=== PATIENT | female | born 1960 | race Caucasian/White ===

== ENCOUNTER 2017-05-08 06:55 | Inpatient (IN) | payer MEDICAID ==
[2017-05-08 06:59] VITALS: BMI 31.3
--- NOTE | 2017-05-08 07:08 | C.PDOC ---
Chief Complaint (Nursing): Cardiac Arrest Disposition - Disposition
[2017-05-08 07:10] LABS: BASO # 0.1 K/uL (0.0-0.2); BASO % 0.5 % (0.0-2.0); EOS # 1.8 K/uL (0.0-0.7); EOS % 7.2 % (0.0-4.0); HEMATOCRIT 43.2 % (34.0-47.0); LYMPH # 5.6 K/uL (1.0-4.3); LYMPH % 22.9 % (20.0-40.0); MEAN CELL VOLUME 90.8 fL (81.0-99.0); MEAN CORPUSCULAR HEMOGLOBIN 28.5 pg (27.0-31.0); MEAN CORPUSCULAR HGB CONC 31.4 g/dL (33.0-37.0); MEAN PLATELET VOLUME 8.2 fL (7.2-11.7); MONO # 0.6 K/uL (0.0-0.8); MONO % 2.4 % (0.0-10.0); NRBC % 0.1 % (0.0-2.0); WHITE BLOOD COUNT 24.4 K/uL (4.8-10.8)
--- NOTE | 2017-05-08 07:13 | C.PDOC ---
History Of Present Illness LIMITED DUE TO CLIN COND HX PER EMS, [place] S/O FROM DR Victoriano FONTANEZ. BIBA EMS STATUS ASTHMA. +CARDIAC ARREST PER EMS, PULSELESS W CPR. S/P INTUB BY EMS FORENSIC MEDICAL EXAMINER, EPI. NOW W RETURN OF SPONT PULSE. SP DUONEBS, SOLUMEDROL 125 PER , PT BEDBOUND AND NONVERBAL X 1 YEAR PROGRESSIVE WORSENING? STATES BASELINE PT UNDERSTANDS AND CAN ACKNOWLEDGE QUESTIONS W HEAD NODDING. FEEDING VIA PEG ROS UTO EXAM STABLE HEENT PUPILS SLUGGISH LUNGS sp intub CTA B/L BREATHING W VENT ABD +PEG; SOFT NT ND NEURO MOUTH TREMOR NO SPONT MOVEMENT NO RESPONSE TO PAIN S/P RSI SKIN DRY NO ULCERS GEN NONPITTING EDEMA Time Seen by Provider: 05/08/17 07:11 Chief Complaint (Nursing): Cardiac Arrest History Per: EMS, Family () Circumstances: Brought To ED By EMS Past Medical History Reviewed: Historical Data, Nursing Documentation, Vital Signs Vital Signs: Last Vital Signs Temp 98.3 F 05/08/17 09:00 Pulse 113 H 05/08/17 09:00 Resp 16 05/08/17 09:00 BP 116/72 05/08/17 09:00 Pulse Ox 100 05/08/17 09:09 Family History: States: No Known Family Hx Review Of Systems Review Of Systems: ROS cannot be obtained secondary to pt's inabilty to answer questions. Physical Exam - Physical Exam Appears: Non-toxic, No Acute Distress, Other ((+) Mouth - Tremor. No spontaneous movement. ) Skin: Warm, Dry, No Rash Head: Atraumatic, Normacephalic Eye(s): bilateral: Other (Sluggish) Oral Mucosa: Moist Respiratory: Normal Breath Sounds (s/p intubation), Other (Bilateral breathing with vent) Gastrointestinal/Abdominal: Soft, No Tenderness, No Distention, Other ((+) Peg) Extremity: Other ((+) General non pitting edema) Neurological/Psych: No Response To Commands Pain Response: No Response To Pain ED Course And Treatment - Laboratory Results Result Diagrams: 05/08/17 07:07 05/08/17 07:07 ECG: Interpreted By Me, Viewed By Me ECG Rhythm: Sinus Tachycardia ECG Interpretation: Abnormal Rate From EC (BPM) O2 Sat by Pulse Oximetry: 100 (RA) Pulse Ox Interpretation: Normal - Radiology CXR: Interpreted by Me, Viewed By Me CXR Interpretation: Yes: No Acute Disease, Other (ett above carlos) - CT Scan/US CT - Head Other Rad Studies (CT/US): Read By Radiologist, Radiology Report Reviewed CT/US Interpretation: PROCEDURE: CT HEAD WITHOUT CONTRAST. HISTORY: CODE FREEZE. COMPARISON: None available. TECHNIQUE: Axial computed tomography images were obtained through the head/brain without intravenous contrast. Radiation dose: Total exam DLP = 926 mGy-cm. This CT exam was performed using one or more of the following dose reduction techniques: Automated exposure control, adjustment of the mA and/or kV according to patient size, and/or use of iterative reconstruction technique. FINDINGS: HEMORRHAGE: No intracranial hemorrhage. BRAIN: Dense bilateral basal ganglia calcifications. Scattered focal lucencies in the subcortical and periventricular white matter suggestive for chronic microvascular ischemic change. Small focal hypodensity seen within the inferior left cerebellum which may be related to the 4th ventricle. VENTRICLES: Moderate prominence of the ventricles. CALVARIUM: Unremarkable. PARANASAL SINUSES: Ethmoid sinus mucosal thickening. Small mucosal retention cyst and or polyp in the anterior right maxillary sinus. MASTOID AIR CELLS: Unremarkable as visualized. No inflammatory changes. OTHER FINDINGS: None. IMPRESSION: Chronic microvascular ischemic changes. Dense bilateral basal ganglia calcifications. Diffuse moderate prominence of the ventricles. Clinical correlation. Ethmoid sinus mucosal thickening. If focal neurologic deficit persists, consider MRI. These findings were discussed with Dr. Gore at 8: 58 a.m. on 05/08/2017. Progress - Re-Evaluation Re-evaluation Note: 05/08/17 07:12 PER CONSTRUCTION ANALYST, DR Meche REYES CALLED PRIOR TO PT ARRIVAL, STATES TO ADMIT PT TO HIS SERVICE 05/08/17 07:39 D/W DR FLORENTINO WILL CONSULT 05/08/17 07:45 D/W DR MCFARLAND C/F ICU, WILL ADMIT 05/08/17 09:00 D/W DR PAUL HEAD CT NO ACUTE FINDINGS. CODE FREEZE ACTIVED - Data Reviewed Data Reviewed: Lab, Diagnostic imaging, EKG, Old records Medical Decision Making Medical Decision Making: PLAN: * CT - Head * CXR * EKG * Troponin * VBG * ABG * CBC * CMP * BNP * Influenza * Versed IV * Fentanyl IV * Diprivan IV * Buspar PEG * Tylenol PEG * Lacri-Lube OU NOTE: Disposition Counseled Patient/Family Regarding: Studies Performed, Diagnosis - Disposition Disposition: HOSPITALIZED Disposition Time: 08:13 Condition: CRITICAL - POA Present On Arrival: Poor Glycemic Control - Clinical Impression Clinical Impression: Cardiac arrest, Respiratory arrest, Status asthmaticus - Scribe Statement The provider has reviewed the documentation as recorded by the Alejoibe Leela Muñoz Provider Attestation: All medical record entries made by the Alejoibnicolas were at my direction and personally dictated by me. I have reviewed the chart and agree that the record accurately reflects my personal performance of the history, physical exam, medical decision making, and the department course for this patient. I have also personally directed, reviewed, and agree with the discharge instructions and disposition.
[2017-05-08 07:18] LABS: INR 1.2
[2017-05-08 07:35] LABS: VENOUS BLOOD GAS BASE EXCESS -9.9 mmol/L (0.0-2.0); VENOUS BLOOD GAS PCO2 80 mmHg (40-60); VENOUS BLOOD PH 7.05 (7.32-7.43)
[2017-05-08] MEDS ORDERED: Midazolam 2 MG/2 ML VIAL ONE (07:37)
[2017-05-08] MEDS ORDERED: Midazolam 2 MG/2 ML VIAL IV STA (07:40)
[2017-05-08 07:46] LABS: ALB/GLOB RATIO 1.3 (1.0-2.1); ALKALINE PHOSPHATASE 122 U/L (38-126); ALT/SGPT 85 U/L (9-52); AST/SGOT 135 U/L (14-36); BILIRUBIN,TOTAL 0.7 mg/dL (0.2-1.3); BLOOD UREA NITROGEN 14 mg/dL (7-17); CARBON DIOXIDE 20 mmol/L (22-30); CHLORIDE 102 mmol/L (98-107); GFR AFRICAN-AMERICAN > 60; GLUCOSE,RANDOM 263 mg/dL (65-105); POTASSIUM 5.1 mmol/L (3.6-5.2); SODIUM 138 mmol/L (132-148); TOTAL PROTEIN 6.4 g/dL (6.3-8.3)
--- NOTE | 2017-05-08 08:33 | RAD ---
Chest x-ray single frontal view History: Cardiac arrest. Comparison: None available. Findings: Endotracheal tube extending into the mid thoracic trachea. Multiple external pads and tubing. Mild venous congestion. Mild cardiomegaly. Degenerative changes in the spine and shoulders. Impression: Mild venous congestion. Mild cardiomegaly.
--- NOTE | 2017-05-08 09:02 | CT ---
PROCEDURE: CT HEAD WITHOUT CONTRAST. HISTORY: CODE FREEZE COMPARISON: None available. TECHNIQUE: Axial computed tomography images were obtained through the head/brain without intravenous contrast. Radiation dose: Total exam DLP = 926 mGy-cm. This CT exam was performed using one or more of the following dose reduction techniques: Automated exposure control, adjustment of the mA and/or kV according to patient size, and/or use of iterative reconstruction technique. FINDINGS: HEMORRHAGE: No intracranial hemorrhage. BRAIN: Dense bilateral basal ganglia calcifications. Scattered focal lucencies in the subcortical and periventricular white matter suggestive for chronic microvascular ischemic change. Small focal hypodensity seen within the inferior left cerebellum which may be related to the 4th ventricle. VENTRICLES: Moderate prominence of the ventricles. CALVARIUM: Unremarkable. PARANASAL SINUSES: Ethmoid sinus mucosal thickening. Small mucosal retention cyst and or polyp in the anterior right maxillary sinus. MASTOID AIR CELLS: Unremarkable as visualized. No inflammatory changes. OTHER FINDINGS: None. IMPRESSION: Chronic microvascular ischemic changes. Dense bilateral basal ganglia calcifications. Diffuse moderate prominence of the ventricles. Clinical correlation. Ethmoid sinus mucosal thickening. If focal neurologic deficit persists, consider MRI. These findings were discussed with Dr. Gore at 8:58 a.m. on 05/08/2017.
[2017-05-08 09:18] LABS: ABG ALLEN TEST POS; ABG MECHANICAL RATE 14; ARTERIAL BLOOD GAS MODE A/C; ATERIAL BLOOD GAS PEEP 5; DRAW SITE LB
[2017-05-08] MEDS ORDERED: Propofol 10 mg/ml Inj (100 ml) IV SCH (09:45)
[2017-05-08] MEDS: Acetaminophen 650mg/20.3ml solution UD PEG PRN (09:50)
[2017-05-08] MEDS: Propofol 10 mg/ml 1,000 MG/100 ML VIAL IV PRN (10:10)
[2017-05-08] MEDS: Sodium Chloride 0.9% 1,000 ML IV SCH ×2 (10:40→20:30)
[2017-05-08] MEDS: White Petrolatum/Mineral Oil Ophth Oint(3.5 gm) OU SCH ×3 (12:00→20:29)
--- NOTE | 2017-05-08 12:55 | CP.PCM.CON ---
History of Present Illness - History of Present Illness History of Present Illness: Reason for consultation: Respiratory failure 57F with PMH early onset dementia, seizures, and questionable asthma who was brought to the ED via EMS from her longterm, [facility], where she was witnessed cardiopulmonary arrest. EMS intubated the patient in the field and ROSC was achieved. Upon arrival to the ED patient was having myoclonic jerks and code freeze was initiated. Patient remained intubated and patient was admitted to the ICU. Review of Systems - Review of Systems Systems not reviewed;Unavailable: Intubated Past Patient History - Past Social History Smoking Status: Never Smoked - PULMONARY Hx Pneumonia: Yes - NEUROLOGICAL Hx Alzheimer's Disease: Yes Hx Seizures: Yes - RENAL Other/Comment: uti - GASTROINTESTINAL Other/Comment: GT - PSYCHIATRIC Hx Substance Use: No Meds Allergies/Adverse Reactions: Allergies Allergy/AdvReac Type Severity Reaction Status Date / Time Penicillins Allergy Verified 05/08/17 07:09 - Medications Medications: Current Medications Acetaminophen (Tylenol 650mg/20.3ml Solution Ud) 975 mg PEG Q6 PRN PRN Reason: Rigors Last Admin: 05/08/17 09:50 Dose: 975 mg Artificial Tears (Lacri-Lube) 0 gm OU Q4 LINNETTE Last Admin: 05/08/17 12:00 Dose: 1 gm Buspirone HCl (Buspar) 30 mg PEG Q8 LINNETTE Stop: 05/09/17 06:01 Propofol (Diprivan) 1,000 mg in 100 mls @ 2.722 mls/hr IV .Q24H PRN; Protocol; 5 MCG/KG/MIN PRN Reason: TITRATE PER MD ORDER Last Admin: 05/08/17 10:10 Dose: 5 mcg/kg/min, 2.722 mls/hr Sodium Chloride (Sodium Chloride 0.9%) 1,000 mls @ 100 mls/hr IV .Q10H LINNETTE Last Admin: 05/08/17 10:40 Dose: 100 mls/hr Physical Exam - Head Exam Head Exam: ATRAUMATIC, NORMOCEPHALIC - ENT Exam ENT Exam: Mucous Membranes Moist - Neck Exam Neck exam: Positive for: Normal Inspection - Respiratory Exam Respiratory Exam: Decreased Breath Sounds - Cardiovascular Exam Cardiovascular Exam: REGULAR RHYTHM - GI/Abdominal Exam GI & Abdominal Exam: Normal Bowel Sounds, Soft - Extremities Exam Extremities exam: Positive for: normal inspection Results - Vital Signs Recent Vital Signs: Last Vital Signs Temp 94.2 F L 05/08/17 12:01 Pulse 77 05/08/17 12:01 Resp 16 05/08/17 12:01 BP 99/72 L 05/08/17 12:01 Pulse Ox 99 05/08/17 12:01 - Labs Result Diagrams: 05/09/17 17:57 05/09/17 17:57 Labs: Laboratory Results - last 24 hr 05/08/17 05/08/17 05/08/17 07:07 07:07 07:07 WBC 24.4 H RBC 4.75 Hgb 13.5 Hct 43.2 MCV 90.8 MCH 28.5 MCHC 31.4 L RDW 14.0 Plt Count 345 MPV 8.2 Neut % (Auto) 67.0 Lymph % (Auto) 22.9 Branch % (Auto) 2.4 Eos % (Auto) 7.2 H Baso % (Auto) 0.5 Neut # 16.4 H Lymph # 5.6 H Branch # 0.6 Eos # 1.8 H Baso # 0.1 PT 13.6 H INR 1.2 APTT 40 H Puncture Site pCO2 pO2 HCO3 ABG pH ABG Total CO2 ABG O2 Saturation ABG Base Excess Evans Test ABG Potassium VBG pH VBG pCO2 VBG HCO3 VBG Total CO2 VBG O2 Sat (Calc) VBG Base Excess A-a O2 Difference Respiratory Index Glucose Lactate Vent Mode Mechanical Rate FiO2 PEEP Crit Value Called To Crit Value Called By Crit Value Read Back Blood Gas Notified Time Sodium 138 Potassium 5.1 Chloride 102 Carbon Dioxide 20 L Anion Gap 21 H BUN 14 Creatinine 0.6 L Est GFR ( Amer) > 60 Est GFR (Non-Af Amer) > 60 POC Glucose (mg/dL) Random Glucose 263 H Calcium 8.0 L Total Bilirubin 0.7 AST 135 H ALT 85 H Alkaline Phosphatase 122 Troponin I 0.0580 NT-Pro-B Natriuret Pep 298 Total Protein 6.4 Albumin 3.7 Globulin 2.7 Albumin/Globulin Ratio 1.3 Arterial Blood Potassium Influenza Typ A,B (EIA) 05/08/17 05/08/17 05/08/17 07:20 08:47 09:10 WBC RBC Hgb Hct MCV MCH MCHC RDW Plt Count MPV Neut % (Auto) Lymph % (Auto) Branch % (Auto) Eos % (Auto) Baso % (Auto) Neut # Lymph # Branch # Eos # Baso # PT INR APTT Puncture Site Lb pCO2 54 H pO2 231 H 274 H HCO3 17.8 L ABG pH 7.17 L* ABG Total CO2 21.4 L ABG O2 Saturation 100.7 H ABG Base Excess -9.2 L Evans Test Pos ABG Potassium 4.6 VBG pH 7.05 L* VBG pCO2 80 H* VBG HCO3 17.3 VBG Total CO2 24.6 VBG O2 Sat (Calc) 100.1 H VBG Base Excess -9.9 L A-a O2 Difference 372.0 Respiratory Index 1.4 Glucose 269 H 301 H Lactate 9.1 H* 2.5 H Vent Mode A/c Mechanical Rate 14 FiO2 100.0 PEEP 5 Crit Value Called To Dr. scott chavez Crit Value Called By [facility] Crit Value Read Back Y Y Blood Gas Notified Time 730 915 Sodium 189.0 H* 140.0 Potassium Chloride 126.0 H 108.0 H Carbon Dioxide Anion Gap BUN Creatinine Est GFR ( Amer) Est GFR (Non-Af Amer) POC Glucose (mg/dL) Random Glucose Calcium Total Bilirubin AST ALT Alkaline Phosphatase Troponin I NT-Pro-B Natriuret Pep Total Protein Albumin Globulin Albumin/Globulin Ratio Arterial Blood Potassium 4.6 Influenza Typ A,B (EIA) Negative for flu a/b 05/08/17 10:09 WBC RBC Hgb Hct MCV MCH MCHC RDW Plt Count MPV Neut % (Auto) Lymph % (Auto) Branch % (Auto) Eos % (Auto) Baso % (Auto) Neut # Lymph # Branch # Eos # Baso # PT INR APTT Puncture Site pCO2 pO2 HCO3 ABG pH ABG Total CO2 ABG O2 Saturation ABG Base Excess Evans Test ABG Potassium VBG pH VBG pCO2 VBG HCO3 VBG Total CO2 VBG O2 Sat (Calc) VBG Base Excess A-a O2 Difference Respiratory Index Glucose Lactate Vent Mode Mechanical Rate FiO2 PEEP Crit Value Called To Crit Value Called By Crit Value Read Back Blood Gas Notified Time Sodium Potassium Chloride Carbon Dioxide Anion Gap BUN Creatinine Est GFR ( Amer) Est GFR (Non-Af Amer) POC Glucose (mg/dL) 269 H Random Glucose Calcium Total Bilirubin AST ALT Alkaline Phosphatase Troponin I NT-Pro-B Natriuret Pep Total Protein Albumin Globulin Albumin/Globulin Ratio Arterial Blood Potassium Influenza Typ A,B (EIA)
[2017-05-08 13:28] LABS: VENOUS BLOOD GAS BASE EXCESS -7.7 mmol/L (0.0-2.0); VENOUS BLOOD GAS PCO2 73 mmHg (40-60); VENOUS BLOOD PH 7.11 (7.32-7.43)
--- NOTE | 2017-05-08 14:46 | CP.CCUPN ---
CCU Subjective - Physician Review Events Since Last Encounter (Free Text): 05/08/17 14:45 Chief complaint: Cardiac arrest History of present illness: 57-year-old female with advanced dementia, bedridden, dysphagia, status post PEG , history of asthma patient is nonverbal. The patient currently living in assisted, EMS was called because patient was found unresponsive, and found to have no pulse, CPR started, intubated, brought into the emergency room. No further information is available. According to the she was okay yesterday, she nodes her head to simple commands, and she did not have any unusual problems yesterday. Now patient is on ventilator. Unresponsive. Patient is also currently on hypothermia blanket. Her history includes asthma, patient was also having some SOB today, upon arrival EMS was found in status asthmaticus. Past medical history: Advanced dementia, Alzheimer's dementia, status post PEG tube insertion. Allergy: Penicillin Past history noted from the chart. Nonsmoker Family history noncontributory Review of systems noted from the chart Currently on ventilator. Unresponsive. Review of system was noted Vital signs reviewed No neck vein distention noted Chest bilateral wheezing noted Intubated at this time, expiratory wheezing noted CVS regular heart sound, no murmur noted Abdomen soft, nontender. PEG tube noted Extremities no pedal edema Patient is unresponsive. Mild sedation on. But the patient is having muscle twitches, and the facial twitching is noted On hyperthermic blanket. Labs reviewed Chest x-ray nonspecific COPD pattern noted Assessment and recognition: 57-year-old female with advanced dementia, bedridden, status post pigtail detention patient. Admitted with the acute cardiac arrest, the cause is unclear, likely status asthmaticus. 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 On hypothermia blanket. We'll continue the hypothermia. Overall prognosis is very poor. I spoke to the patient . Patient daughter will be coming this evening. We'll explained to the family about further management. Neurological evaluation, and palliative care evaluation may be needed at at this time. Will follow the patient poor prognosis CCU Objective - Vital Signs / Intake & Output Vital Signs (Last 4 hours): Vital Signs Temp Pulse Resp BP Pulse Ox 05/08/17 12:01 94.2 F L 77 16 99/72 L 99 05/08/17 11:46 94.1 F L 77 16 99/72 L 99 05/08/17 11:02 95.6 F L 82 16 106/67 99 05/08/17 10:46 96.7 F L 94 H 16 113/69 100 Intake and Output (Last 8hrs): Intake & Output 05/07/17 05/08/17 05/08/17 22:59 06:59 14:59 Intake Total 1102 Output Total 225 Balance 877 Weight 200 lb 172 lb 9.6 oz Intake: IV 1102 Output: Urine 225 - Medications Active Medications: Active Medications Generic Name Dose Route Start Last Admin Trade Name Freq PRN Reason Stop Dose Admin Acetaminophen 975 mg 05/08/17 09:31 05/08/17 09:50 Tylenol 650mg/20.3ml Solution Ud PEG 975 mg Q6 PRN Administration Rigors Artificial Tears 0 gm 05/08/17 12:00 05/08/17 12:00 Lacri-Lube OU 1 gm Q4 LINNETTE Administration Buspirone HCl 30 mg 05/08/17 14:00 Buspar PEG 05/09/17 06:01 Q8 LINNETTE Propofol 1,000 mg in 100 mls @ 2.722 mls/hr 05/08/17 09:49 05/08/17 10:10 Diprivan IV 5 mcg/kg/min .Q24H PRN 2.722 mls/hr TITRATE PER MD ORDER Administration Protocol 5 MCG/KG/MIN Sodium Chloride 1,000 mls @ 100 mls/hr 05/08/17 10:45 05/08/17 10:40 Sodium Chloride 0.9% IV 100 mls/hr .Q10H LINNETTE Administration - Patient Studies Lab Studies: Lab Studies 05/08/17 05/08/17 05/08/17 Range/Units 13:21 10:09 09:10 WBC (4.8-10.8) K/uL RBC (3.80-5.20) Mil/uL Hgb (11.0-16.0) g/dL Hct (34.0-47.0) % MCV (81.0-99.0) fL MCH (27.0-31.0) pg MCHC (33.0-37.0) g/dL RDW (11.5-14.5) % Plt Count (130-400) K/uL MPV (7.2-11.7) fL Neut % (Auto) (50.0-75.0) % Lymph % (Auto) (20.0-40.0) % [place] % (Auto) (0.0-10.0) % Eos % (Auto) (0.0-4.0) % Baso % (Auto) (0.0-2.0) % Neut # (1.8-7.0) K/uL Lymph # (1.0-4.3) K/uL [place] # (0.0-0.8) K/uL Eos # (0.0-0.7) K/uL Baso # (0.0-0.2) K/uL PT (9.7-12.2) SECONDS INR APTT (21-34) SECONDS Puncture Site Lb pCO2 54 H (35-45) mm/Hg pO2 34 274 H (30-55) mm/Hg HCO3 17.8 L (21-28) mmol/L ABG pH 7.17 L* (7.35-7.45) ABG Total CO2 21.4 L (22-28) mmol/L ABG O2 Saturation 100.7 H (95-98) % ABG Base Excess -9.2 L (-2.0-3.0) mmol/L Evans Test Pos ABG Potassium 4.6 (3.6-5.2) mmol/L VBG pH 7.11 L* (7.32-7.43) VBG pCO2 73 H* (40-60) mmHg VBG HCO3 17.4 mmol/L VBG Total CO2 25.4 (22-28) mmol/L VBG O2 Sat (Calc) 60.6 (40-65) % VBG Base Excess -7.7 L (0.0-2.0) mmol/L VBG Potassium 4.4 (3.6-5.2) mmol/L A-a O2 Difference 372.0 mm/Hg Respiratory Index 1.4 Glucose 269 H 301 H (65-105) mg/dl Lactate 4.4 H* 2.5 H (0.7-2.1) mmol/L Vent Mode A/c Mechanical Rate 14 FiO2 100.0 % PEEP 5 Crit Value Called To Dr.naturijan Dr. delano chavez Crit Value Called By [facility] Crit Value Read Back Y Y Blood Gas Notified Time 1324 915 Sodium 144.0 140.0 (132-148) mmol/L Potassium (3.6-5.2) mmol/L Chloride 110.0 H 108.0 H (98-107) mmol/L Carbon Dioxide (22-30) mmol/L Anion Gap (10-20) BUN (7-17) mg/dL Creatinine (0.7-1.2) mg/dL Est GFR ( Amer) Est GFR (Non-Af Amer) POC Glucose (mg/dL) 269 H (65-110) mg/dL Random Glucose (65-105) mg/dL Calcium (8.6-10.4) mg/dl Total Bilirubin (0.2-1.3) mg/dL AST (14-36) U/L ALT (9-52) U/L Alkaline Phosphatase (38-126) U/L Troponin I (0.00-0.120) ng/mL NT-Pro-B Natriuret Pep (0-900) pg/mL Total Protein (6.3-8.3) g/dL Albumin (3.5-5.0) g/dL Globulin (2.2-3.9) gm/dL Albumin/Globulin Ratio (1.0-2.1) Arterial Blood Potassium 4.6 (3.6-5.2) mmol/L Venous Blood Potassium 4.4 (3.6-5.2) mmol/L Influenza Typ A,B (EIA) (NEGATIVE) 05/08/17 05/08/17 05/08/17 Range/Units 08:47 07:20 07:07 WBC (4.8-10.8) K/uL RBC (3.80-5.20) Mil/uL Hgb (11.0-16.0) g/dL Hct (34.0-47.0) % MCV (81.0-99.0) fL MCH (27.0-31.0) pg MCHC (33.0-37.0) g/dL RDW (11.5-14.5) % Plt Count (130-400) K/uL MPV (7.2-11.7) fL Neut % (Auto) (50.0-75.0) % Lymph % (Auto) (20.0-40.0) % [place] % (Auto) (0.0-10.0) % Eos % (Auto) (0.0-4.0) % Baso % (Auto) (0.0-2.0) % Neut # (1.8-7.0) K/uL Lymph # (1.0-4.3) K/uL [place] # (0.0-0.8) K/uL Eos # (0.0-0.7) K/uL Baso # (0.0-0.2) K/uL PT (9.7-12.2) SECONDS INR APTT (21-34) SECONDS Puncture Site pCO2 (35-45) mm/Hg pO2 231 H (30-55) mm/Hg HCO3 (21-28) mmol/L ABG pH (7.35-7.45) ABG Total CO2 (22-28) mmol/L ABG O2 Saturation (95-98) % ABG Base Excess (-2.0-3.0) mmol/L Evans Test ABG Potassium (3.6-5.2) mmol/L VBG pH 7.05 L* (7.32-7.43) VBG pCO2 80 H* (40-60) mmHg VBG HCO3 17.3 mmol/L VBG Total CO2 24.6 (22-28) mmol/L VBG O2 Sat (Calc) 100.1 H (40-65) % VBG Base Excess -9.9 L (0.0-2.0) mmol/L VBG Potassium (3.6-5.2) mmol/L A-a O2 Difference mm/Hg Respiratory Index Glucose 269 H (65-105) mg/dl Lactate 9.1 H* (0.7-2.1) mmol/L Vent Mode Mechanical Rate FiO2 % PEEP Crit Value Called To Dr. scott wick Crit Value Called By [facility] Crit Value Read Back Y Blood Gas Notified Time 730 Sodium 189.0 H* 138 (132-148) mmol/L Potassium 5.1 (3.6-5.2) mmol/L Chloride 126.0 H 102 (98-107) mmol/L Carbon Dioxide 20 L (22-30) mmol/L Anion Gap 21 H (10-20) BUN 14 (7-17) mg/dL Creatinine 0.6 L (0.7-1.2) mg/dL Est GFR ( Amer) > 60 Est GFR (Non-Af Amer) > 60 POC Glucose (mg/dL) (65-110) mg/dL Random Glucose 263 H (65-105) mg/dL Calcium 8.0 L (8.6-10.4) mg/dl Total Bilirubin 0.7 (0.2-1.3) mg/dL AST 135 H (14-36) U/L ALT 85 H (9-52) U/L Alkaline Phosphatase 122 (38-126) U/L Troponin I 0.0580 (0.00-0.120) ng/mL NT-Pro-B Natriuret Pep 298 (0-900) pg/mL Total Protein 6.4 (6.3-8.3) g/dL Albumin 3.7 (3.5-5.0) g/dL Globulin 2.7 (2.2-3.9) gm/dL Albumin/Globulin Ratio 1.3 (1.0-2.1) Arterial Blood Potassium (3.6-5.2) mmol/L Venous Blood Potassium (3.6-5.2) mmol/L Influenza Typ A,B (EIA) Negative for flu a/b (NEGATIVE) 05/08/17 05/08/17 Range/Units 07:07 07:07 WBC 24.4 H (4.8-10.8) K/uL RBC 4.75 (3.80-5.20) Mil/uL Hgb 13.5 (11.0-16.0) g/dL Hct 43.2 (34.0-47.0) % MCV 90.8 (81.0-99.0) fL MCH 28.5 (27.0-31.0) pg MCHC 31.4 L (33.0-37.0) g/dL RDW 14.0 (11.5-14.5) % Plt Count 345 (130-400) K/uL MPV 8.2 (7.2-11.7) fL Neut % (Auto) 67.0 (50.0-75.0) % Lymph % (Auto) 22.9 (20.0-40.0) % [place] % (Auto) 2.4 (0.0-10.0) % Eos % (Auto) 7.2 H (0.0-4.0) % Baso % (Auto) 0.5 (0.0-2.0) % Neut # 16.4 H (1.8-7.0) K/uL Lymph # 5.6 H (1.0-4.3) K/uL [place] # 0.6 (0.0-0.8) K/uL Eos # 1.8 H (0.0-0.7) K/uL Baso # 0.1 (0.0-0.2) K/uL PT 13.6 H (9.7-12.2) SECONDS INR 1.2 APTT 40 H (21-34) SECONDS Puncture Site pCO2 (35-45) mm/Hg pO2 (30-55) mm/Hg HCO3 (21-28) mmol/L ABG pH (7.35-7.45) ABG Total CO2 (22-28) mmol/L ABG O2 Saturation (95-98) % ABG Base Excess (-2.0-3.0) mmol/L Evans Test ABG Potassium (3.6-5.2) mmol/L VBG pH (7.32-7.43) VBG pCO2 (40-60) mmHg VBG HCO3 mmol/L VBG Total CO2 (22-28) mmol/L VBG O2 Sat (Calc) (40-65) % VBG Base Excess (0.0-2.0) mmol/L VBG Potassium (3.6-5.2) mmol/L A-a O2 Difference mm/Hg Respiratory Index Glucose (65-105) mg/dl Lactate (0.7-2.1) mmol/L Vent Mode Mechanical Rate FiO2 % PEEP Crit Value Called To Crit Value Called By Crit Value Read Back Blood Gas Notified Time Sodium (132-148) mmol/L Potassium (3.6-5.2) mmol/L Chloride (98-107) mmol/L Carbon Dioxide (22-30) mmol/L Anion Gap (10-20) BUN (7-17) mg/dL Creatinine (0.7-1.2) mg/dL Est GFR ( Amer) Est GFR (Non-Af Amer) POC Glucose (mg/dL) (65-110) mg/dL Random Glucose (65-105) mg/dL Calcium (8.6-10.4) mg/dl Total Bilirubin (0.2-1.3) mg/dL AST (14-36) U/L ALT (9-52) U/L Alkaline Phosphatase (38-126) U/L Troponin I (0.00-0.120) ng/mL NT-Pro-B Natriuret Pep (0-900) pg/mL Total Protein (6.3-8.3) g/dL Albumin (3.5-5.0) g/dL Globulin (2.2-3.9) gm/dL Albumin/Globulin Ratio (1.0-2.1) Arterial Blood Potassium (3.6-5.2) mmol/L Venous Blood Potassium (3.6-5.2) mmol/L Influenza Typ A,B (EIA) (NEGATIVE) Laboratory Results - last 24 hr 05/08/17 05/08/17 05/08/17 07:07 07:07 07:07 WBC 24.4 H RBC 4.75 Hgb 13.5 Hct 43.2 MCV 90.8 MCH 28.5 MCHC 31.4 L RDW 14.0 Plt Count 345 MPV 8.2 Neut % (Auto) 67.0 Lymph % (Auto) 22.9 [place] % (Auto) 2.4 Eos % (Auto) 7.2 H Baso % (Auto) 0.5 Neut # 16.4 H Lymph # 5.6 H [place] # 0.6 Eos # 1.8 H Baso # 0.1 PT 13.6 H INR 1.2 APTT 40 H Puncture Site pCO2 pO2 HCO3 ABG pH ABG Total CO2 ABG O2 Saturation ABG Base Excess Evans Test ABG Potassium VBG pH VBG pCO2 VBG HCO3 VBG Total CO2 VBG O2 Sat (Calc) VBG Base Excess VBG Potassium A-a O2 Difference Respiratory Index Glucose Lactate Vent Mode Mechanical Rate FiO2 PEEP Crit Value Called To Crit Value Called By Crit Value Read Back Blood Gas Notified Time Sodium 138 Potassium 5.1 Chloride 102 Carbon Dioxide 20 L Anion Gap 21 H BUN 14 Creatinine 0.6 L Est GFR ( Amer) > 60 Est GFR (Non-Af Amer) > 60 POC Glucose (mg/dL) Random Glucose 263 H Calcium 8.0 L Total Bilirubin 0.7 AST 135 H ALT 85 H Alkaline Phosphatase 122 Troponin I 0.0580 NT-Pro-B Natriuret Pep 298 Total Protein 6.4 Albumin 3.7 Globulin 2.7 Albumin/Globulin Ratio 1.3 Arterial Blood Potassium Venous Blood Potassium Influenza Typ A,B (EIA) 05/08/17 05/08/17 05/08/17 07:20 08:47 09:10 WBC RBC Hgb Hct MCV MCH MCHC RDW Plt Count MPV Neut % (Auto) Lymph % (Auto) [place] % (Auto) Eos % (Auto) Baso % (Auto) Neut # Lymph # [place] # Eos # Baso # PT INR APTT Puncture Site Lb pCO2 54 H pO2 231 H 274 H HCO3 17.8 L ABG pH 7.17 L* ABG Total CO2 21.4 L ABG O2 Saturation 100.7 H ABG Base Excess -9.2 L Evans Test Pos ABG Potassium 4.6 VBG pH 7.05 L* VBG pCO2 80 H* VBG HCO3 17.3 VBG Total CO2 24.6 VBG O2 Sat (Calc) 100.1 H VBG Base Excess -9.9 L VBG Potassium A-a O2 Difference 372.0 Respiratory Index 1.4 Glucose 269 H 301 H Lactate 9.1 H* 2.5 H Vent Mode A/c Mechanical Rate 14 FiO2 100.0 PEEP 5 Crit Value Called To Dr. scott chavez Crit Value Called By [facility] Crit Value Read Back Y Y Blood Gas Notified Time 730 915 Sodium 189.0 H* 140.0 Potassium Chloride 126.0 H 108.0 H Carbon Dioxide Anion Gap BUN Creatinine Est GFR ( Amer) Est GFR (Non-Af Amer) POC Glucose (mg/dL) Random Glucose Calcium Total Bilirubin AST ALT Alkaline Phosphatase Troponin I NT-Pro-B Natriuret Pep Total Protein Albumin Globulin Albumin/Globulin Ratio Arterial Blood Potassium 4.6 Venous Blood Potassium Influenza Typ A,B (EIA) Negative for flu a/b 05/08/17 05/08/17 10:09 13:21 WBC RBC Hgb Hct MCV MCH MCHC RDW Plt Count MPV Neut % (Auto) Lymph % (Auto) [place] % (Auto) Eos % (Auto) Baso % (Auto) Neut # Lymph # [place] # Eos # Baso # PT INR APTT Puncture Site pCO2 pO2 34 HCO3 ABG pH ABG Total CO2 ABG O2 Saturation ABG Base Excess Evans Test ABG Potassium VBG pH 7.11 L* VBG pCO2 73 H* VBG HCO3 17.4 VBG Total CO2 25.4 VBG O2 Sat (Calc) 60.6 VBG Base Excess -7.7 L VBG Potassium 4.4 A-a O2 Difference Respiratory Index Glucose 269 H Lactate 4.4 H* Vent Mode Mechanical Rate FiO2 PEEP Crit Value Called To Crit Value Called By lopez Carlton Crit Value Read Back Y Blood Gas Notified Time 1327 Sodium 144.0 Potassium Chloride 110.0 H Carbon Dioxide Anion Gap BUN Creatinine Est GFR ( Amer) Est GFR (Non-Af Amer) POC Glucose (mg/dL) 269 H Random Glucose Calcium Total Bilirubin AST ALT Alkaline Phosphatase Troponin I NT-Pro-B Natriuret Pep Total Protein Albumin Globulin Albumin/Globulin Ratio Arterial Blood Potassium Venous Blood Potassium 4.4 Influenza Typ A,B (EIA) EKG/Cardiology Studies: Cardiology / EKG Studies 05/08/17 07:01 ELECTROCARDIOGRAM Stat Comment: Mode Of Transportation: BED Reason For Exam: cardiac arrest Fingerstick Blood Sugar Results: 269
[2017-05-08] MEDS: MethylPREDNISolone 40 mg Vial IVP SCH ×2 (16:00→21:36)
[2017-05-08 16:29] LABS: BASO % 0.1 % (0.0-2.0); EOS % 0.2 % (0.0-4.0); HEMATOCRIT 42.2 % (34.0-47.0); LYMPH # 0.5 K/uL (1.0-4.3); LYMPH % 2.2 % (20.0-40.0); MEAN CELL VOLUME 89.4 fL (81.0-99.0); MEAN CORPUSCULAR HEMOGLOBIN 28.7 pg (27.0-31.0); MEAN CORPUSCULAR HGB CONC 32.1 g/dL (33.0-37.0); MEAN PLATELET VOLUME 8.4 fL (7.2-11.7); MONO # 0.4 K/uL (0.0-0.8); MONO % 1.7 % (0.0-10.0); PLATELET COUNT 237 K/uL (130-400); WHITE BLOOD COUNT 22.7 K/uL (4.8-10.8)
[2017-05-08 16:39] LABS: ABG ALLEN TEST NEG; ABG MECHANICAL RATE 16; ARTERIAL BLOOD GAS MODE PRVC; ATERIAL BLOOD GAS PEEP 5; DRAW SITE RBRACHIAL
[2017-05-08 16:52] LABS: ALB/GLOB RATIO 0.9 (1.0-2.1); ALKALINE PHOSPHATASE 129 U/L (38-126); ALT/SGPT 114 U/L (9-52); AST/SGOT 151 U/L (14-36); BLOOD UREA NITROGEN 20 mg/dL (7-17); CALCIUM 7.6 mg/dl (8.6-10.4); CARBON DIOXIDE 17 mmol/L (22-30); CHLORIDE 106 mmol/L (98-107); GFR AFRICAN-AMERICAN > 60; GLUCOSE,RANDOM 316 mg/dL (65-105); MAGNESIUM 1.9 mg/dL (1.6-2.3); PHOSPHOROUS 4.2 mg/dL (2.5-4.5); POTASSIUM 3.9 mmol/L (3.6-5.2); SODIUM 139 mmol/L (132-148); TOTAL PROTEIN 7.3 g/dL (6.3-8.3)
[2017-05-08 18:59] LABS: NEUTROPHIL 96 % (50-75); TOTAL CELLS COUNTED 100
[2017-05-08 19:00] LABS: LARGE PLATELETS PRESENT
[2017-05-08] MEDS: Albuterol-Ipratrop 3 mg / 0.5 (3 ml) UD INH SCH (19:37)
[2017-05-08] MEDS: (Novolin R) Insulin Human Regular 100 units/ml vial SC SCH (20:29)
[2017-05-09] MEDS: (Novolin R) Insulin Human Regular 100 units/ml vial SC SCH ×6 (00:34→20:47)
[2017-05-09] MEDS: White Petrolatum/Mineral Oil Ophth Oint(3.5 gm) OU SCH ×7 (00:34→23:55)
[2017-05-09] MEDS: Albuterol-Ipratrop 3 mg / 0.5 (3 ml) UD INH SCH ×3 (02:00→20:00)
[2017-05-09] MEDS: MethylPREDNISolone 40 mg Vial IVP SCH ×3 (05:22→21:25)
[2017-05-09] MEDS: Pantoprazole 40 mg Susp UD PO SCH (05:22)
[2017-05-09] MEDS: Sodium Chloride 0.9% 1,000 ML IV SCH ×2 (05:56→17:24)
[2017-05-09 06:06] LABS: ABG ALLEN TEST NG; ABG MECHANICAL RATE 16; ARTERIAL BLOOD GAS MODE PRVC; ARTERIAL BLOOD HGB O2 SAT 97.3 % (95.0-98.0); ATERIAL BLOOD GAS PEEP 5; CARBOXYHEMOGLOBIN 1.4 % (0.5-1.5); DRAW SITE RFEM; HHB 0.1 % (0.0-5.0); METHEMOGLOBIN 1.3 % (0.0-3.0)
[2017-05-09 06:35] LABS: BASO # 0.1 K/uL (0.0-0.2); BASO % 0.3 % (0.0-2.0); EOS # 0.3 K/uL (0.0-0.7); EOS % 1.7 % (0.0-4.0); HEMATOCRIT 40.3 % (34.0-47.0); LYMPH # 1.1 K/uL (1.0-4.3); LYMPH % 5.3 % (20.0-40.0); MEAN CELL VOLUME 87.4 fL (81.0-99.0); MEAN CORPUSCULAR HEMOGLOBIN 28.2 pg (27.0-31.0); MEAN CORPUSCULAR HGB CONC 32.3 g/dL (33.0-37.0); MONO # 0.4 K/uL (0.0-0.8); MONO % 1.9 % (0.0-10.0); NRBC % 0.2 % (0.0-2.0); PLATELET COUNT 219 K/uL (130-400); RED CELL DISTRIBUTION WIDTH 13.9 % (11.5-14.5); WHITE BLOOD COUNT 20.7 K/uL (4.8-10.8)
[2017-05-09 07:08] LABS: ALB/GLOB RATIO 0.9 (1.0-2.1); ALKALINE PHOSPHATASE 105 U/L (38-126); ALT/SGPT 136 U/L (9-52); AST/SGOT 128 U/L (14-36); BILIRUBIN,TOTAL 0.7 mg/dL (0.2-1.3); BLOOD UREA NITROGEN 25 mg/dL (7-17); CALCIUM 7.8 mg/dl (8.6-10.4); CARBON DIOXIDE 19 mmol/L (22-30); CHLORIDE 111 mmol/L (98-107); GFR AFRICAN-AMERICAN > 60; GLUCOSE,RANDOM 151 mg/dL (65-105); MAGNESIUM 1.9 mg/dL (1.6-2.3); PHOSPHOROUS 2.8 mg/dL (2.5-4.5); POTASSIUM 3.3 mmol/L (3.6-5.2); SODIUM 139 mmol/L (132-148); TOTAL PROTEIN 6.8 g/dL (6.3-8.3)
--- NOTE | 2017-05-09 08:20 | RAD ---
Chest x-ray single frontal view History: Ventilator. Comparison: None available. Findings: Endotracheal tube extending into the mid thoracic trachea. Prominent diffuse increased interstitial lung markings. Bilateral hilar prominence. Confluent consolidative opacification at the right lung base as well as at the left lung base. Small left pleural effusion. Tortuous ectatic aorta. Cardiomegaly. Degenerative changes in the spine and shoulders. Impression: Endotracheal tube extending into the mid thoracic trachea. Prominent diffuse increased interstitial lung markings. Bilateral hilar prominence. Confluent consolidative opacification at the right lung base as well as at the left lung base. Small left pleural effusion. Tortuous ectatic aorta. Cardiomegaly.
[2017-05-09 09:01] LABS: NEUTROPHIL 91 % (50-75); TOTAL CELLS COUNTED 100
[2017-05-09 09:04] LABS: LARGE PLATELETS PRESENT
[2017-05-09] MEDS ORDERED: Sodium Chloride 0.9% 1,000 ML IV ONE (10:10)
[2017-05-09] MEDS ORDERED: levETIRAcetam 500 MG in Sodium Chloride 0.9% 100 ML IVPB SCH ×2 (11:00→11:30)
[2017-05-09] MEDS: Enoxaparin 40 mg Syringe SC SCH (11:48)
[2017-05-09 12:39] LABS: BASO % 0.1 % (0.0-2.0); HEMATOCRIT 38.4 % (34.0-47.0); LYMPH # 1.4 K/uL (1.0-4.3); LYMPH % 7.1 % (20.0-40.0); MEAN CELL VOLUME 87.5 fL (81.0-99.0); MEAN CORPUSCULAR HGB CONC 33.1 g/dL (33.0-37.0); MEAN PLATELET VOLUME 8.3 fL (7.2-11.7); MONO # 0.5 K/uL (0.0-0.8); MONO % 2.5 % (0.0-10.0); NRBC % 0.1 % (0.0-2.0); PLATELET COUNT 192 K/uL (130-400); RED CELL DISTRIBUTION WIDTH 13.6 % (11.5-14.5); WHITE BLOOD COUNT 19.5 K/uL (4.8-10.8)
[2017-05-09] MEDS: Vancomycin 1 gm/NS 200 ml 1 GM/200 ML BAG IVPB SCH ×2 (12:42→23:54)
[2017-05-09 12:43] LABS: INR 1.3
[2017-05-09 12:47] LABS: ALKALINE PHOSPHATASE 99 U/L (38-126); ALT/SGPT 131 U/L (9-52); AST/SGOT 108 U/L (14-36); BILIRUBIN,TOTAL 0.6 mg/dL (0.2-1.3); BLOOD UREA NITROGEN 23 mg/dL (7-17); CALCIUM 7.7 mg/dl (8.6-10.4); CARBON DIOXIDE 20 mmol/L (22-30); CHLORIDE 111 mmol/L (98-107); GFR AFRICAN-AMERICAN > 60; GLUCOSE,RANDOM 97 mg/dL (65-105); MAGNESIUM 1.8 mg/dL (1.6-2.3); PHOSPHOROUS 2.7 mg/dL (2.5-4.5); POTASSIUM 3.2 mmol/L (3.6-5.2); SODIUM 140 mmol/L (132-148); TOTAL PROTEIN 6.4 g/dL (6.3-8.3)
[2017-05-09 13:24] LABS: ALB/GLOB RATIO 0.9 (1.0-2.1)
--- NOTE | 2017-05-09 13:26 | CP.CCUPN ---
CCU Subjective - Physician Review Events Since Last Encounter (Free Text): 05/09/17 13:25 Patient seen and examined in the intensive care unit. Case discussed with staff Patient remained intubated on ventilatory support with myoclonic jerks Following hypothermic protocol No response to painful stimuli Status post cardiac arrest and resuscitation CCU Objective - Vital Signs / Intake & Output Vital Signs (Last 4 hours): Vital Signs Temp Pulse Resp BP Pulse Ox 05/09/17 13:00 78 22 101/77 05/09/17 12:30 78 24 112/82 05/09/17 12:00 93.2 F L 72 20 133/89 100 05/09/17 11:30 69 22 124/82 05/09/17 11:00 58 L 20 118/79 05/09/17 10:30 57 L 16 112/85 05/09/17 10:00 92.1 F L 57 L 16 138/79 100 Intake and Output (Last 8hrs): Intake & Output 05/08/17 05/09/17 05/09/17 22:59 06:59 14:59 Intake Total 818.4 868.4 2148.5 Output Total 360 85 145 Balance 458.4 783.4 2003.5 Weight 172 lb 4.8 oz Intake: Intake, IV Amount 818.4 818.4 2118.5 Left Distal Port Internal 2.7 Jugular Left Forearm [phone] Left Medial Port Internal 200 Jugular Left Proximal Port 100 Internal Jugular Right Forearm 18.4 18.4 15.8 Oral 0 30 Tube Feeding 0 Other 50 Output: Urine 360 85 145 Urethral (Johnson) 360 85 145 Other: # Bowel Movements 0 - Physical Exam Head: Positive for: Atraumatic, Normocephalic Pupils: Positive for: Sluggish Mouth: Positive for: Moist Mucous Membranes Neck: Positive for: Trachea Midline Respiratory/Chest: Positive for: Decreased Breath Sounds Cardiovascular: Positive for: Regular Rate and Rhythm Abdomen: Positive for: Normal Bowel Sounds Upper Extremity: Positive for: Normal Inspection Lower Extremity: Positive for: Edema Psychiatric: Positive for: Other - Medications Active Medications: Active Medications Generic Name Dose Route Start Last Admin Trade Name Freq PRN Reason Stop Dose Admin Acetaminophen 975 mg 05/08/17 09:31 05/08/17 09:50 Tylenol 650mg/20.3ml Solution Ud PEG 975 mg Q6 PRN Administration Rigors Albuterol/Ipratropium 3 ml 05/08/17 20:00 05/09/17 07:40 Duoneb 3 Mg/0.5 Mg (3 Ml) Ud INH 3 ml RQ6 LINNETTE Administration Artificial Tears 0 gm 05/08/17 12:00 05/09/17 12:11 Lacri-Lube OU 3.5 gm Q4 LINNETTE Administration Enoxaparin Sodium 40 mg 05/09/17 10:30 05/09/17 11:48 Lovenox SC 40 mg DAILY LINNETTE Administration Propofol 1,000 mg in 100 mls @ 2.722 mls/hr 05/08/17 09:49 05/08/17 10:10 Diprivan IV 5 mcg/kg/min .Q24H PRN 2.722 mls/hr TITRATE PER MD ORDER Administration Protocol 5 MCG/KG/MIN Sodium Chloride 1,000 mls @ 100 mls/hr 05/08/17 10:45 05/09/17 05:56 Sodium Chloride 0.9% IV 100 mls/hr .Q10H LINNETTE Administration Aztreonam 1 gm/ Sodium 50 mls @ 100 mls/hr 05/09/17 11:00 05/09/17 12:02 Chloride IVPB 100 mls/hr Q8H LINNETTE Administration Vancomycin/Sodium Chloride 1 gm in 200 mls @ 133 mls/hr 05/09/17 12:00 12:42 Vancomycin 1 Gm/Ns 200 Ml IVPB 05/14/17 12:01 133 mls/hr Q12H LINNETTE Administration Levetiracetam 750 mg/ Sodium 107.5 mls @ 420 mls/hr 05/09/17 11:30 05/09/17 11:45 Chloride IVPB 420 mls/hr Q12H LINNETTE Administration Insulin Human Regular 0 unit 05/08/17 20:15 05/09/17 12:21 Novolin R SC Not Given Q4H LINNETTE Protocol Methylprednisolone 40 mg 05/08/17 15:00 05/09/17 13:14 Solu-Medrol IVP 40 mg Q8 LINNETTE Administration Pantoprazole Sodium 40 mg 05/09/17 06:00 05/09/17 05:22 Protonix Susp PO 40 mg 0600 LINNETTE Administration - Patient Studies Lab Studies: Microbiology Studies 05/08/17 14:37 MRSA Culture (Admit) - Final Naris MRSA NOT DETECTED Lab Studies 05/09/17 05/09/17 05/09/17 Range/Units 12:32 12:32 12:32 WBC 19.5 H (4.8-10.8) K/uL RBC 4.39 (3.80-5.20) Mil/uL Hgb 12.7 (11.0-16.0) g/dL Hct 38.4 (34.0-47.0) % MCV 87.5 (81.0-99.0) fL MCH 29.0 (27.0-31.0) pg MCHC 33.1 (33.0-37.0) g/dL RDW 13.6 (11.5-14.5) % Plt Count 192 (130-400) K/uL MPV 8.3 (7.2-11.7) fL Neut % (Auto) 90.3 H (50.0-75.0) % Lymph % (Auto) 7.1 L (20.0-40.0) % [place] % (Auto) 2.5 (0.0-10.0) % Eos % (Auto) 0.0 (0.0-4.0) % Baso % (Auto) 0.1 (0.0-2.0) % Neut # 17.6 H (1.8-7.0) K/uL Lymph # 1.4 (1.0-4.3) K/uL [place] # 0.5 (0.0-0.8) K/uL Eos # 0.0 (0.0-0.7) K/uL Baso # 0.0 (0.0-0.2) K/uL Neutrophils % (Manual) (50-75) % Band Neutrophils % (0-2) % Lymphocytes % (Manual) (20-40) % Monocytes % (Manual) (0-10) % Platelet Estimate (NORMAL) Large Platelets Polychromasia Hypochromasia (manual) Anisocytosis (manual) PT 14.8 H (9.7-12.2) SECONDS INR 1.3 APTT 31 D (21-34) SECONDS Puncture Site pCO2 (35-45) mm/Hg pO2 (30-55) mm/Hg HCO3 (21-28) mmol/L ABG pH (7.35-7.45) ABG Total CO2 (22-28) mmol/L ABG O2 Saturation (95-98) % ABG Base Excess (-2.0-3.0) mmol/L ABG Hemoglobin (11.7-17.4) g/dL ABG Carboxyhemoglobin (0.5-1.5) % POC ABG HHb (Measured) (0.0-5.0) % ABG Methemoglobin (0.0-3.0) % Evans Test ABG Potassium (3.6-5.2) mmol/L VBG pH (7.32-7.43) VBG pCO2 (40-60) mmHg VBG HCO3 mmol/L VBG Total CO2 (22-28) mmol/L VBG O2 Sat (Calc) (40-65) % VBG Base Excess (0.0-2.0) mmol/L VBG Potassium (3.6-5.2) mmol/L A-a O2 Difference mm/Hg Respiratory Index Hgb O2 Saturation (95.0-98.0) % Sodium 140 (132-148) mmol/l Chloride 111 H (98-107) mmol/L Glucose (65-105) mg/dl Lactate (0.7-2.1) mmol/L Vent Mode Mechanical Rate FiO2 % Tidal Volume PEEP Crit Value Called To Crit Value Called By Crit Value Read Back Blood Gas Notified Time Potassium 3.2 L (3.6-5.2) mmol/L Carbon Dioxide 20 L (22-30) mmol/L Anion Gap 12 (10-20) BUN 23 H (7-17) mg/dL Creatinine 0.4 L (0.7-1.2) mg/dL Est GFR ( Amer) > 60 Est GFR (Non-Af Amer) > 60 POC Glucose (mg/dL) (65-110) mg/dL Random Glucose 97 (65-105) mg/dL Calcium 7.7 L (8.6-10.4) mg/dl Phosphorus 2.7 (2.5-4.5) mg/dL Magnesium 1.8 (1.6-2.3) mg/dL Total Bilirubin 0.6 (0.2-1.3) mg/dL AST 108 H (14-36) U/L ALT 131 H (9-52) U/L Alkaline Phosphatase 99 (38-126) U/L Total Protein 6.4 (6.3-8.3) g/dL Albumin 3.0 L (3.5-5.0) g/dL Globulin 3.4 (2.2-3.9) gm/dL Albumin/Globulin Ratio 0.9 L (1.0-2.1) Arterial Blood Potassium (3.6-5.2) mmol/L Venous Blood Potassium (3.6-5.2) mmol/L 05/09/17 05/09/17 05/09/17 Range/Units 12:15 07:37 06:24 WBC (4.8-10.8) K/uL RBC (3.80-5.20) Mil/uL Hgb (11.0-16.0) g/dL Hct (34.0-47.0) % MCV (81.0-99.0) fL MCH (27.0-31.0) pg MCHC (33.0-37.0) g/dL RDW (11.5-14.5) % Plt Count (130-400) K/uL MPV (7.2-11.7) fL Neut % (Auto) (50.0-75.0) % Lymph % (Auto) (20.0-40.0) % [place] % (Auto) (0.0-10.0) % Eos % (Auto) (0.0-4.0) % Baso % (Auto) (0.0-2.0) % Neut # (1.8-7.0) K/uL Lymph # (1.0-4.3) K/uL [place] # (0.0-0.8) K/uL Eos # (0.0-0.7) K/uL Baso # (0.0-0.2) K/uL Neutrophils % (Manual) (50-75) % Band Neutrophils % (0-2) % Lymphocytes % (Manual) (20-40) % Monocytes % (Manual) (0-10) % Platelet Estimate (NORMAL) Large Platelets Polychromasia Hypochromasia (manual) Anisocytosis (manual) PT (9.7-12.2) SECONDS INR APTT (21-34) SECONDS Puncture Site pCO2 (35-45) mm/Hg pO2 (30-55) mm/Hg HCO3 (21-28) mmol/L ABG pH (7.35-7.45) ABG Total CO2 (22-28) mmol/L ABG O2 Saturation (95-98) % ABG Base Excess (-2.0-3.0) mmol/L ABG Hemoglobin (11.7-17.4) g/dL ABG Carboxyhemoglobin (0.5-1.5) % POC ABG HHb (Measured) (0.0-5.0) % ABG Methemoglobin (0.0-3.0) % Evans Test ABG Potassium (3.6-5.2) mmol/L VBG pH (7.32-7.43) VBG pCO2 (40-60) mmHg VBG HCO3 mmol/L VBG Total CO2 (22-28) mmol/L VBG O2 Sat (Calc) (40-65) % VBG Base Excess (0.0-2.0) mmol/L VBG Potassium (3.6-5.2) mmol/L A-a O2 Difference mm/Hg Respiratory Index Hgb O2 Saturation (95.0-98.0) % Sodium 139 (132-148) mmol/l Chloride 111 H (98-107) mmol/L Glucose (65-105) mg/dl Lactate (0.7-2.1) mmol/L Vent Mode Mechanical Rate FiO2 % Tidal Volume PEEP Crit Value Called To Crit Value Called By Crit Value Read Back Blood Gas Notified Time Potassium 3.3 L (3.6-5.2) mmol/L Carbon Dioxide 19 L (22-30) mmol/L Anion Gap 13 (10-20) BUN 25 H (7-17) mg/dL Creatinine 0.4 L (0.7-1.2) mg/dL Est GFR ( Amer) > 60 Est GFR (Non-Af Amer) > 60 POC Glucose (mg/dL) 137 H 174 H (65-110) mg/dL Random Glucose 151 H (65-105) mg/dL Calcium 7.8 L (8.6-10.4) mg/dl Phosphorus 2.8 (2.5-4.5) mg/dL Magnesium 1.9 (1.6-2.3) mg/dL Total Bilirubin 0.7 (0.2-1.3) mg/dL AST 128 H (14-36) U/L ALT 136 H (9-52) U/L Alkaline Phosphatase 105 (38-126) U/L Total Protein 6.8 (6.3-8.3) g/dL Albumin 3.2 L (3.5-5.0) g/dL Globulin 3.6 (2.2-3.9) gm/dL Albumin/Globulin Ratio 0.9 L (1.0-2.1) Arterial Blood Potassium (3.6-5.2) mmol/L Venous Blood Potassium (3.6-5.2) mmol/L 05/09/17 05/09/17 05/09/17 Range/Units 06:24 05:55 04:04 WBC 20.7 H (4.8-10.8) K/uL RBC 4.61 (3.80-5.20) Mil/uL Hgb 13.0 (11.0-16.0) g/dL Hct 40.3 (34.0-47.0) % MCV 87.4 D (81.0-99.0) fL MCH 28.2 (27.0-31.0) pg MCHC 32.3 L (33.0-37.0) g/dL RDW 13.9 (11.5-14.5) % Plt Count 219 (130-400) K/uL MPV 9.0 (7.2-11.7) fL Neut % (Auto) 90.8 H (50.0-75.0) % Lymph % (Auto) 5.3 L (20.0-40.0) % [place] % (Auto) 1.9 (0.0-10.0) % Eos % (Auto) 1.7 (0.0-4.0) % Baso % (Auto) 0.3 (0.0-2.0) % Neut # 18.8 H (1.8-7.0) K/uL Lymph # 1.1 (1.0-4.3) K/uL [place] # 0.4 (0.0-0.8) K/uL Eos # 0.3 (0.0-0.7) K/uL Baso # 0.1 (0.0-0.2) K/uL Neutrophils % (Manual) 91 H (50-75) % Band Neutrophils % 3 H (0-2) % Lymphocytes % (Manual) 4 L (20-40) % Monocytes % (Manual) 2 (0-10) % Platelet Estimate Normal (NORMAL) Large Platelets Present Polychromasia Slight Hypochromasia (manual) Slight Anisocytosis (manual) Slight PT (9.7-12.2) SECONDS INR APTT (21-34) SECONDS Puncture Site Rfem pCO2 35 (35-45) mm/Hg pO2 180 H (30-55) mm/Hg HCO3 20.6 L (21-28) mmol/L ABG pH 7.35 (7.35-7.45) ABG Total CO2 20.4 L (22-28) mmol/L ABG O2 Saturation 99.9 H (95-98) % ABG Base Excess -5.6 L (-2.0-3.0) mmol/L ABG Hemoglobin 13.4 (11.7-17.4) g/dL ABG Carboxyhemoglobin 1.4 (0.5-1.5) % POC ABG HHb (Measured) 0.1 (0.0-5.0) % ABG Methemoglobin 1.3 (0.0-3.0) % Evans Test Ng ABG Potassium (3.6-5.2) mmol/L VBG pH (7.32-7.43) VBG pCO2 (40-60) mmHg VBG HCO3 mmol/L VBG Total CO2 (22-28) mmol/L VBG O2 Sat (Calc) (40-65) % VBG Base Excess (0.0-2.0) mmol/L VBG Potassium (3.6-5.2) mmol/L A-a O2 Difference 133.0 mm/Hg Respiratory Index 0.7 Hgb O2 Saturation 97.3 (95.0-98.0) % Sodium (132-148) mmol/l Chloride (98-107) mmol/L Glucose (65-105) mg/dl Lactate (0.7-2.1) mmol/L Vent Mode Prvc Mechanical Rate 16 FiO2 50.0 % Tidal Volume 450 PEEP 5 Crit Value Called To Crit Value Called By Crit Value Read Back Blood Gas Notified Time Potassium (3.6-5.2) mmol/L Carbon Dioxide (22-30) mmol/L Anion Gap (10-20) BUN (7-17) mg/dL Creatinine (0.7-1.2) mg/dL Est GFR ( Amer) Est GFR (Non-Af Amer) POC Glucose (mg/dL) 241 H (65-110) mg/dL Random Glucose (65-105) mg/dL Calcium (8.6-10.4) mg/dl Phosphorus (2.5-4.5) mg/dL Magnesium (1.6-2.3) mg/dL Total Bilirubin (0.2-1.3) mg/dL AST (14-36) U/L ALT (9-52) U/L Alkaline Phosphatase (38-126) U/L Total Protein (6.3-8.3) g/dL Albumin (3.5-5.0) g/dL Globulin (2.2-3.9) gm/dL Albumin/Globulin Ratio (1.0-2.1) Arterial Blood Potassium (3.6-5.2) mmol/L Venous Blood Potassium (3.6-5.2) mmol/L 05/08/17 05/08/17 05/08/17 Range/Units 23:43 19:42 16:41 WBC (4.8-10.8) K/uL RBC (3.80-5.20) Mil/uL Hgb (11.0-16.0) g/dL Hct (34.0-47.0) % MCV (81.0-99.0) fL MCH (27.0-31.0) pg MCHC (33.0-37.0) g/dL RDW (11.5-14.5) % Plt Count (130-400) K/uL MPV (7.2-11.7) fL Neut % (Auto) (50.0-75.0) % Lymph % (Auto) (20.0-40.0) % [place] % (Auto) (0.0-10.0) % Eos % (Auto) (0.0-4.0) % Baso % (Auto) (0.0-2.0) % Neut # (1.8-7.0) K/uL Lymph # (1.0-4.3) K/uL [place] # (0.0-0.8) K/uL Eos # (0.0-0.7) K/uL Baso # (0.0-0.2) K/uL Neutrophils % (Manual) (50-75) % Band Neutrophils % (0-2) % Lymphocytes % (Manual) (20-40) % Monocytes % (Manual) (0-10) % Platelet Estimate (NORMAL) Large Platelets Polychromasia Hypochromasia (manual) Anisocytosis (manual) PT (9.7-12.2) SECONDS INR APTT (21-34) SECONDS Puncture Site pCO2 (35-45) mm/Hg pO2 (30-55) mm/Hg HCO3 (21-28) mmol/L ABG pH (7.35-7.45) ABG Total CO2 (22-28) mmol/L ABG O2 Saturation (95-98) % ABG Base Excess (-2.0-3.0) mmol/L ABG Hemoglobin (11.7-17.4) g/dL ABG Carboxyhemoglobin (0.5-1.5) % POC ABG HHb (Measured) (0.0-5.0) % ABG Methemoglobin (0.0-3.0) % Evans Test ABG Potassium (3.6-5.2) mmol/L VBG pH (7.32-7.43) VBG pCO2 (40-60) mmHg VBG HCO3 mmol/L VBG Total CO2 (22-28) mmol/L VBG O2 Sat (Calc) (40-65) % VBG Base Excess (0.0-2.0) mmol/L VBG Potassium (3.6-5.2) mmol/L A-a O2 Difference mm/Hg Respiratory Index Hgb O2 Saturation (95.0-98.0) % Sodium (132-148) mmol/l Chloride (98-107) mmol/L Glucose (65-105) mg/dl Lactate (0.7-2.1) mmol/L Vent Mode Mechanical Rate FiO2 % Tidal Volume PEEP Crit Value Called To Crit Value Called By Crit Value Read Back Blood Gas Notified Time Potassium (3.6-5.2) mmol/L Carbon Dioxide (22-30) mmol/L Anion Gap (10-20) BUN (7-17) mg/dL Creatinine (0.7-1.2) mg/dL Est GFR ( Amer) Est GFR (Non-Af Amer) POC Glucose (mg/dL) 275 H 334 H 347 H (65-110) mg/dL Random Glucose (65-105) mg/dL Calcium (8.6-10.4) mg/dl Phosphorus (2.5-4.5) mg/dL Magnesium (1.6-2.3) mg/dL Total Bilirubin (0.2-1.3) mg/dL AST (14-36) U/L ALT (9-52) U/L Alkaline Phosphatase (38-126) U/L Total Protein (6.3-8.3) g/dL Albumin (3.5-5.0) g/dL Globulin (2.2-3.9) gm/dL Albumin/Globulin Ratio (1.0-2.1) Arterial Blood Potassium (3.6-5.2) mmol/L Venous Blood Potassium (3.6-5.2) mmol/L 05/08/17 05/08/17 05/08/17 Range/Units 16:35 16:24 16:24 WBC 22.7 H (4.8-10.8) K/uL RBC 4.73 (3.80-5.20) Mil/uL Hgb 13.6 (11.0-16.0) g/dL Hct 42.2 (34.0-47.0) % MCV 89.4 (81.0-99.0) fL MCH 28.7 (27.0-31.0) pg MCHC 32.1 L (33.0-37.0) g/dL RDW 14.0 (11.5-14.5) % Plt Count 237 D (130-400) K/uL MPV 8.4 (7.2-11.7) fL Neut % (Auto) 95.8 H (50.0-75.0) % Lymph % (Auto) 2.2 L (20.0-40.0) % [place] % (Auto) 1.7 (0.0-10.0) % Eos % (Auto) 0.2 (0.0-4.0) % Baso % (Auto) 0.1 (0.0-2.0) % Neut # 21.7 H (1.8-7.0) K/uL Lymph # 0.5 L (1.0-4.3) K/uL [place] # 0.4 (0.0-0.8) K/uL Eos # 0.0 (0.0-0.7) K/uL Baso # 0.0 (0.0-0.2) K/uL Neutrophils % (Manual) 96 H (50-75) % Band Neutrophils % 2 (0-2) % Lymphocytes % (Manual) 1 L (20-40) % Monocytes % (Manual) 1 (0-10) % Platelet Estimate Normal (NORMAL) Large Platelets Present Polychromasia Hypochromasia (manual) Anisocytosis (manual) PT (9.7-12.2) SECONDS INR APTT (21-34) SECONDS Puncture Site Rbrachial pCO2 36 (35-45) mm/Hg pO2 170 H (30-55) mm/Hg HCO3 18.0 L (21-28) mmol/L ABG pH 7.28 L (7.35-7.45) ABG Total CO2 18.0 L (22-28) mmol/L ABG O2 Saturation 99.8 H (95-98) % ABG Base Excess -9.0 L (-2.0-3.0) mmol/L ABG Hemoglobin (11.7-17.4) g/dL ABG Carboxyhemoglobin (0.5-1.5) % POC ABG HHb (Measured) (0.0-5.0) % ABG Methemoglobin (0.0-3.0) % Evans Test Neg ABG Potassium 3.3 L (3.6-5.2) mmol/L VBG pH (7.32-7.43) VBG pCO2 (40-60) mmHg VBG HCO3 mmol/L VBG Total CO2 (22-28) mmol/L VBG O2 Sat (Calc) (40-65) % VBG Base Excess (0.0-2.0) mmol/L VBG Potassium (3.6-5.2) mmol/L A-a O2 Difference 142.0 mm/Hg Respiratory Index 0.8 Hgb O2 Saturation (95.0-98.0) % Sodium 141.0 139 (132-148) mmol/l Chloride 112.0 H 106 (98-107) mmol/L Glucose 333 H (65-105) mg/dl Lactate 2.0 (0.7-2.1) mmol/L Vent Mode Prvc Mechanical Rate 16 FiO2 50.0 % Tidal Volume 450 PEEP 5 Crit Value Called To Crit Value Called By Crit Value Read Back Blood Gas Notified Time Potassium 3.9 (3.6-5.2) mmol/L Carbon Dioxide 17 L (22-30) mmol/L Anion Gap 20 (10-20) BUN 20 H (7-17) mg/dL Creatinine 0.6 L (0.7-1.2) mg/dL Est GFR ( Amer) > 60 Est GFR (Non-Af Amer) > 60 POC Glucose (mg/dL) (65-110) mg/dL Random Glucose 316 H (65-105) mg/dL Calcium 7.6 L (8.6-10.4) mg/dl Phosphorus 4.2 (2.5-4.5) mg/dL Magnesium 1.9 (1.6-2.3) mg/dL Total Bilirubin 1.0 (0.2-1.3) mg/dL AST 151 H (14-36) U/L ALT 114 H D (9-52) U/L Alkaline Phosphatase 129 H (38-126) U/L Total Protein 7.3 (6.3-8.3) g/dL Albumin 3.5 (3.5-5.0) g/dL Globulin 3.8 (2.2-3.9) gm/dL Albumin/Globulin Ratio 0.9 L (1.0-2.1) Arterial Blood Potassium 3.3 L (3.6-5.2) mmol/L Venous Blood Potassium (3.6-5.2) mmol/L 05/08/ Range/Units 13:21 WBC (4.8-10.8) K/uL RBC (3.80-5.20) Mil/uL Hgb (11.0-16.0) g/dL Hct (34.0-47.0) % MCV (81.0-99.0) fL MCH (27.0-31.0) pg MCHC (33.0-37.0) g/dL RDW (11.5-14.5) % Plt Count (130-400) K/uL MPV (7.2-11.7) fL Neut % (Auto) (50.0-75.0) % Lymph % (Auto) (20.0-40.0) % [place] % (Auto) (0.0-10.0) % Eos % (Auto) (0.0-4.0) % Baso % (Auto) (0.0-2.0) % Neut # (1.8-7.0) K/uL Lymph # (1.0-4.3) K/uL [place] # (0.0-0.8) K/uL Eos # (0.0-0.7) K/uL Baso # (0.0-0.2) K/uL Neutrophils % (Manual) (50-75) % Band Neutrophils % (0-2) % Lymphocytes % (Manual) (20-40) % Monocytes % (Manual) (0-10) % Platelet Estimate (NORMAL) Large Platelets Polychromasia Hypochromasia (manual) Anisocytosis (manual) PT (9.7-12.2) SECONDS INR APTT (21-34) SECONDS Puncture Site pCO2 (35-45) mm/Hg pO2 34 (30-55) mm/Hg HCO3 (21-28) mmol/L ABG pH (7.35-7.45) ABG Total CO2 (22-28) mmol/L ABG O2 Saturation (95-98) % ABG Base Excess (-2.0-3.0) mmol/L ABG Hemoglobin (11.7-17.4) g/dL ABG Carboxyhemoglobin (0.5-1.5) % POC ABG HHb (Measured) (0.0-5.0) % ABG Methemoglobin (0.0-3.0) % Evans Test ABG Potassium (3.6-5.2) mmol/L VBG pH 7.11 L* (7.32-7.43) VBG pCO2 73 H* (40-60) mmHg VBG HCO3 17.4 mmol/L VBG Total CO2 25.4 (22-28) mmol/L VBG O2 Sat (Calc) 60.6 (40-65) % VBG Base Excess -7.7 L (0.0-2.0) mmol/L VBG Potassium 4.4 (3.6-5.2) mmol/L A-a O2 Difference mm/Hg Respiratory Index Hgb O2 Saturation (95.0-98.0) % Sodium 144.0 (132-148) mmol/l Chloride 110.0 H (98-107) mmol/L Glucose 269 H (65-105) mg/dl Lactate 4.4 H* (0.7-2.1) mmol/L Vent Mode Mechanical Rate FiO2 % Tidal Volume PEEP Crit Value Called To Crit Value Called By lopez Carlton Crit Value Read Back Y Blood Gas Notified Time 1327 Potassium (3.6-5.2) mmol/L Carbon Dioxide (22-30) mmol/L Anion Gap (10-20) BUN (7-17) mg/dL Creatinine (0.7-1.2) mg/dL Est GFR ( Amer) Est GFR (Non-Af Amer) POC Glucose (mg/dL) (65-110) mg/dL Random Glucose (65-105) mg/dL Calcium (8.6-10.4) mg/dl Phosphorus (2.5-4.5) mg/dL Magnesium (1.6-2.3) mg/dL Total Bilirubin (0.2-1.3) mg/dL AST (14-36) U/L ALT (9-52) U/L Alkaline Phosphatase (38-126) U/L Total Protein (6.3-8.3) g/dL Albumin (3.5-5.0) g/dL Globulin (2.2-3.9) gm/dL Albumin/Globulin Ratio (1.0-2.1) Arterial Blood Potassium (3.6-5.2) mmol/L Venous Blood Potassium 4.4 (3.6-5.2) mmol/L Laboratory Results - last 24 hr 05/08/17 05/08/17 05/08/17 13:21 16:24 16:24 WBC 22.7 H RBC 4.73 Hgb 13.6 Hct 42.2 MCV 89.4 MCH 28.7 MCHC 32.1 L RDW 14.0 Plt Count 237 D MPV 8.4 Neut % (Auto) 95.8 H Lymph % (Auto) 2.2 L [place] % (Auto) 1.7 Eos % (Auto) 0.2 Baso % (Auto) 0.1 Neut # 21.7 H Lymph # 0.5 L [place] # 0.4 Eos # 0.0 Baso # 0.0 Neutrophils % (Manual) 96 H Band Neutrophils % 2 Lymphocytes % (Manual) 1 L Monocytes % (Manual) 1 Platelet Estimate Normal Large Platelets Present Polychromasia Hypochromasia (manual) Anisocytosis (manual) PT INR APTT Puncture Site pCO2 pO2 34 HCO3 ABG pH ABG Total CO2 ABG O2 Saturation ABG Base Excess ABG Hemoglobin ABG Carboxyhemoglobin POC ABG HHb (Measured) ABG Methemoglobin Evans Test ABG Potassium VBG pH 7.11 L* VBG pCO2 73 H* VBG HCO3 17.4 VBG Total CO2 25.4 VBG O2 Sat (Calc) 60.6 VBG Base Excess -7.7 L VBG Potassium 4.4 A-a O2 Difference Respiratory Index Hgb O2 Saturation Sodium 144.0 139 Chloride 110.0 H 106 Glucose 269 H Lactate 4.4 H* Vent Mode Mechanical Rate FiO2 Tidal Volume PEEP Crit Value Called To Crit Value Called By lopez Carlton Crit Value Read Back Y Blood Gas Notified Time 1327 Potassium 3.9 Carbon Dioxide 17 L Anion Gap 20 BUN 20 H Creatinine 0.6 L Est GFR ( Amer) > 60 Est GFR (Non-Af Amer) > 60 POC Glucose (mg/dL) Random Glucose 316 H Calcium 7.6 L Phosphorus 4.2 Magnesium 1.9 Total Bilirubin 1.0 AST 151 H ALT 114 H D Alkaline Phosphatase 129 H Total Protein 7.3 Albumin 3.5 Globulin 3.8 Albumin/Globulin Ratio 0.9 L Arterial Blood Potassium Venous Blood Potassium 4.4 05/08/17 05/08/17 05/08/17 16:35 16:41 19:42 WBC RBC Hgb Hct MCV MCH MCHC RDW Plt Count MPV Neut % (Auto) Lymph % (Auto) [place] % (Auto) Eos % (Auto) Baso % (Auto) Neut # Lymph # [place] # Eos # Baso # Neutrophils % (Manual) Band Neutrophils % Lymphocytes % (Manual) Monocytes % (Manual) Platelet Estimate Large Platelets Polychromasia Hypochromasia (manual) Anisocytosis (manual) PT INR APTT Puncture Site Rbrachial pCO2 36 pO2 170 H HCO3 18.0 L ABG pH 7.28 L ABG Total CO2 18.0 L ABG O2 Saturation 99.8 H ABG Base Excess -9.0 L ABG Hemoglobin ABG Carboxyhemoglobin POC ABG HHb (Measured) ABG Methemoglobin Evans Test Neg ABG Potassium 3.3 L VBG pH VBG pCO2 VBG HCO3 VBG Total CO2 VBG O2 Sat (Calc) VBG Base Excess VBG Potassium A-a O2 Difference 142.0 Respiratory Index 0.8 Hgb O2 Saturation Sodium 141.0 Chloride 112.0 H Glucose 333 H Lactate 2.0 Vent Mode Prvc Mechanical Rate 16 FiO2 50.0 Tidal Volume 450 PEEP 5 Crit Value Called To Crit Value Called By Crit Value Read Back Blood Gas Notified Time Potassium Carbon Dioxide Anion Gap BUN Creatinine Est GFR ( Amer) Est GFR (Non-Af Amer) POC Glucose (mg/dL) 347 H 334 H Random Glucose Calcium Phosphorus Magnesium Total Bilirubin AST ALT Alkaline Phosphatase Total Protein Albumin Globulin Albumin/Globulin Ratio Arterial Blood Potassium 3.3 L Venous Blood Potassium 05/08/17 05/09/17 05/09/17 23:43 04:04 05:55 WBC RBC Hgb Hct MCV MCH MCHC RDW Plt Count MPV Neut % (Auto) Lymph % (Auto) [place] % (Auto) Eos % (Auto) Baso % (Auto) Neut # Lymph # [place] # Eos # Baso # Neutrophils % (Manual) Band Neutrophils % Lymphocytes % (Manual) Monocytes % (Manual) Platelet Estimate Large Platelets Polychromasia Hypochromasia (manual) Anisocytosis (manual) PT INR APTT Puncture Site Rfem pCO2 35 pO2 180 H HCO3 20.6 L ABG pH 7.35 ABG Total CO2 20.4 L ABG O2 Saturation 99.9 H ABG Base Excess -5.6 L ABG Hemoglobin 13.4 ABG Carboxyhemoglobin 1.4 POC ABG HHb (Measured) 0.1 ABG Methemoglobin 1.3 Evans Test Ng ABG Potassium VBG pH VBG pCO2 VBG HCO3 VBG Total CO2 VBG O2 Sat (Calc) VBG Base Excess VBG Potassium A-a O2 Difference 133.0 Respiratory Index 0.7 Hgb O2 Saturation 97.3 Sodium Chloride Glucose Lactate Vent Mode Prvc Mechanical Rate 16 FiO2 50.0 Tidal Volume 450 PEEP 5 Crit Value Called To Crit Value Called By Crit Value Read Back Blood Gas Notified Time Potassium Carbon Dioxide Anion Gap BUN Creatinine Est GFR ( Amer) Est GFR (Non-Af Amer) POC Glucose (mg/dL) 275 H 241 H Random Glucose Calcium Phosphorus Magnesium Total Bilirubin AST ALT Alkaline Phosphatase Total Protein Albumin Globulin Albumin/Globulin Ratio Arterial Blood Potassium Venous Blood Potassium 05/09/17 05/09/17 05/09/17 06:24 06:24 07:37 WBC 20.7 H RBC 4.61 Hgb 13.0 Hct 40.3 MCV 87.4 D MCH 28.2 MCHC 32.3 L RDW 13.9 Plt Count 219 MPV 9.0 Neut % (Auto) 90.8 H Lymph % (Auto) 5.3 L [place] % (Auto) 1.9 Eos % (Auto) 1.7 Baso % (Auto) 0.3 Neut # 18.8 H Lymph # 1.1 [place] # 0.4 Eos # 0.3 Baso # 0.1 Neutrophils % (Manual) 91 H Band Neutrophils % 3 H Lymphocytes % (Manual) 4 L Monocytes % (Manual) 2 Platelet Estimate Normal Large Platelets Present Polychromasia Slight Hypochromasia (manual) Slight Anisocytosis (manual) Slight PT INR APTT Puncture Site pCO2 pO2 HCO3 ABG pH ABG Total CO2 ABG O2 Saturation ABG Base Excess ABG Hemoglobin ABG Carboxyhemoglobin POC ABG HHb (Measured) ABG Methemoglobin Evans Test ABG Potassium VBG pH VBG pCO2 VBG HCO3 VBG Total CO2 VBG O2 Sat (Calc) VBG Base Excess VBG Potassium A-a O2 Difference Respiratory Index Hgb O2 Saturation Sodium 139 Chloride 111 H Glucose Lactate Vent Mode Mechanical Rate FiO2 Tidal Volume PEEP Crit Value Called To Crit Value Called By Crit Value Read Back Blood Gas Notified Time Potassium 3.3 L Carbon Dioxide 19 L Anion Gap 13 BUN 25 H Creatinine 0.4 L Est GFR ( Amer) > 60 Est GFR (Non-Af Amer) > 60 POC Glucose (mg/dL) 174 H Random Glucose 151 H Calcium 7.8 L Phosphorus 2.8 Magnesium 1.9 Total Bilirubin 0.7 AST 128 H ALT 136 H Alkaline Phosphatase 105 Total Protein 6.8 Albumin 3.2 L Globulin 3.6 Albumin/Globulin Ratio 0.9 L Arterial Blood Potassium Venous Blood Potassium 05/09/17 05/09/17 05/09/17 12:15 12:32 12:32 WBC 19.5 H RBC 4.39 Hgb 12.7 Hct 38.4 MCV 87.5 MCH 29.0 MCHC 33.1 RDW 13.6 Plt Count 192 MPV 8.3 Neut % (Auto) 90.3 H Lymph % (Auto) 7.1 L [place] % (Auto) 2.5 Eos % (Auto) 0.0 Baso % (Auto) 0.1 Neut # 17.6 H Lymph # 1.4 [place] # 0.5 Eos # 0.0 Baso # 0.0 Neutrophils % (Manual) Band Neutrophils % Lymphocytes % (Manual) Monocytes % (Manual) Platelet Estimate Large Platelets Polychromasia Hypochromasia (manual) Anisocytosis (manual) PT 14.8 H INR 1.3 APTT 31 D Puncture Site pCO2 pO2 HCO3 ABG pH ABG Total CO2 ABG O2 Saturation ABG Base Excess ABG Hemoglobin ABG Carboxyhemoglobin POC ABG HHb (Measured) ABG Methemoglobin Evans Test ABG Potassium VBG pH VBG pCO2 VBG HCO3 VBG Total CO2 VBG O2 Sat (Calc) VBG Base Excess VBG Potassium A-a O2 Difference Respiratory Index Hgb O2 Saturation Sodium Chloride Glucose Lactate Vent Mode Mechanical Rate FiO2 Tidal Volume PEEP Crit Value Called To Crit Value Called By Crit Value Read Back Blood Gas Notified Time Potassium Carbon Dioxide Anion Gap BUN Creatinine Est GFR ( Amer) Est GFR (Non-Af Amer) POC Glucose (mg/dL) 137 H Random Glucose Calcium Phosphorus Magnesium Total Bilirubin AST ALT Alkaline Phosphatase Total Protein Albumin Globulin Albumin/Globulin Ratio Arterial Blood Potassium Venous Blood Potassium 05/09/17 12:32 WBC RBC Hgb Hct MCV MCH MCHC RDW Plt Count MPV Neut % (Auto) Lymph % (Auto) [place] % (Auto) Eos % (Auto) Baso % (Auto) Neut # Lymph # [place] # Eos # Baso # Neutrophils % (Manual) Band Neutrophils % Lymphocytes % (Manual) Monocytes % (Manual) Platelet Estimate Large Platelets Polychromasia Hypochromasia (manual) Anisocytosis (manual) PT INR APTT Puncture Site pCO2 pO2 HCO3 ABG pH ABG Total CO2 ABG O2 Saturation ABG Base Excess ABG Hemoglobin ABG Carboxyhemoglobin POC ABG HHb (Measured) ABG Methemoglobin Evans Test ABG Potassium VBG pH VBG pCO2 VBG HCO3 VBG Total CO2 VBG O2 Sat (Calc) VBG Base Excess VBG Potassium A-a O2 Difference Respiratory Index Hgb O2 Saturation Sodium 140 Chloride 111 H Glucose Lactate Vent Mode Mechanical Rate FiO2 Tidal Volume PEEP Crit Value Called To Crit Value Called By Crit Value Read Back Blood Gas Notified Time Potassium 3.2 L Carbon Dioxide 20 L Anion Gap 12 BUN 23 H Creatinine 0.4 L Est GFR ( Amer) > 60 Est GFR (Non-Af Amer) > 60 POC Glucose (mg/dL) Random Glucose 97 Calcium 7.7 L Phosphorus 2.7 Magnesium 1.8 Total Bilirubin 0.6 AST 108 H ALT 131 H Alkaline Phosphatase 99 Total Protein 6.4 Albumin 3.0 L Globulin 3.4 Albumin/Globulin Ratio 0.9 L Arterial Blood Potassium Venous Blood Potassium Fingerstick Blood Sugar Results: 137 Review of Systems - Review of Systems Systems not reviewed;Unavailable: Intubated Critical Care Progress Note - Ventilator Checklist Head of Bed 30 Degrees: Yes Daily Assessment of Readiness to Wean: No Daily Spontaneous Breathing Trial: No PUD Prophalyxis: Yes DVT Prophylaxis: Yes - Vent Settings MODE:: PRVC Assessment/Plan (1) Anoxic brain damage Current Visit: Yes Status: Acute Comment: Status post cardiac arrest and resuscitation Myoclonic jerks noted On Keppra Therapeutic Hypothermic protocol Triple-lumen catheter inserted under aseptic conditions Case discussed with family at length (2) Cardiac arrest Current Visit: Yes Status: Acute Comment: Status post cardiac arrest and resuscitation Rule out aspiration versus status asthmaticus Continue IV antibiotics, IV steroids and nebulizer treatment Follow-up culture and sensitivity (3) Pneumonia Current Visit: Yes Status: Acute (4) Asthma attack Current Visit: Yes Status: Acute
--- NOTE | 2017-05-09 13:34 | RAD ---
Chest x-ray single frontal view History: Triple-lumen catheter insertion. Comparison: 05/09/2017 Findings: Endotracheal tube extending into the mid thoracic trachea. Left central venous catheter with tip extending to the proximal right SVC. Patchy consolidative changes at the right lung base and to a lesser extent the left lung base. Few scattered nodular densities at the lung bases. No evidence of postprocedure pneumothorax. Diffuse increased interstitial lung markings. Right hilar prominence. Tortuous ectatic aorta. Mild cardiomegaly. Degenerative changes in the spine. Impression: Endotracheal tube extending into the mid thoracic trachea. Left central venous catheter with tip extending to the proximal right SVC. Patchy consolidative changes at the right lung base and to a lesser extent the left lung base. Few scattered nodular densities at the lung bases. No evidence of postprocedure pneumothorax.
[2017-05-09 13:51] LABS: NEUTROPHIL 89 % (50-75); REACTIVE LYMPHOCYTES 1 % (0-0); TOTAL CELLS COUNTED 100
[2017-05-09] MEDS: Propofol 10 mg/ml 1,000 MG/100 ML VIAL IV PRN (15:59)
[2017-05-09 16:18] LABS: TROPONIN I 0.245 ng/mL (0.00-0.120)
[2017-05-09 18:01] LABS: BASO % 0.1 % (0.0-2.0); HEMATOCRIT 37.4 % (34.0-47.0); LYMPH % 5.3 % (20.0-40.0); MEAN CELL VOLUME 87.5 fL (81.0-99.0); MEAN CORPUSCULAR HEMOGLOBIN 28.8 pg (27.0-31.0); MEAN CORPUSCULAR HGB CONC 32.9 g/dL (33.0-37.0); MEAN PLATELET VOLUME 8.4 fL (7.2-11.7); MONO # 0.5 K/uL (0.0-0.8); PLATELET COUNT 181 K/uL (130-400); RED CELL DISTRIBUTION WIDTH 13.7 % (11.5-14.5); WHITE BLOOD COUNT 17.9 K/uL (4.8-10.8)
[2017-05-09 18:08] LABS: INR 1.3
[2017-05-09 18:20] LABS: ALB/GLOB RATIO 0.8 (1.0-2.1); ALKALINE PHOSPHATASE 99 U/L (38-126); ALT/SGPT 132 U/L (9-52); AST/SGOT 102 U/L (14-36); BILIRUBIN,TOTAL 0.6 mg/dL (0.2-1.3); BLOOD UREA NITROGEN 23 mg/dL (7-17); CALCIUM 7.8 mg/dl (8.6-10.4); CARBON DIOXIDE 19 mmol/L (22-30); CHLORIDE 110 mmol/L (98-107); GFR AFRICAN-AMERICAN > 60; GLUCOSE,RANDOM 95 mg/dL (65-105); MAGNESIUM 1.7 mg/dL (1.6-2.3); PHOSPHOROUS 2.7 mg/dL (2.5-4.5); POTASSIUM 2.9 mmol/L (3.6-5.2); SODIUM 139 mmol/L (132-148); TOTAL PROTEIN 6.4 g/dL (6.3-8.3)
[2017-05-09 18:24] LABS: NEUTROPHIL 93 % (50-75); TOTAL CELLS COUNTED 100
--- NOTE | 2017-05-09 18:50 | CP.PCM.HP ---
<Anahi Eckert - Last Filed: 05/09/17 18:50> History of Present Illness - History of Present Illness History of Present Illness: cc: cardiopulmonary arrest HPI: Patient is a 57F with PMH early onset dementia, seizures, and questionable asthma who was brought to the ED via EMS from her prison, [facility], where she was witnessed cardiopulmonary arrest. EMS intubated the patient in the field and ROSC was achieved. Upon arrival to the ED patient was having myoclonic jerks and code freeze was initiated. Patient remained intubated and patient was admitted to the ICU. Daughter was present today at bedside who informed us the patient has seen multiple neurologists who cannot figure out the reason for her neurological symptoms. She says the patient began declining 5 years ago and two years ago she had to be taken to a prison. Patient had to have a PEG tube inserted at this time. She has been on Jevity feeds 1.5 @45 cc/h. Patient is nonverbal at baseline however she would occasionally look at you when being spoken to. PCP: Dr. Alonso PMH: early onset dementia, seizures, questionable asthma, dysphagia, anxiety, and UTI (07/06) PSH: unknown Meds: ASA, duonebs with mucomistSelwyn, Allergies: JONES Flores (): [phone] Present on Admission - Present on Admission Any Indicators Present on Admission: No Review of Systems - Hematologic/Lymphatic Additional comments: Unattainable Past Patient History - Past Medical History & Family History Past Medical History?: Yes - Past Social History Smoking Status: Never Smoked - CARDIAC Hx Hypotension: Yes Hx Peripheral Edema: Yes - PULMONARY Hx Respiratory Disorders: Yes Hx Asthma: Yes Hx Chronic Obstructive Pulmonary Disease (COPD): Yes Hx Pneumonia: Yes - NEUROLOGICAL Hx Alzheimer's Disease: Yes Hx Seizures: Yes - RENAL Other/Comment: uti - MUSCULOSKELETAL/RHEUMATOLOGICAL Hx Falls: No - GASTROINTESTINAL Other/Comment: GT - PSYCHIATRIC Hx Substance Use: No Meds Allergies/Adverse Reactions: Allergies Allergy/AdvReac Type Severity Reaction Status Date / Time Penicillins Allergy Verified 05/08/17 07:09 Physical Exam - Constitutional Appears: Chronically Ill - Head Exam Head Exam: ATRAUMATIC - Eye Exam Additional comments: eyes rolled back during exam - ENT Exam Additional comments: intubated Ppeak: 27 RR:16 Tidal volume: 450 PEEP: 5 - Neck Exam Additional comments: IJ in place - Respiratory Exam Respiratory Exam: Rales, Rhonchi - Cardiovascular Exam Cardiovascular Exam: RRR, +S1, +S2 - GI/Abdominal Exam Additional comments: covered with cooling/warming blanket - Extremities Exam Additional comments: Prevalon boots and SCDs on - Neurological Exam Neurological exam: Altered - Skin Skin Exam: Dry, Normal Color Results - Vital Signs Recent Vital Signs: Last Vital Signs Temp 95.2 F L 05/09/17 18:00 Pulse 85 05/09/17 18:30 Resp 18 05/09/17 18:30 BP 120/79 05/09/17 18:30 Pulse Ox 100 05/09/17 18:00 - Labs Result Diagrams: 05/09/17 17:57 05/09/17 17:57 Labs: Laboratory Results - last 24 hr 05/08/17 05/08/17 05/08/17 16:24 19:42 23:43 WBC RBC Hgb Hct MCV MCH MCHC RDW Plt Count MPV Neut % (Auto) Lymph % (Auto) Benton % (Auto) Eos % (Auto) Baso % (Auto) Neut # Lymph # Benton # Eos # Baso # Neutrophils % (Manual) 96 H Band Neutrophils % 2 Lymphocytes % (Manual) 1 L Reactive Lymphs % Monocytes % (Manual) 1 Platelet Estimate Normal Large Platelets Present RBC Morphology Polychromasia Hypochromasia (manual) Anisocytosis (manual) PT INR APTT Puncture Site pCO2 pO2 HCO3 ABG pH ABG Total CO2 ABG O2 Saturation ABG Base Excess ABG Hemoglobin ABG Carboxyhemoglobin POC ABG HHb (Measured) ABG Methemoglobin Evans Test A-a O2 Difference Respiratory Index Hgb O2 Saturation Vent Mode Mechanical Rate FiO2 Tidal Volume PEEP Sodium Potassium Chloride Carbon Dioxide Anion Gap BUN Creatinine Est GFR ( Amer) Est GFR (Non-Af Amer) POC Glucose (mg/dL) 334 H 275 H Random Glucose Calcium Phosphorus Magnesium Total Bilirubin AST ALT Alkaline Phosphatase Total Creatine Kinase CK-MB (Mass) Troponin I Total Protein Albumin Globulin Albumin/Globulin Ratio 05/09/17 05/09/17 05/09/17 04:04 05:55 06:24 WBC 20.7 H RBC 4.61 Hgb 13.0 Hct 40.3 MCV 87.4 D MCH 28.2 MCHC 32.3 L RDW 13.9 Plt Count 219 MPV 9.0 Neut % (Auto) 90.8 H Lymph % (Auto) 5.3 L Benton % (Auto) 1.9 Eos % (Auto) 1.7 Baso % (Auto) 0.3 Neut # 18.8 H Lymph # 1.1 Benton # 0.4 Eos # 0.3 Baso # 0.1 Neutrophils % (Manual) 91 H Band Neutrophils % 3 H Lymphocytes % (Manual) 4 L Reactive Lymphs % Monocytes % (Manual) 2 Platelet Estimate Normal Large Platelets Present RBC Morphology Polychromasia Slight Hypochromasia (manual) Slight Anisocytosis (manual) Slight PT INR APTT Puncture Site Rfem pCO2 35 pO2 180 H HCO3 20.6 L ABG pH 7.35 ABG Total CO2 20.4 L ABG O2 Saturation 99.9 H ABG Base Excess -5.6 L ABG Hemoglobin 13.4 ABG Carboxyhemoglobin 1.4 POC ABG HHb (Measured) 0.1 ABG Methemoglobin 1.3 Evans Test Ng A-a O2 Difference 133.0 Respiratory Index 0.7 Hgb O2 Saturation 97.3 Vent Mode Prvc Mechanical Rate 16 FiO2 50.0 Tidal Volume 450 PEEP 5 Sodium Potassium Chloride Carbon Dioxide Anion Gap BUN Creatinine Est GFR ( Amer) Est GFR (Non-Af Amer) POC Glucose (mg/dL) 241 H Random Glucose Calcium Phosphorus Magnesium Total Bilirubin AST ALT Alkaline Phosphatase Total Creatine Kinase CK-MB (Mass) Troponin I Total Protein Albumin Globulin Albumin/Globulin Ratio 05/09/17 05/09/17 05/09/17 06:24 07:37 12:15 WBC RBC Hgb Hct MCV MCH MCHC RDW Plt Count MPV Neut % (Auto) Lymph % (Auto) Benton % (Auto) Eos % (Auto) Baso % (Auto) Neut # Lymph # Benton # Eos # Baso # Neutrophils % (Manual) Band Neutrophils % Lymphocytes % (Manual) Reactive Lymphs % Monocytes % (Manual) Platelet Estimate Large Platelets RBC Morphology Polychromasia Hypochromasia (manual) Anisocytosis (manual) PT INR APTT Puncture Site pCO2 pO2 HCO3 ABG pH ABG Total CO2 ABG O2 Saturation ABG Base Excess ABG Hemoglobin ABG Carboxyhemoglobin POC ABG HHb (Measured) ABG Methemoglobin Evans Test A-a O2 Difference Respiratory Index Hgb O2 Saturation Vent Mode Mechanical Rate FiO2 Tidal Volume PEEP Sodium 139 Potassium 3.3 L Chloride 111 H Carbon Dioxide 19 L Anion Gap 13 BUN 25 H Creatinine 0.4 L Est GFR ( Amer) > 60 Est GFR (Non-Af Amer) > 60 POC Glucose (mg/dL) 174 H 137 H Random Glucose 151 H Calcium 7.8 L Phosphorus 2.8 Magnesium 1.9 Total Bilirubin 0.7 AST 128 H ALT 136 H Alkaline Phosphatase 105 Total Creatine Kinase CK-MB (Mass) Troponin I Total Protein 6.8 Albumin 3.2 L Globulin 3.6 Albumin/Globulin Ratio 0.9 L 05/09/17 05/09/17 05/09/17 12:30 12:32 12:32 WBC 19.5 H RBC 4.39 Hgb 12.7 Hct 38.4 MCV 87.5 MCH 29.0 MCHC 33.1 RDW 13.6 Plt Count 192 MPV 8.3 Neut % (Auto) 90.3 H Lymph % (Auto) 7.1 L Benton % (Auto) 2.5 Eos % (Auto) 0.0 Baso % (Auto) 0.1 Neut # 17.6 H Lymph # 1.4 Benton # 0.5 Eos # 0.0 Baso # 0.0 Neutrophils % (Manual) 89 H Band Neutrophils % 1 Lymphocytes % (Manual) 7 L Reactive Lymphs % 1 H Monocytes % (Manual) 2 Platelet Estimate Normal Large Platelets RBC Morphology Polychromasia Hypochromasia (manual) Anisocytosis (manual) Slight PT 14.8 H INR 1.3 APTT 31 D Puncture Site pCO2 pO2 HCO3 ABG pH ABG Total CO2 ABG O2 Saturation ABG Base Excess ABG Hemoglobin ABG Carboxyhemoglobin POC ABG HHb (Measured) ABG Methemoglobin Evans Test A-a O2 Difference Respiratory Index Hgb O2 Saturation Vent Mode Mechanical Rate FiO2 Tidal Volume PEEP Sodium Potassium Chloride Carbon Dioxide Anion Gap BUN Creatinine Est GFR ( Amer) Est GFR (Non-Af Amer) POC Glucose (mg/dL) Random Glucose Calcium Phosphorus Magnesium Total Bilirubin AST ALT Alkaline Phosphatase Total Creatine Kinase 719 H CK-MB (Mass) 22.0 H Troponin I 0.2450 H* Total Protein Albumin Globulin Albumin/Globulin Ratio 05/09/17 05/09/17 05/09/17 12:32 15:44 17:57 WBC 17.9 H RBC 4.27 Hgb 12.3 Hct 37.4 MCV 87.5 MCH 28.8 MCHC 32.9 L RDW 13.7 Plt Count 181 MPV 8.4 Neut % (Auto) 91.6 H Lymph % (Auto) 5.3 L Benton % (Auto) 3.0 Eos % (Auto) 0.0 Baso % (Auto) 0.1 Neut # 16.4 H Lymph # 1.0 Benton # 0.5 Eos # 0.0 Baso # 0.0 Neutrophils % (Manual) 93 H Band Neutrophils % 1 Lymphocytes % (Manual) 2 L Reactive Lymphs % Monocytes % (Manual) 4 Platelet Estimate Normal Large Platelets RBC Morphology Normal Polychromasia Hypochromasia (manual) Anisocytosis (manual) PT INR APTT Puncture Site pCO2 pO2 HCO3 ABG pH ABG Total CO2 ABG O2 Saturation ABG Base Excess ABG Hemoglobin ABG Carboxyhemoglobin POC ABG HHb (Measured) ABG Methemoglobin Evans Test A-a O2 Difference Respiratory Index Hgb O2 Saturation Vent Mode Mechanical Rate FiO2 Tidal Volume PEEP Sodium 140 Potassium 3.2 L Chloride 111 H Carbon Dioxide 20 L Anion Gap 12 BUN 23 H Creatinine 0.4 L Est GFR ( Amer) > 60 Est GFR (Non-Af Amer) > 60 POC Glucose (mg/dL) 97 Random Glucose 97 Calcium 7.7 L Phosphorus 2.7 Magnesium 1.8 Total Bilirubin 0.6 AST 108 H ALT 131 H Alkaline Phosphatase 99 Total Creatine Kinase CK-MB (Mass) Troponin I Total Protein 6.4 Albumin 3.0 L Globulin 3.4 Albumin/Globulin Ratio 0.9 L 05/09/17 05/09/17 17:57 17:57 WBC RBC Hgb Hct MCV MCH MCHC RDW Plt Count MPV Neut % (Auto) Lymph % (Auto) Benton % (Auto) Eos % (Auto) Baso % (Auto) Neut # Lymph # Benton # Eos # Baso # Neutrophils % (Manual) Band Neutrophils % Lymphocytes % (Manual) Reactive Lymphs % Monocytes % (Manual) Platelet Estimate Large Platelets RBC Morphology Polychromasia Hypochromasia (manual) Anisocytosis (manual) PT 15.1 H INR 1.3 APTT 35 H Puncture Site pCO2 pO2 HCO3 ABG pH ABG Total CO2 ABG O2 Saturation ABG Base Excess ABG Hemoglobin ABG Carboxyhemoglobin POC ABG HHb (Measured) ABG Methemoglobin Evans Test A-a O2 Difference Respiratory Index Hgb O2 Saturation Vent Mode Mechanical Rate FiO2 Tidal Volume PEEP Sodium 139 Potassium 2.9 L Chloride 110 H Carbon Dioxide 19 L Anion Gap 13 BUN 23 H Creatinine 0.5 L Est GFR ( Amer) > 60 Est GFR (Non-Af Amer) > 60 POC Glucose (mg/dL) Random Glucose 95 Calcium 7.8 L Phosphorus 2.7 Magnesium 1.7 Total Bilirubin 0.6 AST 102 H ALT 132 H Alkaline Phosphatase 99 Total Creatine Kinase 783 H CK-MB (Mass) 24.7 H Troponin I 0.3270 H* Total Protein 6.4 Albumin 2.9 L Globulin 3.5 Albumin/Globulin Ratio 0.8 L Assessment & Plan (1) Cardiopulmonary arrest Assessment and Plan: * currently intubated with propofol drip * Ppeak: 27 * RR:16 * Tidal volume: 450 * PEEP: 5 * Solumedrol 40 mg IV Q8 * Currently in stage 2 of code freeze * CT head: hydrocephalus * EEG planned for 05/10/17 * Neurology on board (Dr. Hidalgo) * Cardiology on board (Dr. Heck) * Will make decisions for palliative care tomorrow once goal temperature reached Status: Acute (2) Pneumonia Assessment and Plan: * CXR suspicious for pneumonia * Vanc 1g Q12h * Aztreonam 1g Q8h Status: Acute (3) Seizure disorder Assessment and Plan: * Keppra 750 mg IV BID * neuro on board (Dr. Hidalgo) Status: Acute (4) Asthma Assessment and Plan: * Duonebs Q6h Status: Acute (5) Dysphagia Assessment and Plan: * PEG tube feeds Status: Acute (6) Prophylactic measure Assessment and Plan: * Protonix 40 mg QD * Lovenox 40 mg SC QD Status: Acute <Chelly Hansen V - Last Filed: 05/09/17 23:40> Results - Vital Signs Recent Vital Signs: Last Vital Signs Temp 95.8 F L 05/09/17 22:00 Pulse 108 H 05/09/17 22:00 Resp 19 05/09/17 22:00 BP 142/67 05/09/17 22:00 Pulse Ox 100 05/09/17 22:00 - Labs Result Diagrams: 05/09/17 17:57 05/09/17 17:57 Labs: Laboratory Results - last 24 hr 05/08/17 05/09/17 05/09/17 23:43 04:04 05:55 WBC RBC Hgb Hct MCV MCH MCHC RDW Plt Count MPV Neut % (Auto) Lymph % (Auto) Benton % (Auto) Eos % (Auto) Baso % (Auto) Neut # Lymph # Benton # Eos # Baso # Neutrophils % (Manual) Band Neutrophils % Lymphocytes % (Manual) Reactive Lymphs % Monocytes % (Manual) Platelet Estimate Large Platelets RBC Morphology Polychromasia Hypochromasia (manual) Anisocytosis (manual) PT INR APTT Puncture Site Rfem pCO2 35 pO2 180 H HCO3 20.6 L ABG pH 7.35 ABG Total CO2 20.4 L ABG O2 Saturation 99.9 H ABG Base Excess -5.6 L ABG Hemoglobin 13.4 ABG Carboxyhemoglobin 1.4 POC ABG HHb (Measured) 0.1 ABG Methemoglobin 1.3 Evans Test Ng A-a O2 Difference 133.0 Respiratory Index 0.7 Hgb O2 Saturation 97.3 Vent Mode Prvc Mechanical Rate 16 FiO2 50.0 Tidal Volume 450 PEEP 5 Sodium Potassium Chloride Carbon Dioxide Anion Gap BUN Creatinine Est GFR ( Amer) Est GFR (Non-Af Amer) POC Glucose (mg/dL) 275 H 241 H Random Glucose Calcium Phosphorus Magnesium Total Bilirubin AST ALT Alkaline Phosphatase Total Creatine Kinase CK-MB (Mass) Troponin I Total Protein Albumin Globulin Albumin/Globulin Ratio 05/09/17 05/09/17 05/09/17 06:24 06:24 07:37 WBC 20.7 H RBC 4.61 Hgb 13.0 Hct 40.3 MCV 87.4 D MCH 28.2 MCHC 32.3 L RDW 13.9 Plt Count 219 MPV 9.0 Neut % (Auto) 90.8 H Lymph % (Auto) 5.3 L Benton % (Auto) 1.9 Eos % (Auto) 1.7 Baso % (Auto) 0.3 Neut # 18.8 H Lymph # 1.1 Benton # 0.4 Eos # 0.3 Baso # 0.1 Neutrophils % (Manual) 91 H Band Neutrophils % 3 H Lymphocytes % (Manual) 4 L Reactive Lymphs % Monocytes % (Manual) 2 Platelet Estimate Normal Large Platelets Present RBC Morphology Polychromasia Slight Hypochromasia (manual) Slight Anisocytosis (manual) Slight PT INR APTT Puncture Site pCO2 pO2 HCO3 ABG pH ABG Total CO2 ABG O2 Saturation ABG Base Excess ABG Hemoglobin ABG Carboxyhemoglobin POC ABG HHb (Measured) ABG Methemoglobin Evans Test A-a O2 Difference Respiratory Index Hgb O2 Saturation Vent Mode Mechanical Rate FiO2 Tidal Volume PEEP Sodium 139 Potassium 3.3 L Chloride 111 H Carbon Dioxide 19 L Anion Gap 13 BUN 25 H Creatinine 0.4 L Est GFR ( Amer) > 60 Est GFR (Non-Af Amer) > 60 POC Glucose (mg/dL) 174 H Random Glucose 151 H Calcium 7.8 L Phosphorus 2.8 Magnesium 1.9 Total Bilirubin 0.7 AST 128 H ALT 136 H Alkaline Phosphatase 105 Total Creatine Kinase CK-MB (Mass) Troponin I Total Protein 6.8 Albumin 3.2 L Globulin 3.6 Albumin/Globulin Ratio 0.9 L 05/09/17 05/09/17 05/09/17 12:15 12:30 12:32 WBC 19.5 H RBC 4.39 Hgb 12.7 Hct 38.4 MCV 87.5 MCH 29.0 MCHC 33.1 RDW 13.6 Plt Count 192 MPV 8.3 Neut % (Auto) 90.3 H Lymph % (Auto) 7.1 L Benton % (Auto) 2.5 Eos % (Auto) 0.0 Baso % (Auto) 0.1 Neut # 17.6 H Lymph # 1.4 Benton # 0.5 Eos # 0.0 Baso # 0.0 Neutrophils % (Manual) 89 H Band Neutrophils % 1 Lymphocytes % (Manual) 7 L Reactive Lymphs % 1 H Monocytes % (Manual) 2 Platelet Estimate Normal Large Platelets RBC Morphology Polychromasia Hypochromasia (manual) Anisocytosis (manual) Slight PT INR APTT Puncture Site pCO2 pO2 HCO3 ABG pH ABG Total CO2 ABG O2 Saturation ABG Base Excess ABG Hemoglobin ABG Carboxyhemoglobin POC ABG HHb (Measured) ABG Methemoglobin Evans Test A-a O2 Difference Respiratory Index Hgb O2 Saturation Vent Mode Mechanical Rate FiO2 Tidal Volume PEEP Sodium Potassium Chloride Carbon Dioxide Anion Gap BUN Creatinine Est GFR ( Amer) Est GFR (Non-Af Amer) POC Glucose (mg/dL) 137 H Random Glucose Calcium Phosphorus Magnesium Total Bilirubin AST ALT Alkaline Phosphatase Total Creatine Kinase 719 H CK-MB (Mass) 22.0 H Troponin I 0.2450 H* Total Protein Albumin Globulin Albumin/Globulin Ratio 05/09/17 05/09/17 05/09/17 12:32 12:32 15:44 WBC RBC Hgb Hct MCV MCH MCHC RDW Plt Count MPV Neut % (Auto) Lymph % (Auto) Benton % (Auto) Eos % (Auto) Baso % (Auto) Neut # Lymph # Benton # Eos # Baso # Neutrophils % (Manual) Band Neutrophils % Lymphocytes % (Manual) Reactive Lymphs % Monocytes % (Manual) Platelet Estimate Large Platelets RBC Morphology Polychromasia Hypochromasia (manual) Anisocytosis (manual) PT 14.8 H INR 1.3 APTT 31 D Puncture Site pCO2 pO2 HCO3 ABG pH ABG Total CO2 ABG O2 Saturation ABG Base Excess ABG Hemoglobin ABG Carboxyhemoglobin POC ABG HHb (Measured) ABG Methemoglobin Evans Test A-a O2 Difference Respiratory Index Hgb O2 Saturation Vent Mode Mechanical Rate FiO2 Tidal Volume PEEP Sodium 140 Potassium 3.2 L Chloride 111 H Carbon Dioxide 20 L Anion Gap 12 BUN 23 H Creatinine 0.4 L Est GFR ( Amer) > 60 Est GFR (Non-Af Amer) > 60 POC Glucose (mg/dL) 97 Random Glucose 97 Calcium 7.7 L Phosphorus 2.7 Magnesium 1.8 Total Bilirubin 0.6 AST 108 H ALT 131 H Alkaline Phosphatase 99 Total Creatine Kinase CK-MB (Mass) Troponin I Total Protein 6.4 Albumin 3.0 L Globulin 3.4 Albumin/Globulin Ratio 0.9 L 05/09/17 05/09/17 05/09/17 17:57 17:57 17:57 WBC 17.9 H RBC 4.27 Hgb 12.3 Hct 37.4 MCV 87.5 MCH 28.8 MCHC 32.9 L RDW 13.7 Plt Count 181 MPV 8.4 Neut % (Auto) 91.6 H Lymph % (Auto) 5.3 L Benton % (Auto) 3.0 Eos % (Auto) 0.0 Baso % (Auto) 0.1 Neut # 16.4 H Lymph # 1.0 Benton # 0.5 Eos # 0.0 Baso # 0.0 Neutrophils % (Manual) 93 H Band Neutrophils % 1 Lymphocytes % (Manual) 2 L Reactive Lymphs % Monocytes % (Manual) 4 Platelet Estimate Normal Large Platelets RBC Morphology Normal Polychromasia Hypochromasia (manual) Anisocytosis (manual) PT 15.1 H INR 1.3 APTT 35 H Puncture Site pCO2 pO2 HCO3 ABG pH ABG Total CO2 ABG O2 Saturation ABG Base Excess ABG Hemoglobin ABG Carboxyhemoglobin POC ABG HHb (Measured) ABG Methemoglobin Evans Test A-a O2 Difference Respiratory Index Hgb O2 Saturation Vent Mode Mechanical Rate FiO2 Tidal Volume PEEP Sodium 139 Potassium 2.9 L Chloride 110 H Carbon Dioxide 19 L Anion Gap 13 BUN 23 H Creatinine 0.5 L Est GFR ( Amer) > 60 Est GFR (Non-Af Amer) > 60 POC Glucose (mg/dL) Random Glucose 95 Calcium 7.8 L Phosphorus 2.7 Magnesium 1.7 Total Bilirubin 0.6 AST 102 H ALT 132 H Alkaline Phosphatase 99 Total Creatine Kinase 783 H CK-MB (Mass) 24.7 H Troponin I 0.3270 H* Total Protein 6.4 Albumin 2.9 L Globulin 3.5 Albumin/Globulin Ratio 0.8 L 05/09/17 19:55 WBC RBC Hgb Hct MCV MCH MCHC RDW Plt Count MPV Neut % (Auto) Lymph % (Auto) Benton % (Auto) Eos % (Auto) Baso % (Auto) Neut # Lymph # Benton # Eos # Baso # Neutrophils % (Manual) Band Neutrophils % Lymphocytes % (Manual) Reactive Lymphs % Monocytes % (Manual) Platelet Estimate Large Platelets RBC Morphology Polychromasia Hypochromasia (manual) Anisocytosis (manual) PT INR APTT Puncture Site pCO2 pO2 HCO3 ABG pH ABG Total CO2 ABG O2 Saturation ABG Base Excess ABG Hemoglobin ABG Carboxyhemoglobin POC ABG HHb (Measured) ABG Methemoglobin Evans Test A-a O2 Difference Respiratory Index Hgb O2 Saturation Vent Mode Mechanical Rate FiO2 Tidal Volume PEEP Sodium Potassium Chloride Carbon Dioxide Anion Gap BUN Creatinine Est GFR ( Amer) Est GFR (Non-Af Amer) POC Glucose (mg/dL) 119 H Random Glucose Calcium Phosphorus Magnesium Total Bilirubin AST ALT Alkaline Phosphatase Total Creatine Kinase CK-MB (Mass) Troponin I Total Protein Albumin Globulin Albumin/Globulin Ratio Attending/Attestation - Attestation I have personally seen and examined this patient.: Yes I have fully participated in the care of the patient.: Yes I have reviewed all pertinent clinical information: Yes Notes (Text): Patient seen, examined, and case discussed with day-time resident. Patient was [facility] and admitted to the ICU. Patient's PMD does not come to hospital, requesting for patient to be on the hospitalist service. Per review of record, patient at prison for at least 1-2 years, was found to be in cardiac arrest, intubated by EMS, and ROSC achieved, unclear how much time needed for ROSC to be achieved. Per review of prison record, patient has a history of dementia, seizure disorder, s/p peg placement, and history of asthma. Case discussed with the intenvist, Dr. Kaur at bedside. Patient was started on Code Freeze protocol on 05/08 around 10AM per discussion with the nurse, is currently on the warming phase of the protocol. Cardiology and neurology on board. Per review of prison documentation: patient does not have Advance Care Directive. Patient's not present at bedside at time of my exam. Patient's 28 year old daughter Elisabeth at [facility]. Addendum to resident H&P, Per ED triage note, 05/08 "PATIENT ARRIVED FROM [facility]. ACCORDING TO HALF-WAY PATIENT HAD DIFFICUTLY BREATHING AT 0535, HAD 1 EPISODE OF VOMITING AND BECAME URESPONSIVE, CPR WAS STARTED AND EMS CALLED. PATIENT RECIEVED 3 EPI 4 DUONEBS 1 LITER OF N\\S. ANDD 125 MG OF SOLUMEDROL IN FIELD. PATIENT ARRIVED IN SVT PATIENT IS INTUBATED WITH # 7.0 E.T TUBE 23 AT LIP." Given patient's clinical condition, patient unable to provide history. Per discussion with the daughter, patient's mental status has been declining starting about 5 years ago. Patient had undergone workup for dementia including CT and MRI, when the patient used to see Dr. Campos as her PMD. Patient was seen by multiple neurologists, but no diagnoses was made. patient progressively over the past 2-3 years, started to become withdrawn, is currently bedbound, nonverbal, and her normal baseline is she does not speak nor respond verbally to Romansh or Iraqi. Per daughter, patient would interact by looking at you. I asked her if patient made any movements with any intent and does not believe so. Exam: 6:20PM on 05/09/17 General; nonverbal, intubated on vent, having myoclonic jerks head: eyes rolled back in head, difficult for eye exam; left eye sluggish Cardio: s1, s2 present Lungs: decreased breathe, on vent Abdomen: patient surrounding in wrappings for code freeze protocol; soft : Johnson present Extremities: trace edema; negative babinski's on prevalon boots Neuro: difficult to assess cranial nerves; patient having myoclonic jerks at bedside including facial twitching; negative babinski; intubated (on sedation) Assessment/Plan 1) s/p cardiopulmonary arrest * intubated in the field by EMS on 05/08/17, unclear how long after ROSC was achieved * per ED triage note: needed 3 Epis, 4 Duonebs, 1L of NS, Solumedrol 125mg IVX1 , in SVT, intubated * Admitted to ICU on 05/08/17 * Change of service to hospitalist service on 05/09/19 * Neurology (Dr. Hidalgo) on board * Cardiology (Dr. Heck) on board * Patient is on Code Freeze protocol started on 05/08/17; in the re-warming stage * On sedation; intubated in ventilator * on Solumedrol 40mg IVP Q8H * Duonebs RQ6H * Management per ICU 2) Pneumonia * Chest xray (05/08/17): mild venous congestion; mild cardiomegaly * Chest xray (05/09/17): endotracheal tube extending into mid thoracic trachea; prominent diffuse increased interstital lung markings. bilateral hilar prominence. confluent consolidative opacification at the right lung base as well as left lung base. small left pleural effusion. Tortuous ectatci aorta. Caridomegaly * Chest xray (05/09/17): endotracheal tube extending into mid thoracic trachea; left central venous catheter at right lung base and to lesser extent the left lung base. few scatter nodular densities at the lung bases. No evidence of postprocedure pneumothorax * Aztrenonam 11gram IVPB Q8H (active since 05/09/17) * Vancomcyin 1 gram IVQ12H (active since 05/09/17) * PSI/PORT score: 149 points (risk class V: 27-29.2% mortality. Hospitalization required 3) History of early onset dementia * patient does not have diagnoses as to etiology * Per daughter, patient's mother also young from similar disease * Progressive decline starting 5 years per daughter * CT Head (05/08/17): chronic microvascular ischemic changes. Dense bilateral basal ganglia calcifications. Diffuse moderate prominence of the ventricles. Clinical correlation. Ethmoid sinus mucosal thickening 4) Seizure disorder, unspecified * at prison, patient was taking Keppra and Lamotrigine; Ativan recently d/ c in March * Keppra 750mg IVQ12H * Patient to have bedside EEG tomorrow. Patient noted to have myclonic jerks at bedside and eyes are rolled back on my exam. 5) History of Asthma * Per ICU note, was found in status asthmaticus * Duonebs RQ6H * Intubated in the field 6) Abnormal CT Head * CT Head (05/08/17): chronic microvascular ischemic changes. Dense bilateral basal ganglia calcifications. Diffuse moderate prominence of the ventricles. Clinical correlation. Ethmoid sinus mucosal thickening * Neurology (Dr. Hidalgo on the case) 7) Prophylactic care * Code freeze 05/08/17 * Lovenox 40mg subq daily * Protonix 40mg IV qdaily * No advance care directive in the chart * phone number in the chart
--- NOTE | 2017-05-09 19:01 | PCM.PROC ---
Procedures Attestation:: I certify that I have explained the specified Operation(s) or Procedure(s), risks, benefits and reasonable alternatives to the Patient and/or other person responsible. The opportunity was given to ask questions and all questions answered - Central Line Placement Left Internal Jugular Triple Lumen Catheter Aseptic technique was employed throughout the procedure: Hand Hygiene done prior to procedure, Full sterile barriers (mask, hair cover, sterile gown, sterile gloves), Full body sterile drape, Chloraprep Antiseptic: 30 second prep for IJ or SC sites CVP Time Out Performed: Yes Pt. Placed on Pulse Ox Monitor: Yes Central Line Prep: Chlorhexidine-Alcohol Combination Local Anesthesia Used: Lidocaine 1% Amount of Anesthesia Used (mls): 3 Ultrasound Used for Placement: Yes Central Line Lumen Inserted: triple Central Line Length: 16 cm Post Procedure: Sutured in Place, Good Blood Return, All Ports Aspirated, Flushed, Capped, Sterile Dressing Applied Secured by: Suture Post procedure dressing: Chlorhexidine disc (Biopatch) Post Procedure X-Ray: Yes Patient Tolerated Procedure: Well
--- NOTE | 2017-05-09 19:10 | CP.PCM.CON ---
History of Present Illness - History of Present Illness History of Present Illness: cc: cardiopulmonary arrest HPI: Patient is a 57F with PMH early onset dementia, seizures, and questionable asthma who was brought to the ED via EMS from her [facility]p, [facility], where she was witnessed cardiopulmonary arrest. EMS intubated the patient in the field and ROSC was achieved. Upon arrival to the ED patient was having myoclonic jerks and code freeze was initiated. Patient remained intubated and patient was admitted to the ICU. Daughter was present today at bedside who informed us the patient has seen multiple neurologists who cannot figure out the reason for her neurological symptoms. She says the patient began declining 5 years ago and two years ago she had to be taken to a usp. Patient had to have a PEG tube inserted at this time. She has been on Jevity feeds 1.5 @45 cc/h. Patient is nonverbal at baseline however she would occasionally look at you when being spoken to. PCP: Dr. Alonso PMH: early onset dementia, seizures, questionable asthma, dysphagia, anxiety, and UTI (07/06) PSH: unknown Meds: ASA, duonebs with mucomistSelwyn, Allergies: PCSammie Flores (): [phone] Present on Admission - Present on Admission Any Indicators Present on Admission: No Review of Systems - Hematologic/Lymphatic Additional comments: Unattainable Physical Exam - Constitutional Appears: Chronically Ill - Head Exam Head Exam: ATRAUMATIC - Eye Exam Additional comments: eyes rolled back during exam - ENT Exam Additional comments: intubated Ppeak: 27 RR:16 Tidal volume: 450 PEEP: 5 - Neck Exam Additional comments: IJ in place - Respiratory Exam Respiratory Exam: Rales, Rhonchi - Cardiovascular Exam Cardiovascular Exam: RRR, +S1, +S2 - GI/Abdominal Exam Additional comments: covered with cooling/warming blanket - Extremities Exam Additional comments: Prevalon boots and SCDs on - Neurological Exam Neurological exam: Altered - Skin Skin Exam: Dry, Normal Color Past Patient History - Past Medical History & Family History Past Medical History?: Yes - Past Social History Smoking Status: Never Smoked - CARDIAC Hx Hypotension: Yes Hx Peripheral Edema: Yes - PULMONARY Hx Respiratory Disorders: Yes Hx Asthma: Yes Hx Chronic Obstructive Pulmonary Disease (COPD): Yes Hx Pneumonia: Yes - NEUROLOGICAL Hx Alzheimer's Disease: Yes Hx Seizures: Yes - RENAL Other/Comment: uti - MUSCULOSKELETAL/RHEUMATOLOGICAL Hx Falls: No - GASTROINTESTINAL Other/Comment: GT - PSYCHIATRIC Hx Substance Use: No Meds Allergies/Adverse Reactions: Allergies Allergy/AdvReac Type Severity Reaction Status Date / Time Penicillins Allergy Verified 05/08/17 07:09 - Medications Medications: Current Medications Acetaminophen (Tylenol 650mg/20.3ml Solution Ud) 975 mg PEG Q6 PRN PRN Reason: Rigors Last Admin: 05/08/17 09:50 Dose: 975 mg Albuterol/Ipratropium (Duoneb 3 Mg/0.5 Mg (3 Ml) Ud) 3 ml INH RQ6 [facility] Last Admin: 05/09/17 07:40 Dose: 3 ml Artificial Tears (Lacri-Lube) 0 gm OU Q4 [facility] Last Admin: 05/09/17 16:01 Dose: 3.5 gm Enoxaparin Sodium (Lovenox) 40 mg SC DAILY [facility] Last Admin: 05/09/17 11:48 Dose: 40 mg Propofol (Diprivan) 1,000 mg in 100 mls @ 2.722 mls/hr IV .Q24H PRN; Protocol; 5 MCG/KG/MIN PRN Reason: TITRATE PER MD ORDER Last Admin: 05/09/17 15:59 Dose: 5 mcg/kg/min, 2.722 mls/hr Sodium Chloride (Sodium Chloride 0.9%) 1,000 mls @ 100 mls/hr IV .Q10H [facility] Last Admin: 05/09/17 17:24 Dose: 100 mls/hr Aztreonam 1 gm/ Sodium (Chloride) 50 mls @ 100 mls/hr IVPB Q8H [facility] Last Admin: 05/09/17 18:16 Dose: 100 mls/hr Vancomycin/Sodium Chloride (Vancomycin 1 Gm/Ns 200 Ml) 1 gm in 200 mls @ 133 mls/hr IVPB Q12H [facility] Stop: 05/14/17 12:01 Last Admin: 05/09/17 12:42 Dose: 133 mls/hr Levetiracetam 750 mg/ Sodium (Chloride) 107.5 mls @ 420 mls/hr IVPB Q12H [facility] Last Admin: 05/09/17 11:45 Dose: 420 mls/hr Potassium Chloride (Potassium Chloride 20 Meq/100 Ml) 20 meq in 100 mls @ 50 mls/hr IVPB ONCE ONE Stop: 05/09/17 20:29 Last Admin: 05/09/17 18:38 Dose: 50 mls/hr Potassium Chloride (Potassium Chloride 20 Meq/100 Ml) 20 meq in 100 mls @ 50 mls/hr IVPB ONCE ONE Stop: 05/09/17 22:29 Insulin Human Regular (Novolin R) 0 unit SC Q4H [facility] PRN Reason: Protocol Last Admin: 05/09/17 15:57 Dose: Not Given Methylprednisolone (Solu-Medrol) 40 mg IVP Q8 [facility] Last Admin: 05/09/17 13:14 Dose: 40 mg Pantoprazole Sodium (Protonix Susp) 40 mg PO 0600 [facility] Last Admin: 05/09/17 05:22 Dose: 40 mg Results - Vital Signs Recent Vital Signs: Last Vital Signs Temp 95.2 F L 05/09/17 18:00 Pulse 97 H 05/09/17 19:00 Resp 18 05/09/17 19:00 BP 127/86 05/09/17 19:00 Pulse Ox 100 05/09/17 19:00 - Labs Result Diagrams: 05/09/17 17:57 05/09/17 17:57 Labs: Laboratory Results - last 24 hr 05/08/17 05/08/17 05/09/17 19:42 23:43 04:04 WBC RBC Hgb Hct MCV MCH MCHC RDW Plt Count MPV Neut % (Auto) Lymph % (Auto) [place] % (Auto) Eos % (Auto) Baso % (Auto) Neut # Lymph # [place] # Eos # Baso # Neutrophils % (Manual) Band Neutrophils % Lymphocytes % (Manual) Reactive Lymphs % Monocytes % (Manual) Platelet Estimate Large Platelets RBC Morphology Polychromasia Hypochromasia (manual) Anisocytosis (manual) PT INR APTT Puncture Site pCO2 pO2 HCO3 ABG pH ABG Total CO2 ABG O2 Saturation ABG Base Excess ABG Hemoglobin ABG Carboxyhemoglobin POC ABG HHb (Measured) ABG Methemoglobin Evans Test A-a O2 Difference Respiratory Index Hgb O2 Saturation Vent Mode Mechanical Rate FiO2 Tidal Volume PEEP Sodium Potassium Chloride Carbon Dioxide Anion Gap BUN Creatinine Est GFR ( Amer) Est GFR (Non-Af Amer) POC Glucose (mg/dL) 334 H 275 H 241 H Random Glucose Calcium Phosphorus Magnesium Total Bilirubin AST ALT Alkaline Phosphatase Total Creatine Kinase CK-MB (Mass) Troponin I Total Protein Albumin Globulin Albumin/Globulin Ratio 05/09/17 05/09/17 05/09/17 05:55 06:24 06:24 WBC 20.7 H RBC 4.61 Hgb 13.0 Hct 40.3 MCV 87.4 D MCH 28.2 MCHC 32.3 L RDW 13.9 Plt Count 219 MPV 9.0 Neut % (Auto) 90.8 H Lymph % (Auto) 5.3 L [place] % (Auto) 1.9 Eos % (Auto) 1.7 Baso % (Auto) 0.3 Neut # 18.8 H Lymph # 1.1 [place] # 0.4 Eos # 0.3 Baso # 0.1 Neutrophils % (Manual) 91 H Band Neutrophils % 3 H Lymphocytes % (Manual) 4 L Reactive Lymphs % Monocytes % (Manual) 2 Platelet Estimate Normal Large Platelets Present RBC Morphology Polychromasia Slight Hypochromasia (manual) Slight Anisocytosis (manual) Slight PT INR APTT Puncture Site Rfem pCO2 35 pO2 180 H HCO3 20.6 L ABG pH 7.35 ABG Total CO2 20.4 L ABG O2 Saturation 99.9 H ABG Base Excess -5.6 L ABG Hemoglobin 13.4 ABG Carboxyhemoglobin 1.4 POC ABG HHb (Measured) 0.1 ABG Methemoglobin 1.3 Evans Test Ng A-a O2 Difference 133.0 Respiratory Index 0.7 Hgb O2 Saturation 97.3 Vent Mode Prvc Mechanical Rate 16 FiO2 50.0 Tidal Volume 450 PEEP 5 Sodium 139 Potassium 3.3 L Chloride 111 H Carbon Dioxide 19 L Anion Gap 13 BUN 25 H Creatinine 0.4 L Est GFR ( Amer) > 60 Est GFR (Non-Af Amer) > 60 POC Glucose (mg/dL) Random Glucose 151 H Calcium 7.8 L Phosphorus 2.8 Magnesium 1.9 Total Bilirubin 0.7 AST 128 H ALT 136 H Alkaline Phosphatase 105 Total Creatine Kinase CK-MB (Mass) Troponin I Total Protein 6.8 Albumin 3.2 L Globulin 3.6 Albumin/Globulin Ratio 0.9 L 05/09/17 05/09/17 05/09/17 07:37 12:15 12:30 WBC RBC Hgb Hct MCV MCH MCHC RDW Plt Count MPV Neut % (Auto) Lymph % (Auto) [place] % (Auto) Eos % (Auto) Baso % (Auto) Neut # Lymph # [place] # Eos # Baso # Neutrophils % (Manual) Band Neutrophils % Lymphocytes % (Manual) Reactive Lymphs % Monocytes % (Manual) Platelet Estimate Large Platelets RBC Morphology Polychromasia Hypochromasia (manual) Anisocytosis (manual) PT INR APTT Puncture Site pCO2 pO2 HCO3 ABG pH ABG Total CO2 ABG O2 Saturation ABG Base Excess ABG Hemoglobin ABG Carboxyhemoglobin POC ABG HHb (Measured) ABG Methemoglobin Evans Test A-a O2 Difference Respiratory Index Hgb O2 Saturation Vent Mode Mechanical Rate FiO2 Tidal Volume PEEP Sodium Potassium Chloride Carbon Dioxide Anion Gap BUN Creatinine Est GFR ( Amer) Est GFR (Non-Af Amer) POC Glucose (mg/dL) 174 H 137 H Random Glucose Calcium Phosphorus Magnesium Total Bilirubin AST ALT Alkaline Phosphatase Total Creatine Kinase 719 H CK-MB (Mass) 22.0 H Troponin I 0.2450 H* Total Protein Albumin Globulin Albumin/Globulin Ratio 05/09/17 05/09/17 05/09/17 12:32 12:32 12:32 WBC 19.5 H RBC 4.39 Hgb 12.7 Hct 38.4 MCV 87.5 MCH 29.0 MCHC 33.1 RDW 13.6 Plt Count 192 MPV 8.3 Neut % (Auto) 90.3 H Lymph % (Auto) 7.1 L [place] % (Auto) 2.5 Eos % (Auto) 0.0 Baso % (Auto) 0.1 Neut # 17.6 H Lymph # 1.4 [place] # 0.5 Eos # 0.0 Baso # 0.0 Neutrophils % (Manual) 89 H Band Neutrophils % 1 Lymphocytes % (Manual) 7 L Reactive Lymphs % 1 H Monocytes % (Manual) 2 Platelet Estimate Normal Large Platelets RBC Morphology Polychromasia Hypochromasia (manual) Anisocytosis (manual) Slight PT 14.8 H INR 1.3 APTT 31 D Puncture Site pCO2 pO2 HCO3 ABG pH ABG Total CO2 ABG O2 Saturation ABG Base Excess ABG Hemoglobin ABG Carboxyhemoglobin POC ABG HHb (Measured) ABG Methemoglobin Evans Test A-a O2 Difference Respiratory Index Hgb O2 Saturation Vent Mode Mechanical Rate FiO2 Tidal Volume PEEP Sodium 140 Potassium 3.2 L Chloride 111 H Carbon Dioxide 20 L Anion Gap 12 BUN 23 H Creatinine 0.4 L Est GFR ( Amer) > 60 Est GFR (Non-Af Amer) > 60 POC Glucose (mg/dL) Random Glucose 97 Calcium 7.7 L Phosphorus 2.7 Magnesium 1.8 Total Bilirubin 0.6 AST 108 H ALT 131 H Alkaline Phosphatase 99 Total Creatine Kinase CK-MB (Mass) Troponin I Total Protein 6.4 Albumin 3.0 L Globulin 3.4 Albumin/Globulin Ratio 0.9 L 05/09/17 05/09/17 05/09/17 15:44 17:57 17:57 WBC 17.9 H RBC 4.27 Hgb 12.3 Hct 37.4 MCV 87.5 MCH 28.8 MCHC 32.9 L RDW 13.7 Plt Count 181 MPV 8.4 Neut % (Auto) 91.6 H Lymph % (Auto) 5.3 L [place] % (Auto) 3.0 Eos % (Auto) 0.0 Baso % (Auto) 0.1 Neut # 16.4 H Lymph # 1.0 [place] # 0.5 Eos # 0.0 Baso # 0.0 Neutrophils % (Manual) 93 H Band Neutrophils % 1 Lymphocytes % (Manual) 2 L Reactive Lymphs % Monocytes % (Manual) 4 Platelet Estimate Normal Large Platelets RBC Morphology Normal Polychromasia Hypochromasia (manual) Anisocytosis (manual) PT 15.1 H INR 1.3 APTT 35 H Puncture Site pCO2 pO2 HCO3 ABG pH ABG Total CO2 ABG O2 Saturation ABG Base Excess ABG Hemoglobin ABG Carboxyhemoglobin POC ABG HHb (Measured) ABG Methemoglobin Evans Test A-a O2 Difference Respiratory Index Hgb O2 Saturation Vent Mode Mechanical Rate FiO2 Tidal Volume PEEP Sodium Potassium Chloride Carbon Dioxide Anion Gap BUN Creatinine Est GFR ( Amer) Est GFR (Non-Af Amer) POC Glucose (mg/dL) 97 Random Glucose Calcium Phosphorus Magnesium Total Bilirubin AST ALT Alkaline Phosphatase Total Creatine Kinase CK-MB (Mass) Troponin I Total Protein Albumin Globulin Albumin/Globulin Ratio 05/09/17 17:57 WBC RBC Hgb Hct MCV MCH MCHC RDW Plt Count MPV Neut % (Auto) Lymph % (Auto) [place] % (Auto) Eos % (Auto) Baso % (Auto) Neut # Lymph # [place] # Eos # Baso # Neutrophils % (Manual) Band Neutrophils % Lymphocytes % (Manual) Reactive Lymphs % Monocytes % (Manual) Platelet Estimate Large Platelets RBC Morphology Polychromasia Hypochromasia (manual) Anisocytosis (manual) PT INR APTT Puncture Site pCO2 pO2 HCO3 ABG pH ABG Total CO2 ABG O2 Saturation ABG Base Excess ABG Hemoglobin ABG Carboxyhemoglobin POC ABG HHb (Measured) ABG Methemoglobin Evans Test A-a O2 Difference Respiratory Index Hgb O2 Saturation Vent Mode Mechanical Rate FiO2 Tidal Volume PEEP Sodium 139 Potassium 2.9 L Chloride 110 H Carbon Dioxide 19 L Anion Gap 13 BUN 23 H Creatinine 0.5 L Est GFR ( Amer) > 60 Est GFR (Non-Af Amer) > 60 POC Glucose (mg/dL) Random Glucose 95 Calcium 7.8 L Phosphorus 2.7 Magnesium 1.7 Total Bilirubin 0.6 AST 102 H ALT 132 H Alkaline Phosphatase 99 Total Creatine Kinase 783 H CK-MB (Mass) 24.7 H Troponin I 0.3270 H* Total Protein 6.4 Albumin 2.9 L Globulin 3.5 Albumin/Globulin Ratio 0.8 L Assessment & Plan - Assessment and Plan (Free Text) Assessment: (1) Cardiopulmonary arrest Assessment and Plan: Trops normal Check ECHO Most likely secondary to sepsis Will follow DVT/GI prophylaxis (2) Pneumonia Assessment and Plan: * CXR suspicious for pneumonia * Vanc 1g Q12h * Aztreonam 1g Q8h Status: Acute (3) Seizure disorder Assessment and Plan: * Keppra 750 mg IV BID * neuro on board (Dr. Hidalgo) Status: Acute (4) Asthma Assessment and Plan: * Duonebs Q6h Status: Acute (5) Dysphagia Assessment and Plan: * PEG tube feeds Status: Acute (6) Prophylactic measure Assessment and Plan: * Protonix 40 mg QD * Lovenox 40 mg SC QD Status: Acute
--- NOTE | 2017-05-09 20:00 | CON ---
ATTENDING PHYSICIAN: Dwayne Pereyra MD REASON FOR CONSULTATION: Status post cardiopulmonary arrest. HISTORY OF PRESENT ILLNESS: The patient is a 57-year-old unfortunate lady with past medical history of advanced dementia, nonverbal for a year. While at care home, the patient had a cardiopulmonary arrest, resuscitated, and then had a second cardiac arrest as per daughter at bedside. The patient has been a resident of care home for more than a year. The patient is currently intubated and at bedside, having jerky movement of her extremities on and off. PAST MEDICAL HISTORY: As mentioned above. MEDICATIONS: Albuterol, levetiracetam 750 mg b.i.d., enoxaparin, insulin, methylprednisolone, acetaminophen. SOCIAL HISTORY: Nonsmoker, alcohol user. ALLERGIES: ALLERGIC TO PENICILLIN. REVIEW OF SYSTEMS: As per H and P and ER notes reviewed. PHYSICAL EXAMINATION: VITAL SIGNS: Blood pressure 116/72, pulse 113, respirations 16 and temperature 98.3. MENTAL STATUS: The patient is comatose, no response to verbal commands or loud noise, intubated. CRANIAL NERVES: Pupils 2-mm sluggishly reactive, upward gaze preference. Corneal reflex absent. Absent doll's eye. During initial examination, the patient was blinking for few seconds and then she stopped. MOTOR: Increased tone in upper and lower extremities. Deep tendon reflexes 1 in upper extremities, absent in bilateral lower extremities. Plantar is equivocal. Probably, the patient had foot drop bilaterally. The patient has been bedridden. CAT scan of the brain reviewed consistent with severe cerebral atrophy and ventricular enlargement. 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 IMPRESSION: Status post cardiopulmonary arrest causing severe anoxic encephalopathy. The patient was started on hypothermia protocol and has been 24 hours, and the patient will be off hypothermia at this point. Continue Keppra 750 mg b.i.d. Repeat a CAT scan in the morning to rule out loss of white trujillo matter differentiation in addition to EEG to rule out subclinical seizure, although the patient started on Keppra 750 mg q.12 hours empirically. Continue supportive care. The patient's [place] coma scale almost 4/15 to 5/15. Above discussed with daughter and findings explained. At this point, I will wait at least 2 more days and then the decision should be made regarding the family and DNR. Overall prognosis is poor, although the patient has no quality of life prior to the arrest, and I had explained to the family. Thank you for the consultation, and Dr. Hidalgo will follow up the patient tomorrow. Leo Salomon MD
[2017-05-10] MEDS: Albuterol-Ipratrop 3 mg / 0.5 (3 ml) UD INH SCH ×3 (01:03→19:24)
[2017-05-10] MEDS: Sodium Chloride 0.9% 1,000 ML IV SCH (04:13)
[2017-05-10] MEDS: White Petrolatum/Mineral Oil Ophth Oint(3.5 gm) OU SCH ×6 (04:13→23:13)
[2017-05-10] MEDS: (Novolin R) Insulin Human Regular 100 units/ml vial SC SCH ×3 (04:19→07:51)
[2017-05-10 04:45] LABS: ABG MECHANICAL RATE 16; ARTERIAL BLOOD GAS MODE PRVC; ARTERIAL BLOOD HGB O2 SAT 96.8 % (95.0-98.0); ATERIAL BLOOD GAS PEEP 5; CARBOXYHEMOGLOBIN 1.7 % (0.5-1.5); DRAW SITE RB; HHB 0.1 % (0.0-5.0); METHEMOGLOBIN 1.4 % (0.0-3.0)
[2017-05-10] MEDS: MethylPREDNISolone 40 mg Vial IVP SCH ×3 (05:01→21:12)
[2017-05-10] MEDS: Pantoprazole 40 mg Susp UD PO SCH (05:01)
[2017-05-10 06:36] LABS: BASO % 0.1 % (0.0-2.0); HEMATOCRIT 37.5 % (34.0-47.0); LYMPH # 0.9 K/uL (1.0-4.3); LYMPH % 4.5 % (20.0-40.0); MEAN CELL VOLUME 86.7 fL (81.0-99.0); MEAN CORPUSCULAR HEMOGLOBIN 28.8 pg (27.0-31.0); MEAN CORPUSCULAR HGB CONC 33.2 g/dL (33.0-37.0); MONO # 0.5 K/uL (0.0-0.8); MONO % 2.5 % (0.0-10.0); NRBC % 0.1 % (0.0-2.0); PLATELET COUNT 225 K/uL (130-400); RED CELL DISTRIBUTION WIDTH 13.6 % (11.5-14.5); WHITE BLOOD COUNT 21.2 K/uL (4.8-10.8)
[2017-05-10 06:50] LABS: ALB/GLOB RATIO 1.2 (1.0-2.1); ALKALINE PHOSPHATASE 99 U/L (38-126); ALT/SGPT 115 U/L (9-52); AST/SGOT 84 U/L (14-36); BILIRUBIN,TOTAL 0.7 mg/dL (0.2-1.3); BLOOD UREA NITROGEN 21 mg/dL (7-17); CALCIUM 7.8 mg/dl (8.6-10.4); CARBON DIOXIDE 19 mmol/L (22-30); CHLORIDE 110 mmol/L (98-107); GFR AFRICAN-AMERICAN > 60; GLUCOSE,RANDOM 119 mg/dL (65-105); MAGNESIUM 1.6 mg/dL (1.6-2.3); PHOSPHOROUS 2.6 mg/dL (2.5-4.5); POTASSIUM 3.8 mmol/L (3.6-5.2); SODIUM 138 mmol/L (132-148); TOTAL PROTEIN 5.4 g/dL (6.3-8.3)
[2017-05-10 08:28] LABS: NEUTROPHIL 93 % (50-75); TOTAL CELLS COUNTED 100
--- NOTE | 2017-05-10 08:39 | RAD ---
Chest x-ray single frontal view History: Infiltrate. Pneumonia. Comparison: 05/09/2017 Findings: Endotracheal tube extending into the mid thoracic trachea. Left central venous catheter with tip extending to the proximal right SVC. Moderate venous congestion. Prominent patchy confluent bibasilar airspace opacities with small bilateral pleural effusions. Opacification at the lateral aspect of the left lung apex may be related to external device. Tortuous ectatic aorta. Bilateral hilar prominence. Cardiomegaly. Degenerative changes in the spine and shoulders. Impression: Moderate venous congestion. Prominent patchy confluent bibasilar airspace opacities with small bilateral pleural effusions.
[2017-05-10] MEDS: Enoxaparin 40 mg Syringe SC SCH (09:16)
--- NOTE | 2017-05-10 10:34 | PN ---
NEUROLOGIC PROBLEM: Hypoxic versus anoxic encephalopathy with myoclonic seizures. PHYSICAL EXAMINATION: VITAL SIGNS: Blood pressure 124/72, mean arterial pressure of 99, respiratory rate is 16 on vent, temperature 97.8 with the pulse rate 94, regular. NEUROLOGIC: The patient is comatose. 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 Gag impaired on manipulating the endotracheal tube. Both hands are flaccid, quadriplegic. Plantars are mute with areflexia. LABORATORY DATA: Recent blood work of WBC 21.2, hemoglobin 12.5, hematocrit 37.5, platelets 225. PT 15.1, INR 1.3, PTT 35. Sodium 138, potassium 3.8, chloride 110, bicarbonate 19, GFR more than 60, glucose 147. RECOMMENDATIONS: 1. The patient is requested to have a follow up CT of the head. 2. EEG. 3. Continue hydration and keep mean arterial pressure of 90, keep the head in elevation. The patient's condition has been discussed with her . The patient will be followed closely with you. Kev Hidalgo MD
[2017-05-10] MEDS: Vancomycin 1 gm/NS 200 ml 1 GM/200 ML BAG IVPB SCH (12:00)
--- NOTE | 2017-05-10 13:29 | CT ---
PROCEDURE: CT HEAD WITHOUT CONTRAST. HISTORY: eval for edema COMPARISON: None available. TECHNIQUE: Axial computed tomography images were obtained through the head/brain without intravenous contrast. Radiation dose: Total exam DLP = 982.82 mGy-cm. This CT exam was performed using one or more of the following dose reduction techniques: Automated exposure control, adjustment of the mA and/or kV according to patient size, and/or use of iterative reconstruction technique. FINDINGS: HEMORRHAGE: No intracranial hemorrhage. BRAIN: No mass effect or edema. Moderate diffuse atrophy unchanged in extent. No evidence of acute infarct. There is low-attenuation/ischemic change in the right caudate nucleus head not evident prior CT examination. Possibility of acute/ subacute infarct must be considered and evaluation with magnetic resonance imaging is advised. No evidence of acute infarct elsewhere. Patchy periventricular white matter lucency consistent with age-related microvascular ischemic change. VENTRICLES: Ex vacuo ventricular dilatation unchanged from previous CALVARIUM: Unremarkable. PARANASAL SINUSES: Chronic ethmoid, sphenoid and bilateral maxillary sinusitis. MASTOID AIR CELLS: Unremarkable as visualized. No inflammatory changes. OTHER FINDINGS: None. IMPRESSION: New low attenuation in the right caudate nucleus head indicating possible acute/subacute infarct. Recommend evaluation with magnetic resonance imaging. Atrophy greater than expected for patient age with ex vacuo ventricular dilatation. Chronic white matter ischemic change. These findings were discussed by telephone with Dr. Ledesma at 1:20 p.m. on 05/10/2017.
--- NOTE | 2017-05-10 15:23 | CP.PCM.PN ---
Subjective - Date & Time of Evaluation Date of Evaluation: 05/10/17 Time of Evaluation: 12:30 - Subjective Subjective: Patient is unresponsive/comatose on Vent support d/w at bedside Objective - Vital Signs/Intake and Output Vital Signs (last 24 hours): Temp Pulse Resp BP Pulse Ox 97.0 F L 86 18 112/58 L 100 05/10/17 14:00 05/10/17 15:06 05/10/17 15:06 05/10/17 15:06 05/10/17 15:06 Intake and Output: 05/10/17 05/10/17 06:59 18:59 Intake Total 1966.2 870 Output Total 300 240 Balance 1666.2 630 - Medications Medications: Current Medications Acetaminophen (Tylenol 650mg/20.3ml Solution Ud) 975 mg PEG Q6 PRN PRN Reason: Rigors Last Admin: 05/08/17 09:50 Dose: 975 mg Albuterol/Ipratropium (Duoneb 3 Mg/0.5 Mg (3 Ml) Ud) 3 ml INH RQ6 [facility] Last Admin: 05/10/17 07:26 Dose: 3 ml Artificial Tears (Lacri-Lube) 0 gm OU Q4 [facility] Last Admin: 05/10/17 13:58 Dose: 3.5 gm Enoxaparin Sodium (Lovenox) 40 mg SC DAILY [facility] Last Admin: 05/10/17 09:16 Dose: 40 mg Propofol (Diprivan) 1,000 mg in 100 mls @ 2.722 mls/hr IV .Q24H PRN; Protocol; 5 MCG/KG/MIN PRN Reason: TITRATE PER MD ORDER Last Titration: 05/10/17 00:00 Dose: 0 mcg/kg/min, 0 mls/hr Aztreonam 1 gm/ Sodium (Chloride) 50 mls @ 100 mls/hr IVPB Q8H [facility] Last Admin: 05/10/17 10:11 Dose: 100 mls/hr Vancomycin/Sodium Chloride (Vancomycin 1 Gm/Ns 200 Ml) 1 gm in 200 mls @ 133 mls/hr IVPB Q12H [facility] Stop: 05/14/17 12:01 Last Admin: 05/10/17 12:00 Dose: 133 mls/hr Levetiracetam 750 mg/ Sodium (Chloride) 107.5 mls @ 420 mls/hr IVPB Q12H [facility] Last Admin: 05/10/17 11:42 Dose: 420 mls/hr Methylprednisolone (Solu-Medrol) 40 mg IVP Q12 [facility] Last Admin: 05/10/17 10:11 Dose: 40 mg Pantoprazole Sodium (Protonix Susp) 40 mg PO 0600 [facility] Last Admin: 05/10/17 05:01 Dose: 40 mg - Labs Labs: 05/10/17 06:23 05/10/17 06:24 PT 15.1 SECONDS (9.7-12.2) H 05/09/17 17:57 INR 1.3 05/09/17 17:57 APTT 35 SECONDS (21-34) H 05/09/17 17:57 - Constitutional Appears: Chronically Ill - Head Exam Head Exam: absent: NORMAL INSPECTION (intubated) - ENT Exam ENT Exam: absent: Normal Exam (IT tube) - Neck Exam Neck Exam: Full ROM - Respiratory Exam Respiratory Exam: Rales. absent: Accessory Muscle Use - Cardiovascular Exam Cardiovascular Exam: REGULAR RHYTHM - GI/Abdominal Exam GI & Abdominal Exam: Soft - Extremities Exam Extremities Exam: absent: Full ROM (quadriplegic) - Back Exam Back Exam: absent: NORMAL INSPECTION - Neurological Exam Neurological Exam: absent: Oriented x3 (unresponsive) - Psychiatric Exam Psychiatric exam: absent: Normal Mood (unresponsive) - Skin Skin Exam: Normal Color Assessment and Plan - Assessment and Plan (Free Text) Assessment: Patient is a 57F with PMH early onset dementia, seizures, and questionable asthma who was brought to the ED via EMS from her skilled nursing, [facility], where she was witnessed cardiopulmonary arrest. EMS intubated the patient in the field.At ED patient was having myoclonic jerks and code freeze was initiated. Patient remained intubated and patient was admitted to the ICU. d/w daughter and her . Her dementia started 7 years ago.Last two year she was in the NH,nonverbal,some days she is responsive/look at family members Plan: 1. 1) s/p cardiopulmonary arrest Intubated and remain on Vent support,comatose Abnormal CT brain .Repeat CT acute/subacute infarct asprin added d/w Dr Hidalgo.Patient has poor prognosis, Brain changes could be due anoxia brain injury s/p code freeze,continue solumedrol and duoneb On sedation 2) Pneumonia and elevated wbc follow cultures Continue Aztrenonam and Vancomcyin continue duoneb and steroid 3) History of early onset dementia starting 5 years ago as per daughter d/w daughter about advance directives,full code at this time. she wants to see how she is doing next two days 4) Seizure disorder, unspecified patient was taking Keppra and Lamotrigine On Keppra 750mg IVQ12H 5) History of Asthma 6) DVT and GI prophylasix protonix and lovenox
--- NOTE | 2017-05-10 17:47 | CARD ---
APPROVED REPORT EKG Measurement Heart [id number] [place] 152P50 [id number] <Conclusion> Sinus tachycardia Incomplete right bundle branch block Possible Inferior infarct, age undetermined Abnormal ECG PLEASE REPEAT
--- NOTE | 2017-05-10 19:24 | CP.CCUPN ---
<Du Ledesma - Last Filed: 05/10/17 20:10> CCU Subjective - Physician Review Subjective (Free Text): PGY1 ICU progress note for Dr. Sands Patient seen and examined this morning at bedside. Patient is unresponsive on ventilator support. ROS unattainable. CCU Objective - Vital Signs / Intake & Output Vital Signs (Last 4 hours): Vital Signs Temp Pulse Resp BP Pulse Ox 05/10/17 19:06 112/56 L 05/10/17 19:05 94 H 17 100 05/10/17 18:06 96 H 18 120/58 L 100 05/10/17 18:00 97.2 F L 100 05/10/17 17:05 96 H 17 121/64 100 05/10/17 16:05 85 19 106/61 100 05/10/17 16:00 97.2 F L 100 Intake and Output (Last 8hrs): Intake & Output 05/10/17 05/10/17 05/10/17 06:59 14:59 22:59 Intake Total 1305.4 820 200 Output Total 225 210 155 Balance 1080.4 610 45 Weight 187 lb Intake: IV 0 Intake, IV Amount 1305.4 700 50 Left Distal Port Internal 5.4 Jugular Left Medial Port Internal 400 Jugular Left Proximal Port 900 700 50 Internal Jugular Oral 60 30 Tube Feeding 60 120 Output: Urine 225 210 155 Urethral (Johnson) 225 210 155 Other: # Bowel Movements 0 0 - Physical Exam Head: Positive for: Atraumatic, Normocephalic Pupils: Positive for: Sluggish Mouth: Positive for: Moist Mucous Membranes Neck: Positive for: Trachea Midline Respiratory/Chest: Positive for: Decreased Breath Sounds Cardiovascular: Positive for: Regular Rate and Rhythm Abdomen: Positive for: Normal Bowel Sounds Upper Extremity: Positive for: Normal Inspection Lower Extremity: Positive for: Edema Psychiatric: Positive for: Other (intubated) - Medications Active Medications: Active Medications Generic Name Dose Route Start Last Admin Trade Name Freq PRN Reason Stop Dose Admin Acetaminophen 975 mg 05/08/17 09:31 05/08/17 09:50 Tylenol 650mg/20.3ml Solution Ud PEG 975 mg Q6 PRN Administration Rigors Albuterol/Ipratropium 3 ml 05/08/17 20:00 05/10/17 07:26 Duoneb 3 Mg/0.5 Mg (3 Ml) Ud INH 3 ml RQ6 LINNETTE Administration Artificial Tears 0 gm 05/08/17 12:00 05/10/17 15:19 Lacri-Lube OU 3.5 gm Q4 LINNETTE Administration Aspirin 81 mg 05/11/17 10:00 Aspirin Chewable PEG DAILY LINNETTE Enoxaparin Sodium 40 mg 05/09/17 10:30 05/10/17 09:16 Lovenox SC 40 mg DAILY LINNETTE Administration Propofol 1,000 mg in 100 mls @ 2.722 mls/hr 05/08/17 09:49 05/10/17 00:00 Diprivan IV 0 mcg/kg/min .Q24H PRN 0 mls/hr TITRATE PER MD ORDER Titration Protocol 5 MCG/KG/MIN Aztreonam 1 gm/ Sodium 50 mls @ 100 mls/hr 05/09/17 11:00 05/10/17 18:40 Chloride IVPB 100 mls/hr Q8H LINNETTE Administration Vancomycin/Sodium Chloride 1 gm in 200 mls @ 133 mls/hr 05/09/17 12:00 12:00 Vancomycin 1 Gm/Ns 200 Ml IVPB 05/14/17 12:01 133 mls/hr Q12H LINNETTE Administration Levetiracetam 750 mg/ Sodium 57.5 mls @ 57.5 mls/hr 05/10/17 23:30 Chloride IVPB Q12H LINNETTE Methylprednisolone 40 mg 05/10/17 10:00 05/10/17 10:11 Solu-Medrol IVP 40 mg Q12 LINNETTE Administration Pantoprazole Sodium 40 mg 05/09/17 06:00 05/10/17 05:01 Protonix Susp PO 40 mg 0600 LINNETTE Administration - Patient Studies Lab Studies: Microbiology Studies 05/08/17 15:30 Blood Culture - Preliminary Blood NO GROWTH AFTER 48 HOURS 05/08/17 16:00 Blood Culture - Preliminary Blood NO GROWTH AFTER 48 HOURS 05/09/17 14:47 Urine Culture - Final Urine,Johnson No Growth (<1,000 CFU/ML) 05/09/17 14:47 Gram Stain - Final Trachasp Lab Studies 05/10/17 05/10/17 05/10/17 Range/Units 17:43 14:56 11:40 WBC (4.8-10.8) K/uL RBC (3.80-5.20) Mil/uL Hgb (11.0-16.0) g/dL Hct (34.0-47.0) % MCV (81.0-99.0) fL MCH (27.0-31.0) pg MCHC (33.0-37.0) g/dL RDW (11.5-14.5) % Plt Count (130-400) K/uL MPV (7.2-11.7) fL Neut % (Auto) (50.0-75.0) % Lymph % (Auto) (20.0-40.0) % Sac % (Auto) (0.0-10.0) % Eos % (Auto) (0.0-4.0) % Baso % (Auto) (0.0-2.0) % Neut # (1.8-7.0) K/uL Lymph # (1.0-4.3) K/uL Sac # (0.0-0.8) K/uL Eos # (0.0-0.7) K/uL Baso # (0.0-0.2) K/uL Neutrophils % (Manual) (50-75) % Band Neutrophils % (0-2) % Lymphocytes % (Manual) (20-40) % Monocytes % (Manual) (0-10) % Platelet Estimate (NORMAL) RBC Morphology Puncture Site pCO2 (35-45) mm/Hg pO2 (80-100) mm/Hg HCO3 (21-28) mmol/L ABG pH (7.35-7.45) ABG Total CO2 (22-28) mmol/L ABG O2 Saturation (95-98) % ABG Base Excess (-2.0-3.0) mmol/L ABG Hemoglobin (11.7-17.4) g/dL ABG Carboxyhemoglobin (0.5-1.5) % POC ABG HHb (Measured) (0.0-5.0) % ABG Methemoglobin (0.0-3.0) % Evans Test A-a O2 Difference mm/Hg Respiratory Index Hgb O2 Saturation (95.0-98.0) % Vent Mode Mechanical Rate FiO2 % Tidal Volume PEEP Sodium (132-148) mmol/L Potassium (3.6-5.2) mmol/L Chloride (98-107) mmol/L Carbon Dioxide (22-30) mmol/L Anion Gap (10-20) BUN (7-17) mg/dL Creatinine (0.7-1.2) mg/dL Est GFR ( Amer) Est GFR (Non-Af Amer) POC Glucose (mg/dL) 180 H 157 H (65-110) mg/dL Random Glucose (65-105) mg/dL Calcium (8.6-10.4) mg/dl Phosphorus (2.5-4.5) mg/dL Magnesium (1.6-2.3) mg/dL Total Bilirubin (0.2-1.3) mg/dL AST (14-36) U/L ALT (9-52) U/L Alkaline Phosphatase (38-126) U/L Total Protein (6.3-8.3) g/dL Albumin (3.5-5.0) g/dL Globulin (2.2-3.9) gm/dL Albumin/Globulin Ratio (1.0-2.1) Vancomycin Peak 20.9 L (30.0-40.0) ug/mL Vancomycin Trough (5.0-10.0) ug/mL 05/10/17 05/10/17 05/10/17 Range/Units 11:10 07:41 06:24 WBC (4.8-10.8) K/uL RBC (3.80-5.20) Mil/uL Hgb (11.0-16.0) g/dL Hct (34.0-47.0) % MCV (81.0-99.0) fL MCH (27.0-31.0) pg MCHC (33.0-37.0) g/dL RDW (11.5-14.5) % Plt Count (130-400) K/uL MPV (7.2-11.7) fL Neut % (Auto) (50.0-75.0) % Lymph % (Auto) (20.0-40.0) % Sac % (Auto) (0.0-10.0) % Eos % (Auto) (0.0-4.0) % Baso % (Auto) (0.0-2.0) % Neut # (1.8-7.0) K/uL Lymph # (1.0-4.3) K/uL Sac # (0.0-0.8) K/uL Eos # (0.0-0.7) K/uL Baso # (0.0-0.2) K/uL Neutrophils % (Manual) (50-75) % Band Neutrophils % (0-2) % Lymphocytes % (Manual) (20-40) % Monocytes % (Manual) (0-10) % Platelet Estimate (NORMAL) RBC Morphology Puncture Site pCO2 (35-45) mm/Hg pO2 (80-100) mm/Hg HCO3 (21-28) mmol/L ABG pH (7.35-7.45) ABG Total CO2 (22-28) mmol/L ABG O2 Saturation (95-98) % ABG Base Excess (-2.0-3.0) mmol/L ABG Hemoglobin (11.7-17.4) g/dL ABG Carboxyhemoglobin (0.5-1.5) % POC ABG HHb (Measured) (0.0-5.0) % ABG Methemoglobin (0.0-3.0) % Evans Test A-a O2 Difference mm/Hg Respiratory Index Hgb O2 Saturation (95.0-98.0) % Vent Mode Mechanical Rate FiO2 % Tidal Volume PEEP Sodium 138 (132-148) mmol/L Potassium 3.8 (3.6-5.2) mmol/L Chloride 110 H (98-107) mmol/L Carbon Dioxide 19 L (22-30) mmol/L Anion Gap 14 (10-20) BUN 21 H (7-17) mg/dL Creatinine 0.5 L (0.7-1.2) mg/dL Est GFR ( Amer) > 60 Est GFR (Non-Af Amer) > 60 POC Glucose (mg/dL) 140 H (65-110) mg/dL Random Glucose 119 H (65-105) mg/dL Calcium 7.8 L (8.6-10.4) mg/dl Phosphorus 2.6 (2.5-4.5) mg/dL Magnesium 1.6 (1.6-2.3) mg/dL Total Bilirubin 0.7 (0.2-1.3) mg/dL AST 84 H (14-36) U/L ALT 115 H (9-52) U/L Alkaline Phosphatase 99 (38-126) U/L Total Protein 5.4 L (6.3-8.3) g/dL Albumin 2.9 L (3.5-5.0) g/dL Globulin 2.5 (2.2-3.9) gm/dL Albumin/Globulin Ratio 1.2 (1.0-2.1) Vancomycin Peak (30.0-40.0) ug/mL Vancomycin Trough 9.1 (5.0-10.0) ug/mL 05/10/17 05/10/17 05/10/17 Range/Units 06:23 04:25 04:17 WBC 21.2 H (4.8-10.8) K/uL RBC 4.32 (3.80-5.20) Mil/uL Hgb 12.5 (11.0-16.0) g/dL Hct 37.5 (34.0-47.0) % MCV 86.7 (81.0-99.0) fL MCH 28.8 (27.0-31.0) pg MCHC 33.2 (33.0-37.0) g/dL RDW 13.6 (11.5-14.5) % Plt Count 225 (130-400) K/uL MPV 9.0 (7.2-11.7) fL Neut % (Auto) 92.9 H (50.0-75.0) % Lymph % (Auto) 4.5 L (20.0-40.0) % Sac % (Auto) 2.5 (0.0-10.0) % Eos % (Auto) 0.0 (0.0-4.0) % Baso % (Auto) 0.1 (0.0-2.0) % Neut # 19.7 H (1.8-7.0) K/uL Lymph # 0.9 L (1.0-4.3) K/uL Sac # 0.5 (0.0-0.8) K/uL Eos # 0.0 (0.0-0.7) K/uL Baso # 0.0 (0.0-0.2) K/uL Neutrophils % (Manual) 93 H (50-75) % Band Neutrophils % 4 H (0-2) % Lymphocytes % (Manual) 2 L (20-40) % Monocytes % (Manual) 1 (0-10) % Platelet Estimate Normal (NORMAL) RBC Morphology Normal Puncture Site Rb pCO2 30 L (35-45) mm/Hg pO2 160 H (80-100) mm/Hg HCO3 19.4 L (21-28) mmol/L ABG pH 7.36 (7.35-7.45) ABG Total CO2 17.8 L (22-28) mmol/L ABG O2 Saturation 99.9 H (95-98) % ABG Base Excess -7.1 L (-2.0-3.0) mmol/L ABG Hemoglobin 15.4 (11.7-17.4) g/dL ABG Carboxyhemoglobin 1.7 H (0.5-1.5) % POC ABG HHb (Measured) 0.1 (0.0-5.0) % ABG Methemoglobin 1.4 (0.0-3.0) % Evans Test Na A-a O2 Difference 159.0 mm/Hg Respiratory Index 1.0 Hgb O2 Saturation 96.8 (95.0-98.0) % Vent Mode Prvc Mechanical Rate 16 FiO2 50.0 % Tidal Volume 450 PEEP 5 Sodium (132-148) mmol/L Potassium (3.6-5.2) mmol/L Chloride (98-107) mmol/L Carbon Dioxide (22-30) mmol/L Anion Gap (10-20) BUN (7-17) mg/dL Creatinine (0.7-1.2) mg/dL Est GFR ( Amer) Est GFR (Non-Af Amer) POC Glucose (mg/dL) 147 H (65-110) mg/dL Random Glucose (65-105) mg/dL Calcium (8.6-10.4) mg/dl Phosphorus (2.5-4.5) mg/dL Magnesium (1.6-2.3) mg/dL Total Bilirubin (0.2-1.3) mg/dL AST (14-36) U/L ALT (9-52) U/L Alkaline Phosphatase (38-126) U/L Total Protein (6.3-8.3) g/dL Albumin (3.5-5.0) g/dL Globulin (2.2-3.9) gm/dL Albumin/Globulin Ratio (1.0-2.1) Vancomycin Peak (30.0-40.0) ug/mL Vancomycin Trough (5.0-10.0) ug/mL 05/09/17 05/09/17 Range/Units 23:47 19:55 WBC (4.8-10.8) K/uL RBC (3.80-5.20) Mil/uL Hgb (11.0-16.0) g/dL Hct (34.0-47.0) % MCV (81.0-99.0) fL MCH (27.0-31.0) pg MCHC (33.0-37.0) g/dL RDW (11.5-14.5) % Plt Count (130-400) K/uL MPV (7.2-11.7) fL Neut % (Auto) (50.0-75.0) % Lymph % (Auto) (20.0-40.0) % Sac % (Auto) (0.0-10.0) % Eos % (Auto) (0.0-4.0) % Baso % (Auto) (0.0-2.0) % Neut # (1.8-7.0) K/uL Lymph # (1.0-4.3) K/uL Sac # (0.0-0.8) K/uL Eos # (0.0-0.7) K/uL Baso # (0.0-0.2) K/uL Neutrophils % (Manual) (50-75) % Band Neutrophils % (0-2) % Lymphocytes % (Manual) (20-40) % Monocytes % (Manual) (0-10) % Platelet Estimate (NORMAL) RBC Morphology Puncture Site pCO2 (35-45) mm/Hg pO2 (80-100) mm/Hg HCO3 (21-28) mmol/L ABG pH (7.35-7.45) ABG Total CO2 (22-28) mmol/L ABG O2 Saturation (95-98) % ABG Base Excess (-2.0-3.0) mmol/L ABG Hemoglobin (11.7-17.4) g/dL ABG Carboxyhemoglobin (0.5-1.5) % POC ABG HHb (Measured) (0.0-5.0) % ABG Methemoglobin (0.0-3.0) % Evans Test A-a O2 Difference mm/Hg Respiratory Index Hgb O2 Saturation (95.0-98.0) % Vent Mode Mechanical Rate FiO2 % Tidal Volume PEEP Sodium (132-148) mmol/L Potassium (3.6-5.2) mmol/L Chloride (98-107) mmol/L Carbon Dioxide (22-30) mmol/L Anion Gap (10-20) BUN (7-17) mg/dL Creatinine (0.7-1.2) mg/dL Est GFR ( Amer) Est GFR (Non-Af Amer) POC Glucose (mg/dL) 136 H 119 H (65-110) mg/dL Random Glucose (65-105) mg/dL Calcium (8.6-10.4) mg/dl Phosphorus (2.5-4.5) mg/dL Magnesium (1.6-2.3) mg/dL Total Bilirubin (0.2-1.3) mg/dL AST (14-36) U/L ALT (9-52) U/L Alkaline Phosphatase (38-126) U/L Total Protein (6.3-8.3) g/dL Albumin (3.5-5.0) g/dL Globulin (2.2-3.9) gm/dL Albumin/Globulin Ratio (1.0-2.1) Vancomycin Peak (30.0-40.0) ug/mL Vancomycin Trough (5.0-10.0) ug/mL Laboratory Results - last 24 hr 05/09/17 05/09/17 05/10/17 19:55 23:47 04:17 WBC RBC Hgb Hct MCV MCH MCHC RDW Plt Count MPV Neut % (Auto) Lymph % (Auto) Sac % (Auto) Eos % (Auto) Baso % (Auto) Neut # Lymph # Sac # Eos # Baso # Neutrophils % (Manual) Band Neutrophils % Lymphocytes % (Manual) Monocytes % (Manual) Platelet Estimate RBC Morphology Puncture Site pCO2 pO2 HCO3 ABG pH ABG Total CO2 ABG O2 Saturation ABG Base Excess ABG Hemoglobin ABG Carboxyhemoglobin POC ABG HHb (Measured) ABG Methemoglobin Evans Test A-a O2 Difference Respiratory Index Hgb O2 Saturation Vent Mode Mechanical Rate FiO2 Tidal Volume PEEP Sodium Potassium Chloride Carbon Dioxide Anion Gap BUN Creatinine Est GFR ( Amer) Est GFR (Non-Af Amer) POC Glucose (mg/dL) 119 H 136 H 147 H Random Glucose Calcium Phosphorus Magnesium Total Bilirubin AST ALT Alkaline Phosphatase Total Protein Albumin Globulin Albumin/Globulin Ratio Vancomycin Peak Vancomycin Trough 05/10/17 05/10/17 05/10/17 04:25 06:23 06:24 WBC 21.2 H RBC 4.32 Hgb 12.5 Hct 37.5 MCV 86.7 MCH 28.8 MCHC 33.2 RDW 13.6 Plt Count 225 MPV 9.0 Neut % (Auto) 92.9 H Lymph % (Auto) 4.5 L Sac % (Auto) 2.5 Eos % (Auto) 0.0 Baso % (Auto) 0.1 Neut # 19.7 H Lymph # 0.9 L Sac # 0.5 Eos # 0.0 Baso # 0.0 Neutrophils % (Manual) 93 H Band Neutrophils % 4 H Lymphocytes % (Manual) 2 L Monocytes % (Manual) 1 Platelet Estimate Normal RBC Morphology Normal Puncture Site Rb pCO2 30 L pO2 160 H HCO3 19.4 L ABG pH 7.36 ABG Total CO2 17.8 L ABG O2 Saturation 99.9 H ABG Base Excess -7.1 L ABG Hemoglobin 15.4 ABG Carboxyhemoglobin 1.7 H POC ABG HHb (Measured) 0.1 ABG Methemoglobin 1.4 Evans Test Na A-a O2 Difference 159.0 Respiratory Index 1.0 Hgb O2 Saturation 96.8 Vent Mode Prvc Mechanical Rate 16 FiO2 50.0 Tidal Volume 450 PEEP 5 Sodium 138 Potassium 3.8 Chloride 110 H Carbon Dioxide 19 L Anion Gap 14 BUN 21 H Creatinine 0.5 L Est GFR ( Amer) > 60 Est GFR (Non-Af Amer) > 60 POC Glucose (mg/dL) Random Glucose 119 H Calcium 7.8 L Phosphorus 2.6 Magnesium 1.6 Total Bilirubin 0.7 AST 84 H ALT 115 H Alkaline Phosphatase 99 Total Protein 5.4 L Albumin 2.9 L Globulin 2.5 Albumin/Globulin Ratio 1.2 Vancomycin Peak Vancomycin Trough 05/10/17 05/10/17 05/10/17 07:41 11:10 11:40 WBC RBC Hgb Hct MCV MCH MCHC RDW Plt Count MPV Neut % (Auto) Lymph % (Auto) Sac % (Auto) Eos % (Auto) Baso % (Auto) Neut # Lymph # Sac # Eos # Baso # Neutrophils % (Manual) Band Neutrophils % Lymphocytes % (Manual) Monocytes % (Manual) Platelet Estimate RBC Morphology Puncture Site pCO2 pO2 HCO3 ABG pH ABG Total CO2 ABG O2 Saturation ABG Base Excess ABG Hemoglobin ABG Carboxyhemoglobin POC ABG HHb (Measured) ABG Methemoglobin Evans Test A-a O2 Difference Respiratory Index Hgb O2 Saturation Vent Mode Mechanical Rate FiO2 Tidal Volume PEEP Sodium Potassium Chloride Carbon Dioxide Anion Gap BUN Creatinine Est GFR ( Amer) Est GFR (Non-Af Amer) POC Glucose (mg/dL) 140 H 157 H Random Glucose Calcium Phosphorus Magnesium Total Bilirubin AST ALT Alkaline Phosphatase Total Protein Albumin Globulin Albumin/Globulin Ratio Vancomycin Peak Vancomycin Trough 9.1 05/10/17 05/10/17 14:56 17:43 WBC RBC Hgb Hct MCV MCH MCHC RDW Plt Count MPV Neut % (Auto) Lymph % (Auto) Sac % (Auto) Eos % (Auto) Baso % (Auto) Neut # Lymph # Sac # Eos # Baso # Neutrophils % (Manual) Band Neutrophils % Lymphocytes % (Manual) Monocytes % (Manual) Platelet Estimate RBC Morphology Puncture Site pCO2 pO2 HCO3 ABG pH ABG Total CO2 ABG O2 Saturation ABG Base Excess ABG Hemoglobin ABG Carboxyhemoglobin POC ABG HHb (Measured) ABG Methemoglobin Evans Test A-a O2 Difference Respiratory Index Hgb O2 Saturation Vent Mode Mechanical Rate FiO2 Tidal Volume PEEP Sodium Potassium Chloride Carbon Dioxide Anion Gap BUN Creatinine Est GFR ( Amer) Est GFR (Non-Af Amer) POC Glucose (mg/dL) 180 H Random Glucose Calcium Phosphorus Magnesium Total Bilirubin AST ALT Alkaline Phosphatase Total Protein Albumin Globulin Albumin/Globulin Ratio Vancomycin Peak 20.9 L Vancomycin Trough Fingerstick Blood Sugar Results: 180 Review of Systems - Review of Systems Systems not reviewed;Unavailable: Intubated Assessment/Plan - Assessment and Plan (Free Text) Assessment: Patient is a 57F with PMH early onset dementia, 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 Hidalgo consulted, help appreciated hx of early onset dementia (started 7 years ago) non-verbal at baseline bedbound at baseline propofol drip Keppra [address] 11/20 - New low attenuation in the right caudate nucleus head indicating possible acute/subacute infarct. Recommend evaluation with magnetic resonance imaging. Atrophy greater than expected for patient age with ex vacuo ventricular dilatation. Chronic white matter ischemic change. f/u neuro recs Patient's family is aware of patient's condition and know of poor prognosis. She will remain a full code for now, as per daughter. Will re-evaluate later this week. Cardio: Dr. Heck consulted, help appreciated s/p cardiac arrest, suspected 2/2 sepsis ECHO - awaiting official report Respiratory: Pneumonia WBC - increased to 21.2 from 17.8 Aztrenonam 1gm IVPB q8 Vanco 1gm IVPB q12 [id number] INH RQ6 Solumedrol 40mg IVP q12 GI: Started on Tube feedings, Jevity 1.5. Initial rate of 20mL/hr, Goal rate of 40mL /hr Protonix 40mg PO daily Case discussed with Dr. Shavon Vargasn PGY1 <Beth Sands - Last Filed: 05/11/17 22:32> CCU Objective - Vital Signs / Intake & Output Vital Signs (Last 4 hours): Vital Signs Temp Pulse Resp BP Pulse Ox 05/11/17 22:05 100 H 20 134/64 99 05/11/17 22:00 98.7 F 100 H 19 125/69 99 05/11/17 21:05 98 H 24 125/69 98 05/11/17 21:00 99 H 19 99 05/11/17 20:05 95 H 16 121/78 99 05/11/17 20:00 97.5 F L 92 H 16 100 05/11/17 19:05 92 H 17 119/78 100 05/11/17 19:00 97.5 F L 91 H 17 100 Intake and Output (Last 8hrs): Intake & Output 05/11/17 05/11/17 05/11/17 06:59 14:59 22:59 Intake Total 670 540 280 Output Total 140 70 205 Balance 530 470 75 Weight 188 lb Intake: Intake, IV Amount 350 300 Left Distal Port Internal 350 300 Jugular Tube Feeding 320 240 280 Output: Urine 140 70 205 Urethral (Johnson) 140 70 205 - Medications Active Medications: Active Medications Generic Name Dose Route Start Last Admin Trade Name Freq PRN Reason Stop Dose Admin Acetaminophen 975 mg 05/08/17 09:31 05/08/17 09:50 Tylenol 650mg/20.3ml Solution Ud PEG 975 mg Q6 PRN Administration Rigors Albuterol/Ipratropium 3 ml 05/08/17 20:00 05/11/17 19:38 Duoneb 3 Mg/0.5 Mg (3 Ml) Ud INH 3 ml RQ6 LINNETTE Administration Artificial Tears 0 gm 05/08/17 12:00 05/11/17 20:15 Lacri-Lube OU 3.5 gm Q4 LINNETTE Administration Aspirin 81 mg 05/11/17 10:00 05/11/17 09:47 Aspirin Chewable PEG 81 mg DAILY LINNETTE Administration Enoxaparin Sodium 40 mg 05/09/17 10:30 05/11/17 09:46 Lovenox SC 40 mg DAILY LINNETTE Administration Propofol 1,000 mg in 100 mls @ 2.722 mls/hr 05/08/17 09:49 05/10/17 00:00 Diprivan IV 0 mcg/kg/min .Q24H PRN 0 mls/hr TITRATE PER MD ORDER Titration Protocol 5 MCG/KG/MIN Aztreonam 1 gm/ Sodium 50 mls @ 100 mls/hr 05/09/17 11:00 05/11/17 18:01 Chloride IVPB 100 mls/hr Q8H LINNETTE Administration Vancomycin/Sodium Chloride 1 gm in 200 mls @ 133 mls/hr 05/09/17 12:00 11:49 Vancomycin 1 Gm/Ns 200 Ml IVPB 05/14/17 12:01 133 mls/hr Q12H LINNETTE Administration Levetiracetam 750 mg/ Sodium 257.5 mls @ 1,030 mls/hr 05/11/17 23:30 Chloride IVPB Q12H LINNETTE Methylprednisolone 40 mg 05/10/17 10:00 05/11/17 21:14 Solu-Medrol IVP 40 mg Q12 LINNETTE Administration Pantoprazole Sodium 40 mg 05/09/17 06:00 05/11/17 05:25 Protonix Susp PO 40 mg 0600 LINNETTE Administration - Patient Studies Lab Studies: Microbiology Studies 05/08/17 15:30 Blood Culture - Preliminary Blood NO GROWTH AFTER 3 DAYS 05/08/17 16:00 Blood Culture - Preliminary Blood NO GROWTH AFTER 3 DAYS 05/09/17 14:47 Gram Stain - Final Trachasp Sputum Culture - Final Escherichia Coli Lab Studies 05/11/17 05/11/17 05/11/17 Range/Units 17:54 11:07 06:43 WBC 18.3 H (4.8-10.8) K/uL RBC 4.14 (3.80-5.20) Mil/uL Hgb 11.7 (11.0-16.0) g/dL Hct 35.8 (34.0-47.0) % MCV 86.4 (81.0-99.0) fL MCH 28.3 (27.0-31.0) pg MCHC 32.7 L (33.0-37.0) g/dL RDW 14.1 (11.5-14.5) % Plt Count 214 (130-400) K/uL MPV 9.3 (7.2-11.7) fL Neut % (Auto) 92.1 H (50.0-75.0) % Lymph % (Auto) 5.2 L (20.0-40.0) % Sac % (Auto) 2.6 (0.0-10.0) % Eos % (Auto) 0.0 (0.0-4.0) % Baso % (Auto) 0.1 (0.0-2.0) % Neut # 16.9 H (1.8-7.0) K/uL Lymph # 1.0 (1.0-4.3) K/uL Sac # 0.5 (0.0-0.8) K/uL Eos # 0.0 (0.0-0.7) K/uL Baso # 0.0 (0.0-0.2) K/uL Neutrophils % (Manual) 87 H (50-75) % Band Neutrophils % 2 (0-2) % Lymphocytes % (Manual) 5 L (20-40) % Monocytes % (Manual) 6 (0-10) % Platelet Estimate Normal (NORMAL) RBC Morphology Normal Puncture Site pCO2 (35-45) mm/Hg pO2 (80-100) mm/Hg HCO3 (21-28) mmol/L ABG pH (7.35-7.45) ABG Total CO2 (22-28) mmol/L ABG O2 Saturation (95-98) % ABG Base Excess (-2.0-3.0) mmol/L ABG Hemoglobin (11.7-17.4) g/dL ABG Carboxyhemoglobin (0.5-1.5) % POC ABG HHb (Measured) (0.0-5.0) % ABG Methemoglobin (0.0-3.0) % Evans Test A-a O2 Difference mm/Hg Respiratory Index Hgb O2 Saturation (95.0-98.0) % Vent Mode Mechanical Rate FiO2 % Tidal Volume PEEP Sodium (132-148) mmol/L Potassium (3.6-5.2) mmol/L Chloride (98-107) mmol/L Carbon Dioxide (22-30) mmol/L Anion Gap (10-20) BUN (7-17) mg/dL Creatinine (0.7-1.2) mg/dL Est GFR ( Amer) Est GFR (Non-Af Amer) POC Glucose (mg/dL) 210 H 181 H (65-110) mg/dL Random Glucose (65-105) mg/dL Calcium (8.6-10.4) mg/dl Phosphorus (2.5-4.5) mg/dL Magnesium (1.6-2.3) mg/dL Total Bilirubin (0.2-1.3) mg/dL AST (14-36) U/L ALT (9-52) U/L Alkaline Phosphatase (38-126) U/L Total Protein (6.3-8.3) g/dL Albumin (3.5-5.0) g/dL Globulin (2.2-3.9) gm/dL Albumin/Globulin Ratio (1.0-2.1) 05/11/17 05/11/17 05/11/17 Range/Units 06:36 05:40 05:39 WBC (4.8-10.8) K/uL RBC (3.80-5.20) Mil/uL Hgb (11.0-16.0) g/dL Hct (34.0-47.0) % MCV (81.0-99.0) fL MCH (27.0-31.0) pg MCHC (33.0-37.0) g/dL RDW (11.5-14.5) % Plt Count (130-400) K/uL MPV (7.2-11.7) fL Neut % (Auto) (50.0-75.0) % Lymph % (Auto) (20.0-40.0) % Sac % (Auto) (0.0-10.0) % Eos % (Auto) (0.0-4.0) % Baso % (Auto) (0.0-2.0) % Neut # (1.8-7.0) K/uL Lymph # (1.0-4.3) K/uL Sac # (0.0-0.8) K/uL Eos # (0.0-0.7) K/uL Baso # (0.0-0.2) K/uL Neutrophils % (Manual) (50-75) % Band Neutrophils % (0-2) % Lymphocytes % (Manual) (20-40) % Monocytes % (Manual) (0-10) % Platelet Estimate (NORMAL) RBC Morphology Puncture Site Rr pCO2 34 L (35-45) mm/Hg pO2 157 H (80-100) mm/Hg HCO3 23.5 (21-28) mmol/L ABG pH 7.42 (7.35-7.45) ABG Total CO2 23.1 (22-28) mmol/L ABG O2 Saturation 99.8 H (95-98) % ABG Base Excess -1.8 (-2.0-3.0) mmol/L ABG Hemoglobin 11.8 (11.7-17.4) g/dL ABG Carboxyhemoglobin 1.8 H (0.5-1.5) % POC ABG HHb (Measured) 0.2 (0.0-5.0) % ABG Methemoglobin 1.1 (0.0-3.0) % Evans Test Pos A-a O2 Difference 157.0 mm/Hg Respiratory Index 1.0 Hgb O2 Saturation 96.9 (95.0-98.0) % Vent Mode Prvc Mechanical Rate 16 FiO2 50.0 % Tidal Volume 450 PEEP 5 Sodium 138 (132-148) mmol/L Potassium 3.7 (3.6-5.2) mmol/L Chloride 110 H (98-107) mmol/L Carbon Dioxide 22 (22-30) mmol/L Anion Gap 11 (10-20) BUN 26 H (7-17) mg/dL Creatinine 0.5 L (0.7-1.2) mg/dL Est GFR ( Amer) > 60 Est GFR (Non-Af Amer) > 60 POC Glucose (mg/dL) 161 H (65-110) mg/dL Random Glucose 133 H (65-105) mg/dL Calcium 8.1 L (8.6-10.4) mg/dl Phosphorus 1.7 L (2.5-4.5) mg/dL Magnesium 1.9 (1.6-2.3) mg/dL Total Bilirubin 0.7 (0.2-1.3) mg/dL AST 59 H D (14-36) U/L ALT 102 H (9-52) U/L Alkaline Phosphatase 96 (38-126) U/L Total Protein 5.5 L (6.3-8.3) g/dL Albumin 3.0 L (3.5-5.0) g/dL Globulin 2.5 (2.2-3.9) gm/dL Albumin/Globulin Ratio 1.2 (1.0-2.1) 05/10/17 Range/Units 23:49 WBC (4.8-10.8) K/uL RBC (3.80-5.20) Mil/uL Hgb (11.0-16.0) g/dL Hct (34.0-47.0) % MCV (81.0-99.0) fL MCH (27.0-31.0) pg MCHC (33.0-37.0) g/dL RDW (11.5-14.5) % Plt Count (130-400) K/uL MPV (7.2-11.7) fL Neut % (Auto) (50.0-75.0) % Lymph % (Auto) (20.0-40.0) % Sac % (Auto) (0.0-10.0) % Eos % (Auto) (0.0-4.0) % Baso % (Auto) (0.0-2.0) % Neut # (1.8-7.0) K/uL Lymph # (1.0-4.3) K/uL Sac # (0.0-0.8) K/uL Eos # (0.0-0.7) K/uL Baso # (0.0-0.2) K/uL Neutrophils % (Manual) (50-75) % Band Neutrophils % (0-2) % Lymphocytes % (Manual) (20-40) % Monocytes % (Manual) (0-10) % Platelet Estimate (NORMAL) RBC Morphology Puncture Site pCO2 (35-45) mm/Hg pO2 (80-100) mm/Hg HCO3 (21-28) mmol/L ABG pH (7.35-7.45) ABG Total CO2 (22-28) mmol/L ABG O2 Saturation (95-98) % ABG Base Excess (-2.0-3.0) mmol/L ABG Hemoglobin (11.7-17.4) g/dL ABG Carboxyhemoglobin (0.5-1.5) % POC ABG HHb (Measured) (0.0-5.0) % ABG Methemoglobin (0.0-3.0) % Evans Test A-a O2 Difference mm/Hg Respiratory Index Hgb O2 Saturation (95.0-98.0) % Vent Mode Mechanical Rate FiO2 % Tidal Volume PEEP Sodium (132-148) mmol/L Potassium (3.6-5.2) mmol/L Chloride (98-107) mmol/L Carbon Dioxide (22-30) mmol/L Anion Gap (10-20) BUN (7-17) mg/dL Creatinine (0.7-1.2) mg/dL Est GFR ( Amer) Est GFR (Non-Af Amer) POC Glucose (mg/dL) 147 H (65-110) mg/dL Random Glucose (65-105) mg/dL Calcium (8.6-10.4) mg/dl Phosphorus (2.5-4.5) mg/dL Magnesium (1.6-2.3) mg/dL Total Bilirubin (0.2-1.3) mg/dL AST (14-36) U/L ALT (9-52) U/L Alkaline Phosphatase (38-126) U/L Total Protein (6.3-8.3) g/dL Albumin (3.5-5.0) g/dL Globulin (2.2-3.9) gm/dL Albumin/Globulin Ratio (1.0-2.1) Laboratory Results - last 24 hr 05/10/17 05/11/17 05/11/17 23:49 05:39 05:40 WBC RBC Hgb Hct MCV MCH MCHC RDW Plt Count MPV Neut % (Auto) Lymph % (Auto) Sac % (Auto) Eos % (Auto) Baso % (Auto) Neut # Lymph # Sac # Eos # Baso # Neutrophils % (Manual) Band Neutrophils % Lymphocytes % (Manual) Monocytes % (Manual) Platelet Estimate RBC Morphology Puncture Site Rr pCO2 34 L pO2 157 H HCO3 23.5 ABG pH 7.42 ABG Total CO2 23.1 ABG O2 Saturation 99.8 H ABG Base Excess -1.8 ABG Hemoglobin 11.8 ABG Carboxyhemoglobin 1.8 H POC ABG HHb (Measured) 0.2 ABG Methemoglobin 1.1 Evans Test Pos A-a O2 Difference 157.0 Respiratory Index 1.0 Hgb O2 Saturation 96.9 Vent Mode Prvc Mechanical Rate 16 FiO2 50.0 Tidal Volume 450 PEEP 5 Sodium Potassium Chloride Carbon Dioxide Anion Gap BUN Creatinine Est GFR ( Amer) Est GFR (Non-Af Amer) POC Glucose (mg/dL) 147 H 161 H Random Glucose Calcium Phosphorus Magnesium Total Bilirubin AST ALT Alkaline Phosphatase Total Protein Albumin Globulin Albumin/Globulin Ratio 05/11/17 05/11/17 05/11/17 06:36 06:43 11:07 WBC 18.3 H RBC 4.14 Hgb 11.7 Hct 35.8 MCV 86.4 MCH 28.3 MCHC 32.7 L RDW 14.1 Plt Count 214 MPV 9.3 Neut % (Auto) 92.1 H Lymph % (Auto) 5.2 L Sac % (Auto) 2.6 Eos % (Auto) 0.0 Baso % (Auto) 0.1 Neut # 16.9 H Lymph # 1.0 Sac # 0.5 Eos # 0.0 Baso # 0.0 Neutrophils % (Manual) 87 H Band Neutrophils % 2 Lymphocytes % (Manual) 5 L Monocytes % (Manual) 6 Platelet Estimate Normal RBC Morphology Normal Puncture Site pCO2 pO2 HCO3 ABG pH ABG Total CO2 ABG O2 Saturation ABG Base Excess ABG Hemoglobin ABG Carboxyhemoglobin POC ABG HHb (Measured) ABG Methemoglobin Evans Test A-a O2 Difference Respiratory Index Hgb O2 Saturation Vent Mode Mechanical Rate FiO2 Tidal Volume PEEP Sodium 138 Potassium 3.7 Chloride 110 H Carbon Dioxide 22 Anion Gap 11 BUN 26 H Creatinine 0.5 L Est GFR ( Amer) > 60 Est GFR (Non-Af Amer) > 60 POC Glucose (mg/dL) 181 H Random Glucose 133 H Calcium 8.1 L Phosphorus 1.7 L Magnesium 1.9 Total Bilirubin 0.7 AST 59 H D ALT 102 H Alkaline Phosphatase 96 Total Protein 5.5 L Albumin 3.0 L Globulin 2.5 Albumin/Globulin Ratio 1.2 05/11/17 17:54 WBC RBC Hgb Hct MCV MCH MCHC RDW Plt Count MPV Neut % (Auto) Lymph % (Auto) Sac % (Auto) Eos % (Auto) Baso % (Auto) Neut # Lymph # Sac # Eos # Baso # Neutrophils % (Manual) Band Neutrophils % Lymphocytes % (Manual) Monocytes % (Manual) Platelet Estimate RBC Morphology Puncture Site pCO2 pO2 HCO3 ABG pH ABG Total CO2 ABG O2 Saturation ABG Base Excess ABG Hemoglobin ABG Carboxyhemoglobin POC ABG HHb (Measured) ABG Methemoglobin Evans Test A-a O2 Difference Respiratory Index Hgb O2 Saturation Vent Mode Mechanical Rate FiO2 Tidal Volume PEEP Sodium Potassium Chloride Carbon Dioxide Anion Gap BUN Creatinine Est GFR ( Amer) Est GFR (Non-Af Amer) POC Glucose (mg/dL) 210 H Random Glucose Calcium Phosphorus Magnesium Total Bilirubin AST ALT Alkaline Phosphatase Total Protein Albumin Globulin Albumin/Globulin Ratio Attending/Attestation - Attestation I have personally seen and examined this patient.: Yes I have fully participated in the care of the patient.: Yes I have reviewed all pertinent clinical information: Yes Notes (Text): 05/11/17 22:31 spoke to pt daughter about current condition
--- NOTE | 2017-05-10 21:06 | CARD ---
APPROVED REPORT EXAM: Two-dimensional and M-mode echocardiogram with Doppler and color Doppler. Other Information Quality : Good[employer] : INDICATION COPD Cardiac Arrest 2D DIMENSIONS IVSd0.9 (0.7-1.1cm)LVDd4.5 (3.9-5.9cm) PWd0.8 (0.7-1.1cm)LVDs3.4 (2.5-4.0cm) FS (%) 24.2 %LVEF (%)37.0 (>50%) M-Mode DIMENSIONS Left Atrium (MM)3.73 (2.5-4.0cm)Aortic Root2.74 (2.2-3.7cm) Aortic Cusp Exc.2.06 (1.5-2.0cm) Mitral Valve MV E Fflgzofl35.7cm/sMV A Iwrjjlxg99.6cm/sE/A ratio1.0 TDI E/Lateral E'0.0E/Medial E'0.0 Tricuspid Valve TR Peak Hebyedmp691xm/sTR Peak Gr.[id number] <Conclusion> Left ventricle: thickness: normal; size: normal;Large apical wall moption abnormality; moderate diffuse systolic dysfuncctionoverall ejection fraction:35-40%: diastolic filling pressures: mild elevation Would exclude [place] cardiomyopathy; the severity of pulmonary hypertension is an argument against unless two different disparate processess Mitral valve: annulus: normal: leaflets: normal: excursion: normal; no significant trans-mitral gradient: No significant incompetence: left atrium: normal Aortic valve: leaflets: normal: excursion: normal; no significant trans-aortic gradient: No significant incompetence: aortic root: normal Right sided Structures: Pulmonary valve: normal; no significant incompetence; Tricuspid valve: normal; no significant incompetence: Intra-cardiac hemodynamics: pulmonary systolic pressures: 70 central venous pressures: normal No pericardial effusion
[2017-05-11] MEDS: Vancomycin 1 gm/NS 200 ml 1 GM/200 ML BAG IVPB SCH ×3 (00:35→23:37)
[2017-05-11] MEDS: Albuterol-Ipratrop 3 mg / 0.5 (3 ml) UD INH SCH ×4 (01:51→19:38)
[2017-05-11] MEDS: White Petrolatum/Mineral Oil Ophth Oint(3.5 gm) OU SCH ×6 (04:35→23:38)
[2017-05-11] MEDS: Pantoprazole 40 mg Susp UD PO SCH (05:25)
[2017-05-11 05:53] LABS: ABG ALLEN TEST POS; ABG MECHANICAL RATE 16; ARTERIAL BLOOD GAS MODE PRVC; ARTERIAL BLOOD HGB O2 SAT 96.9 % (95.0-98.0); ATERIAL BLOOD GAS PEEP 5; CARBOXYHEMOGLOBIN 1.8 % (0.5-1.5); DRAW SITE RR; HHB 0.2 % (0.0-5.0); METHEMOGLOBIN 1.1 % (0.0-3.0)
[2017-05-11 06:49] LABS: BASO % 0.1 % (0.0-2.0); HEMATOCRIT 35.8 % (34.0-47.0); LYMPH % 5.2 % (20.0-40.0); MEAN CELL VOLUME 86.4 fL (81.0-99.0); MEAN CORPUSCULAR HEMOGLOBIN 28.3 pg (27.0-31.0); MEAN CORPUSCULAR HGB CONC 32.7 g/dL (33.0-37.0); MEAN PLATELET VOLUME 9.3 fL (7.2-11.7); MONO # 0.5 K/uL (0.0-0.8); MONO % 2.6 % (0.0-10.0); PLATELET COUNT 214 K/uL (130-400); RED CELL DISTRIBUTION WIDTH 14.1 % (11.5-14.5); WHITE BLOOD COUNT 18.3 K/uL (4.8-10.8)
[2017-05-11 06:59] LABS: ALB/GLOB RATIO 1.2 (1.0-2.1); ALKALINE PHOSPHATASE 96 U/L (38-126); ALT/SGPT 102 U/L (9-52); AST/SGOT 59 U/L (14-36); BILIRUBIN,TOTAL 0.7 mg/dL (0.2-1.3); BLOOD UREA NITROGEN 26 mg/dL (7-17); CALCIUM 8.1 mg/dl (8.6-10.4); CARBON DIOXIDE 22 mmol/L (22-30); CHLORIDE 110 mmol/L (98-107); GFR AFRICAN-AMERICAN > 60; GLUCOSE,RANDOM 133 mg/dL (65-105); MAGNESIUM 1.9 mg/dL (1.6-2.3); PHOSPHOROUS 1.7 mg/dL (2.5-4.5); POTASSIUM 3.7 mmol/L (3.6-5.2); SODIUM 138 mmol/L (132-148); TOTAL PROTEIN 5.5 g/dL (6.3-8.3)
--- NOTE | 2017-05-11 08:35 | CP.CCUPN ---
<Du Ledesma - Last Filed: 05/11/17 14:10> CCU Subjective - Physician Review Subjective (Free Text): PGY1 ICU progress note for Dr. Kaur Patient seen and examined this morning at bedside. Patient is unresponsive on ventilator support. ROS unattainable. CCU Objective - Vital Signs / Intake & Output Vital Signs (Last 4 hours): Vital Signs Temp Pulse Resp BP Pulse Ox 05/11/17 07:06 85 22 110/65 99 05/11/17 07:00 85 20 100 05/11/17 06:06 89 22 123/66 100 05/11/17 06:00 97.6 F 88 19 100 05/11/17 05:06 91 H 25 H 133/76 98 05/11/17 05:00 90 20 99 Intake and Output (Last 8hrs): Intake & Output 05/10/17 05/11/17 05/11/17 22:59 06:59 14:59 Intake Total 290 670 40 Output Total 195 140 20 Balance 95 530 20 Weight 188 lb Intake: Intake, IV Amount 50 350 Left Distal Port Internal 350 Jugular Left Proximal Port 50 Internal Jugular Oral 30 Tube Feeding 210 320 40 Output: Urine 195 140 20 Urethral (Johnson) 195 140 20 Other: # Bowel Movements 0 - Physical Exam Head: Positive for: Atraumatic, Normocephalic Pupils: Positive for: Sluggish Mouth: Positive for: Moist Mucous Membranes Neck: Positive for: Trachea Midline Respiratory/Chest: Positive for: Decreased Breath Sounds Cardiovascular: Positive for: Regular Rate and Rhythm Abdomen: Positive for: Normal Bowel Sounds Upper Extremity: Positive for: Normal Inspection Lower Extremity: Positive for: Edema Psychiatric: Positive for: Other (intubated) - Medications Active Medications: Active Medications Generic Name Dose Route Start Last Admin Trade Name Freq PRN Reason Stop Dose Admin Acetaminophen 975 mg 05/08/17 09:31 05/08/17 09:50 Tylenol 650mg/20.3ml Solution Ud PEG 975 mg Q6 PRN Administration Rigors Albuterol/Ipratropium 3 ml 05/08/17 20:00 05/11/17 08:21 Duoneb 3 Mg/0.5 Mg (3 Ml) Ud INH 3 ml RQ6 ILNNETTE Administration Artificial Tears 0 gm 05/08/17 12:00 05/11/17 08:33 Lacri-Lube OU 3.5 gm Q4 LINNETTE Administration Aspirin 81 mg 05/11/17 10:00 Aspirin Chewable PEG DAILY LINNETTE Enoxaparin Sodium 40 mg 05/09/17 10:30 05/10/17 09:16 Lovenox SC 40 mg DAILY LINNETTE Administration Propofol 1,000 mg in 100 mls @ 2.722 mls/hr 05/08/17 09:49 05/10/17 00:00 Diprivan IV 0 mcg/kg/min .Q24H PRN 0 mls/hr TITRATE PER MD ORDER Titration Protocol 5 MCG/KG/MIN Aztreonam 1 gm/ Sodium 50 mls @ 100 mls/hr 05/09/17 11:00 05/11/17 04:35 Chloride IVPB 100 mls/hr Q8H LINNETTE Administration Vancomycin/Sodium Chloride 1 gm in 200 mls @ 133 mls/hr 05/09/17 12:00 00:35 Vancomycin 1 Gm/Ns 200 Ml IVPB 05/14/17 12:01 133 mls/hr Q12H LINNETTE Administration Levetiracetam 750 mg/ Sodium 57.5 mls @ 57.5 mls/hr 05/10/17 23:30 05/10/17 22:41 Chloride IVPB 57.5 mls/hr Q12H LINNETTE Administration Methylprednisolone 40 mg 05/10/17 10:00 05/10/17 21:12 Solu-Medrol IVP 40 mg Q12 LINNETTE Administration Pantoprazole Sodium 40 mg 05/09/17 06:00 05/11/17 05:25 Protonix Susp PO 40 mg 0600 LINNETTE Administration - Patient Studies Lab Studies: Microbiology Studies 05/08/17 15:30 Blood Culture - Preliminary Blood NO GROWTH AFTER 48 HOURS 05/08/17 16:00 Blood Culture - Preliminary Blood NO GROWTH AFTER 48 HOURS 05/09/17 14:47 Urine Culture - Final Urine,Johnson No Growth (<1,000 CFU/ML) Lab Studies 05/11/17 05/11/17 05/11/17 Range/Units 06:43 06:36 05:40 WBC 18.3 H (4.8-10.8) K/uL RBC 4.14 (3.80-5.20) Mil/uL Hgb 11.7 (11.0-16.0) g/dL Hct 35.8 (34.0-47.0) % MCV 86.4 (81.0-99.0) fL MCH 28.3 (27.0-31.0) pg MCHC 32.7 L (33.0-37.0) g/dL RDW 14.1 (11.5-14.5) % Plt Count 214 (130-400) K/uL MPV 9.3 (7.2-11.7) fL Neut % (Auto) 92.1 H (50.0-75.0) % Lymph % (Auto) 5.2 L (20.0-40.0) % Barton % (Auto) 2.6 (0.0-10.0) % Eos % (Auto) 0.0 (0.0-4.0) % Baso % (Auto) 0.1 (0.0-2.0) % Neut # 16.9 H (1.8-7.0) K/uL Lymph # 1.0 (1.0-4.3) K/uL Barton # 0.5 (0.0-0.8) K/uL Eos # 0.0 (0.0-0.7) K/uL Baso # 0.0 (0.0-0.2) K/uL Puncture Site pCO2 (35-45) mm/Hg pO2 (80-100) mm/Hg HCO3 (21-28) mmol/L ABG pH (7.35-7.45) ABG Total CO2 (22-28) mmol/L ABG O2 Saturation (95-98) % ABG Base Excess (-2.0-3.0) mmol/L ABG Hemoglobin (11.7-17.4) g/dL ABG Carboxyhemoglobin (0.5-1.5) % POC ABG HHb (Measured) (0.0-5.0) % ABG Methemoglobin (0.0-3.0) % Evans Test A-a O2 Difference mm/Hg Respiratory Index Hgb O2 Saturation (95.0-98.0) % Vent Mode Mechanical Rate FiO2 % Tidal Volume PEEP Sodium 138 (132-148) mmol/L Potassium 3.7 (3.6-5.2) mmol/L Chloride 110 H (98-107) mmol/L Carbon Dioxide 22 (22-30) mmol/L Anion Gap 11 (10-20) BUN 26 H (7-17) mg/dL Creatinine 0.5 L (0.7-1.2) mg/dL Est GFR ( Amer) > 60 Est GFR (Non-Af Amer) > 60 POC Glucose (mg/dL) 161 H (65-110) mg/dL Random Glucose 133 H (65-105) mg/dL Calcium 8.1 L (8.6-10.4) mg/dl Phosphorus 1.7 L (2.5-4.5) mg/dL Magnesium 1.9 (1.6-2.3) mg/dL Total Bilirubin 0.7 (0.2-1.3) mg/dL AST 59 H D (14-36) U/L ALT 102 H (9-52) U/L Alkaline Phosphatase 96 (38-126) U/L Total Protein 5.5 L (6.3-8.3) g/dL Albumin 3.0 L (3.5-5.0) g/dL Globulin 2.5 (2.2-3.9) gm/dL Albumin/Globulin Ratio 1.2 (1.0-2.1) Vancomycin Peak (30.0-40.0) ug/mL Vancomycin Trough (5.0-10.0) ug/mL 05/11/17 05/10/17 05/10/17 Range/Units 05:39 23:49 17:43 WBC (4.8-10.8) K/uL RBC (3.80-5.20) Mil/uL Hgb (11.0-16.0) g/dL Hct (34.0-47.0) % MCV (81.0-99.0) fL MCH (27.0-31.0) pg MCHC (33.0-37.0) g/dL RDW (11.5-14.5) % Plt Count (130-400) K/uL MPV (7.2-11.7) fL Neut % (Auto) (50.0-75.0) % Lymph % (Auto) (20.0-40.0) % Barton % (Auto) (0.0-10.0) % Eos % (Auto) (0.0-4.0) % Baso % (Auto) (0.0-2.0) % Neut # (1.8-7.0) K/uL Lymph # (1.0-4.3) K/uL Barton # (0.0-0.8) K/uL Eos # (0.0-0.7) K/uL Baso # (0.0-0.2) K/uL Puncture Site Rr pCO2 34 L (35-45) mm/Hg pO2 157 H (80-100) mm/Hg HCO3 23.5 (21-28) mmol/L ABG pH 7.42 (7.35-7.45) ABG Total CO2 23.1 (22-28) mmol/L ABG O2 Saturation 99.8 H (95-98) % ABG Base Excess -1.8 (-2.0-3.0) mmol/L ABG Hemoglobin 11.8 (11.7-17.4) g/dL ABG Carboxyhemoglobin 1.8 H (0.5-1.5) % POC ABG HHb (Measured) 0.2 (0.0-5.0) % ABG Methemoglobin 1.1 (0.0-3.0) % Evans Test Pos A-a O2 Difference 157.0 mm/Hg Respiratory Index 1.0 Hgb O2 Saturation 96.9 (95.0-98.0) % Vent Mode Prvc Mechanical Rate 16 FiO2 50.0 % Tidal Volume 450 PEEP 5 Sodium (132-148) mmol/L Potassium (3.6-5.2) mmol/L Chloride (98-107) mmol/L Carbon Dioxide (22-30) mmol/L Anion Gap (10-20) BUN (7-17) mg/dL Creatinine (0.7-1.2) mg/dL Est GFR ( Amer) Est GFR (Non-Af Amer) POC Glucose (mg/dL) 147 H 180 H (65-110) mg/dL Random Glucose (65-105) mg/dL Calcium (8.6-10.4) mg/dl Phosphorus (2.5-4.5) mg/dL Magnesium (1.6-2.3) mg/dL Total Bilirubin (0.2-1.3) mg/dL AST (14-36) U/L ALT (9-52) U/L Alkaline Phosphatase (38-126) U/L Total Protein (6.3-8.3) g/dL Albumin (3.5-5.0) g/dL Globulin (2.2-3.9) gm/dL Albumin/Globulin Ratio (1.0-2.1) Vancomycin Peak (30.0-40.0) ug/mL Vancomycin Trough (5.0-10.0) ug/mL 05/10/17 05/10/17 05/10/17 Range/Units 14:56 11:40 11:10 WBC (4.8-10.8) K/uL RBC (3.80-5.20) Mil/uL Hgb (11.0-16.0) g/dL Hct (34.0-47.0) % MCV (81.0-99.0) fL MCH (27.0-31.0) pg MCHC (33.0-37.0) g/dL RDW (11.5-14.5) % Plt Count (130-400) K/uL MPV (7.2-11.7) fL Neut % (Auto) (50.0-75.0) % Lymph % (Auto) (20.0-40.0) % Barton % (Auto) (0.0-10.0) % Eos % (Auto) (0.0-4.0) % Baso % (Auto) (0.0-2.0) % Neut # (1.8-7.0) K/uL Lymph # (1.0-4.3) K/uL Barton # (0.0-0.8) K/uL Eos # (0.0-0.7) K/uL Baso # (0.0-0.2) K/uL Puncture Site pCO2 (35-45) mm/Hg pO2 (80-100) mm/Hg HCO3 (21-28) mmol/L ABG pH (7.35-7.45) ABG Total CO2 (22-28) mmol/L ABG O2 Saturation (95-98) % ABG Base Excess (-2.0-3.0) mmol/L ABG Hemoglobin (11.7-17.4) g/dL ABG Carboxyhemoglobin (0.5-1.5) % POC ABG HHb (Measured) (0.0-5.0) % ABG Methemoglobin (0.0-3.0) % Evans Test A-a O2 Difference mm/Hg Respiratory Index Hgb O2 Saturation (95.0-98.0) % Vent Mode Mechanical Rate FiO2 % Tidal Volume PEEP Sodium (132-148) mmol/L Potassium (3.6-5.2) mmol/L Chloride (98-107) mmol/L Carbon Dioxide (22-30) mmol/L Anion Gap (10-20) BUN (7-17) mg/dL Creatinine (0.7-1.2) mg/dL Est GFR ( Amer) Est GFR (Non-Af Amer) POC Glucose (mg/dL) 157 H (65-110) mg/dL Random Glucose (65-105) mg/dL Calcium (8.6-10.4) mg/dl Phosphorus (2.5-4.5) mg/dL Magnesium (1.6-2.3) mg/dL Total Bilirubin (0.2-1.3) mg/dL AST (14-36) U/L ALT (9-52) U/L Alkaline Phosphatase (38-126) U/L Total Protein (6.3-8.3) g/dL Albumin (3.5-5.0) g/dL Globulin (2.2-3.9) gm/dL Albumin/Globulin Ratio (1.0-2.1) Vancomycin Peak 20.9 L (30.0-40.0) ug/mL Vancomycin Trough 9.1 (5.0-10.0) ug/mL Laboratory Results - last 24 hr 05/10/17 05/10/17 05/10/17 11:10 11:40 14:56 WBC RBC Hgb Hct MCV MCH MCHC RDW Plt Count MPV Neut % (Auto) Lymph % (Auto) Barton % (Auto) Eos % (Auto) Baso % (Auto) Neut # Lymph # Barton # Eos # Baso # Puncture Site pCO2 pO2 HCO3 ABG pH ABG Total CO2 ABG O2 Saturation ABG Base Excess ABG Hemoglobin ABG Carboxyhemoglobin POC ABG HHb (Measured) ABG Methemoglobin Evans Test A-a O2 Difference Respiratory Index Hgb O2 Saturation Vent Mode Mechanical Rate FiO2 Tidal Volume PEEP Sodium Potassium Chloride Carbon Dioxide Anion Gap BUN Creatinine Est GFR ( Amer) Est GFR (Non-Af Amer) POC Glucose (mg/dL) 157 H Random Glucose Calcium Phosphorus Magnesium Total Bilirubin AST ALT Alkaline Phosphatase Total Protein Albumin Globulin Albumin/Globulin Ratio Vancomycin Peak 20.9 L Vancomycin Trough 9.1 05/10/17 05/10/17 05/11/17 17:43 23:49 05:39 WBC RBC Hgb Hct MCV MCH MCHC RDW Plt Count MPV Neut % (Auto) Lymph % (Auto) Barton % (Auto) Eos % (Auto) Baso % (Auto) Neut # Lymph # Barton # Eos # Baso # Puncture Site Rr pCO2 34 L pO2 157 H HCO3 23.5 ABG pH 7.42 ABG Total CO2 23.1 ABG O2 Saturation 99.8 H ABG Base Excess -1.8 ABG Hemoglobin 11.8 ABG Carboxyhemoglobin 1.8 H POC ABG HHb (Measured) 0.2 ABG Methemoglobin 1.1 Evans Test Pos A-a O2 Difference 157.0 Respiratory Index 1.0 Hgb O2 Saturation 96.9 Vent Mode Prvc Mechanical Rate 16 FiO2 50.0 Tidal Volume 450 PEEP 5 Sodium Potassium Chloride Carbon Dioxide Anion Gap BUN Creatinine Est GFR ( Amer) Est GFR (Non-Af Amer) POC Glucose (mg/dL) 180 H 147 H Random Glucose Calcium Phosphorus Magnesium Total Bilirubin AST ALT Alkaline Phosphatase Total Protein Albumin Globulin Albumin/Globulin Ratio Vancomycin Peak Vancomycin Trough 05/11/17 05/11/17 05/11/17 05:40 06:36 06:43 WBC 18.3 H RBC 4.14 Hgb 11.7 Hct 35.8 MCV 86.4 MCH 28.3 MCHC 32.7 L RDW 14.1 Plt Count 214 MPV 9.3 Neut % (Auto) 92.1 H Lymph % (Auto) 5.2 L Barton % (Auto) 2.6 Eos % (Auto) 0.0 Baso % (Auto) 0.1 Neut # 16.9 H Lymph # 1.0 Barton # 0.5 Eos # 0.0 Baso # 0.0 Puncture Site pCO2 pO2 HCO3 ABG pH ABG Total CO2 ABG O2 Saturation ABG Base Excess ABG Hemoglobin ABG Carboxyhemoglobin POC ABG HHb (Measured) ABG Methemoglobin Evans Test A-a O2 Difference Respiratory Index Hgb O2 Saturation Vent Mode Mechanical Rate FiO2 Tidal Volume PEEP Sodium 138 Potassium 3.7 Chloride 110 H Carbon Dioxide 22 Anion Gap 11 BUN 26 H Creatinine 0.5 L Est GFR ( Amer) > 60 Est GFR (Non-Af Amer) > 60 POC Glucose (mg/dL) 161 H Random Glucose 133 H Calcium 8.1 L Phosphorus 1.7 L Magnesium 1.9 Total Bilirubin 0.7 AST 59 H D ALT 102 H Alkaline Phosphatase 96 Total Protein 5.5 L Albumin 3.0 L Globulin 2.5 Albumin/Globulin Ratio 1.2 Vancomycin Peak Vancomycin Trough Fingerstick Blood Sugar Results: 161 Review of Systems - Review of Systems Systems not reviewed;Unavailable: Intubated Assessment/Plan - Assessment and Plan (Free Text) Assessment: Patient is a 57F with PMH early onset dementia, 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 Hidalgo consulted, help appreciated hx of early onset dementia (started 7 years ago) non-verbal at baseline bedbound at baseline propofol drip Keppra [address] 05/10 - New low attenuation in the right caudate nucleus head indicating possible acute/subacute infarct. Recommend evaluation with magnetic resonance imaging. Atrophy greater than expected for patient age with ex vacuo ventricular dilatation. Chronic white matter ischemic change. EEG 05/11 - globally abnormal EEG due to burst suppression with periodic delta waves seen every 10 seconds. Findings of EEG consistent with global cerebral dysfunction. Study does NOT meet criteria for b/l cerebral silence. f/u neuro recs - Findings on CT and EEG are not consistent. Recommend a follow up CT - Goal MAP of 90-100, per Dr. Hidalgo Patient's family is aware of patient's condition and know of poor prognosis. She will remain a full code for now, as per daughter. Will re-evaluate later this week. - Pastoral Care Referral made Cardio: Dr. Heck consulted, help appreciated s/p cardiac arrest, suspected 2/2 sepsis ECHO - awaiting official report Respiratory: Intubated Pneumonia CXR 05/11 - Tracheostomy tube. Right-sided PICC. Left-sided AICD. Marked cardiomegaly. Patchy bilateral pulmonary parenchymal opacities appear stable to slightly decreased in extent. Probable left basilar atelectasis/ infiltrate and or pleural effusion. WBC - decreased to 18.3 from 21.2 Aztrenonam 1gm IVPB q8 Vanco 1gm IVPB q12 [id number] INH RQ6 Solumedrol 40mg IVP q12 GI: On Tube feedings, Jevity 1.5. Initial rate of 20mL/hr, Goal rate of 40mL/hr Protonix 40mg PO daily Case discussed with Dr. Vincent Ledesma PGY1 <Andrew Kaur - Last Filed: 05/11/17 18:45> CCU Objective - Vital Signs / Intake & Output Vital Signs (Last 4 hours): Vital Signs Temp Pulse Resp BP Pulse Ox 05/11/17 18:05 90 19 115/55 L 100 05/11/17 18:00 90 20 100 05/11/17 17:05 90 19 124/82 99 05/11/17 17:00 98.5 F 93 H 15 99 05/11/17 16:05 88 19 117/75 99 05/11/17 16:00 90 17 117/77 99 05/11/17 15:05 97.7 F 86 16 117/77 99 05/11/17 15:00 86 17 100 Intake and Output (Last 8hrs): Intake & Output 05/11/17 05/11/17 05/11/17 06:59 14:59 22:59 Intake Total 670 540 120 Output Total 140 70 90 Balance 530 470 30 Weight 188 lb Intake: Intake, IV Amount 350 300 Left Distal Port Internal 350 300 Jugular Tube Feeding 320 240 120 Output: Urine 140 70 90 Urethral (Johnson) 140 70 90 - Medications Active Medications: Active Medications Generic Name Dose Route Start Last Admin Trade Name Freq PRN Reason Stop Dose Admin Acetaminophen 975 mg 05/08/17 09:31 05/08/17 09:50 Tylenol 650mg/20.3ml Solution Ud PEG 975 mg Q6 PRN Administration Rigors Albuterol/Ipratropium 3 ml 05/08/17 20:00 05/11/17 13:12 Duoneb 3 Mg/0.5 Mg (3 Ml) Ud INH 3 ml RQ6 LINNETTE Administration Artificial Tears 0 gm 05/08/17 12:00 05/11/17 15:35 Lacri-Lube OU 3.5 gm Q4 LINNETTE Administration Aspirin 81 mg 05/11/17 10:00 05/11/17 09:47 Aspirin Chewable PEG 81 mg DAILY LINNETTE Administration Enoxaparin Sodium 40 mg 05/09/17 10:30 05/11/17 09:46 Lovenox SC 40 mg DAILY LINNETTE Administration Propofol 1,000 mg in 100 mls @ 2.722 mls/hr 05/08/17 09:49 05/10/17 00:00 Diprivan IV 0 mcg/kg/min .Q24H PRN 0 mls/hr TITRATE PER MD ORDER Titration Protocol 5 MCG/KG/MIN Aztreonam 1 gm/ Sodium 50 mls @ 100 mls/hr 05/09/17 11:00 05/11/17 18:01 Chloride IVPB 100 mls/hr Q8H LINNETTE Administration Vancomycin/Sodium Chloride 1 gm in 200 mls @ 133 mls/hr 05/09/17 12:00 11:49 Vancomycin 1 Gm/Ns 200 Ml IVPB 05/14/17 12:01 133 mls/hr Q12H LINNETTE Administration Levetiracetam 750 mg/ Sodium 257.5 mls @ 1,030 mls/hr 05/11/17 23:30 Chloride IVPB Q12H LINNETTE Methylprednisolone 40 mg 05/10/17 10:00 05/11/17 09:49 Solu-Medrol IVP 40 mg Q12 LINNETTE Administration Pantoprazole Sodium 40 mg 05/09/17 06:00 05/11/17 05:25 Protonix Susp PO 40 mg 0600 LINNETTE Administration - Patient Studies Lab Studies: Microbiology Studies 05/08/17 15:30 Blood Culture - Preliminary Blood NO GROWTH AFTER 3 DAYS 05/08/17 16:00 Blood Culture - Preliminary Blood NO GROWTH AFTER 3 DAYS 05/09/17 14:47 Gram Stain - Final Trachasp Sputum Culture - Final Escherichia Coli Lab Studies 05/11/17 05/11/17 05/11/17 Range/Units 17:54 11:07 06:43 WBC 18.3 H (4.8-10.8) K/uL RBC 4.14 (3.80-5.20) Mil/uL Hgb 11.7 (11.0-16.0) g/dL Hct 35.8 (34.0-47.0) % MCV 86.4 (81.0-99.0) fL MCH 28.3 (27.0-31.0) pg MCHC 32.7 L (33.0-37.0) g/dL RDW 14.1 (11.5-14.5) % Plt Count 214 (130-400) K/uL MPV 9.3 (7.2-11.7) fL Neut % (Auto) 92.1 H (50.0-75.0) % Lymph % (Auto) 5.2 L (20.0-40.0) % Barton % (Auto) 2.6 (0.0-10.0) % Eos % (Auto) 0.0 (0.0-4.0) % Baso % (Auto) 0.1 (0.0-2.0) % Neut # 16.9 H (1.8-7.0) K/uL Lymph # 1.0 (1.0-4.3) K/uL Barton # 0.5 (0.0-0.8) K/uL Eos # 0.0 (0.0-0.7) K/uL Baso # 0.0 (0.0-0.2) K/uL Neutrophils % (Manual) 87 H (50-75) % Band Neutrophils % 2 (0-2) % Lymphocytes % (Manual) 5 L (20-40) % Monocytes % (Manual) 6 (0-10) % Platelet Estimate Normal (NORMAL) RBC Morphology Normal Puncture Site pCO2 (35-45) mm/Hg pO2 (80-100) mm/Hg HCO3 (21-28) mmol/L ABG pH (7.35-7.45) ABG Total CO2 (22-28) mmol/L ABG O2 Saturation (95-98) % ABG Base Excess (-2.0-3.0) mmol/L ABG Hemoglobin (11.7-17.4) g/dL ABG Carboxyhemoglobin (0.5-1.5) % POC ABG HHb (Measured) (0.0-5.0) % ABG Methemoglobin (0.0-3.0) % Evans Test A-a O2 Difference mm/Hg Respiratory Index Hgb O2 Saturation (95.0-98.0) % Vent Mode Mechanical Rate FiO2 % Tidal Volume PEEP Sodium (132-148) mmol/L Potassium (3.6-5.2) mmol/L Chloride (98-107) mmol/L Carbon Dioxide (22-30) mmol/L Anion Gap (10-20) BUN (7-17) mg/dL Creatinine (0.7-1.2) mg/dL Est GFR ( Amer) Est GFR (Non-Af Amer) POC Glucose (mg/dL) 210 H 181 H (65-110) mg/dL Random Glucose (65-105) mg/dL Calcium (8.6-10.4) mg/dl Phosphorus (2.5-4.5) mg/dL Magnesium (1.6-2.3) mg/dL Total Bilirubin (0.2-1.3) mg/dL AST (14-36) U/L ALT (9-52) U/L Alkaline Phosphatase (38-126) U/L Total Protein (6.3-8.3) g/dL Albumin (3.5-5.0) g/dL Globulin (2.2-3.9) gm/dL Albumin/Globulin Ratio (1.0-2.1) 05/11/17 05/11/17 05/11/17 Range/Units 06:36 05:40 05:39 WBC (4.8-10.8) K/uL RBC (3.80-5.20) Mil/uL Hgb (11.0-16.0) g/dL Hct (34.0-47.0) % MCV (81.0-99.0) fL MCH (27.0-31.0) pg MCHC (33.0-37.0) g/dL RDW (11.5-14.5) % Plt Count (130-400) K/uL MPV (7.2-11.7) fL Neut % (Auto) (50.0-75.0) % Lymph % (Auto) (20.0-40.0) % Barton % (Auto) (0.0-10.0) % Eos % (Auto) (0.0-4.0) % Baso % (Auto) (0.0-2.0) % Neut # (1.8-7.0) K/uL Lymph # (1.0-4.3) K/uL Barton # (0.0-0.8) K/uL Eos # (0.0-0.7) K/uL Baso # (0.0-0.2) K/uL Neutrophils % (Manual) (50-75) % Band Neutrophils % (0-2) % Lymphocytes % (Manual) (20-40) % Monocytes % (Manual) (0-10) % Platelet Estimate (NORMAL) RBC Morphology Puncture Site Rr pCO2 34 L (35-45) mm/Hg pO2 157 H (80-100) mm/Hg HCO3 23.5 (21-28) mmol/L ABG pH 7.42 (7.35-7.45) ABG Total CO2 23.1 (22-28) mmol/L ABG O2 Saturation 99.8 H (95-98) % ABG Base Excess -1.8 (-2.0-3.0) mmol/L ABG Hemoglobin 11.8 (11.7-17.4) g/dL ABG Carboxyhemoglobin 1.8 H (0.5-1.5) % POC ABG HHb (Measured) 0.2 (0.0-5.0) % ABG Methemoglobin 1.1 (0.0-3.0) % Evans Test Pos A-a O2 Difference 157.0 mm/Hg Respiratory Index 1.0 Hgb O2 Saturation 96.9 (95.0-98.0) % Vent Mode Prvc Mechanical Rate 16 FiO2 50.0 % Tidal Volume 450 PEEP 5 Sodium 138 (132-148) mmol/L Potassium 3.7 (3.6-5.2) mmol/L Chloride 110 H (98-107) mmol/L Carbon Dioxide 22 (22-30) mmol/L Anion Gap 11 (10-20) BUN 26 H (7-17) mg/dL Creatinine 0.5 L (0.7-1.2) mg/dL Est GFR ( Amer) > 60 Est GFR (Non-Af Amer) > 60 POC Glucose (mg/dL) 161 H (65-110) mg/dL Random Glucose 133 H (65-105) mg/dL Calcium 8.1 L (8.6-10.4) mg/dl Phosphorus 1.7 L (2.5-4.5) mg/dL Magnesium 1.9 (1.6-2.3) mg/dL Total Bilirubin 0.7 (0.2-1.3) mg/dL AST 59 H D (14-36) U/L ALT 102 H (9-52) U/L Alkaline Phosphatase 96 (38-126) U/L Total Protein 5.5 L (6.3-8.3) g/dL Albumin 3.0 L (3.5-5.0) g/dL Globulin 2.5 (2.2-3.9) gm/dL Albumin/Globulin Ratio 1.2 (1.0-2.1) 05/10/17 Range/Units 23:49 WBC (4.8-10.8) K/uL RBC (3.80-5.20) Mil/uL Hgb (11.0-16.0) g/dL Hct (34.0-47.0) % MCV (81.0-99.0) fL MCH (27.0-31.0) pg MCHC (33.0-37.0) g/dL RDW (11.5-14.5) % Plt Count (130-400) K/uL MPV (7.2-11.7) fL Neut % (Auto) (50.0-75.0) % Lymph % (Auto) (20.0-40.0) % Barton % (Auto) (0.0-10.0) % Eos % (Auto) (0.0-4.0) % Baso % (Auto) (0.0-2.0) % Neut # (1.8-7.0) K/uL Lymph # (1.0-4.3) K/uL Barton # (0.0-0.8) K/uL Eos # (0.0-0.7) K/uL Baso # (0.0-0.2) K/uL Neutrophils % (Manual) (50-75) % Band Neutrophils % (0-2) % Lymphocytes % (Manual) (20-40) % Monocytes % (Manual) (0-10) % Platelet Estimate (NORMAL) RBC Morphology Puncture Site pCO2 (35-45) mm/Hg pO2 (80-100) mm/Hg HCO3 (21-28) mmol/L ABG pH (7.35-7.45) ABG Total CO2 (22-28) mmol/L ABG O2 Saturation (95-98) % ABG Base Excess (-2.0-3.0) mmol/L ABG Hemoglobin (11.7-17.4) g/dL ABG Carboxyhemoglobin (0.5-1.5) % POC ABG HHb (Measured) (0.0-5.0) % ABG Methemoglobin (0.0-3.0) % Evans Test A-a O2 Difference mm/Hg Respiratory Index Hgb O2 Saturation (95.0-98.0) % Vent Mode Mechanical Rate FiO2 % Tidal Volume PEEP Sodium (132-148) mmol/L Potassium (3.6-5.2) mmol/L Chloride (98-107) mmol/L Carbon Dioxide (22-30) mmol/L Anion Gap (10-20) BUN (7-17) mg/dL Creatinine (0.7-1.2) mg/dL Est GFR ( Amer) Est GFR (Non-Af Amer) POC Glucose (mg/dL) 147 H (65-110) mg/dL Random Glucose (65-105) mg/dL Calcium (8.6-10.4) mg/dl Phosphorus (2.5-4.5) mg/dL Magnesium (1.6-2.3) mg/dL Total Bilirubin (0.2-1.3) mg/dL AST (14-36) U/L ALT (9-52) U/L Alkaline Phosphatase (38-126) U/L Total Protein (6.3-8.3) g/dL Albumin (3.5-5.0) g/dL Globulin (2.2-3.9) gm/dL Albumin/Globulin Ratio (1.0-2.1) Laboratory Results - last 24 hr 05/10/17 05/11/17 05/11/17 23:49 05:39 05:40 WBC RBC Hgb Hct MCV MCH MCHC RDW Plt Count MPV Neut % (Auto) Lymph % (Auto) Barton % (Auto) Eos % (Auto) Baso % (Auto) Neut # Lymph # Barton # Eos # Baso # Neutrophils % (Manual) Band Neutrophils % Lymphocytes % (Manual) Monocytes % (Manual) Platelet Estimate RBC Morphology Puncture Site Rr pCO2 34 L pO2 157 H HCO3 23.5 ABG pH 7.42 ABG Total CO2 23.1 ABG O2 Saturation 99.8 H ABG Base Excess -1.8 ABG Hemoglobin 11.8 ABG Carboxyhemoglobin 1.8 H POC ABG HHb (Measured) 0.2 ABG Methemoglobin 1.1 Evans Test Pos A-a O2 Difference 157.0 Respiratory Index 1.0 Hgb O2 Saturation 96.9 Vent Mode Prvc Mechanical Rate 16 FiO2 50.0 Tidal Volume 450 PEEP 5 Sodium Potassium Chloride Carbon Dioxide Anion Gap BUN Creatinine Est GFR ( Amer) Est GFR (Non-Af Amer) POC Glucose (mg/dL) 147 H 161 H Random Glucose Calcium Phosphorus Magnesium Total Bilirubin AST ALT Alkaline Phosphatase Total Protein Albumin Globulin Albumin/Globulin Ratio 05/11/17 05/11/17 05/11/17 06:36 06:43 11:07 WBC 18.3 H RBC 4.14 Hgb 11.7 Hct 35.8 MCV 86.4 MCH 28.3 MCHC 32.7 L RDW 14.1 Plt Count 214 MPV 9.3 Neut % (Auto) 92.1 H Lymph % (Auto) 5.2 L Barton % (Auto) 2.6 Eos % (Auto) 0.0 Baso % (Auto) 0.1 Neut # 16.9 H Lymph # 1.0 Barton # 0.5 Eos # 0.0 Baso # 0.0 Neutrophils % (Manual) 87 H Band Neutrophils % 2 Lymphocytes % (Manual) 5 L Monocytes % (Manual) 6 Platelet Estimate Normal RBC Morphology Normal Puncture Site pCO2 pO2 HCO3 ABG pH ABG Total CO2 ABG O2 Saturation ABG Base Excess ABG Hemoglobin ABG Carboxyhemoglobin POC ABG HHb (Measured) ABG Methemoglobin Evans Test A-a O2 Difference Respiratory Index Hgb O2 Saturation Vent Mode Mechanical Rate FiO2 Tidal Volume PEEP Sodium 138 Potassium 3.7 Chloride 110 H Carbon Dioxide 22 Anion Gap 11 BUN 26 H Creatinine 0.5 L Est GFR ( Amer) > 60 Est GFR (Non-Af Amer) > 60 POC Glucose (mg/dL) 181 H Random Glucose 133 H Calcium 8.1 L Phosphorus 1.7 L Magnesium 1.9 Total Bilirubin 0.7 AST 59 H D ALT 102 H Alkaline Phosphatase 96 Total Protein 5.5 L Albumin 3.0 L Globulin 2.5 Albumin/Globulin Ratio 1.2 05/11/17 17:54 WBC RBC Hgb Hct MCV MCH MCHC RDW Plt Count MPV Neut % (Auto) Lymph % (Auto) Barton % (Auto) Eos % (Auto) Baso % (Auto) Neut # Lymph # Barton # Eos # Baso # Neutrophils % (Manual) Band Neutrophils % Lymphocytes % (Manual) Monocytes % (Manual) Platelet Estimate RBC Morphology Puncture Site pCO2 pO2 HCO3 ABG pH ABG Total CO2 ABG O2 Saturation ABG Base Excess ABG Hemoglobin ABG Carboxyhemoglobin POC ABG HHb (Measured) ABG Methemoglobin Evans Test A-a O2 Difference Respiratory Index Hgb O2 Saturation Vent Mode Mechanical Rate FiO2 Tidal Volume PEEP Sodium Potassium Chloride Carbon Dioxide Anion Gap BUN Creatinine Est GFR ( Amer) Est GFR (Non-Af Amer) POC Glucose (mg/dL) 210 H Random Glucose Calcium Phosphorus Magnesium Total Bilirubin AST ALT Alkaline Phosphatase Total Protein Albumin Globulin Albumin/Globulin Ratio Attending/Attestation - Attestation I have personally seen and examined this patient.: Yes I have fully participated in the care of the patient.: Yes I have reviewed all pertinent clinical information: Yes Notes (Text): 05/11/17 18:44 Patient seen and examined in the intensive care unit. Case discussed with house staff in the morning rounds. Remains intubated on ventilator support with no change in mental status She was seen by neurology awaiting for EEG report Continue present treatment Prognosis poor
[2017-05-11 08:43] LABS: NEUTROPHIL 87 % (50-75); TOTAL CELLS COUNTED 100
[2017-05-11] MEDS: Enoxaparin 40 mg Syringe SC SCH (09:46)
[2017-05-11] MEDS: MethylPREDNISolone 40 mg Vial IVP SCH ×2 (09:49→21:14)
--- NOTE | 2017-05-11 12:03 | PN ---
DATE: 05/11/2017 NEUROLOGICAL PROBLEM: Status post anoxic encephalopathy with myoclonic seizures. Seizures have been well controlled with current medication. PHYSICAL EXAMINATION: VITAL SIGNS: Blood pressure 110/65, mean arterial pressure of 80, respirations 16, temperature afebrile, pulse is 85. GENERAL: The patient is examined in the presence of her . She is comatosed. HEENT: Eyes partially opened. Moving her head. Corneal reflex is sluggish. Pupil sluggishly reactive to light on the right side. EXTREMITIES: Tone is decreased in all 4 extremities, flaccid, quadriplegia. EEG showed burst suppression throughout the record with periodic delta wave activities, which lasted for about 1 second in every 10 to 20 seconds periodically noted. No focal slowing or epileptiform activities noted. Overall, prognosis is very poor. Head CT finding is not consistent; however, some lucency showed in the right basal ganglia, which is not appreciable. However, followup CT of the head is recommended. Continue the present management and keep the mean arterial pressure around 90 to 100. Kev Hidalgo MD
--- NOTE | 2017-05-11 13:20 | EEG ---
DATE: 05/10/2017 This is a 16-channel electroencephalogram of comatose adult. The study was performed at the bedside. The patient just shows a diffuse-burst suppression seen diffusely in bilateral cortical leads which is followed with periodic 2 to 3 Hz delta activities seen in every 10 seconds. The photic stimulation did not evoke any response noted at 2 to 20 Hz. IMPRESSION: This is a globally abnormal electroencephalogram because of burst suppression throughout the record with periodic delta waves seen every 10 seconds. This is all consistent with global cerebral dysfunction. Please correlate the findings with neurological and radiological studies. However, the study does not meet the criteria for bilateral cerebral silence. Kev Hidalgo MD
--- NOTE | 2017-05-11 13:44 | RAD ---
HISTORY: pt intubated COMPARISON: Chest x-ray performed 05/10/17 TECHNIQUE: Chest, one view. FINDINGS: Examination limited by habitus and patient obliquity. The endotracheal tube terminates approximately 5.2 cm above the carlos. Left-sided central venous catheter likely terminates at the innominate/ SVC junction. LUNGS: Bilateral hilar prominence. Moderate pulmonary venous congestion. Layering bilateral pleural effusions. No definite pneumothorax. CARDIOVASCULAR: Cardiomegaly. OSSEOUS STRUCTURES: Scoliosis. Degenerative changes. VISUALIZED UPPER ABDOMEN: Unremarkable. OTHER FINDINGS: None. IMPRESSION: The endotracheal tube terminates approximately 5.2 cm above the carlos. Left-sided central venous catheter likely terminates at the innominate/ SVC junction. Bilateral hilar prominence. Moderate pulmonary venous congestion. Layering bilateral pleural effusions. Cardiomegaly.
--- NOTE | 2017-05-11 19:46 | CP.PCM.PN ---
Subjective - Date & Time of Evaluation Date of Evaluation: 05/11/17 Time of Evaluation: 15:00 - Subjective Subjective: Patient remains on MV, not responding,her eyes opens spontaneously at bedside Objective - Vital Signs/Intake and Output Vital Signs (last 24 hours): Temp Pulse Resp BP Pulse Ox 97.5 F L 92 H 17 119/78 100 05/11/17 19:00 05/11/17 19:05 05/11/17 19:05 05/11/17 19:05 05/11/17 19:05 Intake and Output: 05/11/17 05/12/17 18:59 06:59 Intake Total 660 40 Output Total 160 10 Balance 500 30 - Medications Medications: Current Medications Acetaminophen (Tylenol 650mg/20.3ml Solution Ud) 975 mg PEG Q6 PRN PRN Reason: Rigors Last Admin: 05/08/17 09:50 Dose: 975 mg Albuterol/Ipratropium (Duoneb 3 Mg/0.5 Mg (3 Ml) Ud) 3 ml INH RQ6 LINNETTE Last Admin: 05/11/17 19:38 Dose: 3 ml Artificial Tears (Lacri-Lube) 0 gm OU Q4 LINNETTE Last Admin: 05/11/17 15:35 Dose: 3.5 gm Aspirin (Aspirin Chewable) 81 mg PEG DAILY LINNETTE Last Admin: 05/11/17 09:47 Dose: 81 mg Enoxaparin Sodium (Lovenox) 40 mg SC DAILY LINNETTE Last Admin: 05/11/17 09:46 Dose: 40 mg Propofol (Diprivan) 1,000 mg in 100 mls @ 2.722 mls/hr IV .Q24H PRN; Protocol; 5 MCG/KG/MIN PRN Reason: TITRATE PER MD ORDER Last Titration: 05/10/17 00:00 Dose: 0 mcg/kg/min, 0 mls/hr Aztreonam 1 gm/ Sodium (Chloride) 50 mls @ 100 mls/hr IVPB Q8H LINNETTE Last Admin: 05/11/17 18:01 Dose: 100 mls/hr Vancomycin/Sodium Chloride (Vancomycin 1 Gm/Ns 200 Ml) 1 gm in 200 mls @ 133 mls/hr IVPB Q12H LINNETTE Stop: 05/14/17 12:01 Last Admin: 05/11/17 11:49 Dose: 133 mls/hr Levetiracetam 750 mg/ Sodium (Chloride) 257.5 mls @ 1,030 mls/hr IVPB Q12H LINNETTE Methylprednisolone (Solu-Medrol) 40 mg IVP Q12 LINNETTE Last Admin: 05/11/17 09:49 Dose: 40 mg Pantoprazole Sodium (Protonix Susp) 40 mg PO 0600 LINNETTE Last Admin: 05/11/17 05:25 Dose: 40 mg - Labs Labs: 05/11/17 06:43 05/11/17 06:36 PT 15.1 SECONDS (9.7-12.2) H 05/09/17 17:57 INR 1.3 05/09/17 17:57 APTT 35 SECONDS (21-34) H 05/09/17 17:57 - Head Exam Head Exam: ATRAUMATIC - Eye Exam Eye Exam: Normal appearance - ENT Exam ENT Exam: Mucous Membranes Moist - Respiratory Exam Respiratory Exam: Clear to Ausculation Bilateral - Cardiovascular Exam Cardiovascular Exam: REGULAR RHYTHM - GI/Abdominal Exam GI & Abdominal Exam: Soft, Normal Bowel Sounds - Exam External exam: NORMAL EXTERNAL EXAM - Back Exam Back Exam: NORMAL INSPECTION - Neurological Exam Neurological Exam: absent: Alert - Psychiatric Exam Psychiatric exam: absent: Normal Mood - Skin Skin Exam: Dry Assessment and Plan - Assessment and Plan (Free Text) Assessment: This is a 57F with PMH early onset dementia, seizures, and questionable asthma who was brought to the ED via EMS from her half-way, [facility], where she was witnessed cardiopulmonary arrest. EMS intubated the patient in the field.At ED patient was having myoclonic jerks and code freeze was initiated. Patient remained intubated and patient was admitted to the ICU. d/w daughter and her . Her dementia started 7 years ago.Last two year she was in the NH,nonverbal,some days she is responsive/look at family members Plan: 1) s/p cardiopulmonary arrest Intubated and remain on Vent support,comatose Abnormal CT brain .Repeat CT acute/subacute infarct asprin added d/w Dr Hidaglo.Patient has poor prognosis, Brain changes could be due anoxia brain injury s/p code freeze,continue solumedrol and duoneb D/W her daughter yesterday-Full code Continue asprin 2) Pneumonia and elevated wbc follow cultures Continue Aztrenonam and Vancomcyin continue duoneb and steroid 3) History of early onset dementia starting 5 years ago as per daughter 4) Seizure disorder, unspecified patient was taking Keppra and Lamotrigine On Keppra 750mg IVQ12H 5) History of Asthma 6) DVT and GI prophylasix protonix and lovenox
[2017-05-12] MEDS: Albuterol-Ipratrop 3 mg / 0.5 (3 ml) UD INH SCH ×4 (01:09→19:41)
[2017-05-12] MEDS: White Petrolatum/Mineral Oil Ophth Oint(3.5 gm) OU SCH ×6 (04:29→23:25)
[2017-05-12] MEDS: Pantoprazole 40 mg Susp UD PO SCH (05:21)
[2017-05-12 05:25] LABS: ABG ALLEN TEST POS; ABG MECHANICAL RATE 16; ARTERIAL BLOOD GAS MODE PRVC; ATERIAL BLOOD GAS PEEP 5; CARBOXYHEMOGLOBIN 1.7 % (0.5-1.5); DRAW SITE RR; HHB 0.3 % (0.0-5.0); METHEMOGLOBIN 1.1 % (0.0-3.0)
[2017-05-12 06:36] LABS: HEMATOCRIT 37.3 % (34.0-47.0); LYMPH # 1.3 K/uL (1.0-4.3); LYMPH % 6.2 % (20.0-40.0); MEAN CELL VOLUME 86.7 fL (81.0-99.0); MEAN CORPUSCULAR HGB CONC 32.3 g/dL (33.0-37.0); MEAN PLATELET VOLUME 9.3 fL (7.2-11.7); MONO # 0.7 K/uL (0.0-0.8); MONO % 3.3 % (0.0-10.0); PLATELET COUNT 278 K/uL (130-400); RED CELL DISTRIBUTION WIDTH 14.5 % (11.5-14.5); WHITE BLOOD COUNT 20.6 K/uL (4.8-10.8)
[2017-05-12 06:51] LABS: ALB/GLOB RATIO 0.9 (1.0-2.1); ALKALINE PHOSPHATASE 111 U/L (38-126); ALT/SGPT 136 U/L (9-52); AST/SGOT 79 U/L (14-36); BILIRUBIN,TOTAL 0.5 mg/dL (0.2-1.3); BLOOD UREA NITROGEN 27 mg/dL (7-17); CALCIUM 8.4 mg/dl (8.6-10.4); CARBON DIOXIDE 24 mmol/L (22-30); CHLORIDE 108 mmol/L (98-107); GFR AFRICAN-AMERICAN > 60; GLUCOSE,RANDOM 155 mg/dL (65-105); MAGNESIUM 1.8 mg/dL (1.6-2.3); PHOSPHOROUS 2.1 mg/dL (2.5-4.5); POTASSIUM 3.8 mmol/L (3.6-5.2); SODIUM 143 mmol/L (132-148); TOTAL PROTEIN 6.8 g/dL (6.3-8.3)
--- NOTE | 2017-05-12 07:37 | CP.CCUPN ---
<Du Ledesma - Last Filed: 05/12/17 11:29> CCU Subjective - Physician Review Subjective (Free Text): PGY1 ICU progress note for Dr. Kaur Patient seen and examined this morning at bedside. Patient is unresponsive on ventilator support. ROS unattainable. CCU Objective - Vital Signs / Intake & Output Vital Signs (Last 4 hours): Vital Signs Temp Pulse Resp BP Pulse Ox 05/12/17 07:00 115 H 20 99 05/12/17 06:05 102 H 14 155/99 H 97 05/12/17 06:00 98 F 104 H 19 98 05/12/17 05:05 104 H 20 150/95 H 99 05/12/17 05:00 103 H 16 99 05/12/17 04:05 104 H 17 146/93 H 99 05/12/17 04:00 98 F 107 H 17 99 Intake and Output (Last 8hrs): Intake & Output 05/11/17 05/12/17 05/12/17 22:59 06:59 14:59 Intake Total 280 870 40 Output Total 205 195 30 Balance 75 675 10 Weight 189 lb Intake: Intake, IV Amount 500 Left Distal Port Internal 500 Jugular Tube Feeding 280 320 40 Other 50 Output: Urine 205 195 30 Urethral (Johnson) 205 195 30 - Physical Exam Head: Positive for: Atraumatic, Normocephalic Pupils: Positive for: Sluggish Conjunctiva: Positive for: Injected Mouth: Positive for: Moist Mucous Membranes Neck: Positive for: Trachea Midline Respiratory/Chest: Positive for: Decreased Breath Sounds Cardiovascular: Positive for: Tachycardic (sinus) Abdomen: Positive for: Normal Bowel Sounds Upper Extremity: Positive for: Normal Inspection Lower Extremity: Positive for: Edema Neurological: Positive for: Other (intubated) Psychiatric: Positive for: Other (intubated) - Medications Active Medications: Active Medications Generic Name Dose Route Start Last Admin Trade Name Freq PRN Reason Stop Dose Admin Acetaminophen 975 mg 05/08/17 09:31 05/08/17 09:50 Tylenol 650mg/20.3ml Solution Ud PEG 975 mg Q6 PRN Administration Rigors Albuterol/Ipratropium 3 ml 05/08/17 20:00 05/12/17 07:29 Duoneb 3 Mg/0.5 Mg (3 Ml) Ud INH 3 ml RQ6 LINNETTE Administration Artificial Tears 0 gm 05/08/17 12:00 05/12/17 04:29 Lacri-Lube OU 3.5 gm Q4 LINNETTE Administration Aspirin 81 mg 05/11/17 10:00 05/11/17 09:47 Aspirin Chewable PEG 81 mg DAILY LINNETTE Administration Enoxaparin Sodium 40 mg 05/09/17 10:30 05/11/17 09:46 Lovenox SC 40 mg DAILY LINNETTE Administration Propofol 1,000 mg in 100 mls @ 2.722 mls/hr 05/08/17 09:49 05/10/17 00:00 Diprivan IV 0 mcg/kg/min .Q24H PRN 0 mls/hr TITRATE PER MD ORDER Titration Protocol 5 MCG/KG/MIN Aztreonam 1 gm/ Sodium 50 mls @ 100 mls/hr 05/09/17 11:00 05/12/17 04:29 Chloride IVPB 100 mls/hr Q8H LINNETTE Administration Vancomycin/Sodium Chloride 1 gm in 200 mls @ 133 mls/hr 05/09/17 12:00 23:37 Vancomycin 1 Gm/Ns 200 Ml IVPB 05/14/17 12:01 133 mls/hr Q12H LINNETTE Administration Levetiracetam 750 mg/ Sodium 257.5 mls @ 1,030 mls/hr 05/11/17 23:30 22:49 Chloride IVPB 1,030 mls/hr Q12H LINNETTE Administration Methylprednisolone 40 mg 05/10/17 10:00 05/11/17 21:14 Solu-Medrol IVP 40 mg Q12 LINNETTE Administration Pantoprazole Sodium 40 mg 05/09/17 06:00 05/12/17 05:21 Protonix Susp PO 40 mg 0600 LINNETTE Administration Potassium Phos/Sodium Phos 1 pkt 05/12/17 08:00 Neutra-Phos PO [facility] - Patient Studies Lab Studies: Microbiology Studies 05/08/17 15:30 Blood Culture - Preliminary Blood NO GROWTH AFTER 3 DAYS 05/08/17 16:00 Blood Culture - Preliminary Blood NO GROWTH AFTER 3 DAYS 05/09/17 14:47 Gram Stain - Final Trachasp Sputum Culture - Final Escherichia Coli Lab Studies 11/22/17 11/22/17 11/22/17 Range/Units 06:26 06:25 05:38 WBC 20.6 H (4.8-10.8) K/uL RBC 4.30 (3.80-5.20) Mil/uL Hgb 12.1 (11.0-16.0) g/dL Hct 37.3 (34.0-47.0) % MCV 86.7 (81.0-99.0) fL MCH 28.0 (27.0-31.0) pg MCHC 32.3 L (33.0-37.0) g/dL RDW 14.5 (11.5-14.5) % Plt Count 278 (130-400) K/uL MPV 9.3 (7.2-11.7) fL Neut % (Auto) 90.5 H (50.0-75.0) % Lymph % (Auto) 6.2 L (20.0-40.0) % Ellis % (Auto) 3.3 (0.0-10.0) % Eos % (Auto) 0.0 (0.0-4.0) % Baso % (Auto) 0.0 (0.0-2.0) % Neut # 18.7 H (1.8-7.0) K/uL Lymph # 1.3 (1.0-4.3) K/uL Ellis # 0.7 (0.0-0.8) K/uL Eos # 0.0 (0.0-0.7) K/uL Baso # 0.0 (0.0-0.2) K/uL Neutrophils % (Manual) (50-75) % Band Neutrophils % (0-2) % Lymphocytes % (Manual) (20-40) % Monocytes % (Manual) (0-10) % Platelet Estimate (NORMAL) RBC Morphology Puncture Site pCO2 (35-45) mm/Hg pO2 (80-100) mm/Hg HCO3 (21-28) mmol/L ABG pH (7.35-7.45) ABG Total CO2 (22-28) mmol/L ABG O2 Saturation (95-98) % ABG Base Excess (-2.0-3.0) mmol/L ABG Hemoglobin (11.7-17.4) g/dL ABG Carboxyhemoglobin (0.5-1.5) % POC ABG HHb (Measured) (0.0-5.0) % ABG Methemoglobin (0.0-3.0) % Evans Test A-a O2 Difference mm/Hg Respiratory Index Hgb O2 Saturation (95.0-98.0) % Vent Mode Mechanical Rate FiO2 % Tidal Volume PEEP Sodium 143 (132-148) mmol/L Potassium 3.8 (3.6-5.2) mmol/L Chloride 108 H (98-107) mmol/L Carbon Dioxide 24 (22-30) mmol/L Anion Gap 14 (10-20) BUN 27 H (7-17) mg/dL Creatinine 0.5 L (0.7-1.2) mg/dL Est GFR ( Amer) > 60 Est GFR (Non-Af Amer) > 60 POC Glucose (mg/dL) 184 H (65-110) mg/dL Random Glucose 155 H (65-105) mg/dL Calcium 8.4 L (8.6-10.4) mg/dl Phosphorus 2.1 L (2.5-4.5) mg/dL Magnesium 1.8 (1.6-2.3) mg/dL Total Bilirubin 0.5 (0.2-1.3) mg/dL AST 79 H D (14-36) U/L ALT 136 H D (9-52) U/L Alkaline Phosphatase 111 (38-126) U/L Total Protein 6.8 (6.3-8.3) g/dL Albumin 3.3 L (3.5-5.0) g/dL Globulin 3.5 (2.2-3.9) gm/dL Albumin/Globulin Ratio 0.9 L (1.0-2.1) 05/12/17 05/12/17 05/11/17 Range/Units 05:00 00:06 17:54 WBC (4.8-10.8) K/uL RBC (3.80-5.20) Mil/uL Hgb (11.0-16.0) g/dL Hct (34.0-47.0) % MCV (81.0-99.0) fL MCH (27.0-31.0) pg MCHC (33.0-37.0) g/dL RDW (11.5-14.5) % Plt Count (130-400) K/uL MPV (7.2-11.7) fL Neut % (Auto) (50.0-75.0) % Lymph % (Auto) (20.0-40.0) % Ellis % (Auto) (0.0-10.0) % Eos % (Auto) (0.0-4.0) % Baso % (Auto) (0.0-2.0) % Neut # (1.8-7.0) K/uL Lymph # (1.0-4.3) K/uL Ellis # (0.0-0.8) K/uL Eos # (0.0-0.7) K/uL Baso # (0.0-0.2) K/uL Neutrophils % (Manual) (50-75) % Band Neutrophils % (0-2) % Lymphocytes % (Manual) (20-40) % Monocytes % (Manual) (0-10) % Platelet Estimate (NORMAL) RBC Morphology Puncture Site Rr pCO2 31 L (35-45) mm/Hg pO2 123 H (80-100) mm/Hg HCO3 24.1 (21-28) mmol/L ABG pH 7.46 H (7.35-7.45) ABG Total CO2 23.0 (22-28) mmol/L ABG O2 Saturation 99.7 H (95-98) % ABG Base Excess -1.1 (-2.0-3.0) mmol/L ABG Hemoglobin 12.0 (11.7-17.4) g/dL ABG Carboxyhemoglobin 1.7 H (0.5-1.5) % POC ABG HHb (Measured) 0.3 (0.0-5.0) % ABG Methemoglobin 1.1 (0.0-3.0) % Evans Test Pos A-a O2 Difference 195.0 mm/Hg Respiratory Index 1.6 Hgb O2 Saturation 97.0 (95.0-98.0) % Vent Mode Prvc Mechanical Rate 16 FiO2 50.0 % Tidal Volume 450 PEEP 5 Sodium (132-148) mmol/L Potassium (3.6-5.2) mmol/L Chloride (98-107) mmol/L Carbon Dioxide (22-30) mmol/L Anion Gap (10-20) BUN (7-17) mg/dL Creatinine (0.7-1.2) mg/dL Est GFR ( Amer) Est GFR (Non-Af Amer) POC Glucose (mg/dL) 234 H 210 H (65-110) mg/dL Random Glucose (65-105) mg/dL Calcium (8.6-10.4) mg/dl Phosphorus (2.5-4.5) mg/dL Magnesium (1.6-2.3) mg/dL Total Bilirubin (0.2-1.3) mg/dL AST (14-36) U/L ALT (9-52) U/L Alkaline Phosphatase (38-126) U/L Total Protein (6.3-8.3) g/dL Albumin (3.5-5.0) g/dL Globulin (2.2-3.9) gm/dL Albumin/Globulin Ratio (1.0-2.1) 05/11/17 05/11/17 Range/Units 11:07 06:43 WBC (4.8-10.8) K/uL RBC (3.80-5.20) Mil/uL Hgb (11.0-16.0) g/dL Hct (34.0-47.0) % MCV (81.0-99.0) fL MCH (27.0-31.0) pg MCHC (33.0-37.0) g/dL RDW (11.5-14.5) % Plt Count (130-400) K/uL MPV (7.2-11.7) fL Neut % (Auto) (50.0-75.0) % Lymph % (Auto) (20.0-40.0) % Ellis % (Auto) (0.0-10.0) % Eos % (Auto) (0.0-4.0) % Baso % (Auto) (0.0-2.0) % Neut # (1.8-7.0) K/uL Lymph # (1.0-4.3) K/uL Ellis # (0.0-0.8) K/uL Eos # (0.0-0.7) K/uL Baso # (0.0-0.2) K/uL Neutrophils % (Manual) 87 H (50-75) % Band Neutrophils % 2 (0-2) % Lymphocytes % (Manual) 5 L (20-40) % Monocytes % (Manual) 6 (0-10) % Platelet Estimate Normal (NORMAL) RBC Morphology Normal Puncture Site pCO2 (35-45) mm/Hg pO2 (80-100) mm/Hg HCO3 (21-28) mmol/L ABG pH (7.35-7.45) ABG Total CO2 (22-28) mmol/L ABG O2 Saturation (95-98) % ABG Base Excess (-2.0-3.0) mmol/L ABG Hemoglobin (11.7-17.4) g/dL ABG Carboxyhemoglobin (0.5-1.5) % POC ABG HHb (Measured) (0.0-5.0) % ABG Methemoglobin (0.0-3.0) % Evans Test A-a O2 Difference mm/Hg Respiratory Index Hgb O2 Saturation (95.0-98.0) % Vent Mode Mechanical Rate FiO2 % Tidal Volume PEEP Sodium (132-148) mmol/L Potassium (3.6-5.2) mmol/L Chloride (98-107) mmol/L Carbon Dioxide (22-30) mmol/L Anion Gap (10-20) BUN (7-17) mg/dL Creatinine (0.7-1.2) mg/dL Est GFR ( Amer) Est GFR (Non-Af Amer) POC Glucose (mg/dL) 181 H (65-110) mg/dL Random Glucose (65-105) mg/dL Calcium (8.6-10.4) mg/dl Phosphorus (2.5-4.5) mg/dL Magnesium (1.6-2.3) mg/dL Total Bilirubin (0.2-1.3) mg/dL AST (14-36) U/L ALT (9-52) U/L Alkaline Phosphatase (38-126) U/L Total Protein (6.3-8.3) g/dL Albumin (3.5-5.0) g/dL Globulin (2.2-3.9) gm/dL Albumin/Globulin Ratio (1.0-2.1) Laboratory Results - last 24 hr 05/11/17 05/11/17 05/11/17 06:43 11:07 17:54 WBC RBC Hgb Hct MCV MCH MCHC RDW Plt Count MPV Neut % (Auto) Lymph % (Auto) Ellis % (Auto) Eos % (Auto) Baso % (Auto) Neut # Lymph # Ellis # Eos # Baso # Neutrophils % (Manual) 87 H Band Neutrophils % 2 Lymphocytes % (Manual) 5 L Monocytes % (Manual) 6 Platelet Estimate Normal RBC Morphology Normal Puncture Site pCO2 pO2 HCO3 ABG pH ABG Total CO2 ABG O2 Saturation ABG Base Excess ABG Hemoglobin ABG Carboxyhemoglobin POC ABG HHb (Measured) ABG Methemoglobin Evans Test A-a O2 Difference Respiratory Index Hgb O2 Saturation Vent Mode Mechanical Rate FiO2 Tidal Volume PEEP Sodium Potassium Chloride Carbon Dioxide Anion Gap BUN Creatinine Est GFR ( Amer) Est GFR (Non-Af Amer) POC Glucose (mg/dL) 181 H 210 H Random Glucose Calcium Phosphorus Magnesium Total Bilirubin AST ALT Alkaline Phosphatase Total Protein Albumin Globulin Albumin/Globulin Ratio 05/12/17 05/12/17 05/12/17 00:06 05:00 05:38 WBC RBC Hgb Hct MCV MCH MCHC RDW Plt Count MPV Neut % (Auto) Lymph % (Auto) Ellis % (Auto) Eos % (Auto) Baso % (Auto) Neut # Lymph # Ellis # Eos # Baso # Neutrophils % (Manual) Band Neutrophils % Lymphocytes % (Manual) Monocytes % (Manual) Platelet Estimate RBC Morphology Puncture Site Rr pCO2 31 L pO2 123 H HCO3 24.1 ABG pH 7.46 H ABG Total CO2 23.0 ABG O2 Saturation 99.7 H ABG Base Excess -1.1 ABG Hemoglobin 12.0 ABG Carboxyhemoglobin 1.7 H POC ABG HHb (Measured) 0.3 ABG Methemoglobin 1.1 Evans Test Pos A-a O2 Difference 195.0 Respiratory Index 1.6 Hgb O2 Saturation 97.0 Vent Mode Prvc Mechanical Rate 16 FiO2 50.0 Tidal Volume 450 PEEP 5 Sodium Potassium Chloride Carbon Dioxide Anion Gap BUN Creatinine Est GFR ( Amer) Est GFR (Non-Af Amer) POC Glucose (mg/dL) 234 H 184 H Random Glucose Calcium Phosphorus Magnesium Total Bilirubin AST ALT Alkaline Phosphatase Total Protein Albumin Globulin Albumin/Globulin Ratio 05/12/17 05/12/17 06:25 06:26 WBC 20.6 H RBC 4.30 Hgb 12.1 Hct 37.3 MCV 86.7 MCH 28.0 MCHC 32.3 L RDW 14.5 Plt Count 278 MPV 9.3 Neut % (Auto) 90.5 H Lymph % (Auto) 6.2 L Ellis % (Auto) 3.3 Eos % (Auto) 0.0 Baso % (Auto) 0.0 Neut # 18.7 H Lymph # 1.3 Ellis # 0.7 Eos # 0.0 Baso # 0.0 Neutrophils % (Manual) Band Neutrophils % Lymphocytes % (Manual) Monocytes % (Manual) Platelet Estimate RBC Morphology Puncture Site pCO2 pO2 HCO3 ABG pH ABG Total CO2 ABG O2 Saturation ABG Base Excess ABG Hemoglobin ABG Carboxyhemoglobin POC ABG HHb (Measured) ABG Methemoglobin Evans Test A-a O2 Difference Respiratory Index Hgb O2 Saturation Vent Mode Mechanical Rate FiO2 Tidal Volume PEEP Sodium 143 Potassium 3.8 Chloride 108 H Carbon Dioxide 24 Anion Gap 14 BUN 27 H Creatinine 0.5 L Est GFR ( Amer) > 60 Est GFR (Non-Af Amer) > 60 POC Glucose (mg/dL) Random Glucose 155 H Calcium 8.4 L Phosphorus 2.1 L Magnesium 1.8 Total Bilirubin 0.5 AST 79 H D ALT 136 H D Alkaline Phosphatase 111 Total Protein 6.8 Albumin 3.3 L Globulin 3.5 Albumin/Globulin Ratio 0.9 L Fingerstick Blood Sugar Results: 184 Review of Systems - Review of Systems Systems not reviewed;Unavailable: Intubated Assessment/Plan - Assessment and Plan (Free Text) Assessment: Patient is a 57F with PMH early onset dementia, 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 Hidalgo consulted, help appreciated hx of early onset dementia (started 7 years ago) non-verbal at baseline bedbound at baseline propofol drip Keppra [address] 05/10 - New low attenuation in the right caudate nucleus head indicating possible acute/subacute infarct. Recommend evaluation with magnetic resonance imaging. Atrophy greater than expected for patient age with ex vacuo ventricular dilatation. Chronic white matter ischemic change. EEG 05/11 - globally abnormal EEG due to burst suppression with periodic delta waves seen every 10 seconds. Findings of EEG consistent with global cerebral dysfunction. Study does NOT meet criteria for b/l cerebral silence. Repeat Head Ct 05/12 - No evidence of significant interval change when compared to the previous study dated 05/10/2017. No evidence of acute intracranial hemorrhage. Re- demonstration of moderate to severe atrophy. Moderate to severe dilatation the lateral ventricles and 3rd ventricle suggestive of hydrocephalus. Re- demonstration of focal hypodensity at the right caudate nucleus which could represent subacute infarct versus chronic microvascular changes. f/u neuro recs - Goal MAP of 90-100, per Dr. Hidalgo Patient's family is aware of patient's condition and know of poor prognosis. She will remain a full code for now, as per daughter. Will re-evaluate later this week. - Pastoral Care Referral made Cardio: Dr. Heck consulted, help appreciated s/p cardiac arrest, suspected 2/2 sepsis - Code Freeze ECHO - moderate diffuse systolic dysfunction, overall EF 35-40%; large apical wall motion abnormality; all valves normal Respiratory: Intubated Pneumonia CXR 05/12- Stable bilateral pleural effusions and pulmonary venous congestion with underlying atelectasis or infiltrates not excluded the inferior lung zones bilaterally. will continue to monitor WBC - increased to 20.6 from 18.3 Aztrenonam 1gm IVPB q8 Vanco 1gm IVPB q12 [id number] INH RQ6 Solumedrol 40mg IVP q12 ABG - R radial pCO2 31/ pO2 123/ HCO3 24.1/ pH 7.46 - taken while on vent settings TV 450/FiO2 50/RR 16/ PEEP 5 GI: On Tube feedings, Jevity 1.5. Initial rate of 20mL/hr, Goal rate of 40mL/hr Protonix 40mg PO daily Electrolytes: Phosphate 2.1 - repleated today Case discussed with Dr. Vincent Ledesma PGY1 <Andrew Kaur - Last Filed: 05/12/17 17:33> CCU Objective - Vital Signs / Intake & Output Vital Signs (Last 4 hours): Vital Signs Temp Pulse Resp BP Pulse Ox 05/12/17 17:00 98.7 F 115 H 22 97 05/12/17 16:05 114 H 22 169/109 H 96 05/12/17 16:00 113 H 23 95 05/12/17 15:13 97.9 F 05/12/17 15:05 114 H 22 163/108 H 99 05/12/17 15:00 115 H 21 98 05/12/17 14:05 115 H 22 152/84 H 99 05/12/17 14:00 115 H 18 99 Intake and Output (Last 8hrs): Intake & Output 05/12/17 05/12/17 05/12/17 06:59 14:59 22:59 Intake Total 870 370 120 Output Total 195 310 90 Balance 675 60 30 Weight 189 lb Intake: Intake, IV Amount 500 50 Left Distal Port Internal 500 50 Jugular Tube Feeding 320 320 120 Other 50 Output: Urine 195 265 90 Urethral (Johnson) 195 265 90 Other 45 - Medications Active Medications: Active Medications Generic Name Dose Route Start Last Admin Trade Name Freq PRN Reason Stop Dose Admin Acetaminophen 975 mg 05/08/17 09:31 05/08/17 09:50 Tylenol 650mg/20.3ml Solution Ud PEG 975 mg Q6 PRN Administration Rigors Albuterol/Ipratropium 3 ml 05/08/17 20:00 05/12/17 07:29 Duoneb 3 Mg/0.5 Mg (3 Ml) Ud INH 3 ml RQ6 LINNETTE Administration Artificial Tears 0 gm 05/08/17 12:00 05/12/17 15:29 Lacri-Lube OU 3.5 gm Q4 LINNETTE Administration Aspirin 81 mg 05/11/17 10:00 05/12/17 10:02 Aspirin Chewable PEG 81 mg DAILY LINNETTE Administration Enoxaparin Sodium 40 mg 05/09/17 10:30 05/12/17 10:02 Lovenox SC 40 mg DAILY LINNETTE Administration Propofol 1,000 mg in 100 mls @ 2.722 mls/hr 05/08/17 09:49 05/10/17 00:00 Diprivan IV 0 mcg/kg/min .Q24H PRN 0 mls/hr TITRATE PER MD ORDER Titration Protocol 5 MCG/KG/MIN Aztreonam 1 gm/ Sodium 50 mls @ 100 mls/hr 05/09/17 11:00 05/12/17 10:42 Chloride IVPB 100 mls/hr Q8H LINNETTE Administration Vancomycin/Sodium Chloride 1 gm in 200 mls @ 133 mls/hr 05/09/17 12:00 11:03 Vancomycin 1 Gm/Ns 200 Ml IVPB 05/14/17 12:01 133 mls/hr Q12H LINNETTE Administration Levetiracetam 750 mg/ Sodium 257.5 mls @ 1,030 mls/hr 05/11/17 23:30 10:58 Chloride IVPB 1,030 mls/hr Q12H LINNETTE Administration Methylprednisolone 40 mg 05/10/17 10:00 05/12/17 11:19 Solu-Medrol IVP 40 mg Q12 LINNETTE Administration Pantoprazole Sodium 40 mg 05/09/17 06:00 05/12/17 05:21 Protonix Susp PO 40 mg 0600 LINNETTE Administration Potassium Phos/Sodium Phos 1 pkt 05/12/17 08:00 05/12/17 16:15 Neutra-Phos PO 1 pkt BIDCC LINNETTE Administration - Patient Studies Lab Studies: Microbiology Studies 05/08/17 15:30 Blood Culture - Preliminary Blood NO GROWTH AFTER 4 DAYS 05/08/17 16:00 Blood Culture - Preliminary Blood NO GROWTH AFTER 4 DAYS Lab Studies 05/12/17 05/12/17 05/12/17 Range/Units 11:24 06:26 06:25 WBC 20.6 H (4.8-10.8) K/uL RBC 4.30 (3.80-5.20) Mil/uL Hgb 12.1 (11.0-16.0) g/dL Hct 37.3 (34.0-47.0) % MCV 86.7 (81.0-99.0) fL MCH 28.0 (27.0-31.0) pg MCHC 32.3 L (33.0-37.0) g/dL RDW 14.5 (11.5-14.5) % Plt Count 278 (130-400) K/uL MPV 9.3 (7.2-11.7) fL Neut % (Auto) 90.5 H (50.0-75.0) % Lymph % (Auto) 6.2 L (20.0-40.0) % Ellis % (Auto) 3.3 (0.0-10.0) % Eos % (Auto) 0.0 (0.0-4.0) % Baso % (Auto) 0.0 (0.0-2.0) % Neut # 18.7 H (1.8-7.0) K/uL Lymph # 1.3 (1.0-4.3) K/uL Ellis # 0.7 (0.0-0.8) K/uL Eos # 0.0 (0.0-0.7) K/uL Baso # 0.0 (0.0-0.2) K/uL Neutrophils % (Manual) 93 H (50-75) % Lymphocytes % (Manual) 4 L (20-40) % Monocytes % (Manual) 2 (0-10) % Myelocytes % 1 H (0-0) % Platelet Estimate Normal (NORMAL) Large Platelets Present Puncture Site pCO2 (35-45) mm/Hg pO2 (80-100) mm/Hg HCO3 (21-28) mmol/L ABG pH (7.35-7.45) ABG Total CO2 (22-28) mmol/L ABG O2 Saturation (95-98) % ABG Base Excess (-2.0-3.0) mmol/L ABG Hemoglobin (11.7-17.4) g/dL ABG Carboxyhemoglobin (0.5-1.5) % POC ABG HHb (Measured) (0.0-5.0) % ABG Methemoglobin (0.0-3.0) % Evans Test A-a O2 Difference mm/Hg Respiratory Index Hgb O2 Saturation (95.0-98.0) % Vent Mode Mechanical Rate FiO2 % Tidal Volume PEEP Sodium 143 (132-148) mmol/L Potassium 3.8 (3.6-5.2) mmol/L Chloride 108 H (98-107) mmol/L Carbon Dioxide 24 (22-30) mmol/L Anion Gap 14 (10-20) BUN 27 H (7-17) mg/dL Creatinine 0.5 L (0.7-1.2) mg/dL Est GFR ( Amer) > 60 Est GFR (Non-Af Amer) > 60 POC Glucose (mg/dL) 178 H (65-110) mg/dL Random Glucose 155 H (65-105) mg/dL Calcium 8.4 L (8.6-10.4) mg/dl Phosphorus 2.1 L (2.5-4.5) mg/dL Magnesium 1.8 (1.6-2.3) mg/dL Total Bilirubin 0.5 (0.2-1.3) mg/dL AST 79 H D (14-36) U/L ALT 136 H D (9-52) U/L Alkaline Phosphatase 111 (38-126) U/L Total Protein 6.8 (6.3-8.3) g/dL Albumin 3.3 L (3.5-5.0) g/dL Globulin 3.5 (2.2-3.9) gm/dL Albumin/Globulin Ratio 0.9 L (1.0-2.1) 05/12/17 05/12/17 05/12/17 Range/Units 05:38 05:00 00:06 WBC (4.8-10.8) K/uL RBC (3.80-5.20) Mil/uL Hgb (11.0-16.0) g/dL Hct (34.0-47.0) % MCV (81.0-99.0) fL MCH (27.0-31.0) pg MCHC (33.0-37.0) g/dL RDW (11.5-14.5) % Plt Count (130-400) K/uL MPV (7.2-11.7) fL Neut % (Auto) (50.0-75.0) % Lymph % (Auto) (20.0-40.0) % Ellis % (Auto) (0.0-10.0) % Eos % (Auto) (0.0-4.0) % Baso % (Auto) (0.0-2.0) % Neut # (1.8-7.0) K/uL Lymph # (1.0-4.3) K/uL Ellis # (0.0-0.8) K/uL Eos # (0.0-0.7) K/uL Baso # (0.0-0.2) K/uL Neutrophils % (Manual) (50-75) % Lymphocytes % (Manual) (20-40) % Monocytes % (Manual) (0-10) % Myelocytes % (0-0) % Platelet Estimate (NORMAL) Large Platelets Puncture Site Rr pCO2 31 L (35-45) mm/Hg pO2 123 H (80-100) mm/Hg HCO3 24.1 (21-28) mmol/L ABG pH 7.46 H (7.35-7.45) ABG Total CO2 23.0 (22-28) mmol/L ABG O2 Saturation 99.7 H (95-98) % ABG Base Excess -1.1 (-2.0-3.0) mmol/L ABG Hemoglobin 12.0 (11.7-17.4) g/dL ABG Carboxyhemoglobin 1.7 H (0.5-1.5) % POC ABG HHb (Measured) 0.3 (0.0-5.0) % ABG Methemoglobin 1.1 (0.0-3.0) % Evans Test Pos A-a O2 Difference 195.0 mm/Hg Respiratory Index 1.6 Hgb O2 Saturation 97.0 (95.0-98.0) % Vent Mode Prvc Mechanical Rate 16 FiO2 50.0 % Tidal Volume 450 PEEP 5 Sodium (132-148) mmol/L Potassium (3.6-5.2) mmol/L Chloride (98-107) mmol/L Carbon Dioxide (22-30) mmol/L Anion Gap (10-20) BUN (7-17) mg/dL Creatinine (0.7-1.2) mg/dL Est GFR ( Amer) Est GFR (Non-Af Amer) POC Glucose (mg/dL) 184 H 234 H (65-110) mg/dL Random Glucose (65-105) mg/dL Calcium (8.6-10.4) mg/dl Phosphorus (2.5-4.5) mg/dL Magnesium (1.6-2.3) mg/dL Total Bilirubin (0.2-1.3) mg/dL AST (14-36) U/L ALT (9-52) U/L Alkaline Phosphatase (38-126) U/L Total Protein (6.3-8.3) g/dL Albumin (3.5-5.0) g/dL Globulin (2.2-3.9) gm/dL Albumin/Globulin Ratio (1.0-2.1) 05/11/17 Range/Units 17:54 WBC (4.8-10.8) K/uL RBC (3.80-5.20) Mil/uL Hgb (11.0-16.0) g/dL Hct (34.0-47.0) % MCV (81.0-99.0) fL MCH (27.0-31.0) pg MCHC (33.0-37.0) g/dL RDW (11.5-14.5) % Plt Count (130-400) K/uL MPV (7.2-11.7) fL Neut % (Auto) (50.0-75.0) % Lymph % (Auto) (20.0-40.0) % Ellis % (Auto) (0.0-10.0) % Eos % (Auto) (0.0-4.0) % Baso % (Auto) (0.0-2.0) % Neut # (1.8-7.0) K/uL Lymph # (1.0-4.3) K/uL Ellis # (0.0-0.8) K/uL Eos # (0.0-0.7) K/uL Baso # (0.0-0.2) K/uL Neutrophils % (Manual) (50-75) % Lymphocytes % (Manual) (20-40) % Monocytes % (Manual) (0-10) % Myelocytes % (0-0) % Platelet Estimate (NORMAL) Large Platelets Puncture Site pCO2 (35-45) mm/Hg pO2 (80-100) mm/Hg HCO3 (21-28) mmol/L ABG pH (7.35-7.45) ABG Total CO2 (22-28) mmol/L ABG O2 Saturation (95-98) % ABG Base Excess (-2.0-3.0) mmol/L ABG Hemoglobin (11.7-17.4) g/dL ABG Carboxyhemoglobin (0.5-1.5) % POC ABG HHb (Measured) (0.0-5.0) % ABG Methemoglobin (0.0-3.0) % Evans Test A-a O2 Difference mm/Hg Respiratory Index Hgb O2 Saturation (95.0-98.0) % Vent Mode Mechanical Rate FiO2 % Tidal Volume PEEP Sodium (132-148) mmol/L Potassium (3.6-5.2) mmol/L Chloride (98-107) mmol/L Carbon Dioxide (22-30) mmol/L Anion Gap (10-20) BUN (7-17) mg/dL Creatinine (0.7-1.2) mg/dL Est GFR ( Amer) Est GFR (Non-Af Amer) POC Glucose (mg/dL) 210 H (65-110) mg/dL Random Glucose (65-105) mg/dL Calcium (8.6-10.4) mg/dl Phosphorus (2.5-4.5) mg/dL Magnesium (1.6-2.3) mg/dL Total Bilirubin (0.2-1.3) mg/dL AST (14-36) U/L ALT (9-52) U/L Alkaline Phosphatase (38-126) U/L Total Protein (6.3-8.3) g/dL Albumin (3.5-5.0) g/dL Globulin (2.2-3.9) gm/dL Albumin/Globulin Ratio (1.0-2.1) Laboratory Results - last 24 hr 05/11/17 05/12/17 05/12/17 17:54 00:06 05:00 WBC RBC Hgb Hct MCV MCH MCHC RDW Plt Count MPV Neut % (Auto) Lymph % (Auto) Ellis % (Auto) Eos % (Auto) Baso % (Auto) Neut # Lymph # Ellis # Eos # Baso # Neutrophils % (Manual) Lymphocytes % (Manual) Monocytes % (Manual) Myelocytes % Platelet Estimate Large Platelets Puncture Site Rr pCO2 31 L pO2 123 H HCO3 24.1 ABG pH 7.46 H ABG Total CO2 23.0 ABG O2 Saturation 99.7 H ABG Base Excess -1.1 ABG Hemoglobin 12.0 ABG Carboxyhemoglobin 1.7 H POC ABG HHb (Measured) 0.3 ABG Methemoglobin 1.1 Evans Test Pos A-a O2 Difference 195.0 Respiratory Index 1.6 Hgb O2 Saturation 97.0 Vent Mode Prvc Mechanical Rate 16 FiO2 50.0 Tidal Volume 450 PEEP 5 Sodium Potassium Chloride Carbon Dioxide Anion Gap BUN Creatinine Est GFR ( Amer) Est GFR (Non-Af Amer) POC Glucose (mg/dL) 210 H 234 H Random Glucose Calcium Phosphorus Magnesium Total Bilirubin AST ALT Alkaline Phosphatase Total Protein Albumin Globulin Albumin/Globulin Ratio 05/12/17 05/12/17 05/12/17 05:38 06:25 06:26 WBC 20.6 H RBC 4.30 Hgb 12.1 Hct 37.3 MCV 86.7 MCH 28.0 MCHC 32.3 L RDW 14.5 Plt Count 278 MPV 9.3 Neut % (Auto) 90.5 H Lymph % (Auto) 6.2 L Ellis % (Auto) 3.3 Eos % (Auto) 0.0 Baso % (Auto) 0.0 Neut # 18.7 H Lymph # 1.3 Ellis # 0.7 Eos # 0.0 Baso # 0.0 Neutrophils % (Manual) 93 H Lymphocytes % (Manual) 4 L Monocytes % (Manual) 2 Myelocytes % 1 H Platelet Estimate Normal Large Platelets Present Puncture Site pCO2 pO2 HCO3 ABG pH ABG Total CO2 ABG O2 Saturation ABG Base Excess ABG Hemoglobin ABG Carboxyhemoglobin POC ABG HHb (Measured) ABG Methemoglobin Evans Test A-a O2 Difference Respiratory Index Hgb O2 Saturation Vent Mode Mechanical Rate FiO2 Tidal Volume PEEP Sodium 143 Potassium 3.8 Chloride 108 H Carbon Dioxide 24 Anion Gap 14 BUN 27 H Creatinine 0.5 L Est GFR ( Amer) > 60 Est GFR (Non-Af Amer) > 60 POC Glucose (mg/dL) 184 H Random Glucose 155 H Calcium 8.4 L Phosphorus 2.1 L Magnesium 1.8 Total Bilirubin 0.5 AST 79 H D ALT 136 H D Alkaline Phosphatase 111 Total Protein 6.8 Albumin 3.3 L Globulin 3.5 Albumin/Globulin Ratio 0.9 L 05/12/17 11:24 WBC RBC Hgb Hct MCV MCH MCHC RDW Plt Count MPV Neut % (Auto) Lymph % (Auto) Ellis % (Auto) Eos % (Auto) Baso % (Auto) Neut # Lymph # Ellis # Eos # Baso # Neutrophils % (Manual) Lymphocytes % (Manual) Monocytes % (Manual) Myelocytes % Platelet Estimate Large Platelets Puncture Site pCO2 pO2 HCO3 ABG pH ABG Total CO2 ABG O2 Saturation ABG Base Excess ABG Hemoglobin ABG Carboxyhemoglobin POC ABG HHb (Measured) ABG Methemoglobin Evans Test A-a O2 Difference Respiratory Index Hgb O2 Saturation Vent Mode Mechanical Rate FiO2 Tidal Volume PEEP Sodium Potassium Chloride Carbon Dioxide Anion Gap BUN Creatinine Est GFR ( Amer) Est GFR (Non-Af Amer) POC Glucose (mg/dL) 178 H Random Glucose Calcium Phosphorus Magnesium Total Bilirubin AST ALT Alkaline Phosphatase Total Protein Albumin Globulin Albumin/Globulin Ratio Attending/Attestation - Attestation I have personally seen and examined this patient.: Yes I have fully participated in the care of the patient.: Yes I have reviewed all pertinent clinical information: Yes Notes (Text): 05/12/17 17:29 Patient seen and examined in the intensive care unit. Case discussed with house staff in the morning rounds Remained intubated No change in mental status Continue antibiotics Repeat CAT scan of the head as per neurology Prognosis poor
--- NOTE | 2017-05-12 08:09 | CP.PCM.PN ---
Subjective - Date & Time of Evaluation Date of Evaluation: 05/12/17 Time of Evaluation: 08:10 - Subjective Subjective: Patient seen and evaluated Intubated Unresponsive Physical Examination - Head Exam Head Exam: ATRAUMATIC - Eye Exam Eye Exam: Normal appearance - ENT Exam ENT Exam: Mucous Membranes Moist - Respiratory Exam Respiratory Exam: Clear to Ausculation Bilateral - Cardiovascular Exam Cardiovascular Exam: REGULAR RHYTHM - GI/Abdominal Exam GI & Abdominal Exam: Soft, Normal Bowel Sounds - Exam External exam: NORMAL EXTERNAL EXAM - Back Exam Back Exam: NORMAL INSPECTION - Neurological Exam Neurological Exam: absent: Alert - Psychiatric Exam Psychiatric exam: absent: Normal Mood - Skin Skin Exam: Dry Objective - Vital Signs/Intake and Output Vital Signs (last 24 hours): Temp Pulse Resp BP Pulse Ox 98 F 115 H 20 155/99 H 99 05/12/17 06:00 05/12/17 07:00 05/12/17 07:00 05/12/17 06:05 05/12/17 07:00 Intake and Output: 05/12/17 05/12/17 06:59 18:59 Intake Total 1030 40 Output Total 310 30 Balance 720 10 - Medications Medications: Current Medications Acetaminophen (Tylenol 650mg/20.3ml Solution Ud) 975 mg PEG Q6 PRN PRN Reason: Rigors Last Admin: 05/08/17 09:50 Dose: 975 mg Albuterol/Ipratropium (Duoneb 3 Mg/0.5 Mg (3 Ml) Ud) 3 ml INH RQ6 [facility] Last Admin: 05/12/17 07:29 Dose: 3 ml Artificial Tears (Lacri-Lube) 0 gm OU Q4 [facility] Last Admin: 05/12/17 04:29 Dose: 3.5 gm Aspirin (Aspirin Chewable) 81 mg PEG DAILY [facility] Last Admin: 05/11/17 09:47 Dose: 81 mg Enoxaparin Sodium (Lovenox) 40 mg SC DAILY [facility] Last Admin: 05/11/17 09:46 Dose: 40 mg Propofol (Diprivan) 1,000 mg in 100 mls @ 2.722 mls/hr IV .Q24H PRN; Protocol; 5 MCG/KG/MIN PRN Reason: TITRATE PER MD ORDER Last Titration: 05/10/17 00:00 Dose: 0 mcg/kg/min, 0 mls/hr Aztreonam 1 gm/ Sodium (Chloride) 50 mls @ 100 mls/hr IVPB Q8H [facility] Last Admin: 05/12/17 04:29 Dose: 100 mls/hr Vancomycin/Sodium Chloride (Vancomycin 1 Gm/Ns 200 Ml) 1 gm in 200 mls @ 133 mls/hr IVPB Q12H [facility] Stop: 05/14/17 12:01 Last Admin: 05/11/17 23:37 Dose: 133 mls/hr Levetiracetam 750 mg/ Sodium (Chloride) 257.5 mls @ 1,030 mls/hr IVPB Q12H [facility] Last Admin: 05/11/17 22:49 Dose: 1,030 mls/hr Methylprednisolone (Solu-Medrol) 40 mg IVP Q12 [facility] Last Admin: 05/11/17 21:14 Dose: 40 mg Pantoprazole Sodium (Protonix Susp) 40 mg PO 0600 [facility] Last Admin: 05/12/17 05:21 Dose: 40 mg Potassium Phos/Sodium Phos (Neutra-Phos) 1 pkt PO BIDCC [facility] - Labs Labs: 05/12/17 06:25 05/12/17 06:26 PT 15.1 SECONDS (9.7-12.2) H 05/09/17 17:57 INR 1.3 05/09/17 17:57 APTT 35 SECONDS (21-34) H 05/09/17 17:57 Assessment and Plan - Assessment and Plan (Free Text) Assessment: Patient is a 57F with PMH early onset dementia, seizures, and questionable asthma who was brought to the ED via EMS from her residential, [facility], where she was witnessed cardiopulmonary arrest. EMS intubated the patient in the field.At ED patient was having myoclonic jerks and code freeze was initiated. Patient remained intubated and patient was admitted to the ICU. d/w daughter and her . Her dementia started 7 years ago.Last two year she was in the NH,nonverbal,some days she is responsive/look at family members Plan: 1. 1) s/p cardiopulmonary arrest Intubated and remain on Vent support,comatose Abnormal CT brain .Repeat CT acute/subacute infarct asprin added d/w Dr Hidalgo.Patient has poor prognosis, Brain changes could be due anoxia brain injury s/p code freeze,continue solumedrol and duoneb On sedation 2) Pneumonia and elevated wbc follow cultures Continue Aztrenonam and Vancomcyin continue duoneb and steroid 3) History of early onset dementia starting 5 years ago as per daughter d/w daughter about advance directives,full code at this time. she wants to see how she is doing next two days 4) Seizure disorder, unspecified patient was taking Keppra and Lamotrigine On Keppra 750mg IVQ12H 5) History of Asthma 6) DVT and GI prophylasix protonix and lovenox
--- NOTE | 2017-05-12 08:12 | CP.PCM.PN ---
Subjective - Date & Time of Evaluation Date of Evaluation: 05/11/17 Time of Evaluation: 19:30 - Subjective Subjective: Patient seen and evaluated Intubated Unresponsive Physical Examination - Head Exam Head Exam: ATRAUMATIC - Eye Exam Eye Exam: Normal appearance - ENT Exam ENT Exam: Mucous Membranes Moist - Respiratory Exam Respiratory Exam: Clear to Ausculation Bilateral - Cardiovascular Exam Cardiovascular Exam: REGULAR RHYTHM - GI/Abdominal Exam GI & Abdominal Exam: Soft, Normal Bowel Sounds - Exam External exam: NORMAL EXTERNAL EXAM - Back Exam Back Exam: NORMAL INSPECTION - Neurological Exam Neurological Exam: absent: Alert - Psychiatric Exam Psychiatric exam: absent: Normal Mood - Skin Skin Exam: Dry Objective - Vital Signs/Intake and Output Vital Signs (last 24 hours): Temp Pulse Resp BP Pulse Ox 98 F 115 H 20 155/99 H 99 05/12/17 06:00 05/12/17 07:00 05/12/17 07:00 05/12/17 06:05 05/12/17 07:00 Intake and Output: 05/12/17 05/12/17 06:59 18:59 Intake Total 1030 80 Output Total 310 60 Balance 720 20 - Medications Medications: Current Medications Acetaminophen (Tylenol 650mg/20.3ml Solution Ud) 975 mg PEG Q6 PRN PRN Reason: Rigors Last Admin: 05/08/17 09:50 Dose: 975 mg Albuterol/Ipratropium (Duoneb 3 Mg/0.5 Mg (3 Ml) Ud) 3 ml INH RQ6 [facility] Last Admin: 05/12/17 07:29 Dose: 3 ml Artificial Tears (Lacri-Lube) 0 gm OU Q4 [facility] Last Admin: 05/12/17 04:29 Dose: 3.5 gm Aspirin (Aspirin Chewable) 81 mg PEG DAILY [facility] Last Admin: 05/11/17 09:47 Dose: 81 mg Enoxaparin Sodium (Lovenox) 40 mg SC DAILY [facility] Last Admin: 05/11/17 09:46 Dose: 40 mg Propofol (Diprivan) 1,000 mg in 100 mls @ 2.722 mls/hr IV .Q24H PRN; Protocol; 5 MCG/KG/MIN PRN Reason: TITRATE PER MD ORDER Last Titration: 05/10/17 00:00 Dose: 0 mcg/kg/min, 0 mls/hr Aztreonam 1 gm/ Sodium (Chloride) 50 mls @ 100 mls/hr IVPB Q8H [facility] Last Admin: 05/12/17 04:29 Dose: 100 mls/hr Vancomycin/Sodium Chloride (Vancomycin 1 Gm/Ns 200 Ml) 1 gm in 200 mls @ 133 mls/hr IVPB Q12H [facility] Stop: 05/14/17 12:01 Last Admin: 05/11/17 23:37 Dose: 133 mls/hr Levetiracetam 750 mg/ Sodium (Chloride) 257.5 mls @ 1,030 mls/hr IVPB Q12H [facility] Last Admin: 05/11/17 22:49 Dose: 1,030 mls/hr Methylprednisolone (Solu-Medrol) 40 mg IVP Q12 [facility] Last Admin: 05/11/17 21:14 Dose: 40 mg Pantoprazole Sodium (Protonix Susp) 40 mg PO 0600 [facility] Last Admin: 05/12/17 05:21 Dose: 40 mg Potassium Phos/Sodium Phos (Neutra-Phos) 1 pkt PO BIDCC [facility] - Labs Labs: 05/12/17 06:25 05/12/17 06:26 PT 15.1 SECONDS (9.7-12.2) H 05/09/17 17:57 INR 1.3 05/09/17 17:57 APTT 35 SECONDS (21-34) H 05/09/17 17:57 Assessment and Plan - Assessment and Plan (Free Text) Assessment: Patient is a 57F with PMH early onset dementia, seizures Plan: 1. 1) s/p cardiopulmonary arrest Intubated and remain on Vent support,comatose Abnormal CT brain .Repeat CT acute/subacute infarct asprin added d/w Dr Hidalgo.Patient has poor prognosis, Brain changes could be due anoxia brain injury s/p code freeze,continue solumedrol and duoneb On sedation 2) Pneumonia and elevated wbc follow cultures Continue Aztrenonam and Vancomcyin continue duoneb and steroid 3) History of early onset dementia starting 5 years ago as per daughter d/w daughter about advance directives,full code at this time. she wants to see how she is doing next two days 4) Seizure disorder, unspecified patient was taking Keppra and Lamotrigine On Keppra 750mg IVQ12H 5) History of Asthma 6) DVT and GI prophylasix protonix and lovenox
--- NOTE | 2017-05-12 08:15 | CP.PCM.PN ---
Subjective - Date & Time of Evaluation Date of Evaluation: 05/10/17 Time of Evaluation: 17:05 - Subjective Subjective: patient seen and evaluated Unresponsive Physical Exam - Constitutional Appears: Chronically Ill - Head Exam Head Exam: ATRAUMATIC - Eye Exam Additional comments: eyes rolled back during exam - ENT Exam Additional comments: intubated Ppeak: 27 RR:16 Tidal volume: 450 PEEP: 5 - Neck Exam Additional comments: IJ in place - Respiratory Exam Respiratory Exam: Rales, Rhonchi - Cardiovascular Exam Cardiovascular Exam: RRR, +S1, +S2 - GI/Abdominal Exam Additional comments: covered with cooling/warming blanket - Extremities Exam Additional comments: Prevalon boots and SCDs on - Neurological Exam Neurological exam: Altered - Skin Skin Exam: Dry, Normal Color Objective - Vital Signs/Intake and Output Vital Signs (last 24 hours): Temp Pulse Resp BP Pulse Ox 98 F 115 H 20 155/99 H 99 05/12/17 06:00 05/12/17 07:00 05/12/17 07:00 05/12/17 06:05 05/12/17 07:00 Intake and Output: 05/12/17 05/12/17 06:59 18:59 Intake Total 1030 80 Output Total 310 60 Balance 720 20 - Medications Medications: Current Medications Acetaminophen (Tylenol 650mg/20.3ml Solution Ud) 975 mg PEG Q6 PRN PRN Reason: Rigors Last Admin: 05/08/17 09:50 Dose: 975 mg Albuterol/Ipratropium (Duoneb 3 Mg/0.5 Mg (3 Ml) Ud) 3 ml INH RQ6 [facility] Last Admin: 05/12/17 07:29 Dose: 3 ml Artificial Tears (Lacri-Lube) 0 gm OU Q4 [facility] Last Admin: 05/12/17 04:29 Dose: 3.5 gm Aspirin (Aspirin Chewable) 81 mg PEG DAILY [facility] Last Admin: 05/11/17 09:47 Dose: 81 mg Enoxaparin Sodium (Lovenox) 40 mg SC DAILY [facility] Last Admin: 05/11/17 09:46 Dose: 40 mg Propofol (Diprivan) 1,000 mg in 100 mls @ 2.722 mls/hr IV .Q24H PRN; Protocol; 5 MCG/KG/MIN PRN Reason: TITRATE PER MD ORDER Last Titration: 05/10/17 00:00 Dose: 0 mcg/kg/min, 0 mls/hr Aztreonam 1 gm/ Sodium (Chloride) 50 mls @ 100 mls/hr IVPB Q8H [facility] Last Admin: 05/12/17 04:29 Dose: 100 mls/hr Vancomycin/Sodium Chloride (Vancomycin 1 Gm/Ns 200 Ml) 1 gm in 200 mls @ 133 mls/hr IVPB Q12H [facility] Stop: 05/14/17 12:01 Last Admin: 05/11/17 23:37 Dose: 133 mls/hr Levetiracetam 750 mg/ Sodium (Chloride) 257.5 mls @ 1,030 mls/hr IVPB Q12H [facility] Last Admin: 05/11/17 22:49 Dose: 1,030 mls/hr Methylprednisolone (Solu-Medrol) 40 mg IVP Q12 [facility] Last Admin: 05/11/17 21:14 Dose: 40 mg Pantoprazole Sodium (Protonix Susp) 40 mg PO 0600 [facility] Last Admin: 05/12/17 05:21 Dose: 40 mg Potassium Phos/Sodium Phos (Neutra-Phos) 1 pkt PO BIDCC [facility] - Labs Labs: 05/12/17 06:25 05/12/17 06:26 PT 15.1 SECONDS (9.7-12.2) H 05/09/17 17:57 INR 1.3 05/09/17 17:57 APTT 35 SECONDS (21-34) H 05/09/17 17:57 Assessment and Plan - Assessment and Plan (Free Text) Assessment: Patient is a 57F with PMH early onset dementia, seizures Plan: 1. 1) s/p cardiopulmonary arrest Intubated and remain on Vent support,comatose Abnormal CT brain .Repeat CT acute/subacute infarct asprin added d/w Dr Hidalgo.Patient has poor prognosis, Brain changes could be due anoxia brain injury s/p code freeze,continue solumedrol and duoneb On sedation 2) Pneumonia and elevated wbc follow cultures Continue Aztrenonam and Vancomcyin continue duoneb and steroid 3) History of early onset dementia starting 5 years ago as per daughter d/w daughter about advance directives,full code at this time. she wants to see how she is doing next two days 4) Seizure disorder, unspecified patient was taking Keppra and Lamotrigine On Keppra 750mg IVQ12H 5) History of Asthma 6) DVT and GI prophylasix protonix and lovenox
[2017-05-12 08:43] LABS: MYELOCYTE 1 % (0-0); NEUTROPHIL 93 % (50-75); TOTAL CELLS COUNTED 100
[2017-05-12 08:44] LABS: LARGE PLATELETS PRESENT
--- NOTE | 2017-05-12 09:55 | CT ---
PROCEDURE: CT HEAD WITHOUT CONTRAST. HISTORY: anoxic encephalopathy COMPARISON: Comparison is made to the previous exams including 05/10/2017 and 05/08 2017 TECHNIQUE: Axial computed tomography images were obtained through the head/brain without intravenous contrast. Radiation dose: Total exam DLP = 1024.23 mGy-cm. This CT exam was performed using one or more of the following dose reduction techniques: Automated exposure control, adjustment of the mA and/or kV according to patient size, and/or use of iterative reconstruction technique. FINDINGS: HEMORRHAGE: No intracranial hemorrhage. BRAIN: Previously described focal hypodensity at the right caudate head is again noted which could represent subacute infarct versus chronic microvascular white matter ischemic changes. Again noted are severe atrophy and chronic microvascular white matter changes. VENTRICLES: The lateral and 3rd ventricles are moderately dilated. The 4th ventricle is normal in size. Findings suggestive of 9 communicated hydrocephalus. CALVARIUM: Unremarkable. PARANASAL SINUSES: There is a mucosal thickening and air-fluid level at the left maxillary and right sphenoid sinuses. Mild mucosal thickening in the ethmoid sinuses noted. MASTOID AIR CELLS: Unremarkable as visualized. No inflammatory changes. OTHER FINDINGS: None. IMPRESSION: No evidence of significant interval change when compared to the previous study dated 05/10/2017. No evidence of acute intracranial hemorrhage. Re- demonstration of moderate to severe atrophy. Moderate to severe dilatation the lateral ventricles and 3rd ventricle suggestive of hydrocephalus. Re- demonstration of focal hypodensity at the right caudate nucleus which could represent subacute infarct versus chronic microvascular changes.
[2017-05-12] MEDS: Enoxaparin 40 mg Syringe SC SCH (10:02)
--- NOTE | 2017-05-12 10:36 | RAD ---
HISTORY: intubated COMPARISON: Portable chest 05/11/2017. FINDINGS: Endotracheal tube and left central venous line are unchanged in position LUNGS: Underlying airspace disease not excluded the mid to inferior lung zones symmetrically. PLEURA: Bilateral pleural effusions are unchanged with underlying atelectasis or infiltrates not excluded both inferior lung zones. CARDIOVASCULAR: Pulmonary venous congestion is unchanged. Overall, the image is underpenetrated and what appears to be a further accentuation of the vascular markings is artifactual and felt to be unchanged in reality. OSSEOUS STRUCTURES: No significant abnormalities. VISUALIZED UPPER ABDOMEN: Normal. OTHER FINDINGS: None. IMPRESSION: Stable bilateral pleural effusions and pulmonary venous congestion with underlying atelectasis or infiltrates not excluded the inferior lung zones bilaterally. Continued clinical and radiographic monitor are advised.
[2017-05-12] MEDS: Vancomycin 1 gm/NS 200 ml 1 GM/200 ML BAG IVPB SCH ×2 (11:03→23:27)
--- NOTE | 2017-05-12 11:09 | PN ---
DATE: PHYSICAL EXAMINATION: VITAL SIGNS: Blood pressure 155/99, mean arterial pressure of 114, respirations 16, and temperature afebrile. GENERAL: The patient is examined in the presence of her . The patient is comatose. HEENT: Eyes are open. Some rhythmic blinking movement is noted. No response to visual threat. Pupil is sluggishly reactive to light. No gag. Densely quadriplegic. The patient's examination is not changed when compared with the previous examination. Overall, prognosis is poor. Continue Keppra for now. I would like to repeat the CT of the head to assess her hypoxic versus anoxic insult to the brain. The patient's condition has been discussed with her . Kev Hidalgo MD
[2017-05-12] MEDS: MethylPREDNISolone 40 mg Vial IVP SCH ×2 (11:19→21:26)
[2017-05-12] MEDS: Potassium & Sodium Phosphate PO SCH ×2 (12:48→16:15)
--- NOTE | 2017-05-12 19:04 | CP.PCM.PN ---
Subjective - Date & Time of Evaluation Date of Evaluation: 05/12/17 Time of Evaluation: 15:00 - Subjective Subjective: Patient was seen and examined, Unresponsive on MV Objective - Vital Signs/Intake and Output Vital Signs (last 24 hours): Temp Pulse Resp BP Pulse Ox 98.5 F 113 H 17 152/96 H 99 05/12/17 18:46 05/12/17 19:00 05/12/17 19:00 05/12/17 18:05 05/12/17 19:00 Intake and Output: 05/12/17 05/13/17 18:59 06:59 Intake Total 570 40 Output Total 510 30 Balance 60 10 - Medications Medications: Current Medications Acetaminophen (Tylenol 650mg/20.3ml Solution Ud) 975 mg PEG Q6 PRN PRN Reason: Rigors Last Admin: 05/08/17 09:50 Dose: 975 mg Albuterol/Ipratropium (Duoneb 3 Mg/0.5 Mg (3 Ml) Ud) 3 ml INH RQ6 [facility] Last Admin: 05/12/17 07:29 Dose: 3 ml Artificial Tears (Lacri-Lube) 0 gm OU Q4 [facility] Last Admin: 05/12/17 15:29 Dose: 3.5 gm Aspirin (Aspirin Chewable) 81 mg PEG DAILY [facility] Last Admin: 05/12/17 10:02 Dose: 81 mg Enoxaparin Sodium (Lovenox) 40 mg SC DAILY [facility] Last Admin: 05/12/17 10:02 Dose: 40 mg Propofol (Diprivan) 1,000 mg in 100 mls @ 2.722 mls/hr IV .Q24H PRN; Protocol; 5 MCG/KG/MIN PRN Reason: TITRATE PER MD ORDER Last Titration: 05/10/17 00:00 Dose: 0 mcg/kg/min, 0 mls/hr Aztreonam 1 gm/ Sodium (Chloride) 50 mls @ 100 mls/hr IVPB Q8H [facility] Last Admin: 05/12/17 18:07 Dose: 100 mls/hr Vancomycin/Sodium Chloride (Vancomycin 1 Gm/Ns 200 Ml) 1 gm in 200 mls @ 133 mls/hr IVPB Q12H [facility] Stop: 05/14/17 12:01 Last Admin: 05/12/17 11:03 Dose: 133 mls/hr Levetiracetam 750 mg/ Sodium (Chloride) 257.5 mls @ 1,030 mls/hr IVPB Q12H [facility] Last Admin: 05/12/17 10:58 Dose: 1,030 mls/hr Methylprednisolone (Solu-Medrol) 40 mg IVP Q12 [facility] Last Admin: 05/12/17 11:19 Dose: 40 mg Pantoprazole Sodium (Protonix Susp) 40 mg PO 0600 [facility] Last Admin: 05/12/17 05:21 Dose: 40 mg Potassium Phos/Sodium Phos (Neutra-Phos) 1 pkt PO BIDCC [facility] Last Admin: 05/12/17 16:15 Dose: 1 pkt - Labs Labs: 05/12/17 06:25 05/12/17 06:26 PT 15.1 SECONDS (9.7-12.2) H 05/09/17 17:57 INR 1.3 05/09/17 17:57 APTT 35 SECONDS (21-34) H 05/09/17 17:57 - Constitutional Appears: No Acute Distress - Head Exam Head Exam: NORMAL INSPECTION - Eye Exam Eye Exam: Normal appearance - ENT Exam ENT Exam: Mucous Membranes Moist - Respiratory Exam Respiratory Exam: Clear to Ausculation Bilateral, NORMAL BREATHING PATTERN - Cardiovascular Exam Cardiovascular Exam: REGULAR RHYTHM - GI/Abdominal Exam GI & Abdominal Exam: Soft, Normal Bowel Sounds - Exam External exam: NORMAL EXTERNAL EXAM - Extremities Exam Extremities Exam: absent: Full ROM - Back Exam Back Exam: absent: NORMAL INSPECTION - Neurological Exam Neurological Exam: absent: Alert, Oriented x3 - Psychiatric Exam Psychiatric exam: absent: Normal Mood - Skin Skin Exam: Dry Assessment and Plan - Assessment and Plan (Free Text) Plan: This is a 57F with PMH early onset dementia, seizures, and questionable asthma who was brought to the ED via EMS from her [facility], [facility], where she was witnessed cardiopulmonary arrest. EMS intubated the patient in the field.At ED patient was having myoclonic jerks and code freeze was initiated. Patient remained intubated and patient was admitted to the ICU. d/w daughter and her . Her dementia started 7 years ago.Last two year she was in the NH,nonverbal,some days she is responsive/look at family members Plan: 1) s/p cardiopulmonary arrest Intubated and remain on Vent support,comatose Abnormal CT brain .Repeat CT acute/subacute infarct asprin added d/w Dr Hidalgo.Patient has poor prognosis, Brain changes could be due anoxia brain injury s/p code freeze,continue solumedrol and duoneb D/W at bedside.We will talk to her daughter again palliative care consult Continue asprin 2) Pneumonia and elevated wbc follow cultures Continue Aztrenonam and Vancomcyin continue duoneb and steroid 3) History of early onset dementia starting 5 years ago as per daughter 4) Seizure disorder, unspecified patient was taking Keppra and Lamotrigine On Keppra 750mg IVQ12H 5) History of Asthma 6) DVT and GI prophylasix protonix and lovenox
[2017-05-13] MEDS: Albuterol-Ipratrop 3 mg / 0.5 (3 ml) UD INH SCH ×4 (02:01→19:24)
[2017-05-13] MEDS: White Petrolatum/Mineral Oil Ophth Oint(3.5 gm) OU SCH ×4 (04:41→20:00)
[2017-05-13] MEDS: Pantoprazole 40 mg Susp UD PO SCH (05:10)
[2017-05-13 06:06] LABS: ABG ALLEN TEST POS; ABG MECHANICAL RATE 16; ARTERIAL BLOOD GAS MODE PRVC; ARTERIAL BLOOD HGB O2 SAT 96.8 % (95.0-98.0); ATERIAL BLOOD GAS PEEP 5; CARBOXYHEMOGLOBIN 1.8 % (0.5-1.5); DRAW SITE RR; HHB 0.2 % (0.0-5.0); METHEMOGLOBIN 1.3 % (0.0-3.0)
[2017-05-13 06:32] LABS: BASO % 0.1 % (0.0-2.0); HEMATOCRIT 36.3 % (34.0-47.0); LYMPH # 1.6 K/uL (1.0-4.3); LYMPH % 9.1 % (20.0-40.0); MEAN CELL VOLUME 86.9 fL (81.0-99.0); MEAN CORPUSCULAR HEMOGLOBIN 28.9 pg (27.0-31.0); MEAN CORPUSCULAR HGB CONC 33.2 g/dL (33.0-37.0); MEAN PLATELET VOLUME 8.8 fL (7.2-11.7); MONO # 0.9 K/uL (0.0-0.8); MONO % 5.1 % (0.0-10.0); PLATELET COUNT 281 K/uL (130-400); RED CELL DISTRIBUTION WIDTH 13.9 % (11.5-14.5); WHITE BLOOD COUNT 17.9 K/uL (4.8-10.8)
[2017-05-13 06:44] LABS: ALKALINE PHOSPHATASE 121 U/L (38-126); ALT/SGPT 144 U/L (9-52); AST/SGOT 92 U/L (14-36); BILIRUBIN,TOTAL 0.8 mg/dL (0.2-1.3); BLOOD UREA NITROGEN 26 mg/dL (7-17); CARBON DIOXIDE 25 mmol/L (22-30); CHLORIDE 106 mmol/L (98-107); GFR AFRICAN-AMERICAN > 60; GLUCOSE,RANDOM 204 mg/dL (65-105); MAGNESIUM 1.6 mg/dL (1.6-2.3); POTASSIUM 3.9 mmol/L (3.6-5.2); SODIUM 139 mmol/L (132-148); TOTAL PROTEIN 5.6 g/dL (6.3-8.3)
[2017-05-13 06:49] LABS: ALB/GLOB RATIO 1.3 (1.0-2.1)
[2017-05-13] MEDS: Potassium & Sodium Phosphate PO SCH ×2 (08:44→17:13)
[2017-05-13 09:02] LABS: NEUTROPHIL 85 % (50-75); REACTIVE LYMPHOCYTES 1 % (0-0); TOTAL CELLS COUNTED 100
[2017-05-13 09:03] LABS: LARGE PLATELETS PRESENT
[2017-05-13 09:05] LABS: GIANT PLATELETS PRESENT
[2017-05-13] MEDS: MethylPREDNISolone 40 mg Vial IVP SCH ×2 (09:45→21:18)
[2017-05-13] MEDS: Enoxaparin 40 mg Syringe SC SCH (09:46)
[2017-05-13] MEDS: Magnesium Sulfate 1 gm in D5W 1 GM/100 ML BAG IVPB SCH ×2 (10:29→11:23)
--- NOTE | 2017-05-13 11:49 | CP.PCM.PN ---
Subjective - Date & Time of Evaluation Date of Evaluation: 05/13/17 Time of Evaluation: 11:35 - Subjective Subjective: patient was seen and examined,Patient is unresponsive at bedside Objective - Vital Signs/Intake and Output Vital Signs (last 24 hours): Temp Pulse Resp BP Pulse Ox 98.5 F 94 H 16 135/90 99 05/13/17 06:00 05/13/17 09:05 05/13/17 09:05 05/13/17 09:05 05/13/17 09:05 Intake and Output: 05/13/17 05/13/17 06:59 18:59 Intake Total 980 120 Output Total 755 195 Balance 225 -75 - Medications Medications: Current Medications Acetaminophen (Tylenol 650mg/20.3ml Solution Ud) 975 mg PEG Q6 PRN PRN Reason: Rigors Last Admin: 05/08/17 09:50 Dose: 975 mg Albuterol/Ipratropium (Duoneb 3 Mg/0.5 Mg (3 Ml) Ud) 3 ml INH RQ6 [facility] Last Admin: 05/13/17 07:46 Dose: 3 ml Artificial Tears (Lacri-Lube) 0 gm OU Q4 [facility] Last Admin: 05/13/17 08:44 Dose: 3.5 gm Aspirin (Aspirin Chewable) 81 mg PEG DAILY [facility] Last Admin: 05/13/17 09:45 Dose: 81 mg Enoxaparin Sodium (Lovenox) 40 mg SC DAILY [facility] Last Admin: 05/13/17 09:46 Dose: 40 mg Propofol (Diprivan) 1,000 mg in 100 mls @ 2.722 mls/hr IV .Q24H PRN; Protocol; 5 MCG/KG/MIN PRN Reason: TITRATE PER MD ORDER Last Titration: 05/10/17 00:00 Dose: 0 mcg/kg/min, 0 mls/hr Aztreonam 1 gm/ Sodium (Chloride) 50 mls @ 100 mls/hr IVPB Q8H [facility] Last Admin: 05/13/17 11:24 Dose: 100 mls/hr Vancomycin/Sodium Chloride (Vancomycin 1 Gm/Ns 200 Ml) 1 gm in 200 mls @ 133 mls/hr IVPB Q12H [facility] Stop: 05/14/17 12:01 Last Admin: 05/12/17 23:27 Dose: 133 mls/hr Levetiracetam 750 mg/ Sodium (Chloride) 257.5 mls @ 1,030 mls/hr IVPB Q12H [facility] Last Admin: 05/13/17 11:26 Dose: 1,030 mls/hr Methylprednisolone (Solu-Medrol) 40 mg IVP Q12 [facility] Last Admin: 05/13/17 09:45 Dose: 40 mg Pantoprazole Sodium (Protonix Susp) 40 mg PO 0600 [facility] Last Admin: 05/13/17 05:10 Dose: 40 mg Potassium Phos/Sodium Phos (Neutra-Phos) 1 pkt PO BIDCC [facility] Last Admin: 05/13/17 08:44 Dose: 1 pkt - Labs Labs: 05/13/17 06:16 05/13/17 06:16 PT 15.1 SECONDS (9.7-12.2) H 05/09/17 17:57 INR 1.3 05/09/17 17:57 APTT 35 SECONDS (21-34) H 05/09/17 17:57 - Constitutional Appears: Chronically Ill - Head Exam Head Exam: absent: ATRAUMATIC (Intubated) - ENT Exam ENT Exam: Mucous Membranes Moist - Neck Exam Neck Exam: absent: Full ROM (ET tube) - Respiratory Exam Respiratory Exam: Clear to Ausculation Bilateral - Cardiovascular Exam Cardiovascular Exam: REGULAR RHYTHM - GI/Abdominal Exam GI & Abdominal Exam: Soft - Extremities Exam Extremities Exam: Pedal Edema. absent: Full ROM - Back Exam Back Exam: absent: NORMAL INSPECTION - Neurological Exam Neurological Exam: absent: Oriented x3 - Psychiatric Exam Psychiatric exam: absent: Normal Affect - Skin Skin Exam: Dry Assessment and Plan - Assessment and Plan (Free Text) Plan: This is a 57F with PMH early onset dementia, seizures, and questionable asthma who was brought to the ED via EMS from her shelter, [facility], where she was witnessed cardiopulmonary arrest. EMS intubated the patient in the field.At ED patient was having myoclonic jerks and code freeze was initiated. Patient remained intubated and patient was admitted to the ICU. d/w daughter and her . Her dementia started 7 years ago.Last two year she was in the NH,nonverbal,some days she is responsive/look at family members Plan: 1) s/p cardiopulmonary arrest Intubated and remain on Vent support,comatose CT head 05/10 - New low attenuation in the right caudate nucleus head indicating possible acute/subacute infarct. Repeat Head Ct 05/12 - No evidence of significant interval change when compared to the previous study dated 05/10/2017. No evidence of acute intracranial bleeding On Asprin s/p code freeze,continue solumedrol and duoneb D/W at bedside. palliative care consult d/w Daughter at bedside.Like to go for Trach,full code at this time She will talk to her father and get back to us if any changes Dr. Judge consult appreciated 2) Pneumonia and elevated wbc follow cultures Continue Aztrenonam and Vancomcyin continue duoneb and steroid 3) History of early onset dementia starting 5 years ago as per daughter 4) Seizure disorder, unspecified patient was taking Keppra and Lamotrigine On Keppra 750mg IVQ12H 5) History of Asthma 6) DVT and GI prophylasix protonix and lovenox On Tube feedings, Jevity 1.5.
[2017-05-13] MEDS: Vancomycin 1 gm/NS 200 ml 1 GM/200 ML BAG IVPB SCH ×2 (12:00→23:50)
--- NOTE | 2017-05-13 15:26 | CP.CCUPN ---
CCU Subjective - Physician Review Subjective (Free Text): Patient seen and examined at bedside. Patient not responsive. no response to noxious stimuli 15:14 Critical Care Time Spent (in minutes): 35 CCU Objective - Vital Signs / Intake & Output Vital Signs (Last 4 hours): Vital Signs Temp Pulse Resp BP Pulse Ox 05/13/17 13:05 92 H 16 108/68 99 05/13/17 13:00 92 H 15 99 05/13/17 12:05 93 H 16 107/70 98 05/13/17 12:00 97.3 F L 86 16 110/73 99 Intake and Output (Last 8hrs): Intake & Output 05/13/17 05/13/17 05/13/17 06:59 14:59 22:59 Intake Total 820 1330 Output Total 465 420 Balance 355 910 Weight 190 lb Intake: Intake, IV Amount 500 1000 Left Distal Port Internal 500 400 Jugular Left Medial Port Internal 100 Jugular Left Proximal Port 500 Internal Jugular Tube Feeding 320 280 Other 50 Output: Urine 465 420 Urethral (Johnson) 465 420 - Physical Exam Physical Exam Limitations: Positive for: Other (unresponsive) Head: Positive for: Atraumatic, Normocephalic Pupils: Positive for: Sluggish, Non-Reactive Conjunctiva: Positive for: Injected Mouth: Positive for: Moist Mucous Membranes Neck: Positive for: Trachea Midline Respiratory/Chest: Positive for: Decreased Breath Sounds Cardiovascular: Positive for: Tachycardic (sinus) Abdomen: Positive for: Normal Bowel Sounds Upper Extremity: Positive for: Normal Inspection Lower Extremity: Positive for: Edema Neurological: Positive for: Other (intubated). Negative for: GCS=15, CN II-XII Intact Psychiatric: Positive for: Other (intubated). Negative for: Alert, Oriented x 3 - Medications Active Medications: Active Medications Generic Name Dose Route Start Last Admin Trade Name Freq PRN Reason Stop Dose Admin Acetaminophen 975 mg 05/08/17 09:31 05/08/17 09:50 Tylenol 650mg/20.3ml Solution Ud PEG 975 mg Q6 PRN Administration Rigors Albuterol/Ipratropium 3 ml 05/08/17 20:00 05/13/17 14:08 Duoneb 3 Mg/0.5 Mg (3 Ml) Ud INH 3 ml RQ6 [facility] Administration Artificial Tears 0 gm 05/08/17 12:00 05/13/17 12:00 Lacri-Lube OU 3.5 gm Q4 [facility] Administration Aspirin 81 mg 05/11/17 10:00 05/13/17 09:45 Aspirin Chewable PEG 81 mg DAILY [facility] Administration Enoxaparin Sodium 40 mg 05/09/17 10:30 05/13/17 09:46 Lovenox SC 40 mg DAILY [facility] Administration Propofol 1,000 mg in 100 mls @ 2.722 mls/hr 05/08/17 09:49 05/10/17 00:00 Diprivan IV 0 mcg/kg/min .Q24H PRN 0 mls/hr TITRATE PER MD ORDER Titration Protocol 5 MCG/KG/MIN Aztreonam 1 gm/ Sodium 50 mls @ 100 mls/hr 05/09/17 11:00 05/13/17 11:24 Chloride IVPB 100 mls/hr Q8H [facility] Administration Vancomycin/Sodium Chloride 1 gm in 200 mls @ 133 mls/hr 05/09/17 12:00 12:00 Vancomycin 1 Gm/Ns 200 Ml IVPB 05/14/17 12:01 133 mls/hr Q12H [facility] Administration Levetiracetam 750 mg/ Sodium 257.5 mls @ 1,030 mls/hr 05/11/17 23:30 11:26 Chloride IVPB 1,030 mls/hr Q12H [facility] Administration Methylprednisolone 40 mg 05/10/17 10:00 05/13/17 09:45 Solu-Medrol IVP 40 mg Q12 [facility] Administration Pantoprazole Sodium 40 mg 05/09/17 06:00 05/13/17 05:10 Protonix Susp PO 40 mg 0600 [facility] Administration Potassium Phos/Sodium Phos 1 pkt 05/12/17 08:00 05/13/17 08:44 Neutra-Phos PO 1 pkt BIDCC [facility] Administration - Patient Studies Lab Studies: Microbiology Studies 05/08/17 15:30 Blood Culture - Preliminary Blood NO GROWTH AFTER 4 DAYS 05/08/17 16:00 Blood Culture - Preliminary Blood NO GROWTH AFTER 4 DAYS Lab Studies 05/13/17 05/13/17 05/13/17 Range/Units 11:20 06:16 06:16 WBC 17.9 H (4.8-10.8) K/uL RBC 4.18 (3.80-5.20) Mil/uL Hgb 12.1 (11.0-16.0) g/dL Hct 36.3 (34.0-47.0) % MCV 86.9 (81.0-99.0) fL MCH 28.9 (27.0-31.0) pg MCHC 33.2 (33.0-37.0) g/dL RDW 13.9 (11.5-14.5) % Plt Count 281 (130-400) K/uL MPV 8.8 (7.2-11.7) fL Neut % (Auto) 85.7 H (50.0-75.0) % Lymph % (Auto) 9.1 L (20.0-40.0) % Morehouse % (Auto) 5.1 (0.0-10.0) % Eos % (Auto) 0.0 (0.0-4.0) % Baso % (Auto) 0.1 (0.0-2.0) % Neut # 15.3 H (1.8-7.0) K/uL Lymph # 1.6 (1.0-4.3) K/uL Morehouse # 0.9 H (0.0-0.8) K/uL Eos # 0.0 (0.0-0.7) K/uL Baso # 0.0 (0.0-0.2) K/uL Neutrophils % (Manual) 85 H (50-75) % Band Neutrophils % 1 (0-2) % Lymphocytes % (Manual) 9 L (20-40) % Reactive Lymphs % 1 H (0-0) % Monocytes % (Manual) 4 (0-10) % Toxic Granulation Present Platelet Estimate Normal (NORMAL) Large Platelets Present Giant Platelets Present Polychromasia Slight Hypochromasia (manual) Slight Poikilocytosis (manual Slight Anisocytosis (manual) Slight Ovalocytes Slight Puncture Site pCO2 (35-45) mm/Hg pO2 (80-100) mm/Hg HCO3 (21-28) mmol/L ABG pH (7.35-7.45) ABG Total CO2 (22-28) mmol/L ABG O2 Saturation (95-98) % ABG Base Excess (-2.0-3.0) mmol/L ABG Hemoglobin (11.7-17.4) g/dL ABG Carboxyhemoglobin (0.5-1.5) % POC ABG HHb (Measured) (0.0-5.0) % ABG Methemoglobin (0.0-3.0) % Eavns Test A-a O2 Difference mm/Hg Respiratory Index Hgb O2 Saturation (95.0-98.0) % Vent Mode Mechanical Rate FiO2 % Tidal Volume PEEP Sodium 139 (132-148) mmol/L Potassium 3.9 (3.6-5.2) mmol/L Chloride 106 (98-107) mmol/L Carbon Dioxide 25 (22-30) mmol/L Anion Gap 12 (10-20) BUN 26 H (7-17) mg/dL Creatinine 0.4 L (0.7-1.2) mg/dL Est GFR ( Amer) > 60 Est GFR (Non-Af Amer) > 60 POC Glucose (mg/dL) 183 H (65-110) mg/dL Random Glucose 204 H (65-105) mg/dL Calcium 8.0 L (8.6-10.4) mg/dl Phosphorus 2.0 L (2.5-4.5) mg/dL Magnesium 1.6 (1.6-2.3) mg/dL Total Bilirubin 0.8 (0.2-1.3) mg/dL AST 92 H (14-36) U/L ALT 144 H (9-52) U/L Alkaline Phosphatase 121 (38-126) U/L Total Protein 5.6 L (6.3-8.3) g/dL Albumin 3.2 L (3.5-5.0) g/dL Globulin 2.4 (2.2-3.9) gm/dL Albumin/Globulin Ratio 1.3 (1.0-2.1) 05/13/17 05/13/17 05/12/17 Range/Units 06:00 05:22 23:25 WBC (4.8-10.8) K/uL RBC (3.80-5.20) Mil/uL Hgb (11.0-16.0) g/dL Hct (34.0-47.0) % MCV (81.0-99.0) fL MCH (27.0-31.0) pg MCHC (33.0-37.0) g/dL RDW (11.5-14.5) % Plt Count (130-400) K/uL MPV (7.2-11.7) fL Neut % (Auto) (50.0-75.0) % Lymph % (Auto) (20.0-40.0) % Morehouse % (Auto) (0.0-10.0) % Eos % (Auto) (0.0-4.0) % Baso % (Auto) (0.0-2.0) % Neut # (1.8-7.0) K/uL Lymph # (1.0-4.3) K/uL Morehouse # (0.0-0.8) K/uL Eos # (0.0-0.7) K/uL Baso # (0.0-0.2) K/uL Neutrophils % (Manual) (50-75) % Band Neutrophils % (0-2) % Lymphocytes % (Manual) (20-40) % Reactive Lymphs % (0-0) % Monocytes % (Manual) (0-10) % Toxic Granulation Platelet Estimate (NORMAL) Large Platelets Giant Platelets Polychromasia Hypochromasia (manual) Poikilocytosis (manual Anisocytosis (manual) Ovalocytes Puncture Site Rr pCO2 37 (35-45) mm/Hg pO2 184 H (80-100) mm/Hg HCO3 27.4 (21-28) mmol/L ABG pH 7.47 H (7.35-7.45) ABG Total CO2 28.0 (22-28) mmol/L ABG O2 Saturation 99.8 H (95-98) % ABG Base Excess 3.2 H (-2.0-3.0) mmol/L ABG Hemoglobin 12.3 (11.7-17.4) g/dL ABG Carboxyhemoglobin 1.8 H (0.5-1.5) % POC ABG HHb (Measured) 0.2 (0.0-5.0) % ABG Methemoglobin 1.3 (0.0-3.0) % Evans Test Pos A-a O2 Difference 126.0 mm/Hg Respiratory Index 0.7 Hgb O2 Saturation 96.8 (95.0-98.0) % Vent Mode Prvc Mechanical Rate 16 FiO2 50.0 % Tidal Volume 450 PEEP 5 Sodium (132-148) mmol/L Potassium (3.6-5.2) mmol/L Chloride (98-107) mmol/L Carbon Dioxide (22-30) mmol/L Anion Gap (10-20) BUN (7-17) mg/dL Creatinine (0.7-1.2) mg/dL Est GFR ( Amer) Est GFR (Non-Af Amer) POC Glucose (mg/dL) 229 H 203 H (65-110) mg/dL Random Glucose (65-105) mg/dL Calcium (8.6-10.4) mg/dl Phosphorus (2.5-4.5) mg/dL Magnesium (1.6-2.3) mg/dL Total Bilirubin (0.2-1.3) mg/dL AST (14-36) U/L ALT (9-52) U/L Alkaline Phosphatase (38-126) U/L Total Protein (6.3-8.3) g/dL Albumin (3.5-5.0) g/dL Globulin (2.2-3.9) gm/dL Albumin/Globulin Ratio (1.0-2.1) 05/12/17 Range/Units 17:43 WBC (4.8-10.8) K/uL RBC (3.80-5.20) Mil/uL Hgb (11.0-16.0) g/dL Hct (34.0-47.0) % MCV (81.0-99.0) fL MCH (27.0-31.0) pg MCHC (33.0-37.0) g/dL RDW (11.5-14.5) % Plt Count (130-400) K/uL MPV (7.2-11.7) fL Neut % (Auto) (50.0-75.0) % Lymph % (Auto) (20.0-40.0) % Morehouse % (Auto) (0.0-10.0) % Eos % (Auto) (0.0-4.0) % Baso % (Auto) (0.0-2.0) % Neut # (1.8-7.0) K/uL Lymph # (1.0-4.3) K/uL Morehouse # (0.0-0.8) K/uL Eos # (0.0-0.7) K/uL Baso # (0.0-0.2) K/uL Neutrophils % (Manual) (50-75) % Band Neutrophils % (0-2) % Lymphocytes % (Manual) (20-40) % Reactive Lymphs % (0-0) % Monocytes % (Manual) (0-10) % Toxic Granulation Platelet Estimate (NORMAL) Large Platelets Giant Platelets Polychromasia Hypochromasia (manual) Poikilocytosis (manual Anisocytosis (manual) Ovalocytes Puncture Site pCO2 (35-45) mm/Hg pO2 (80-100) mm/Hg HCO3 (21-28) mmol/L ABG pH (7.35-7.45) ABG Total CO2 (22-28) mmol/L ABG O2 Saturation (95-98) % ABG Base Excess (-2.0-3.0) mmol/L ABG Hemoglobin (11.7-17.4) g/dL ABG Carboxyhemoglobin (0.5-1.5) % POC ABG HHb (Measured) (0.0-5.0) % ABG Methemoglobin (0.0-3.0) % Evans Test A-a O2 Difference mm/Hg Respiratory Index Hgb O2 Saturation (95.0-98.0) % Vent Mode Mechanical Rate FiO2 % Tidal Volume PEEP Sodium (132-148) mmol/L Potassium (3.6-5.2) mmol/L Chloride (98-107) mmol/L Carbon Dioxide (22-30) mmol/L Anion Gap (10-20) BUN (7-17) mg/dL Creatinine (0.7-1.2) mg/dL Est GFR ( Amer) Est GFR (Non-Af Amer) POC Glucose (mg/dL) 208 H (65-110) mg/dL Random Glucose (65-105) mg/dL Calcium (8.6-10.4) mg/dl Phosphorus (2.5-4.5) mg/dL Magnesium (1.6-2.3) mg/dL Total Bilirubin (0.2-1.3) mg/dL AST (14-36) U/L ALT (9-52) U/L Alkaline Phosphatase (38-126) U/L Total Protein (6.3-8.3) g/dL Albumin (3.5-5.0) g/dL Globulin (2.2-3.9) gm/dL Albumin/Globulin Ratio (1.0-2.1) Laboratory Results - last 24 hr 05/12/17 05/12/17 05/13/17 17:43 23:25 05:22 WBC RBC Hgb Hct MCV MCH MCHC RDW Plt Count MPV Neut % (Auto) Lymph % (Auto) Morehouse % (Auto) Eos % (Auto) Baso % (Auto) Neut # Lymph # Morehouse # Eos # Baso # Neutrophils % (Manual) Band Neutrophils % Lymphocytes % (Manual) Reactive Lymphs % Monocytes % (Manual) Toxic Granulation Platelet Estimate Large Platelets Giant Platelets Polychromasia Hypochromasia (manual) Poikilocytosis (manual Anisocytosis (manual) Ovalocytes Puncture Site Rr pCO2 37 pO2 184 H HCO3 27.4 ABG pH 7.47 H ABG Total CO2 28.0 ABG O2 Saturation 99.8 H ABG Base Excess 3.2 H ABG Hemoglobin 12.3 ABG Carboxyhemoglobin 1.8 H POC ABG HHb (Measured) 0.2 ABG Methemoglobin 1.3 Evans Test Pos A-a O2 Difference 126.0 Respiratory Index 0.7 Hgb O2 Saturation 96.8 Vent Mode Prvc Mechanical Rate 16 FiO2 50.0 Tidal Volume 450 PEEP 5 Sodium Potassium Chloride Carbon Dioxide Anion Gap BUN Creatinine Est GFR ( Amer) Est GFR (Non-Af Amer) POC Glucose (mg/dL) 208 H 203 H Random Glucose Calcium Phosphorus Magnesium Total Bilirubin AST ALT Alkaline Phosphatase Total Protein Albumin Globulin Albumin/Globulin Ratio 05/13/17 05/13/17 05/13/17 06:00 06:16 06:16 WBC 17.9 H RBC 4.18 Hgb 12.1 Hct 36.3 MCV 86.9 MCH 28.9 MCHC 33.2 RDW 13.9 Plt Count 281 MPV 8.8 Neut % (Auto) 85.7 H Lymph % (Auto) 9.1 L Morehouse % (Auto) 5.1 Eos % (Auto) 0.0 Baso % (Auto) 0.1 Neut # 15.3 H Lymph # 1.6 Morehouse # 0.9 H Eos # 0.0 Baso # 0.0 Neutrophils % (Manual) 85 H Band Neutrophils % 1 Lymphocytes % (Manual) 9 L Reactive Lymphs % 1 H Monocytes % (Manual) 4 Toxic Granulation Present Platelet Estimate Normal Large Platelets Present Giant Platelets Present Polychromasia Slight Hypochromasia (manual) Slight Poikilocytosis (manual Slight Anisocytosis (manual) Slight Ovalocytes Slight Puncture Site pCO2 pO2 HCO3 ABG pH ABG Total CO2 ABG O2 Saturation ABG Base Excess ABG Hemoglobin ABG Carboxyhemoglobin POC ABG HHb (Measured) ABG Methemoglobin Evans Test A-a O2 Difference Respiratory Index Hgb O2 Saturation Vent Mode Mechanical Rate FiO2 Tidal Volume PEEP Sodium 139 Potassium 3.9 Chloride 106 Carbon Dioxide 25 Anion Gap 12 BUN 26 H Creatinine 0.4 L Est GFR ( Amer) > 60 Est GFR (Non-Af Amer) > 60 POC Glucose (mg/dL) 229 H Random Glucose 204 H Calcium 8.0 L Phosphorus 2.0 L Magnesium 1.6 Total Bilirubin 0.8 AST 92 H ALT 144 H Alkaline Phosphatase 121 Total Protein 5.6 L Albumin 3.2 L Globulin 2.4 Albumin/Globulin Ratio 1.3 05/13/17 11:20 WBC RBC Hgb Hct MCV MCH MCHC RDW Plt Count MPV Neut % (Auto) Lymph % (Auto) Morehouse % (Auto) Eos % (Auto) Baso % (Auto) Neut # Lymph # Morehouse # Eos # Baso # Neutrophils % (Manual) Band Neutrophils % Lymphocytes % (Manual) Reactive Lymphs % Monocytes % (Manual) Toxic Granulation Platelet Estimate Large Platelets Giant Platelets Polychromasia Hypochromasia (manual) Poikilocytosis (manual Anisocytosis (manual) Ovalocytes Puncture Site pCO2 pO2 HCO3 ABG pH ABG Total CO2 ABG O2 Saturation ABG Base Excess ABG Hemoglobin ABG Carboxyhemoglobin POC ABG HHb (Measured) ABG Methemoglobin Evans Test A-a O2 Difference Respiratory Index Hgb O2 Saturation Vent Mode Mechanical Rate FiO2 Tidal Volume PEEP Sodium Potassium Chloride Carbon Dioxide Anion Gap BUN Creatinine Est GFR ( Amer) Est GFR (Non-Af Amer) POC Glucose (mg/dL) 183 H Random Glucose Calcium Phosphorus Magnesium Total Bilirubin AST ALT Alkaline Phosphatase Total Protein Albumin Globulin Albumin/Globulin Ratio Fingerstick Blood Sugar Results: 183 Critical Care Progress Note - Ventilator Checklist Head of Bed 30 Degrees: Yes Daily Sedation Vacation: Yes Daily Assessment of Readiness to Wean: Yes Daily Spontaneous Breathing Trial: Yes PUD Prophalyxis: Yes DVT Prophylaxis: Yes Assessment/Plan - Assessment and Plan (Free Text) Plan: Patient is a 57F with PMH early onset dementia, seizures w/ new acute infarct of basal ganglia Plan: Neuro:bedbound at [facility], poor response Head CT 05/10 - New low attenuation in the right caudate nucleus head indicating possible acute/subacute infarct. Recommend evaluation with magnetic resonance imaging. Atrophy greater than expected for patient age with ex vacuo ventricular dilatation. Chronic white matter ischemic change. EEG 05/11 - globally abnormal EEG due to burst suppression with periodic delta waves seen every 10 seconds. Findings of EEG consistent with global cerebral dysfunction. Study does NOT meet criteria for b/l cerebral silence. Repeat Head Ct 05/12 - No evidence of significant interval change when compared to the previous study dated 05/10/2017. No evidence of acute intracranial hemorrhage. Re- demonstration of moderate to severe atrophy. Moderate to severe dilatation the lateral ventricles and 3rd ventricle suggestive of hydrocephalus. Re- demonstration of focal hypodensity at the right caudate nucleus which could represent subacute infarct versus chronic microvascular changes. -s/p cardiac arrest, suspected 2/2 sepsis - Code Freeze -keeep MAP >65 ECHO - moderate diffuse systolic dysfunction, overall EF 35-40%; large apical wall motion abnormality; all valves normal Respiratory: Intubated Pneumonia/sepsis CXR 05/12- Stable bilateral pleural effusions and pulmonary venous congestion with underlying atelectasis or infiltrates not excluded the inferior lung zones bilaterally. will continue to monitor -continue abx, f/u cultures -offer trach/peg GI: On Tube feedings, Jevity 1.5. Initial rate of 20mL/hr, Goal rate of 40mL/hr Protonix 40mg PO daily replace electrolytes: -continue DVT/PUD ppx Goals of care: d/w at bedside, who wanted to keep he alive. Daughter who is in the medical field agreeed with trach -Dr. Judge consult for trach. [email or web address]
--- NOTE | 2017-05-13 16:34 | RAD ---
HISTORY: intubated COMPARISON: Comparison is made to 05/12/2017 FINDINGS: LUNGS: Mild improvement in the lungs noted since the previous exam.. The ET tube is seen at appropriate position. PLEURA: Right pleural effusion and small left pleural effusion are again noted. CARDIOVASCULAR: Normal. OSSEOUS STRUCTURES: No significant abnormalities. VISUALIZED UPPER ABDOMEN: Normal. OTHER FINDINGS: Left-sided jugular central line is seen in place. IMPRESSION: Mild improvement in the lungs noted since the previous exam. Otherwise no significant interval change.
--- NOTE | 2017-05-13 17:43 | CP.PCM.CON ---
<German Melissa - Last Filed: 05/14/17 06:13> History of Present Illness - History of Present Illness History of Present Illness: General Surgery Consult Note for Dr. Monge Reason for Consult: Tracheostomy 57 F with PMH of dementia who was brought in from [place] for s/p cardiac arrest (). Daughter was bedside and provided the history. Per daughter, Patient was found in her own vomit by clinical partner. The clinical partner went to get the nurse and when they returned the patient was found pulseless. Exact down time is unknown. ACLS was initiated in the filed and EMS was called. EMS intubated her and ROSC was achieved. Upon arrival to the ED patient was having myoclonic jerks and code freeze was initiated. She was then transferred to ICU. Patient currently intubated and on vent support 450, 5, 15, 50 with SaO2 of 100% . ROS unobtainable due to condition. PMD: Dr. Alonso PMH: early onset dementia, seizures, questionable asthma, dysphagia, anxiety, and UTI (07/06) Meds: As per EMR Allergy: PCN PSH: Per daughter, she had multiple surgeries but unsure of which procedures were done FH: unknown Social: denies tobacco, EtOH, illicit drug use Review of Systems - Review of Systems Systems not reviewed;Unavailable: Acuity of Condition, Intubated Past Patient History - Past Medical History & Family History Past Medical History?: Yes - Past Social History Smoking Status: Never Smoked - CARDIAC Hx Hypotension: Yes Hx Peripheral Edema: Yes - PULMONARY Hx Respiratory Disorders: Yes Hx Asthma: Yes Hx Chronic Obstructive Pulmonary Disease (COPD): Yes Hx Pneumonia: Yes - NEUROLOGICAL Hx Alzheimer's Disease: Yes Hx Seizures: Yes - RENAL Other/Comment: uti - MUSCULOSKELETAL/RHEUMATOLOGICAL Hx Falls: No - GASTROINTESTINAL Other/Comment: GT - PSYCHIATRIC Hx Substance Use: No Meds Allergies/Adverse Reactions: Allergies Allergy/AdvReac Type Severity Reaction Status Date / Time Penicillins Allergy Verified 05/08/17 07:09 - Medications Medications: Current Medications Acetaminophen (Tylenol 650mg/20.3ml Solution Ud) 975 mg PEG Q6 PRN PRN Reason: Rigors Last Admin: 05/08/17 09:50 Dose: 975 mg Albuterol/Ipratropium (Duoneb 3 Mg/0.5 Mg (3 Ml) Ud) 3 ml INH RQ6 [facility] Last Admin: 05/13/17 14:08 Dose: 3 ml Artificial Tears (Lacri-Lube) 0 gm OU Q4 [facility] Last Admin: 05/13/17 12:00 Dose: 3.5 gm Aspirin (Aspirin Chewable) 81 mg PEG DAILY [facility] Last Admin: 05/13/17 09:45 Dose: 81 mg Enoxaparin Sodium (Lovenox) 40 mg SC DAILY [facility] Last Admin: 05/13/17 09:46 Dose: 40 mg Propofol (Diprivan) 1,000 mg in 100 mls @ 2.722 mls/hr IV .Q24H PRN; Protocol; 5 MCG/KG/MIN PRN Reason: TITRATE PER MD ORDER Last Titration: 05/10/17 00:00 Dose: 0 mcg/kg/min, 0 mls/hr Aztreonam 1 gm/ Sodium (Chloride) 50 mls @ 100 mls/hr IVPB Q8H [facility] Last Admin: 05/13/17 11:24 Dose: 100 mls/hr Vancomycin/Sodium Chloride (Vancomycin 1 Gm/Ns 200 Ml) 1 gm in 200 mls @ 133 mls/hr IVPB Q12H [facility] Stop: 05/14/17 12:01 Last Admin: 05/13/17 12:00 Dose: 133 mls/hr Levetiracetam 750 mg/ Sodium (Chloride) 257.5 mls @ 1,030 mls/hr IVPB Q12H [facility] Last Admin: 05/13/17 11:26 Dose: 1,030 mls/hr Methylprednisolone (Solu-Medrol) 40 mg IVP Q12 [facility] Last Admin: 05/13/17 09:45 Dose: 40 mg Pantoprazole Sodium (Protonix Susp) 40 mg PO 0600 [facility] Last Admin: 05/13/17 05:10 Dose: 40 mg Potassium Phos/Sodium Phos (Neutra-Phos) 1 pkt PO BIDCC [facility] Last Admin: 05/13/17 17:13 Dose: 1 pkt Physical Exam - Constitutional Appears: No Acute Distress, Chronically Ill - Head Exam Head Exam: ATRAUMATIC, NORMOCEPHALIC - Eye Exam Eye Exam: Normal appearance - ENT Exam ENT Exam: Mucous Membranes Moist - Respiratory Exam Respiratory Exam: NORMAL BREATHING PATTERN - Cardiovascular Exam Cardiovascular Exam: REGULAR RHYTHM - GI/Abdominal Exam GI & Abdominal Exam: Soft. absent: Distended, Firm, Guarding, Hernia, Mass, Rebound, Rigid, Tenderness Additional comments: PEG tube in place and receiving tube feeds - Neurological Exam Neurological exam: Altered - Psychiatric Exam Psychiatric exam: Flat Affect - Skin Skin Exam: Dry, Warm Results - Vital Signs Recent Vital Signs: Last Vital Signs Temp 97.3 F L 05/13/17 12:00 Pulse 84 05/13/17 15:06 Resp 19 05/13/17 15:06 BP 115/66 05/13/17 15:06 Pulse Ox 99 05/13/17 15:06 - Labs Result Diagrams: 05/13/17 06:16 05/13/17 06:16 Labs: Laboratory Results - last 24 hr 05/12/17 05/12/17 05/13/17 17:43 23:25 05:22 WBC RBC Hgb Hct MCV MCH MCHC RDW Plt Count MPV Neut % (Auto) Lymph % (Auto) Desha % (Auto) Eos % (Auto) Baso % (Auto) Neut # Lymph # Desha # Eos # Baso # Neutrophils % (Manual) Band Neutrophils % Lymphocytes % (Manual) Reactive Lymphs % Monocytes % (Manual) Toxic Granulation Platelet Estimate Large Platelets Giant Platelets Polychromasia Hypochromasia (manual) Poikilocytosis (manual Anisocytosis (manual) Ovalocytes Puncture Site Rr pCO2 37 pO2 184 H HCO3 27.4 ABG pH 7.47 H ABG Total CO2 28.0 ABG O2 Saturation 99.8 H ABG Base Excess 3.2 H ABG Hemoglobin 12.3 ABG Carboxyhemoglobin 1.8 H POC ABG HHb (Measured) 0.2 ABG Methemoglobin 1.3 Evans Test Pos A-a O2 Difference 126.0 Respiratory Index 0.7 Hgb O2 Saturation 96.8 Vent Mode Prvc Mechanical Rate 16 FiO2 50.0 Tidal Volume 450 PEEP 5 Sodium Potassium Chloride Carbon Dioxide Anion Gap BUN Creatinine Est GFR ( Amer) Est GFR (Non-Af Amer) POC Glucose (mg/dL) 208 H 203 H Random Glucose Calcium Phosphorus Magnesium Total Bilirubin AST ALT Alkaline Phosphatase Total Protein Albumin Globulin Albumin/Globulin Ratio 05/13/17 05/13/17 05/13/17 06:00 06:16 06:16 WBC 17.9 H RBC 4.18 Hgb 12.1 Hct 36.3 MCV 86.9 MCH 28.9 MCHC 33.2 RDW 13.9 Plt Count 281 MPV 8.8 Neut % (Auto) 85.7 H Lymph % (Auto) 9.1 L Desha % (Auto) 5.1 Eos % (Auto) 0.0 Baso % (Auto) 0.1 Neut # 15.3 H Lymph # 1.6 Desha # 0.9 H Eos # 0.0 Baso # 0.0 Neutrophils % (Manual) 85 H Band Neutrophils % 1 Lymphocytes % (Manual) 9 L Reactive Lymphs % 1 H Monocytes % (Manual) 4 Toxic Granulation Present Platelet Estimate Normal Large Platelets Present Giant Platelets Present Polychromasia Slight Hypochromasia (manual) Slight Poikilocytosis (manual Slight Anisocytosis (manual) Slight Ovalocytes Slight Puncture Site pCO2 pO2 HCO3 ABG pH ABG Total CO2 ABG O2 Saturation ABG Base Excess ABG Hemoglobin ABG Carboxyhemoglobin POC ABG HHb (Measured) ABG Methemoglobin Evans Test A-a O2 Difference Respiratory Index Hgb O2 Saturation Vent Mode Mechanical Rate FiO2 Tidal Volume PEEP Sodium 139 Potassium 3.9 Chloride 106 Carbon Dioxide 25 Anion Gap 12 BUN 26 H Creatinine 0.4 L Est GFR ( Amer) > 60 Est GFR (Non-Af Amer) > 60 POC Glucose (mg/dL) 229 H Random Glucose 204 H Calcium 8.0 L Phosphorus 2.0 L Magnesium 1.6 Total Bilirubin 0.8 AST 92 H ALT 144 H Alkaline Phosphatase 121 Total Protein 5.6 L Albumin 3.2 L Globulin 2.4 Albumin/Globulin Ratio 1.3 05/13/17 11:20 WBC RBC Hgb Hct MCV MCH MCHC RDW Plt Count MPV Neut % (Auto) Lymph % (Auto) Desha % (Auto) Eos % (Auto) Baso % (Auto) Neut # Lymph # Desha # Eos # Baso # Neutrophils % (Manual) Band Neutrophils % Lymphocytes % (Manual) Reactive Lymphs % Monocytes % (Manual) Toxic Granulation Platelet Estimate Large Platelets Giant Platelets Polychromasia Hypochromasia (manual) Poikilocytosis (manual Anisocytosis (manual) Ovalocytes Puncture Site pCO2 pO2 HCO3 ABG pH ABG Total CO2 ABG O2 Saturation ABG Base Excess ABG Hemoglobin ABG Carboxyhemoglobin POC ABG HHb (Measured) ABG Methemoglobin Evans Test A-a O2 Difference Respiratory Index Hgb O2 Saturation Vent Mode Mechanical Rate FiO2 Tidal Volume PEEP Sodium Potassium Chloride Carbon Dioxide Anion Gap BUN Creatinine Est GFR ( Amer) Est GFR (Non-Af Amer) POC Glucose (mg/dL) 183 H Random Glucose Calcium Phosphorus Magnesium Total Bilirubin AST ALT Alkaline Phosphatase Total Protein Albumin Globulin Albumin/Globulin Ratio Assessment & Plan - Assessment and Plan (Free Text) Plan: 57 F s/p cardiac arrest with respiratory failure requiring vent support -Will plan for tracheostomy -Patient needs to be medically optimized prior to procedure -Medical management as per ICU -Will discuss with Dr. Mairposa Melissa PGY1 <Андрей Monge B - Last Filed: 05/17/17 12:12> Meds - Medications Medications: Current Medications Acetaminophen (Tylenol 650mg/20.3ml Solution Ud) 975 mg PEG Q6 PRN PRN Reason: Rigors Last Admin: 05/08/17 09:50 Dose: 975 mg Albuterol/Ipratropium (Duoneb 3 Mg/0.5 Mg (3 Ml) Ud) 3 ml INH RQ6 [facility] Last Admin: 05/17/17 07:49 Dose: 3 ml Artificial Tears (Lacri-Lube) 0 gm OU Q4 [facility] Last Admin: 05/17/17 05:00 Dose: 3.5 gm Ascorbic Acid (Vitamin C 500 Mg Tab) 500 mg PO DAILY [facility] Last Admin: 05/17/17 10:00 Dose: Not Given Aspirin (Aspirin Chewable) 81 mg PEG DAILY [facility] Last Admin: 05/17/17 10:00 Dose: Not Given Hydromorphone HCl (Dilaudid) 0.5 mg IVP Q4H PRN PRN Reason: Pain, moderate (4-7) Aztreonam 1 gm/ Sodium (Chloride) 50 mls @ 100 mls/hr IVPB Q8H [facility] Last Admin: 05/17/17 11:30 Dose: 100 mls/hr Lactulose (Enulose) 20 gm NG HS PRN PRN Reason: Constipation Levetiracetam (Keppra) 750 mg NG BID [facility] Last Admin: 05/17/17 10:00 Dose: Not Given Multivitamins/Vitamin C (Multi-Delyn Liquid) 5 ml PO DAILY [facility] Last Admin: 05/17/17 10:00 Dose: Not Given Pantoprazole Sodium (Protonix Susp) 40 mg PO 0600 [facility] Last Admin: 05/17/17 06:00 Dose: Not Given Polyethylene Glycol (Miralax) 17 gm GT DAILY [facility] Last Admin: 05/17/17 10:00 Dose: Not Given Zinc Sulfate (Zinc Sulfate 220 Mg Cap) 220 mg PO DAILY [facility] Last Admin: 05/17/17 10:00 Dose: Not Given Results - Vital Signs Recent Vital Signs: Last Vital Signs Temp 97.9 F 05/17/17 08:00 Pulse 90 05/17/17 11:15 Resp 11 L 05/17/17 11:15 BP 105/58 L 05/17/17 11:15 Pulse Ox 100 05/17/17 11:15 - Labs Result Diagrams: 05/17/17 06:20 05/17/17 06:20 Labs: Laboratory Results - last 24 hr 05/16/17 05/16/17 05/17/17 17:38 23:31 05:03 WBC RBC Hgb Hct MCV MCH MCHC RDW Plt Count MPV Neut % (Auto) Lymph % (Auto) Desha % (Auto) Eos % (Auto) Baso % (Auto) Neut # Lymph # Desha # Eos # Baso # Puncture Site Rr pCO2 34 L pO2 143 H HCO3 30.0 H ABG pH 7.54 H ABG Total CO2 30.1 H ABG O2 Saturation 99.5 H ABG Base Excess 6.5 H ABG Hemoglobin 11.7 ABG Carboxyhemoglobin 1.8 H POC ABG HHb (Measured) 0.5 ABG Methemoglobin 1.3 Evans Test Pos A-a O2 Difference 64.0 Respiratory Index 0.4 Hgb O2 Saturation 96.5 Vent Mode Prvc Mechanical Rate 12 FiO2 35.0 Tidal Volume 400 PEEP 5 Sodium Potassium Chloride Carbon Dioxide Anion Gap BUN Creatinine Est GFR ( Amer) Est GFR (Non-Af Amer) POC Glucose (mg/dL) 141 H 145 H Random Glucose Calcium Phosphorus Magnesium Total Bilirubin AST ALT Alkaline Phosphatase Total Protein Albumin Globulin Albumin/Globulin Ratio 05/17/17 05/17/17 05/17/17 05:52 06:20 06:20 WBC 11.9 H RBC 4.01 Hgb 11.8 Hct 34.5 MCV 86.0 MCH 29.5 MCHC 34.2 RDW 13.8 Plt Count 231 MPV 8.3 Neut % (Auto) 81.9 H Lymph % (Auto) 12.4 L Desha % (Auto) 3.5 Eos % (Auto) 2.0 Baso % (Auto) 0.2 Neut # 9.7 H Lymph # 1.5 Desha # 0.4 Eos # 0.2 Baso # 0.0 Puncture Site pCO2 pO2 HCO3 ABG pH ABG Total CO2 ABG O2 Saturation ABG Base Excess ABG Hemoglobin ABG Carboxyhemoglobin POC ABG HHb (Measured) ABG Methemoglobin Evans Test A-a O2 Difference Respiratory Index Hgb O2 Saturation Vent Mode Mechanical Rate FiO2 Tidal Volume PEEP Sodium 132 Potassium 3.8 Chloride 98 Carbon Dioxide 28 Anion Gap 10 BUN 11 Creatinine 0.3 L Est GFR ( Amer) > 60 Est GFR (Non-Af Amer) > 60 POC Glucose (mg/dL) 111 H Random Glucose 94 Calcium 8.3 L Phosphorus 3.1 Magnesium 1.5 L Total Bilirubin 0.7 AST 51 H ALT 107 H D Alkaline Phosphatase 87 Total Protein 5.0 L Albumin 2.7 L Globulin 2.3 Albumin/Globulin Ratio 1.2 Attending/Attestation - Attestation I have personally seen and examined this patient.: Yes I have fully participated in the care of the patient.: Yes I have reviewed all pertinent clinical information: Yes Notes (Text): Pt was seen and examined at bedside Agree with above note and assessment Pt with VDRF, PNA, Cardiac Arrest Pt is intubated and sedated Labs and Radiology reviewed Ass: VDRF, Unable to wean Plan : Wean FIO2 to 30s and PEEP to 5 Consent Medical clearance from ICU Plan d.w pt in detail Risk and benefit explained in detail.
--- NOTE | 2017-05-13 23:40 | CP.PCM.PN ---
Subjective - Date & Time of Evaluation Date of Evaluation: 05/13/17 Time of Evaluation: 09:10 - Subjective Subjective: Patient seen and evaluated Un responsive Poor prognosis Physical Examination - Head Exam Head Exam: ATRAUMATIC - Eye Exam Eye Exam: Normal appearance - ENT Exam ENT Exam: Mucous Membranes Moist - Respiratory Exam Respiratory Exam: Clear to Ausculation Bilateral - Cardiovascular Exam Cardiovascular Exam: REGULAR RHYTHM - GI/Abdominal Exam GI & Abdominal Exam: Soft, Normal Bowel Sounds - Exam External exam: NORMAL EXTERNAL EXAM - Back Exam Back Exam: NORMAL INSPECTION - Neurological Exam Neurological Exam: absent: Alert - Psychiatric Exam Psychiatric exam: absent: Normal Mood - Skin Skin Exam: Dry Objective - Vital Signs/Intake and Output Vital Signs (last 24 hours): Temp Pulse Resp BP Pulse Ox 97.5 F L 94 H 19 108/68 99 05/13/17 22:00 05/13/17 22:06 05/13/17 22:06 05/13/17 22:06 05/13/17 22:06 Intake and Output: 05/13/17 05/14/17 18:59 06:59 Intake Total 1530 260 Output Total 625 165 Balance 905 95 - Medications Medications: Current Medications Acetaminophen (Tylenol 650mg/20.3ml Solution Ud) 975 mg PEG Q6 PRN PRN Reason: Rigors Last Admin: 05/08/17 09:50 Dose: 975 mg Albuterol/Ipratropium (Duoneb 3 Mg/0.5 Mg (3 Ml) Ud) 3 ml INH RQ6 [facility] Last Admin: 05/13/17 19:24 Dose: 3 ml Artificial Tears (Lacri-Lube) 0 gm OU Q4 [facility] Last Admin: 05/13/17 12:00 Dose: 3.5 gm Aspirin (Aspirin Chewable) 81 mg PEG DAILY [facility] Last Admin: 05/13/17 09:45 Dose: 81 mg Enoxaparin Sodium (Lovenox) 40 mg SC DAILY [facility] Last Admin: 05/13/17 09:46 Dose: 40 mg Propofol (Diprivan) 1,000 mg in 100 mls @ 2.722 mls/hr IV .Q24H PRN; Protocol; 5 MCG/KG/MIN PRN Reason: TITRATE PER MD ORDER Last Titration: 05/10/17 00:00 Dose: 0 mcg/kg/min, 0 mls/hr Aztreonam 1 gm/ Sodium (Chloride) 50 mls @ 100 mls/hr IVPB Q8H [facility] Last Admin: 05/13/17 19:15 Dose: 100 mls/hr Vancomycin/Sodium Chloride (Vancomycin 1 Gm/Ns 200 Ml) 1 gm in 200 mls @ 133 mls/hr IVPB Q12H [facility] Stop: 05/14/17 12:01 Last Admin: 05/13/17 12:00 Dose: 133 mls/hr Levetiracetam 750 mg/ Sodium (Chloride) 257.5 mls @ 1,030 mls/hr IVPB Q12H [facility] Last Admin: 05/13/17 22:33 Dose: 1,030 mls/hr Methylprednisolone (Solu-Medrol) 40 mg IVP Q12 [facility] Last Admin: 05/13/17 21:18 Dose: 40 mg Pantoprazole Sodium (Protonix Susp) 40 mg PO 0600 [facility] Last Admin: 05/13/17 05:10 Dose: 40 mg Potassium Phos/Sodium Phos (Neutra-Phos) 1 pkt PO BIDCC [facility] Last Admin: 05/13/17 17:13 Dose: 1 pkt - Labs Labs: 05/13/17 06:16 05/13/17 06:16 PT 15.1 SECONDS (9.7-12.2) H 05/09/17 17:57 INR 1.3 05/09/17 17:57 APTT 35 SECONDS (21-34) H 05/09/17 17:57 Assessment and Plan - Assessment and Plan (Free Text) Assessment: This is a 57F with PMH early onset dementia, seizures, and questionable asthma who was brought to the ED via EMS from her senior care, [facility], where she was witnessed cardiopulmonary arrest. EMS intubated the patient in the field.At ED patient was having myoclonic jerks and code freeze was initiated. Patient remained intubated and patient was admitted to the ICU. Her dementia started 7 years ago.Last two year she was in the NH,nonverbal,some days she is responsive/look at family members Plan: 1) s/p cardiopulmonary arrest Intubated and remain on Vent support,comatose Abnormal CT brain .Repeat CT acute/subacute infarct asprin added d/w Dr Hidalgo.Patient has poor prognosis, Brain changes could be due anoxia brain injury s/p code freeze,continue solumedrol and duoneb D/W at bedside.We will talk to her daughter again palliative care consult Continue asprin 2) Pneumonia and elevated wbc follow cultures Continue Aztrenonam and Vancomcyin continue duoneb and steroid 3) History of early onset dementia starting 5 years ago as per daughter 4) Seizure disorder, unspecified patient was taking Keppra and Lamotrigine On Keppra 750mg IVQ12H 5) History of Asthma 6) DVT and GI prophylasix protonix and lovenox
[2017-05-14] MEDS: White Petrolatum/Mineral Oil Ophth Oint(3.5 gm) OU SCH ×7 (00:02→23:30)
[2017-05-14] MEDS: Albuterol-Ipratrop 3 mg / 0.5 (3 ml) UD INH SCH ×4 (01:49→19:27)
[2017-05-14] MEDS: Pantoprazole 40 mg Susp UD PO SCH (05:32)
[2017-05-14 05:38] LABS: ABG ALLEN TEST POS; ABG MECHANICAL RATE 16; ARTERIAL BLOOD GAS MODE PRVC; ARTERIAL BLOOD HGB O2 SAT 96.4 % (95.0-98.0); ATERIAL BLOOD GAS PEEP 5; CARBOXYHEMOGLOBIN 1.7 % (0.5-1.5); DRAW SITE RR; HHB 0.5 % (0.0-5.0); METHEMOGLOBIN 1.4 % (0.0-3.0)
[2017-05-14 06:44] LABS: BASO % 0.1 % (0.0-2.0); HEMATOCRIT 34.3 % (34.0-47.0); LYMPH # 1.3 K/uL (1.0-4.3); LYMPH % 9.7 % (20.0-40.0); MEAN CELL VOLUME 86.6 fL (81.0-99.0); MEAN CORPUSCULAR HEMOGLOBIN 28.9 pg (27.0-31.0); MEAN CORPUSCULAR HGB CONC 33.4 g/dL (33.0-37.0); MEAN PLATELET VOLUME 8.9 fL (7.2-11.7); MONO # 0.4 K/uL (0.0-0.8); MONO % 2.8 % (0.0-10.0); PLATELET COUNT 217 K/uL (130-400); RED CELL DISTRIBUTION WIDTH 13.9 % (11.5-14.5); WHITE BLOOD COUNT 13.2 K/uL (4.8-10.8)
[2017-05-14 07:13] LABS: ALKALINE PHOSPHATASE 91 U/L (38-126); ALT/SGPT 158 U/L (9-52); AST/SGOT 79 U/L (14-36); BILIRUBIN,TOTAL 0.5 mg/dL (0.2-1.3); BLOOD UREA NITROGEN 26 mg/dL (7-17); CALCIUM 8.1 mg/dl (8.6-10.4); CARBON DIOXIDE 26 mmol/L (22-30); CHLORIDE 105 mmol/L (98-107); GFR AFRICAN-AMERICAN > 60; GLUCOSE,RANDOM 145 mg/dL (65-105); MAGNESIUM 1.7 mg/dL (1.6-2.3); PHOSPHOROUS 2.5 mg/dL (2.5-4.5); POTASSIUM 3.8 mmol/L (3.6-5.2); SODIUM 139 mmol/L (132-148)
[2017-05-14 08:22] LABS: NEUTROPHIL 83 % (50-75); TOTAL CELLS COUNTED 100
--- NOTE | 2017-05-14 08:25 | CP.PCM.PN ---
<Chandler Avendano - Last Filed: 05/14/17 10:46> Subjective - Date & Time of Evaluation Date of Evaluation: 05/14/17 Time of Evaluation: 06:45 - Subjective Subjective: General Surgery- Dr. Monge Patient seen and examined at bedside this AM. Currently on vent. unable to obtain ROS. FIO2 50, Tidal: 450, PEEP 5. Per nursing notes, no acute events overnight. Objective - Vital Signs/Intake and Output Vital Signs (last 24 hours): Temp Pulse Resp BP Pulse Ox 98.0 F 89 17 117/69 100 05/14/17 08:20 05/14/17 08:06 05/14/17 08:06 05/14/17 08:06 05/14/17 08:06 Intake and Output: 05/14/17 05/14/17 06:59 18:59 Intake Total 1080 80 Output Total 575 95 Balance 505 -15 - Medications Medications: Current Medications Acetaminophen (Tylenol 650mg/20.3ml Solution Ud) 975 mg PEG Q6 PRN PRN Reason: Rigors Last Admin: 05/08/17 09:50 Dose: 975 mg Albuterol/Ipratropium (Duoneb 3 Mg/0.5 Mg (3 Ml) Ud) 3 ml INH RQ6 [facility] Last Admin: 05/14/17 07:43 Dose: 3 ml Artificial Tears (Lacri-Lube) 0 gm OU Q4 [facility] Last Admin: 05/14/17 07:53 Dose: 3.5 gm Aspirin (Aspirin Chewable) 81 mg PEG DAILY [facility] Last Admin: 05/13/17 09:45 Dose: 81 mg Enoxaparin Sodium (Lovenox) 40 mg SC DAILY [facility] Last Admin: 05/13/17 09:46 Dose: 40 mg Propofol (Diprivan) 1,000 mg in 100 mls @ 2.722 mls/hr IV .Q24H PRN; Protocol; 5 MCG/KG/MIN PRN Reason: TITRATE PER MD ORDER Last Titration: 05/10/17 00:00 Dose: 0 mcg/kg/min, 0 mls/hr Aztreonam 1 gm/ Sodium (Chloride) 50 mls @ 100 mls/hr IVPB Q8H [facility] Last Admin: 05/14/17 02:34 Dose: 100 mls/hr Vancomycin/Sodium Chloride (Vancomycin 1 Gm/Ns 200 Ml) 1 gm in 200 mls @ 133 mls/hr IVPB Q12H [facility] Stop: 05/14/17 12:01 Last Admin: 05/13/17 23:50 Dose: 133 mls/hr Levetiracetam 750 mg/ Sodium (Chloride) 257.5 mls @ 1,030 mls/hr IVPB Q12H [facility] Last Admin: 05/13/17 22:33 Dose: 1,030 mls/hr Methylprednisolone (Solu-Medrol) 40 mg IVP Q12 [facility] Last Admin: 05/13/17 21:18 Dose: 40 mg Pantoprazole Sodium (Protonix Susp) 40 mg PO 0600 [facility] Last Admin: 05/14/17 05:32 Dose: 40 mg Potassium Phos/Sodium Phos (Neutra-Phos) 1 pkt PO BIDCC [facility] Last Admin: 05/13/17 17:13 Dose: 1 pkt - Labs Labs: 05/14/17 06:36 05/14/17 06:36 PT 15.1 SECONDS (9.7-12.2) H 05/09/17 17:57 INR 1.3 05/09/17 17:57 APTT 35 SECONDS (21-34) H 05/09/17 17:57 - Constitutional Appears: Non-toxic, No Acute Distress - Head Exam Head Exam: ATRAUMATIC - Eye Exam Eye Exam: absent: Scleral icterus - ENT Exam ENT Exam: Mucous Membranes Moist Additional comments: Intubated FI02 50, PEPP 5, - Respiratory Exam Respiratory Exam: absent: Accessory Muscle Use, Respiratory Distress - Cardiovascular Exam Cardiovascular Exam: +S1, +S2. absent: Bradycardia, Tachycardia - GI/Abdominal Exam GI & Abdominal Exam: Soft. absent: Distended, Firm, Guarding, Rigid, Tenderness , Rebound - Extremities Exam Extremities Exam: Pedal Edema - Neurological Exam Neurological Exam: absent: Alert, Oriented x3 - Skin Skin Exam: Intact, Warm Assessment and Plan - Assessment and Plan (Free Text) Assessment: 57F s/p cardiac arrest w/ respiratory failure on vent Plan: - plan for trach wednesday to wednesday - medically optimize patient for surgery - goal FIO2 of 40 - medical management per ICU team - discussed w/ Dr. Mariposa Avendano PGY1 <Андрей Monge Last Filed: 05/17/17 12:13> Objective - Vital Signs/Intake and Output Vital Signs (last 24 hours): Temp Pulse Resp BP Pulse Ox 97.9 F 90 11 L 105/58 L 100 05/17/17 08:00 05/17/17 11:15 05/17/17 11:15 05/17/17 11:15 05/17/17 11:15 Intake and Output: 05/17/17 05/17/17 06:59 18:59 Intake Total 330 0 Output Total 200 100 Balance 130 -100 - Medications Medications: Current Medications Acetaminophen (Tylenol 650mg/20.3ml Solution Ud) 975 mg PEG Q6 PRN PRN Reason: Rigors Last Admin: 05/08/17 09:50 Dose: 975 mg Albuterol/Ipratropium (Duoneb 3 Mg/0.5 Mg (3 Ml) Ud) 3 ml INH RQ6 [facility] Last Admin: 05/17/17 07:49 Dose: 3 ml Artificial Tears (Lacri-Lube) 0 gm OU Q4 [facility] Last Admin: 05/17/17 05:00 Dose: 3.5 gm Ascorbic Acid (Vitamin C 500 Mg Tab) 500 mg PO DAILY [facility] Last Admin: 05/17/17 10:00 Dose: Not Given Aspirin (Aspirin Chewable) 81 mg PEG DAILY [facility] Last Admin: 05/17/17 10:00 Dose: Not Given Hydromorphone HCl (Dilaudid) 0.5 mg IVP Q4H PRN PRN Reason: Pain, moderate (4-7) Aztreonam 1 gm/ Sodium (Chloride) 50 mls @ 100 mls/hr IVPB Q8H [facility] Last Admin: 05/17/17 11:30 Dose: 100 mls/hr Lactulose (Enulose) 20 gm NG HS PRN PRN Reason: Constipation Levetiracetam (Keppra) 750 mg NG BID [facility] Last Admin: 05/17/17 10:00 Dose: Not Given Multivitamins/Vitamin C (Multi-Delyn Liquid) 5 ml PO DAILY [facility] Last Admin: 05/17/17 10:00 Dose: Not Given Pantoprazole Sodium (Protonix Susp) 40 mg PO 0600 [facility] Last Admin: 05/17/17 06:00 Dose: Not Given Polyethylene Glycol (Miralax) 17 gm GT DAILY [facility] Last Admin: 05/17/17 10:00 Dose: Not Given Zinc Sulfate (Zinc Sulfate 220 Mg Cap) 220 mg PO DAILY [facility] Last Admin: 05/17/17 10:00 Dose: Not Given - Labs Labs: 05/17/17 06:20 05/17/17 06:20 PT 15.1 SECONDS (9.7-12.2) H 05/09/17 17:57 INR 1.3 05/09/17 17:57 APTT 35 SECONDS (21-34) H 05/09/17 17:57 Attending/Attestation - Attestation I have personally seen and examined this patient.: Yes I have fully participated in the care of the patient.: Yes I have reviewed all pertinent clinical information, including history, physical exam and plan: Yes Notes (Text): Pt was seen and examined at bedside Agree with above note and assessment Please see consult note for detail.
[2017-05-14] MEDS: Potassium & Sodium Phosphate PO SCH ×2 (08:40→16:58)
[2017-05-14] MEDS: Enoxaparin 40 mg Syringe SC SCH (09:10)
--- NOTE | 2017-05-14 11:01 | RAD ---
HISTORY: intubated COMPARISON: Endotracheal tube and left central venous line are unchanged in position. Portable chest 05/13/2017. FINDINGS: LUNGS: Limited bibasilar airspace disease difficult to exclude. PLEURA: Bilateral pleural effusions persist remaining greater the right than left sides and are not significant changed. No pneumothorax bilaterally. CARDIOVASCULAR: Cardiac silhouette is stable. Pulmonary venous congestion pattern is appears increased. Further clinical correlation is advised. OSSEOUS STRUCTURES: No significant abnormalities. VISUALIZED UPPER ABDOMEN: Normal. OTHER FINDINGS: None. IMPRESSION: Increased CHF pattern suggested. Underlying bibasilar airspace disease is not excluded. Bilateral pleural effusions are stable. Continued clinical and radiographic monitoring are advised.
[2017-05-14] MEDS: Vancomycin 1 gm/NS 200 ml 1 GM/200 ML BAG IVPB SCH (11:51)
[2017-05-14] MEDS ORDERED: Vancomycin 1 gm/NS 200 ml 1 GM/200 ML BAG IVPB SCH (13:00)
--- NOTE | 2017-05-14 14:56 | CP.CCUPN ---
<Du Ledesma - Last Filed: 05/14/17 15:18> CCU Subjective - Physician Review Subjective (Free Text): PGY1 ICU progress note for Dr. Manjarrez Patient seen and examined this morning at bedside. Patient is unresponsive on ventilator support. ROS unattainable. CCU Objective - Vital Signs / Intake & Output Vital Signs (Last 4 hours): Vital Signs Temp Pulse Resp BP Pulse Ox 05/14/17 14:04 97.9 F 05/14/17 14:00 75 12 100 05/14/17 13:06 77 11 L 115/60 100 05/14/17 13:00 77 12 100 05/14/17 12:06 80 15 117/66 100 05/14/17 12:00 97.3 F L 80 12 99 05/14/17 11:06 83 11 L 112/71 99 05/14/17 11:00 83 14 99 Intake and Output (Last 8hrs): Intake & Output 05/13/17 05/14/17 05/14/17 22:59 06:59 14:59 Intake Total 420 820 820 Output Total 335 410 261 Balance 85 410 559 Weight 190 lb 8 oz Intake: Intake, IV Amount 100 500 500 Left Distal Port Internal 100 500 500 Jugular Tube Feeding 320 320 320 Output: Urine 335 410 261 Urethral (Johnson) 335 410 261 - Physical Exam Head: Positive for: Atraumatic, Normocephalic Pupils: Positive for: Sluggish, Non-Reactive Conjunctiva: Positive for: Injected Mouth: Positive for: Moist Mucous Membranes Neck: Positive for: Trachea Midline Respiratory/Chest: Positive for: Decreased Breath Sounds Cardiovascular: Positive for: Tachycardic (sinus) Abdomen: Positive for: Normal Bowel Sounds Upper Extremity: Positive for: Normal Inspection Lower Extremity: Positive for: Edema Neurological: Positive for: Other (intubated). Negative for: GCS=15, CN II-XII Intact Psychiatric: Positive for: Other (intubated). Negative for: Alert, Oriented x 3 - Medications Active Medications: Active Medications Generic Name Dose Route Start Last Admin Trade Name Freq PRN Reason Stop Dose Admin Acetaminophen 975 mg 05/08/17 09:31 05/08/17 09:50 Tylenol 650mg/20.3ml Solution Ud PEG 975 mg Q6 PRN Administration Rigors Albuterol/Ipratropium 3 ml 05/08/17 20:00 05/14/17 13:37 Duoneb 3 Mg/0.5 Mg (3 Ml) Ud INH Not Given RQ6 LINNETTE Artificial Tears 0 gm 05/08/17 12:00 05/14/17 11:57 Lacri-Lube OU 3.5 gm Q4 LINNETTE Administration Aspirin 81 mg 05/11/17 10:00 05/14/17 09:09 Aspirin Chewable PEG 81 mg DAILY LINNETTE Administration Enoxaparin Sodium 40 mg 05/09/17 10:30 05/14/17 09:10 Lovenox SC 40 mg DAILY LINNETTE Administration Propofol 1,000 mg in 100 mls @ 2.722 mls/hr 05/08/17 09:49 05/10/17 00:00 Diprivan IV 0 mcg/kg/min .Q24H PRN 0 mls/hr TITRATE PER MD ORDER Titration Protocol 5 MCG/KG/MIN Aztreonam 1 gm/ Sodium 50 mls @ 100 mls/hr 05/09/17 11:00 05/14/17 10:15 Chloride IVPB 100 mls/hr Q8H LINNETTE Administration Levetiracetam 750 mg/ Sodium 257.5 mls @ 1,030 mls/hr 05/11/17 23:30 10:49 Chloride IVPB 1,030 mls/hr Q12H LINNETTE Administration Vancomycin/Sodium Chloride 1 gm in 200 mls @ 166.6 mls/hr 05/15/17 00:30 Vancomycin 1 Gm/Ns 200 Ml IVPB 05/20/17 00:31 Q12H LINNETTE Pantoprazole Sodium 40 mg 05/09/17 06:00 05/14/17 05:32 Protonix Susp PO 40 mg 0600 LINNETTE Administration Potassium Phos/Sodium Phos 1 pkt 05/12/17 08:00 05/14/17 08:40 Neutra-Phos PO 1 pkt BIDCC LINNETTE Administration - Patient Studies Lab Studies: Microbiology Studies 05/08/17 15:30 Blood Culture - Final Blood NO GROWTH AFTER 5 DAYS Gram Stain - Final TEST NOT PERFORMED 05/08/17 16:00 Blood Culture - Final Blood NO GROWTH AFTER 5 DAYS Gram Stain - Final TEST NOT PERFORMED Lab Studies 05/14/17 05/14/17 05/14/17 Range/Units 11:30 06:36 06:36 WBC 13.2 H (4.8-10.8) K/uL RBC 3.96 (3.80-5.20) Mil/uL Hgb 11.5 (11.0-16.0) g/dL Hct 34.3 (34.0-47.0) % MCV 86.6 (81.0-99.0) fL MCH 28.9 (27.0-31.0) pg MCHC 33.4 (33.0-37.0) g/dL RDW 13.9 (11.5-14.5) % Plt Count 217 (130-400) K/uL MPV 8.9 (7.2-11.7) fL Neut % (Auto) 87.4 H (50.0-75.0) % Lymph % (Auto) 9.7 L (20.0-40.0) % [place] % (Auto) 2.8 (0.0-10.0) % Eos % (Auto) 0.0 (0.0-4.0) % Baso % (Auto) 0.1 (0.0-2.0) % Neut # 11.5 H (1.8-7.0) K/uL Lymph # 1.3 (1.0-4.3) K/uL [place] # 0.4 (0.0-0.8) K/uL Eos # 0.0 (0.0-0.7) K/uL Baso # 0.0 (0.0-0.2) K/uL Neutrophils % (Manual) 83 H (50-75) % Band Neutrophils % 3 H (0-2) % Lymphocytes % (Manual) 11 L (20-40) % Monocytes % (Manual) 3 (0-10) % Platelet Estimate Normal (NORMAL) RBC Morphology Normal Puncture Site pCO2 (35-45) mm/Hg pO2 (80-100) mm/Hg HCO3 (21-28) mmol/L ABG pH (7.35-7.45) ABG Total CO2 (22-28) mmol/L ABG O2 Saturation (95-98) % ABG Base Excess (-2.0-3.0) mmol/L ABG Hemoglobin (11.7-17.4) g/dL ABG Carboxyhemoglobin (0.5-1.5) % POC ABG HHb (Measured) (0.0-5.0) % ABG Methemoglobin (0.0-3.0) % Evans Test A-a O2 Difference mm/Hg Respiratory Index Hgb O2 Saturation (95.0-98.0) % Vent Mode Mechanical Rate FiO2 % Tidal Volume PEEP Crit Value Called To Crit Value Called By Crit Value Read Back Blood Gas Notified Time Sodium 139 (132-148) mmol/L Potassium 3.8 (3.6-5.2) mmol/L Chloride 105 (98-107) mmol/L Carbon Dioxide 26 (22-30) mmol/L Anion Gap 12 (10-20) BUN 26 H (7-17) mg/dL Creatinine 0.4 L (0.7-1.2) mg/dL Est GFR ( Amer) > 60 Est GFR (Non-Af Amer) > 60 POC Glucose (mg/dL) 137 H (65-110) mg/dL Random Glucose 145 H (65-105) mg/dL Calcium 8.1 L (8.6-10.4) mg/dl Phosphorus 2.5 (2.5-4.5) mg/dL Magnesium 1.7 (1.6-2.3) mg/dL Total Bilirubin 0.5 (0.2-1.3) mg/dL AST 79 H (14-36) U/L ALT 158 H (9-52) U/L Alkaline Phosphatase 91 (38-126) U/L Total Protein 6.0 L (6.3-8.3) g/dL Albumin 2.9 L (3.5-5.0) g/dL Globulin 3.1 (2.2-3.9) gm/dL Albumin/Globulin Ratio 1.0 (1.0-2.1) 05/14/17 05/14/17 05/14/17 Range/Units 05:50 05:22 00:53 WBC (4.8-10.8) K/uL RBC (3.80-5.20) Mil/uL Hgb (11.0-16.0) g/dL Hct (34.0-47.0) % MCV (81.0-99.0) fL MCH (27.0-31.0) pg MCHC (33.0-37.0) g/dL RDW (11.5-14.5) % Plt Count (130-400) K/uL MPV (7.2-11.7) fL Neut % (Auto) (50.0-75.0) % Lymph % (Auto) (20.0-40.0) % [place] % (Auto) (0.0-10.0) % Eos % (Auto) (0.0-4.0) % Baso % (Auto) (0.0-2.0) % Neut # (1.8-7.0) K/uL Lymph # (1.0-4.3) K/uL [place] # (0.0-0.8) K/uL Eos # (0.0-0.7) K/uL Baso # (0.0-0.2) K/uL Neutrophils % (Manual) (50-75) % Band Neutrophils % (0-2) % Lymphocytes % (Manual) (20-40) % Monocytes % (Manual) (0-10) % Platelet Estimate (NORMAL) RBC Morphology Puncture Site Rr pCO2 26 L (35-45) mm/Hg pO2 152 H (80-100) mm/Hg HCO3 29.1 H (21-28) mmol/L ABG pH 7.61 H* (7.35-7.45) ABG Total CO2 26.9 (22-28) mmol/L ABG O2 Saturation 99.5 H (95-98) % ABG Base Excess 5.4 H (-2.0-3.0) mmol/L ABG Hemoglobin 11.8 (11.7-17.4) g/dL ABG Carboxyhemoglobin 1.7 H (0.5-1.5) % POC ABG HHb (Measured) 0.5 (0.0-5.0) % ABG Methemoglobin 1.4 (0.0-3.0) % Evans Test Pos A-a O2 Difference 172.0 mm/Hg Respiratory Index 1.1 Hgb O2 Saturation 96.4 (95.0-98.0) % Vent Mode Prvc Mechanical Rate 16 FiO2 50.0 % Tidal Volume 450 PEEP 5 Crit Value Called To Edward medrano rn Crit Value 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 Crit Value Read Back Y Blood Gas Notified Time 538 Sodium (132-148) mmol/L Potassium (3.6-5.2) mmol/L Chloride (98-107) mmol/L Carbon Dioxide (22-30) mmol/L Anion Gap (10-20) BUN (7-17) mg/dL Creatinine (0.7-1.2) mg/dL Est GFR ( Amer) Est GFR (Non-Af Amer) POC Glucose (mg/dL) 182 H 147 H (65-110) mg/dL Random Glucose (65-105) mg/dL Calcium (8.6-10.4) mg/dl Phosphorus (2.5-4.5) mg/dL Magnesium (1.6-2.3) mg/dL Total Bilirubin (0.2-1.3) mg/dL AST (14-36) U/L ALT (9-52) U/L Alkaline Phosphatase (38-126) U/L Total Protein (6.3-8.3) g/dL Albumin (3.5-5.0) g/dL Globulin (2.2-3.9) gm/dL Albumin/Globulin Ratio (1.0-2.1) 05/13/17 Range/Units 18:21 WBC (4.8-10.8) K/uL RBC (3.80-5.20) Mil/uL Hgb (11.0-16.0) g/dL Hct (34.0-47.0) % MCV (81.0-99.0) fL MCH (27.0-31.0) pg MCHC (33.0-37.0) g/dL RDW (11.5-14.5) % Plt Count (130-400) K/uL MPV (7.2-11.7) fL Neut % (Auto) (50.0-75.0) % Lymph % (Auto) (20.0-40.0) % [place] % (Auto) (0.0-10.0) % Eos % (Auto) (0.0-4.0) % Baso % (Auto) (0.0-2.0) % Neut # (1.8-7.0) K/uL Lymph # (1.0-4.3) K/uL [place] # (0.0-0.8) K/uL Eos # (0.0-0.7) K/uL Baso # (0.0-0.2) K/uL Neutrophils % (Manual) (50-75) % Band Neutrophils % (0-2) % Lymphocytes % (Manual) (20-40) % Monocytes % (Manual) (0-10) % Platelet Estimate (NORMAL) RBC Morphology Puncture Site pCO2 (35-45) mm/Hg pO2 (80-100) mm/Hg HCO3 (21-28) mmol/L ABG pH (7.35-7.45) ABG Total CO2 (22-28) mmol/L ABG O2 Saturation (95-98) % ABG Base Excess (-2.0-3.0) mmol/L ABG Hemoglobin (11.7-17.4) g/dL ABG Carboxyhemoglobin (0.5-1.5) % POC ABG HHb (Measured) (0.0-5.0) % ABG Methemoglobin (0.0-3.0) % Evans Test A-a O2 Difference mm/Hg Respiratory Index Hgb O2 Saturation (95.0-98.0) % Vent Mode Mechanical Rate FiO2 % Tidal Volume PEEP Crit Value Called To Crit Value Called By Crit Value Read Back Blood Gas Notified Time Sodium (132-148) mmol/L Potassium (3.6-5.2) mmol/L Chloride (98-107) mmol/L Carbon Dioxide (22-30) mmol/L Anion Gap (10-20) BUN (7-17) mg/dL Creatinine (0.7-1.2) mg/dL Est GFR ( Amer) Est GFR (Non-Af Amer) POC Glucose (mg/dL) 172 H (65-110) mg/dL Random Glucose (65-105) mg/dL Calcium (8.6-10.4) mg/dl Phosphorus (2.5-4.5) mg/dL Magnesium (1.6-2.3) mg/dL Total Bilirubin (0.2-1.3) mg/dL AST (14-36) U/L ALT (9-52) U/L Alkaline Phosphatase (38-126) U/L Total Protein (6.3-8.3) g/dL Albumin (3.5-5.0) g/dL Globulin (2.2-3.9) gm/dL Albumin/Globulin Ratio (1.0-2.1) Laboratory Results - last 24 hr 05/13/17 05/14/17 05/14/17 18:21 00:53 05:22 WBC RBC Hgb Hct MCV MCH MCHC RDW Plt Count MPV Neut % (Auto) Lymph % (Auto) [place] % (Auto) Eos % (Auto) Baso % (Auto) Neut # Lymph # [place] # Eos # Baso # Neutrophils % (Manual) Band Neutrophils % Lymphocytes % (Manual) Monocytes % (Manual) Platelet Estimate RBC Morphology Puncture Site Rr pCO2 26 L pO2 152 H HCO3 29.1 H ABG pH 7.61 H* ABG Total CO2 26.9 ABG O2 Saturation 99.5 H ABG Base Excess 5.4 H ABG Hemoglobin 11.8 ABG Carboxyhemoglobin 1.7 H POC ABG HHb (Measured) 0.5 ABG Methemoglobin 1.4 Evans Test Pos A-a O2 Difference 172.0 Respiratory Index 1.1 Hgb O2 Saturation 96.4 Vent Mode Prvc Mechanical Rate 16 FiO2 50.0 Tidal Volume 450 PEEP 5 Crit Value Called To Edward medrano rn Crit Value 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 Crit Value Read Back Y Blood Gas Notified Time 538 Sodium Potassium Chloride Carbon Dioxide Anion Gap BUN Creatinine Est GFR ( Amer) Est GFR (Non-Af Amer) POC Glucose (mg/dL) 172 H 147 H Random Glucose Calcium Phosphorus Magnesium Total Bilirubin AST ALT Alkaline Phosphatase Total Protein Albumin Globulin Albumin/Globulin Ratio 05/14/17 05/14/17 05/14/17 05:50 06:36 06:36 WBC 13.2 H RBC 3.96 Hgb 11.5 Hct 34.3 MCV 86.6 MCH 28.9 MCHC 33.4 RDW 13.9 Plt Count 217 MPV 8.9 Neut % (Auto) 87.4 H Lymph % (Auto) 9.7 L [place] % (Auto) 2.8 Eos % (Auto) 0.0 Baso % (Auto) 0.1 Neut # 11.5 H Lymph # 1.3 [place] # 0.4 Eos # 0.0 Baso # 0.0 Neutrophils % (Manual) 83 H Band Neutrophils % 3 H Lymphocytes % (Manual) 11 L Monocytes % (Manual) 3 Platelet Estimate Normal RBC Morphology Normal Puncture Site pCO2 pO2 HCO3 ABG pH ABG Total CO2 ABG O2 Saturation ABG Base Excess ABG Hemoglobin ABG Carboxyhemoglobin POC ABG HHb (Measured) ABG Methemoglobin Evans Test A-a O2 Difference Respiratory Index Hgb O2 Saturation Vent Mode Mechanical Rate FiO2 Tidal Volume PEEP Crit Value Called To Crit Value Called By Crit Value Read Back Blood Gas Notified Time Sodium 139 Potassium 3.8 Chloride 105 Carbon Dioxide 26 Anion Gap 12 BUN 26 H Creatinine 0.4 L Est GFR ( Amer) > 60 Est GFR (Non-Af Amer) > 60 POC Glucose (mg/dL) 182 H Random Glucose 145 H Calcium 8.1 L Phosphorus 2.5 Magnesium 1.7 Total Bilirubin 0.5 AST 79 H ALT 158 H Alkaline Phosphatase 91 Total Protein 6.0 L Albumin 2.9 L Globulin 3.1 Albumin/Globulin Ratio 1.0 05/14/17 11:30 WBC RBC Hgb Hct MCV MCH MCHC RDW Plt Count MPV Neut % (Auto) Lymph % (Auto) [place] % (Auto) Eos % (Auto) Baso % (Auto) Neut # Lymph # [place] # Eos # Baso # Neutrophils % (Manual) Band Neutrophils % Lymphocytes % (Manual) Monocytes % (Manual) Platelet Estimate RBC Morphology Puncture Site pCO2 pO2 HCO3 ABG pH ABG Total CO2 ABG O2 Saturation ABG Base Excess ABG Hemoglobin ABG Carboxyhemoglobin POC ABG HHb (Measured) ABG Methemoglobin Evans Test A-a O2 Difference Respiratory Index Hgb O2 Saturation Vent Mode Mechanical Rate FiO2 Tidal Volume PEEP Crit Value Called To Crit Value Called By Crit Value Read Back Blood Gas Notified Time Sodium Potassium Chloride Carbon Dioxide Anion Gap BUN Creatinine Est GFR ( Amer) Est GFR (Non-Af Amer) POC Glucose (mg/dL) 137 H Random Glucose Calcium Phosphorus Magnesium Total Bilirubin AST ALT Alkaline Phosphatase Total Protein Albumin Globulin Albumin/Globulin Ratio Fingerstick Blood Sugar Results: 137 Review of Systems - Review of Systems Systems not reviewed;Unavailable: Intubated Assessment/Plan - Assessment and Plan (Free Text) Assessment: Patient is a 57F with PMH early onset dementia, 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 Hidalgo consulted, help appreciated hx of early onset dementia (started 7 years ago) non-verbal at baseline bedbound at baseline propofol drip Kejoelra [address] 05/10 - New low attenuation in the right caudate nucleus head indicating possible acute/subacute infarct. Recommend evaluation with magnetic resonance imaging. Atrophy greater than expected for patient age with ex vacuo ventricular dilatation. Chronic white matter ischemic change. EEG 05/11 - globally abnormal EEG due to burst suppression with periodic delta waves seen every 10 seconds. Findings of EEG consistent with global cerebral dysfunction. Study does NOT meet criteria for b/l cerebral silence. Repeat Head Ct 05/12 - No evidence of significant interval change when compared to the previous study dated 05/10/2017. No evidence of acute intracranial hemorrhage. Re- demonstration of moderate to severe atrophy. Moderate to severe dilatation the lateral ventricles and 3rd ventricle suggestive of hydrocephalus. Re- demonstration of focal hypodensity at the right caudate nucleus which could represent subacute infarct versus chronic microvascular changes. f/u neuro recs - Goal MAP of 90-100, per Dr. Hidalgo Patient's family is aware of patient's condition and know of poor prognosis. She will remain a full code for now, as per daughter. Will re-evaluate later this week. - Pastoral Care Referral made Cardio: Dr. Heck consulted, help appreciated s/p cardiac arrest, suspected 2/2 sepsis - Code Freeze ECHO - moderate diffuse systolic dysfunction, overall EF 35-40%; large apical wall motion abnormality; all valves normal Respiratory: Intubated Pneumonia CXR 05/14- Increased CHF pattern suggested. Underlying bibasilar airspace disease is not excluded. Bilateral pleural effusions are stable.will continue to monitor WBC - improved to 13.2 from 17.9 Aztrenonam 1gm IVPB q8 Vanco 1gm IVPB q12 [id number] INH RQ6 ABG - R radial pCO2 26/ pO2 152/ HCO3 29.1/ pH 7.61 - taken while on vent settings TV 450/FiO2 50/RR 16/ PEEP 5 Patient attempted to be placed on CPAP but did not breathe on her own. Was placed back on vent at setting 400/35/12/5 General Surgery, Dr. Monge consulted for trach GI: On Tube feedings, Jevity 1.5. Initial rate of 20mL/hr, Goal rate of 40mL/hr Protonix 40mg PO daily Electrolytes: Phosphate 2.5 Mag 1.7 Prophylactic Care: DVT: Lovenox 40mg SC daily GI: Protonix 40mg PO daily Johnson discontinued Case discussed with Dr. Loki Ledesma PGY1 <Ingris Manjarrez M - Last Filed: 05/14/17 16:10> CCU Objective - Vital Signs / Intake & Output Vital Signs (Last 4 hours): Vital Signs Temp Pulse Resp BP Pulse Ox 05/14/17 15:00 74 14 98 05/14/17 14:06 74 12 115/54 L 100 05/14/17 14:04 97.9 F 05/14/17 14:00 75 12 100 05/14/17 13:06 77 11 L 115/60 100 05/14/17 13:00 77 12 100 Intake and Output (Last 8hrs): Intake & Output 05/14/17 05/14/17 05/14/17 06:59 14:59 22:59 Intake Total 820 820 40 Output Total 410 261 43 Balance 410 559 -3 Weight 190 lb 8 oz Intake: Intake, IV Amount 500 500 Left Distal Port Internal 500 500 Jugular Tube Feeding 320 320 40 Output: Urine 410 261 43 Urethral (Johnson) 410 261 43 - Medications Active Medications: Active Medications Generic Name Dose Route Start Last Admin Trade Name Freq PRN Reason Stop Dose Admin Acetaminophen 975 mg 05/08/17 09:31 05/08/17 09:50 Tylenol 650mg/20.3ml Solution Ud PEG 975 mg Q6 PRN Administration Rigors Albuterol/Ipratropium 3 ml 05/08/17 20:00 05/14/17 13:37 Duoneb 3 Mg/0.5 Mg (3 Ml) Ud INH Not Given RQ6 LINNETTE Artificial Tears 0 gm 05/08/17 12:00 05/14/17 15:49 Lacri-Lube OU 3.5 gm Q4 LINNETTE Administration Aspirin 81 mg 05/11/17 10:00 05/14/17 09:09 Aspirin Chewable PEG 81 mg DAILY LINNETTE Administration Enoxaparin Sodium 40 mg 05/09/17 10:30 05/14/17 09:10 Lovenox SC 40 mg DAILY LINNETTE Administration Propofol 1,000 mg in 100 mls @ 2.722 mls/hr 05/08/17 09:49 05/10/17 00:00 Diprivan IV 0 mcg/kg/min .Q24H PRN 0 mls/hr TITRATE PER MD ORDER Titration Protocol 5 MCG/KG/MIN Aztreonam 1 gm/ Sodium 50 mls @ 100 mls/hr 05/09/17 11:00 05/14/17 10:15 Chloride IVPB 100 mls/hr Q8H LINNETTE Administration Vancomycin/Sodium Chloride 1 gm in 200 mls @ 166.6 mls/hr 05/15/17 00:30 Vancomycin 1 Gm/Ns 200 Ml IVPB 05/20/17 00:31 Q12H LINNETTE Levetiracetam 750 mg/ Sodium 157.5 mls @ 1,030 mls/hr 05/14/17 23:30 Chloride IVPB Q12H LINNETTE Pantoprazole Sodium 40 mg 05/09/17 06:00 05/14/17 05:32 Protonix Susp PO 40 mg 0600 LINNETTE Administration Potassium Phos/Sodium Phos 1 pkt 05/12/17 08:00 05/14/17 08:40 Neutra-Phos PO 1 pkt BIDCC LINNETTE Administration - Patient Studies Lab Studies: Microbiology Studies 05/08/17 15:30 Blood Culture - Final Blood NO GROWTH AFTER 5 DAYS Gram Stain - Final TEST NOT PERFORMED 05/08/17 16:00 Blood Culture - Final Blood NO GROWTH AFTER 5 DAYS Gram Stain - Final TEST NOT PERFORMED Lab Studies 05/14/17 05/14/17 05/14/17 Range/Units 15:45 11:30 06:36 WBC (4.8-10.8) K/uL RBC (3.80-5.20) Mil/uL Hgb (11.0-16.0) g/dL Hct (34.0-47.0) % MCV (81.0-99.0) fL MCH (27.0-31.0) pg MCHC (33.0-37.0) g/dL RDW (11.5-14.5) % Plt Count (130-400) K/uL MPV (7.2-11.7) fL Neut % (Auto) (50.0-75.0) % Lymph % (Auto) (20.0-40.0) % [place] % (Auto) (0.0-10.0) % Eos % (Auto) (0.0-4.0) % Baso % (Auto) (0.0-2.0) % Neut # (1.8-7.0) K/uL Lymph # (1.0-4.3) K/uL [place] # (0.0-0.8) K/uL Eos # (0.0-0.7) K/uL Baso # (0.0-0.2) K/uL Neutrophils % (Manual) (50-75) % Band Neutrophils % (0-2) % Lymphocytes % (Manual) (20-40) % Monocytes % (Manual) (0-10) % Platelet Estimate (NORMAL) RBC Morphology Puncture Site Rra pCO2 41 (35-45) mm/Hg pO2 128 H (80-100) mm/Hg HCO3 27.5 (21-28) mmol/L ABG pH 7.44 (7.35-7.45) ABG Total CO2 29.1 H (22-28) mmol/L ABG O2 Saturation 99.7 H (95-98) % ABG Base Excess 3.3 H (-2.0-3.0) mmol/L ABG Hemoglobin (11.7-17.4) g/dL ABG Carboxyhemoglobin (0.5-1.5) % POC ABG HHb (Measured) (0.0-5.0) % ABG Methemoglobin (0.0-3.0) % Evans Test Ps ABG Potassium 3.6 (3.6-5.2) mmol/L A-a O2 Difference 70.0 mm/Hg Respiratory Index 0.5 Hgb O2 Saturation (95.0-98.0) % Glucose 134 H (65-105) mg/dl Lactate 1.2 (0.7-2.1) mmol/L Vent Mode Prvc Mechanical Rate 12 FiO2 35.0 % Tidal Volume 400 PEEP 5 Crit Value Called To Crit Value Called By Crit Value Read Back Blood Gas Notified Time Sodium 141.0 139 (132-148) mmol/L Potassium 3.8 (3.6-5.2) mmol/L Chloride 111.0 H 105 (98-107) mmol/L Carbon Dioxide 26 (22-30) mmol/L Anion Gap 12 (10-20) BUN 26 H (7-17) mg/dL Creatinine 0.4 L (0.7-1.2) mg/dL Est GFR ( Amer) > 60 Est GFR (Non-Af Amer) > 60 POC Glucose (mg/dL) 137 H (65-110) mg/dL Random Glucose 145 H (65-105) mg/dL Calcium 8.1 L (8.6-10.4) mg/dl Phosphorus 2.5 (2.5-4.5) mg/dL Magnesium 1.7 (1.6-2.3) mg/dL Total Bilirubin 0.5 (0.2-1.3) mg/dL AST 79 H (14-36) U/L ALT 158 H (9-52) U/L Alkaline Phosphatase 91 (38-126) U/L Total Protein 6.0 L (6.3-8.3) g/dL Albumin 2.9 L (3.5-5.0) g/dL Globulin 3.1 (2.2-3.9) gm/dL Albumin/Globulin Ratio 1.0 (1.0-2.1) Arterial Blood Potassium 3.6 (3.6-5.2) mmol/L 05/14/17 05/14/17 05/14/17 Range/Units 06:36 05:50 05:22 WBC 13.2 H (4.8-10.8) K/uL RBC 3.96 (3.80-5.20) Mil/uL Hgb 11.5 (11.0-16.0) g/dL Hct 34.3 (34.0-47.0) % MCV 86.6 (81.0-99.0) fL MCH 28.9 (27.0-31.0) pg MCHC 33.4 (33.0-37.0) g/dL RDW 13.9 (11.5-14.5) % Plt Count 217 (130-400) K/uL MPV 8.9 (7.2-11.7) fL Neut % (Auto) 87.4 H (50.0-75.0) % Lymph % (Auto) 9.7 L (20.0-40.0) % [place] % (Auto) 2.8 (0.0-10.0) % Eos % (Auto) 0.0 (0.0-4.0) % Baso % (Auto) 0.1 (0.0-2.0) % Neut # 11.5 H (1.8-7.0) K/uL Lymph # 1.3 (1.0-4.3) K/uL [place] # 0.4 (0.0-0.8) K/uL Eos # 0.0 (0.0-0.7) K/uL Baso # 0.0 (0.0-0.2) K/uL Neutrophils % (Manual) 83 H (50-75) % Band Neutrophils % 3 H (0-2) % Lymphocytes % (Manual) 11 L (20-40) % Monocytes % (Manual) 3 (0-10) % Platelet Estimate Normal (NORMAL) RBC Morphology Normal Puncture Site Rr pCO2 26 L (35-45) mm/Hg pO2 152 H (80-100) mm/Hg HCO3 29.1 H (21-28) mmol/L ABG pH 7.61 H* (7.35-7.45) ABG Total CO2 26.9 (22-28) mmol/L ABG O2 Saturation 99.5 H (95-98) % ABG Base Excess 5.4 H (-2.0-3.0) mmol/L ABG Hemoglobin 11.8 (11.7-17.4) g/dL ABG Carboxyhemoglobin 1.7 H (0.5-1.5) % POC ABG HHb (Measured) 0.5 (0.0-5.0) % ABG Methemoglobin 1.4 (0.0-3.0) % Evans Test Pos ABG Potassium (3.6-5.2) mmol/L A-a O2 Difference 172.0 mm/Hg Respiratory Index 1.1 Hgb O2 Saturation 96.4 (95.0-98.0) % Glucose (65-105) mg/dl Lactate (0.7-2.1) mmol/L Vent Mode Prvc Mechanical Rate 16 FiO2 50.0 % Tidal Volume 450 PEEP 5 Crit Value Called To Edward medrano rn Crit Value 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 Crit Value Read Back Y Blood Gas Notified Time 538 Sodium (132-148) mmol/L Potassium (3.6-5.2) mmol/L Chloride (98-107) mmol/L Carbon Dioxide (22-30) mmol/L Anion Gap (10-20) BUN (7-17) mg/dL Creatinine (0.7-1.2) mg/dL Est GFR ( Amer) Est GFR (Non-Af Amer) POC Glucose (mg/dL) 182 H (65-110) mg/dL Random Glucose (65-105) mg/dL Calcium (8.6-10.4) mg/dl Phosphorus (2.5-4.5) mg/dL Magnesium (1.6-2.3) mg/dL Total Bilirubin (0.2-1.3) mg/dL AST (14-36) U/L ALT (9-52) U/L Alkaline Phosphatase (38-126) U/L Total Protein (6.3-8.3) g/dL Albumin (3.5-5.0) g/dL Globulin (2.2-3.9) gm/dL Albumin/Globulin Ratio (1.0-2.1) Arterial Blood Potassium (3.6-5.2) mmol/L 05/14/17 05/13/17 Range/Units 00:53 18:21 WBC (4.8-10.8) K/uL RBC (3.80-5.20) Mil/uL Hgb (11.0-16.0) g/dL Hct (34.0-47.0) % MCV (81.0-99.0) fL MCH (27.0-31.0) pg MCHC (33.0-37.0) g/dL RDW (11.5-14.5) % Plt Count (130-400) K/uL MPV (7.2-11.7) fL Neut % (Auto) (50.0-75.0) % Lymph % (Auto) (20.0-40.0) % [place] % (Auto) (0.0-10.0) % Eos % (Auto) (0.0-4.0) % Baso % (Auto) (0.0-2.0) % Neut # (1.8-7.0) K/uL Lymph # (1.0-4.3) K/uL [place] # (0.0-0.8) K/uL Eos # (0.0-0.7) K/uL Baso # (0.0-0.2) K/uL Neutrophils % (Manual) (50-75) % Band Neutrophils % (0-2) % Lymphocytes % (Manual) (20-40) % Monocytes % (Manual) (0-10) % Platelet Estimate (NORMAL) RBC Morphology Puncture Site pCO2 (35-45) mm/Hg pO2 (80-100) mm/Hg HCO3 (21-28) mmol/L ABG pH (7.35-7.45) ABG Total CO2 (22-28) mmol/L ABG O2 Saturation (95-98) % ABG Base Excess (-2.0-3.0) mmol/L ABG Hemoglobin (11.7-17.4) g/dL ABG Carboxyhemoglobin (0.5-1.5) % POC ABG HHb (Measured) (0.0-5.0) % ABG Methemoglobin (0.0-3.0) % Evans Test ABG Potassium (3.6-5.2) mmol/L A-a O2 Difference mm/Hg Respiratory Index Hgb O2 Saturation (95.0-98.0) % Glucose (65-105) mg/dl Lactate (0.7-2.1) mmol/L Vent Mode Mechanical Rate FiO2 % Tidal Volume PEEP Crit Value Called To Crit Value Called By Crit Value Read Back Blood Gas Notified Time Sodium (132-148) mmol/L Potassium (3.6-5.2) mmol/L Chloride (98-107) mmol/L Carbon Dioxide (22-30) mmol/L Anion Gap (10-20) BUN (7-17) mg/dL Creatinine (0.7-1.2) mg/dL Est GFR ( Amer) Est GFR (Non-Af Amer) POC Glucose (mg/dL) 147 H 172 H (65-110) mg/dL Random Glucose (65-105) mg/dL Calcium (8.6-10.4) mg/dl Phosphorus (2.5-4.5) mg/dL Magnesium (1.6-2.3) mg/dL Total Bilirubin (0.2-1.3) mg/dL AST (14-36) U/L ALT (9-52) U/L Alkaline Phosphatase (38-126) U/L Total Protein (6.3-8.3) g/dL Albumin (3.5-5.0) g/dL Globulin (2.2-3.9) gm/dL Albumin/Globulin Ratio (1.0-2.1) Arterial Blood Potassium (3.6-5.2) mmol/L Laboratory Results - last 24 hr 05/13/17 05/14/17 05/14/17 18:21 00:53 05:22 WBC RBC Hgb Hct MCV MCH MCHC RDW Plt Count MPV Neut % (Auto) Lymph % (Auto) [place] % (Auto) Eos % (Auto) Baso % (Auto) Neut # Lymph # [place] # Eos # Baso # Neutrophils % (Manual) Band Neutrophils % Lymphocytes % (Manual) Monocytes % (Manual) Platelet Estimate RBC Morphology Puncture Site Rr pCO2 26 L pO2 152 H HCO3 29.1 H ABG pH 7.61 H* ABG Total CO2 26.9 ABG O2 Saturation 99.5 H ABG Base Excess 5.4 H ABG Hemoglobin 11.8 ABG Carboxyhemoglobin 1.7 H POC ABG HHb (Measured) 0.5 ABG Methemoglobin 1.4 Evans Test Pos ABG Potassium A-a O2 Difference 172.0 Respiratory Index 1.1 Hgb O2 Saturation 96.4 Glucose Lactate Vent Mode Prvc Mechanical Rate 16 FiO2 50.0 Tidal Volume 450 PEEP 5 Crit Value Called To Edward medrano rn Crit Value 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 Crit Value Read Back Y Blood Gas Notified Time 538 Sodium Potassium Chloride Carbon Dioxide Anion Gap BUN Creatinine Est GFR ( Amer) Est GFR (Non-Af Amer) POC Glucose (mg/dL) 172 H 147 H Random Glucose Calcium Phosphorus Magnesium Total Bilirubin AST ALT Alkaline Phosphatase Total Protein Albumin Globulin Albumin/Globulin Ratio Arterial Blood Potassium 05/14/17 05/14/17 05/14/17 05:50 06:36 06:36 WBC 13.2 H RBC 3.96 Hgb 11.5 Hct 34.3 MCV 86.6 MCH 28.9 MCHC 33.4 RDW 13.9 Plt Count 217 MPV 8.9 Neut % (Auto) 87.4 H Lymph % (Auto) 9.7 L [place] % (Auto) 2.8 Eos % (Auto) 0.0 Baso % (Auto) 0.1 Neut # 11.5 H Lymph # 1.3 [place] # 0.4 Eos # 0.0 Baso # 0.0 Neutrophils % (Manual) 83 H Band Neutrophils % 3 H Lymphocytes % (Manual) 11 L Monocytes % (Manual) 3 Platelet Estimate Normal RBC Morphology Normal Puncture Site pCO2 pO2 HCO3 ABG pH ABG Total CO2 ABG O2 Saturation ABG Base Excess ABG Hemoglobin ABG Carboxyhemoglobin POC ABG HHb (Measured) ABG Methemoglobin Evans Test ABG Potassium A-a O2 Difference Respiratory Index Hgb O2 Saturation Glucose Lactate Vent Mode Mechanical Rate FiO2 Tidal Volume PEEP Crit Value Called To Crit Value Called By Crit Value Read Back Blood Gas Notified Time Sodium 139 Potassium 3.8 Chloride 105 Carbon Dioxide 26 Anion Gap 12 BUN 26 H Creatinine 0.4 L Est GFR ( Amer) > 60 Est GFR (Non-Af Amer) > 60 POC Glucose (mg/dL) 182 H Random Glucose 145 H Calcium 8.1 L Phosphorus 2.5 Magnesium 1.7 Total Bilirubin 0.5 AST 79 H ALT 158 H Alkaline Phosphatase 91 Total Protein 6.0 L Albumin 2.9 L Globulin 3.1 Albumin/Globulin Ratio 1.0 Arterial Blood Potassium 05/14/17 05/14/17 11:30 15:45 WBC RBC Hgb Hct MCV MCH MCHC RDW Plt Count MPV Neut % (Auto) Lymph % (Auto) [place] % (Auto) Eos % (Auto) Baso % (Auto) Neut # Lymph # [place] # Eos # Baso # Neutrophils % (Manual) Band Neutrophils % Lymphocytes % (Manual) Monocytes % (Manual) Platelet Estimate RBC Morphology Puncture Site Rra pCO2 41 pO2 128 H HCO3 27.5 ABG pH 7.44 ABG Total CO2 29.1 H ABG O2 Saturation 99.7 H ABG Base Excess 3.3 H ABG Hemoglobin ABG Carboxyhemoglobin POC ABG HHb (Measured) ABG Methemoglobin Evans Test Ps ABG Potassium 3.6 A-a O2 Difference 70.0 Respiratory Index 0.5 Hgb O2 Saturation Glucose 134 H Lactate 1.2 Vent Mode Prvc Mechanical Rate 12 FiO2 35.0 Tidal Volume 400 PEEP 5 Crit Value Called To Crit Value Called By Crit Value Read Back Blood Gas Notified Time Sodium 141.0 Potassium Chloride 111.0 H Carbon Dioxide Anion Gap BUN Creatinine Est GFR ( Amer) Est GFR (Non-Af Amer) POC Glucose (mg/dL) 137 H Random Glucose Calcium Phosphorus Magnesium Total Bilirubin AST ALT Alkaline Phosphatase Total Protein Albumin Globulin Albumin/Globulin Ratio Arterial Blood Potassium 3.6 Assessment/Plan - Assessment and Plan (Free Text) Plan: -Patient's ABG reveals: respiratory alkalosis: readjust vent settings Vt 400, rr12, peep 5, repeat abg. -patient remains asymptomatic -CPAP trial daily -trach in AM -NPO night before anticipated surgery -d/c solumedrol as it can lead to increase wbc -not febrile -continue abx cc time 35 minutes
--- NOTE | 2017-05-14 14:57 | CP.PCM.PN ---
Subjective - Date & Time of Evaluation Date of Evaluation: 05/14/17 Time of Evaluation: 09:00 - Subjective Subjective: Progress note for a rapid response and code blue. Objective - Vital Signs/Intake and Output Vital Signs (last 24 hours): Temp Pulse Resp BP Pulse Ox 97.9 F 75 12 115/60 100 05/14/17 14:04 05/14/17 14:00 05/14/17 14:00 05/14/17 13:06 05/14/17 14:00 Intake and Output: 05/14/17 05/14/17 06:59 18:59 Intake Total 1080 820 Output Total 575 261 Balance 505 559 - Medications Medications: Current Medications Acetaminophen (Tylenol 650mg/20.3ml Solution Ud) 975 mg PEG Q6 PRN PRN Reason: Rigors Last Admin: 05/08/17 09:50 Dose: 975 mg Albuterol/Ipratropium (Duoneb 3 Mg/0.5 Mg (3 Ml) Ud) 3 ml INH RQ6 [facility] Last Admin: 05/14/17 13:37 Dose: Not Given Artificial Tears (Lacri-Lube) 0 gm OU Q4 [facility] Last Admin: 05/14/17 11:57 Dose: 3.5 gm Aspirin (Aspirin Chewable) 81 mg PEG DAILY [facility] Last Admin: 05/14/17 09:09 Dose: 81 mg Enoxaparin Sodium (Lovenox) 40 mg SC DAILY [facility] Last Admin: 05/14/17 09:10 Dose: 40 mg Propofol (Diprivan) 1,000 mg in 100 mls @ 2.722 mls/hr IV .Q24H PRN; Protocol; 5 MCG/KG/MIN PRN Reason: TITRATE PER MD ORDER Last Titration: 05/10/17 00:00 Dose: 0 mcg/kg/min, 0 mls/hr Aztreonam 1 gm/ Sodium (Chloride) 50 mls @ 100 mls/hr IVPB Q8H [facility] Last Admin: 05/14/17 10:15 Dose: 100 mls/hr Levetiracetam 750 mg/ Sodium (Chloride) 257.5 mls @ 1,030 mls/hr IVPB Q12H [facility] Last Admin: 05/14/17 10:49 Dose: 1,030 mls/hr Vancomycin/Sodium Chloride (Vancomycin 1 Gm/Ns 200 Ml) 1 gm in 200 mls @ 166.6 mls/hr IVPB Q12H [facility] Stop: 05/20/17 00:31 Pantoprazole Sodium (Protonix Susp) 40 mg PO 0600 [facility] Last Admin: 05/14/17 05:32 Dose: 40 mg Potassium Phos/Sodium Phos (Neutra-Phos) 1 pkt PO BIDCC [facility] Last Admin: 05/14/17 08:40 Dose: 1 pkt - Labs Labs: 05/14/17 06:36 05/14/17 06:36 PT 15.1 SECONDS (9.7-12.2) H 05/09/17 17:57 INR 1.3 05/09/17 17:57 APTT 35 SECONDS (21-34) H 05/09/17 17:57
[2017-05-14 15:50] LABS: ABG ALLEN TEST PS; ABG MECHANICAL RATE 12; ARTERIAL BLOOD GAS MODE PRVC; ATERIAL BLOOD GAS PEEP 5; DRAW SITE RRA
--- NOTE | 2017-05-14 19:20 | CP.PCM.PN ---
Subjective - Date & Time of Evaluation Date of Evaluation: 05/14/17 Time of Evaluation: 13:00 - Subjective Subjective: Seen and examined,unresponsive on MV this afternoon d/w daughter at bedside this evening Objective - Vital Signs/Intake and Output Vital Signs (last 24 hours): Temp Pulse Resp BP Pulse Ox 98.0 F 75 13 119/79 99 05/14/17 18:10 05/14/17 19:00 05/14/17 19:00 05/14/17 18:05 05/14/17 19:00 Intake and Output: 05/14/17 05/15/17 18:59 06:59 Intake Total 1030 40 Output Total 304 Balance 726 40 - Medications Medications: Current Medications Acetaminophen (Tylenol 650mg/20.3ml Solution Ud) 975 mg PEG Q6 PRN PRN Reason: Rigors Last Admin: 05/08/17 09:50 Dose: 975 mg Albuterol/Ipratropium (Duoneb 3 Mg/0.5 Mg (3 Ml) Ud) 3 ml INH RQ6 [facility] Last Admin: 05/14/17 13:37 Dose: Not Given Artificial Tears (Lacri-Lube) 0 gm OU Q4 [facility] Last Admin: 05/14/17 15:49 Dose: 3.5 gm Aspirin (Aspirin Chewable) 81 mg PEG DAILY [facility] Last Admin: 05/14/17 09:09 Dose: 81 mg Enoxaparin Sodium (Lovenox) 40 mg SC DAILY [facility] Last Admin: 05/14/17 09:10 Dose: 40 mg Propofol (Diprivan) 1,000 mg in 100 mls @ 2.722 mls/hr IV .Q24H PRN; Protocol; 5 MCG/KG/MIN PRN Reason: TITRATE PER MD ORDER Last Titration: 05/10/17 00:00 Dose: 0 mcg/kg/min, 0 mls/hr Aztreonam 1 gm/ Sodium (Chloride) 50 mls @ 100 mls/hr IVPB Q8H [facility] Last Admin: 05/14/17 18:12 Dose: 100 mls/hr Vancomycin/Sodium Chloride (Vancomycin 1 Gm/Ns 200 Ml) 1 gm in 200 mls @ 166.6 mls/hr IVPB Q12H [facility] Stop: 05/20/17 00:31 Levetiracetam 750 mg/ Sodium (Chloride) 157.5 mls @ 1,030 mls/hr IVPB Q12H [facility] Pantoprazole Sodium (Protonix Susp) 40 mg PO 0600 [facility] Last Admin: 05/14/17 05:32 Dose: 40 mg Potassium Phos/Sodium Phos (Neutra-Phos) 1 pkt PO BIDCC [facility] Last Admin: 05/14/17 16:58 Dose: 1 pkt - Labs Labs: 05/14/17 06:36 05/14/17 06:36 PT 15.1 SECONDS (9.7-12.2) H 05/09/17 17:57 INR 1.3 05/09/17 17:57 APTT 35 SECONDS (21-34) H 05/09/17 17:57 - Constitutional Appears: Chronically Ill - Head Exam Head Exam: absent: ATRAUMATIC - Eye Exam Eye Exam: Normal appearance - Neck Exam Neck Exam: absent: Full ROM (intubated) - Respiratory Exam Respiratory Exam: Clear to Ausculation Bilateral, NORMAL BREATHING PATTERN - Cardiovascular Exam Cardiovascular Exam: REGULAR RHYTHM - GI/Abdominal Exam GI & Abdominal Exam: Soft - Extremities Exam Extremities Exam: absent: Full ROM - Neurological Exam Neurological Exam: absent: Oriented x3 (unresponsive) - Psychiatric Exam Psychiatric exam: Flat Affect - Skin Skin Exam: Dry Assessment and Plan - Assessment and Plan (Free Text) Plan: T his is a 57F with PMH early onset dementia, seizures, and questionable asthma who was brought to the ED via EMS from her group home, [facility], where she was witnessed cardiopulmonary arrest. EMS intubated the patient in the field.At ED patient was having myoclonic jerks and code freeze was initiated. Patient remained intubated and patient was admitted to the ICU. As per her daughter and her . Her dementia started 7 years ago.Last two year she was in the NH,nonverbal,some days she is responsive/look at family members Plan: 1) s/p cardiopulmonary arrest Intubated and remain on Vent support,comatose CT head 05/10 - New low attenuation in the right caudate nucleus head indicating possible acute/subacute infarct. Repeat Head Ct 05/12 - No evidence of significant interval change when compared to the previous study dated 05/10/2017. No evidence of acute intracranial bleeding On Asprin s/p code freeze,continue solumedrol and duoneb D/W at bedside. palliative care consult d/w Daughter yesterday and today.She will be full code and want her to go for trach Dr. Judge consult appreciated 2) Pneumonia and elevated wbc follow cultures Continue Aztrenonam and Vancomcyin continue duoneb and steroid 3) History of early onset dementia starting 5 years ago as per daughter 4) Seizure disorder, unspecified patient was taking Keppra and Lamotrigine On Keppra 750mg IVQ12H 5) History of Asthma 6) DVT and GI prophylasix protonix and lovenox On Tube feedings, Jevity 1.5.
--- NOTE | 2017-05-14 21:55 | CP.PCM.PN ---
Subjective - Date & Time of Evaluation Date of Evaluation: 05/14/17 Time of Evaluation: 11:40 - Subjective Subjective: Patient seen and evaluated Unresponsive on Mechanical ventilation Physical Examination - Head Exam Head Exam: ATRAUMATIC - Eye Exam Eye Exam: Normal appearance - ENT Exam ENT Exam: Mucous Membranes Moist - Respiratory Exam Respiratory Exam: Clear to Ausculation Bilateral - Cardiovascular Exam Cardiovascular Exam: REGULAR RHYTHM - GI/Abdominal Exam GI & Abdominal Exam: Soft, Normal Bowel Sounds - Exam External exam: NORMAL EXTERNAL EXAM - Back Exam Back Exam: NORMAL INSPECTION - Neurological Exam Neurological Exam: absent: Alert - Psychiatric Exam Psychiatric exam: absent: Normal Mood - Skin Skin Exam: Dry Objective - Vital Signs/Intake and Output Vital Signs (last 24 hours): Temp Pulse Resp BP Pulse Ox 97.2 F L 75 13 122/75 98 05/14/17 20:00 05/14/17 21:05 05/14/17 21:05 05/14/17 21:05 05/14/17 21:05 Intake and Output: 05/14/17 05/15/17 18:59 06:59 Intake Total 1030 120 Output Total 304 Balance 726 120 - Medications Medications: Current Medications Acetaminophen (Tylenol 650mg/20.3ml Solution Ud) 975 mg PEG Q6 PRN PRN Reason: Rigors Last Admin: 05/08/17 09:50 Dose: 975 mg Albuterol/Ipratropium (Duoneb 3 Mg/0.5 Mg (3 Ml) Ud) 3 ml INH RQ6 [facility] Last Admin: 05/14/17 19:27 Dose: 3 ml Artificial Tears (Lacri-Lube) 0 gm OU Q4 [facility] Last Admin: 05/14/17 19:58 Dose: 3.5 gm Aspirin (Aspirin Chewable) 81 mg PEG DAILY [facility] Last Admin: 05/14/17 09:09 Dose: 81 mg Enoxaparin Sodium (Lovenox) 40 mg SC DAILY [facility] Last Admin: 05/14/17 09:10 Dose: 40 mg Propofol (Diprivan) 1,000 mg in 100 mls @ 2.722 mls/hr IV .Q24H PRN; Protocol; 5 MCG/KG/MIN PRN Reason: TITRATE PER MD ORDER Last Titration: 05/10/17 00:00 Dose: 0 mcg/kg/min, 0 mls/hr Aztreonam 1 gm/ Sodium (Chloride) 50 mls @ 100 mls/hr IVPB Q8H [facility] Last Admin: 05/14/17 18:12 Dose: 100 mls/hr Vancomycin/Sodium Chloride (Vancomycin 1 Gm/Ns 200 Ml) 1 gm in 200 mls @ 166.6 mls/hr IVPB Q12H [facility] Stop: 05/20/17 00:31 Levetiracetam 750 mg/ Sodium (Chloride) 157.5 mls @ 1,030 mls/hr IVPB Q12H [facility] Pantoprazole Sodium (Protonix Susp) 40 mg PO 0600 [facility] Last Admin: 05/14/17 05:32 Dose: 40 mg Potassium Phos/Sodium Phos (Neutra-Phos) 1 pkt PO BIDCC [facility] Last Admin: 05/14/17 16:58 Dose: 1 pkt - Labs Labs: 05/14/17 06:36 05/14/17 06:36 PT 15.1 SECONDS (9.7-12.2) H 05/09/17 17:57 INR 1.3 05/09/17 17:57 APTT 35 SECONDS (21-34) H 05/09/17 17:57 Assessment and Plan - Assessment and Plan (Free Text) Assessment: This is a 57F with PMH early onset dementia, seizures, and questionable asthma who was brought to the ED via EMS from her skilled nursing, [facility], where she was witnessed cardiopulmonary arrest. EMS intubated the patient in the field.At ED patient was having myoclonic jerks and code freeze was initiated. Patient remained intubated and patient was admitted to the ICU. Her dementia started 7 years ago.Last two year she was in the NH,nonverbal,some days she is responsive/look at family members Plan: 1) s/p cardiopulmonary arrest Intubated and remain on Vent support,comatose Abnormal CT brain .Repeat CT acute/subacute infarct asprin added d/w Dr Hidalgo.Patient has poor prognosis, Brain changes could be due anoxia brain injury s/p code freeze,continue solumedrol and duoneb D/W at bedside.We will talk to her daughter again palliative care consult Continue asprin 2) Pneumonia and elevated wbc follow cultures Continue Aztrenonam and Vancomcyin continue duoneb and steroid 3) History of early onset dementia starting 5 years ago as per daughter 4) Seizure disorder, unspecified patient was taking Keppra and Lamotrigine On Keppra 750mg IVQ12H 5) History of Asthma 6) DVT and GI prophylasix protonix and lovenox
[2017-05-14] MEDS ORDERED: LEVETIRACETAM IVPB SCH (23:30)
[2017-05-14] MEDS ORDERED: SODIUM CHLORIDE 0.9% IVPB SCH (23:30)
[2017-05-15] MEDS ORDERED: Vancomycin 1 gm/NS 200 ml 1 GM/200 ML BAG IVPB SCH (00:30)
[2017-05-15] MEDS: Albuterol-Ipratrop 3 mg / 0.5 (3 ml) UD INH SCH ×4 (01:32→19:33)
[2017-05-15] MEDS: White Petrolatum/Mineral Oil Ophth Oint(3.5 gm) OU SCH ×5 (03:30→19:15)
[2017-05-15 06:07] LABS: BASO % 0.1 % (0.0-2.0); EOS # 0.2 K/uL (0.0-0.7); EOS % 1.9 % (0.0-4.0); HEMATOCRIT 33.8 % (34.0-47.0); LYMPH # 1.6 K/uL (1.0-4.3); LYMPH % 12.1 % (20.0-40.0); MEAN CELL VOLUME 87.8 fL (81.0-99.0); MEAN CORPUSCULAR HEMOGLOBIN 28.8 pg (27.0-31.0); MEAN CORPUSCULAR HGB CONC 32.8 g/dL (33.0-37.0); MEAN PLATELET VOLUME 8.4 fL (7.2-11.7); MONO # 0.5 K/uL (0.0-0.8); MONO % 3.9 % (0.0-10.0); RED CELL DISTRIBUTION WIDTH 14.4 % (11.5-14.5); WHITE BLOOD COUNT 13.1 K/uL (4.8-10.8)
[2017-05-15] MEDS: Pantoprazole 40 mg Susp UD PO SCH (06:07)
[2017-05-15 06:15] LABS: ABG ALLEN TEST POS; ABG MECHANICAL RATE 12; ARTERIAL BLOOD GAS MODE PRVC; ARTERIAL BLOOD HGB O2 SAT 95.7 % (95.0-98.0); ATERIAL BLOOD GAS PEEP 5; CARBOXYHEMOGLOBIN 2.1 % (0.5-1.5); DRAW SITE RR; HHB 1.1 % (0.0-5.0); METHEMOGLOBIN 1.1 % (0.0-3.0)
[2017-05-15 06:40] LABS: ALB/GLOB RATIO 0.9 (1.0-2.1); ALKALINE PHOSPHATASE 82 U/L (38-126); ALT/SGPT 141 U/L (9-52); AST/SGOT 59 U/L (14-36); BILIRUBIN,TOTAL 0.3 mg/dL (0.2-1.3); BLOOD UREA NITROGEN 25 mg/dL (7-17); CALCIUM 7.7 mg/dl (8.6-10.4); CARBON DIOXIDE 27 mmol/L (22-30); CHLORIDE 103 mmol/L (98-107); GFR AFRICAN-AMERICAN > 60; GLUCOSE,RANDOM 141 mg/dL (65-105); MAGNESIUM 1.6 mg/dL (1.6-2.3); PHOSPHOROUS 3.2 mg/dL (2.5-4.5); POTASSIUM 3.4 mmol/L (3.6-5.2); SODIUM 138 mmol/L (132-148); TOTAL PROTEIN 5.8 g/dL (6.3-8.3)
[2017-05-15] MEDS: Potassium & Sodium Phosphate PO SCH (07:59)
--- NOTE | 2017-05-15 08:46 | CP.PCM.PN ---
Subjective - Date & Time of Evaluation Date of Evaluation: 05/15/17 Time of Evaluation: 06:15 - Subjective Subjective: General Surgery- Dr. Monge Patient seen and examined at bedside this AM. per nursing notes, no acute events overnight. Vent settings FIO2 35, PEEP 5, TV 400. Objective - Vital Signs/Intake and Output Vital Signs (last 24 hours): Temp Pulse Resp BP Pulse Ox 97.3 F L 74 11 L 120/68 100 05/15/17 08:00 05/15/17 08:06 05/15/17 08:06 05/15/17 08:06 05/15/17 08:06 Intake and Output: 05/15/17 05/15/17 06:59 18:59 Intake Total 980 110 Output Total 120 150 Balance 860 -40 - Medications Medications: Current Medications Acetaminophen (Tylenol 650mg/20.3ml Solution Ud) 975 mg PEG Q6 PRN PRN Reason: Rigors Last Admin: 05/08/17 09:50 Dose: 975 mg Albuterol/Ipratropium (Duoneb 3 Mg/0.5 Mg (3 Ml) Ud) 3 ml INH RQ6 [facility] Last Admin: 05/15/17 08:00 Dose: 3 ml Artificial Tears (Lacri-Lube) 0 gm OU Q4 [facility] Last Admin: 05/15/17 07:59 Dose: 3.5 gm Aspirin (Aspirin Chewable) 81 mg PEG DAILY [facility] Last Admin: 05/14/17 09:09 Dose: 81 mg Enoxaparin Sodium (Lovenox) 40 mg SC DAILY [facility] Last Admin: 05/14/17 09:10 Dose: 40 mg Propofol (Diprivan) 1,000 mg in 100 mls @ 2.722 mls/hr IV .Q24H PRN; Protocol; 5 MCG/KG/MIN PRN Reason: TITRATE PER MD ORDER Last Titration: 05/10/17 00:00 Dose: 0 mcg/kg/min, 0 mls/hr Aztreonam 1 gm/ Sodium (Chloride) 50 mls @ 100 mls/hr IVPB Q8H [facility] Last Admin: 05/15/17 03:28 Dose: 100 mls/hr Vancomycin/Sodium Chloride (Vancomycin 1 Gm/Ns 200 Ml) 1 gm in 200 mls @ 166.6 mls/hr IVPB Q12H [facility] Stop: 11/30/17 00:31 Last Admin: 05/14/17 23:29 Dose: 166.6 mls/hr Levetiracetam 750 mg/ Sodium (Chloride) 157.5 mls @ 1,030 mls/hr IVPB Q12H [facility] Last Admin: 05/14/17 22:36 Dose: 1,030 mls/hr Pantoprazole Sodium (Protonix Susp) 40 mg PO 0600 [facility] Last Admin: 05/15/17 06:07 Dose: 40 mg Potassium Phos/Sodium Phos (Neutra-Phos) 1 pkt PO BIDCC [facility] Last Admin: 05/15/17 07:59 Dose: 1 pkt - Labs Labs: 05/15/17 05:59 05/15/17 05:59 PT 15.1 SECONDS (9.7-12.2) H 05/09/17 17:57 INR 1.3 05/09/17 17:57 APTT 35 SECONDS (21-34) H 05/09/17 17:57 - Constitutional Appears: No Acute Distress - Head Exam Head Exam: ATRAUMATIC - ENT Exam ENT Exam: Mucous Membranes Moist - Respiratory Exam Respiratory Exam: NORMAL BREATHING PATTERN. absent: Accessory Muscle Use, Respiratory Distress Additional comments: on vent - Cardiovascular Exam Cardiovascular Exam: Tachycardia, +S1, +S2. absent: Bradycardia - GI/Abdominal Exam GI & Abdominal Exam: Soft. absent: Distended, Firm, Guarding, Tenderness, Rebound - Extremities Exam Extremities Exam: absent: Calf Tenderness - Neurological Exam Neurological Exam: absent: Alert, Awake - Skin Skin Exam: Intact, Warm Assessment and Plan - Assessment and Plan (Free Text) Assessment: 57F respiratory failure on Vent Plan: - plan for OR wednesday for perc trach - optomize medically for procedure - medical management per ICU - discussed w/ Dr. Mariposa Avendano PGY1
[2017-05-15] MEDS: Enoxaparin 40 mg Syringe SC SCH (09:03)
[2017-05-15] MEDS ORDERED: Potassium Chloride 20 mEq/15 ml LIQ UD PO ONE (10:15)
--- NOTE | 2017-05-15 10:35 | CP.CCUPN ---
CCU Subjective - Physician Review Subjective (Free Text): Patient seen and examined at bedside. Patient not responsive. no response to noxious stimuli. Patient tolerating CPAP today, sputum sectretions moderate with yellowish, et tube cuff pressure unknown. CCU Objective - Vital Signs / Intake & Output Vital Signs (Last 4 hours): Vital Signs Temp Pulse Resp BP Pulse Ox 05/15/17 10:06 71 13 114/75 98 05/15/17 10:00 71 13 99 05/15/17 09:06 74 12 124/79 100 05/15/17 09:00 75 13 99 05/15/17 08:06 74 11 L 120/68 100 05/15/17 08:00 97.3 F L 73 11 L 100 05/15/17 07:06 72 12 118/69 99 05/15/17 07:00 73 16 99 Intake and Output (Last 8hrs): Intake & Output 05/14/17 05/15/17 05/15/17 22:59 06:59 14:59 Intake Total 370 820 290 Output Total 43 120 150 Balance 327 700 140 Weight 190 lb 6.4 oz Intake: Intake, IV Amount 50 500 0 Left Distal Port Internal 50 500 0 Jugular Left Medial Port Internal 0 Jugular Left Proximal Port 0 Internal Jugular Oral 130 Tube Feeding 320 320 160 Output: Urine 43 120 150 Urethral (Johnson) 43 120 150 Other: # Voids Urethral (Johnson) 1 # Bowel Movements 0 - Physical Exam Head: Positive for: Atraumatic, Normocephalic Pupils: Positive for: Sluggish, Non-Reactive Conjunctiva: Positive for: Injected Mouth: Positive for: Moist Mucous Membranes Neck: Positive for: Trachea Midline Respiratory/Chest: Positive for: Clear to Auscultation, Good Air Exchange, Decreased Breath Sounds. Negative for: Respiratory Distress, Accessory Muscle Use Cardiovascular: Positive for: Regular Rate and Rhythm, Normal S1, S2, Tachycardic (sinus) Abdomen: Positive for: Distention, Normal Bowel Sounds Upper Extremity: Positive for: Normal Inspection, Edema Lower Extremity: Positive for: Edema Neurological: Positive for: Other (intubated). Negative for: GCS=15, CN II-XII Intact Psychiatric: Positive for: Other (intubated). Negative for: Alert, Oriented x 3 - Medications Active Medications: Active Medications Generic Name Dose Route Start Last Admin Trade Name Freq PRN Reason Stop Dose Admin Acetaminophen 975 mg 05/08/17 09:31 05/08/17 09:50 Tylenol 650mg/20.3ml Solution Ud PEG 975 mg Q6 PRN Administration Rigors Albuterol/Ipratropium 3 ml 05/08/17 20:00 05/15/17 08:00 Duoneb 3 Mg/0.5 Mg (3 Ml) Ud INH 3 ml RQ6 [facility] Administration Artificial Tears 0 gm 05/08/17 12:00 05/15/17 07:59 Lacri-Lube OU 3.5 gm Q4 [facility] Administration Ascorbic Acid 500 mg 05/16/17 10:00 Vitamin C 500 Mg Tab PO DAILY [facility] Aspirin 81 mg 05/11/17 10:00 05/15/17 09:03 Aspirin Chewable PEG 81 mg DAILY [facility] Administration Enoxaparin Sodium 40 mg 05/09/17 10:30 05/15/17 09:03 Lovenox SC 40 mg DAILY [facility] Administration Aztreonam 1 gm/ Sodium 50 mls @ 100 mls/hr 05/09/17 11:00 05/15/17 03:28 Chloride IVPB 100 mls/hr Q8H [facility] Administration Lactulose 20 gm 05/15/17 22:00 Enulose NG HS PRN Constipation Lactulose 20 gm 05/15/17 10:30 Enulose PO 05/15/17 10:31 ONCE ONE Levetiracetam 750 mg 05/15/17 18:00 Keppra NG BID [facility] Multivitamins/Vitamin C 5 ml 05/16/17 10:00 Multi-Delyn Liquid PO DAILY [facility] Pantoprazole Sodium 40 mg 05/09/17 06:00 05/15/17 06:07 Protonix Susp PO 40 mg 0600 [facility] Administration Zinc Sulfate 220 mg 05/16/17 10:00 Zinc Sulfate 220 Mg Cap PO DAILY [facility] - Patient Studies Lab Studies: Lab Studies 05/15/17 05/15/17 05/15/17 Range/Units 05:59 05:59 05:24 WBC 13.1 H (4.8-10.8) K/uL RBC 3.85 (3.80-5.20) Mil/uL Hgb 11.1 (11.0-16.0) g/dL Hct 33.8 L (34.0-47.0) % MCV 87.8 (81.0-99.0) fL MCH 28.8 (27.0-31.0) pg MCHC 32.8 L (33.0-37.0) g/dL RDW 14.4 (11.5-14.5) % Plt Count 187 (130-400) K/uL MPV 8.4 (7.2-11.7) fL Neut % (Auto) 82.0 H (50.0-75.0) % Lymph % (Auto) 12.1 L (20.0-40.0) % [place] % (Auto) 3.9 (0.0-10.0) % Eos % (Auto) 1.9 (0.0-4.0) % Baso % (Auto) 0.1 (0.0-2.0) % Neut # 10.7 H (1.8-7.0) K/uL Lymph # 1.6 (1.0-4.3) K/uL [place] # 0.5 (0.0-0.8) K/uL Eos # 0.2 (0.0-0.7) K/uL Baso # 0.0 (0.0-0.2) K/uL Puncture Site Rr pCO2 39 (35-45) mm/Hg pO2 85 (80-100) mm/Hg HCO3 28.3 H (21-28) mmol/L ABG pH 7.47 H (7.35-7.45) ABG Total CO2 29.6 H (22-28) mmol/L ABG O2 Saturation 98.9 H (95-98) % ABG Base Excess 4.4 H (-2.0-3.0) mmol/L ABG Hemoglobin 11.2 L (11.7-17.4) g/dL ABG Carboxyhemoglobin 2.1 H (0.5-1.5) % POC ABG HHb (Measured) 1.1 (0.0-5.0) % ABG Methemoglobin 1.1 (0.0-3.0) % Evans Test Pos ABG Potassium (3.6-5.2) mmol/L A-a O2 Difference 116.0 mm/Hg Respiratory Index 1.4 Hgb O2 Saturation 95.7 (95.0-98.0) % Sodium 138 (132-148) mmol/l Chloride 103 (98-107) mmol/L Glucose (65-105) mg/dl Lactate (0.7-2.1) mmol/L Vent Mode Prvc Mechanical Rate 12 FiO2 35.0 % Tidal Volume 400 PEEP 5 Potassium 3.4 L (3.6-5.2) mmol/L Carbon Dioxide 27 (22-30) mmol/L Anion Gap 11 (10-20) BUN 25 H (7-17) mg/dL Creatinine 0.4 L (0.7-1.2) mg/dL Est GFR ( Amer) > 60 Est GFR (Non-Af Amer) > 60 POC Glucose (mg/dL) (65-110) mg/dL Random Glucose 141 H (65-105) mg/dL Calcium 7.7 L (8.6-10.4) mg/dl Phosphorus 3.2 (2.5-4.5) mg/dL Magnesium 1.6 (1.6-2.3) mg/dL Total Bilirubin 0.3 (0.2-1.3) mg/dL AST 59 H D (14-36) U/L ALT 141 H (9-52) U/L Alkaline Phosphatase 82 (38-126) U/L Total Protein 5.8 L (6.3-8.3) g/dL Albumin 2.8 L (3.5-5.0) g/dL Globulin 3.0 (2.2-3.9) gm/dL Albumin/Globulin Ratio 0.9 L (1.0-2.1) Arterial Blood Potassium (3.6-5.2) mmol/L 05/15/17 05/14/17 05/14/17 Range/Units 05:05 23:23 17:44 WBC (4.8-10.8) K/uL RBC (3.80-5.20) Mil/uL Hgb (11.0-16.0) g/dL Hct (34.0-47.0) % MCV (81.0-99.0) fL MCH (27.0-31.0) pg MCHC (33.0-37.0) g/dL RDW (11.5-14.5) % Plt Count (130-400) K/uL MPV (7.2-11.7) fL Neut % (Auto) (50.0-75.0) % Lymph % (Auto) (20.0-40.0) % [place] % (Auto) (0.0-10.0) % Eos % (Auto) (0.0-4.0) % Baso % (Auto) (0.0-2.0) % Neut # (1.8-7.0) K/uL Lymph # (1.0-4.3) K/uL [place] # (0.0-0.8) K/uL Eos # (0.0-0.7) K/uL Baso # (0.0-0.2) K/uL Puncture Site pCO2 (35-45) mm/Hg pO2 (80-100) mm/Hg HCO3 (21-28) mmol/L ABG pH (7.35-7.45) ABG Total CO2 (22-28) mmol/L ABG O2 Saturation (95-98) % ABG Base Excess (-2.0-3.0) mmol/L ABG Hemoglobin (11.7-17.4) g/dL ABG Carboxyhemoglobin (0.5-1.5) % POC ABG HHb (Measured) (0.0-5.0) % ABG Methemoglobin (0.0-3.0) % Evans Test ABG Potassium (3.6-5.2) mmol/L A-a O2 Difference mm/Hg Respiratory Index Hgb O2 Saturation (95.0-98.0) % Sodium (132-148) mmol/l Chloride (98-107) mmol/L Glucose (65-105) mg/dl Lactate (0.7-2.1) mmol/L Vent Mode Mechanical Rate FiO2 % Tidal Volume PEEP Potassium (3.6-5.2) mmol/L Carbon Dioxide (22-30) mmol/L Anion Gap (10-20) BUN (7-17) mg/dL Creatinine (0.7-1.2) mg/dL Est GFR ( Amer) Est GFR (Non-Af Amer) POC Glucose (mg/dL) 165 H 189 H 139 H (65-110) mg/dL Random Glucose (65-105) mg/dL Calcium (8.6-10.4) mg/dl Phosphorus (2.5-4.5) mg/dL Magnesium (1.6-2.3) mg/dL Total Bilirubin (0.2-1.3) mg/dL AST (14-36) U/L ALT (9-52) U/L Alkaline Phosphatase (38-126) U/L Total Protein (6.3-8.3) g/dL Albumin (3.5-5.0) g/dL Globulin (2.2-3.9) gm/dL Albumin/Globulin Ratio (1.0-2.1) Arterial Blood Potassium (3.6-5.2) mmol/L 05/14/17 05/14/17 Range/Units 15:45 11:30 WBC (4.8-10.8) K/uL RBC (3.80-5.20) Mil/uL Hgb (11.0-16.0) g/dL Hct (34.0-47.0) % MCV (81.0-99.0) fL MCH (27.0-31.0) pg MCHC (33.0-37.0) g/dL RDW (11.5-14.5) % Plt Count (130-400) K/uL MPV (7.2-11.7) fL Neut % (Auto) (50.0-75.0) % Lymph % (Auto) (20.0-40.0) % [place] % (Auto) (0.0-10.0) % Eos % (Auto) (0.0-4.0) % Baso % (Auto) (0.0-2.0) % Neut # (1.8-7.0) K/uL Lymph # (1.0-4.3) K/uL [place] # (0.0-0.8) K/uL Eos # (0.0-0.7) K/uL Baso # (0.0-0.2) K/uL Puncture Site Rra pCO2 41 (35-45) mm/Hg pO2 128 H (80-100) mm/Hg HCO3 27.5 (21-28) mmol/L ABG pH 7.44 (7.35-7.45) ABG Total CO2 29.1 H (22-28) mmol/L ABG O2 Saturation 99.7 H (95-98) % ABG Base Excess 3.3 H (-2.0-3.0) mmol/L ABG Hemoglobin (11.7-17.4) g/dL ABG Carboxyhemoglobin (0.5-1.5) % POC ABG HHb (Measured) (0.0-5.0) % ABG Methemoglobin (0.0-3.0) % Evans Test Ps ABG Potassium 3.6 (3.6-5.2) mmol/L A-a O2 Difference 70.0 mm/Hg Respiratory Index 0.5 Hgb O2 Saturation (95.0-98.0) % Sodium 141.0 (132-148) mmol/l Chloride 111.0 H (98-107) mmol/L Glucose 134 H (65-105) mg/dl Lactate 1.2 (0.7-2.1) mmol/L Vent Mode Prvc Mechanical Rate 12 FiO2 35.0 % Tidal Volume 400 PEEP 5 Potassium (3.6-5.2) mmol/L Carbon Dioxide (22-30) mmol/L Anion Gap (10-20) BUN (7-17) mg/dL Creatinine (0.7-1.2) mg/dL Est GFR ( Amer) Est GFR (Non-Af Amer) POC Glucose (mg/dL) 137 H (65-110) mg/dL Random Glucose (65-105) mg/dL Calcium (8.6-10.4) mg/dl Phosphorus (2.5-4.5) mg/dL Magnesium (1.6-2.3) mg/dL Total Bilirubin (0.2-1.3) mg/dL AST (14-36) U/L ALT (9-52) U/L Alkaline Phosphatase (38-126) U/L Total Protein (6.3-8.3) g/dL Albumin (3.5-5.0) g/dL Globulin (2.2-3.9) gm/dL Albumin/Globulin Ratio (1.0-2.1) Arterial Blood Potassium 3.6 (3.6-5.2) mmol/L Laboratory Results - last 24 hr 05/14/17 05/14/17 05/14/17 11:30 15:45 17:44 WBC RBC Hgb Hct MCV MCH MCHC RDW Plt Count MPV Neut % (Auto) Lymph % (Auto) [place] % (Auto) Eos % (Auto) Baso % (Auto) Neut # Lymph # [place] # Eos # Baso # Puncture Site Rra pCO2 41 pO2 128 H HCO3 27.5 ABG pH 7.44 ABG Total CO2 29.1 H ABG O2 Saturation 99.7 H ABG Base Excess 3.3 H ABG Hemoglobin ABG Carboxyhemoglobin POC ABG HHb (Measured) ABG Methemoglobin Evans Test Ps ABG Potassium 3.6 A-a O2 Difference 70.0 Respiratory Index 0.5 Hgb O2 Saturation Sodium 141.0 Chloride 111.0 H Glucose 134 H Lactate 1.2 Vent Mode Prvc Mechanical Rate 12 FiO2 35.0 Tidal Volume 400 PEEP 5 Potassium Carbon Dioxide Anion Gap BUN Creatinine Est GFR ( Amer) Est GFR (Non-Af Amer) POC Glucose (mg/dL) 137 H 139 H Random Glucose Calcium Phosphorus Magnesium Total Bilirubin AST ALT Alkaline Phosphatase Total Protein Albumin Globulin Albumin/Globulin Ratio Arterial Blood Potassium 3.6 05/14/17 05/15/17 05/15/17 23:23 05:05 05:24 WBC RBC Hgb Hct MCV MCH MCHC RDW Plt Count MPV Neut % (Auto) Lymph % (Auto) [place] % (Auto) Eos % (Auto) Baso % (Auto) Neut # Lymph # [place] # Eos # Baso # Puncture Site Rr pCO2 39 pO2 85 HCO3 28.3 H ABG pH 7.47 H ABG Total CO2 29.6 H ABG O2 Saturation 98.9 H ABG Base Excess 4.4 H ABG Hemoglobin 11.2 L ABG Carboxyhemoglobin 2.1 H POC ABG HHb (Measured) 1.1 ABG Methemoglobin 1.1 Evans Test Pos ABG Potassium A-a O2 Difference 116.0 Respiratory Index 1.4 Hgb O2 Saturation 95.7 Sodium Chloride Glucose Lactate Vent Mode Prvc Mechanical Rate 12 FiO2 35.0 Tidal Volume 400 PEEP 5 Potassium Carbon Dioxide Anion Gap BUN Creatinine Est GFR ( Amer) Est GFR (Non-Af Amer) POC Glucose (mg/dL) 189 H 165 H Random Glucose Calcium Phosphorus Magnesium Total Bilirubin AST ALT Alkaline Phosphatase Total Protein Albumin Globulin Albumin/Globulin Ratio Arterial Blood Potassium 05/15/17 05/15/17 05:59 05:59 WBC 13.1 H RBC 3.85 Hgb 11.1 Hct 33.8 L MCV 87.8 MCH 28.8 MCHC 32.8 L RDW 14.4 Plt Count 187 MPV 8.4 Neut % (Auto) 82.0 H Lymph % (Auto) 12.1 L [place] % (Auto) 3.9 Eos % (Auto) 1.9 Baso % (Auto) 0.1 Neut # 10.7 H Lymph # 1.6 [place] # 0.5 Eos # 0.2 Baso # 0.0 Puncture Site pCO2 pO2 HCO3 ABG pH ABG Total CO2 ABG O2 Saturation ABG Base Excess ABG Hemoglobin ABG Carboxyhemoglobin POC ABG HHb (Measured) ABG Methemoglobin Evans Test ABG Potassium A-a O2 Difference Respiratory Index Hgb O2 Saturation Sodium 138 Chloride 103 Glucose Lactate Vent Mode Mechanical Rate FiO2 Tidal Volume PEEP Potassium 3.4 L Carbon Dioxide 27 Anion Gap 11 BUN 25 H Creatinine 0.4 L Est GFR ( Amer) > 60 Est GFR (Non-Af Amer) > 60 POC Glucose (mg/dL) Random Glucose 141 H Calcium 7.7 L Phosphorus 3.2 Magnesium 1.6 Total Bilirubin 0.3 AST 59 H D ALT 141 H Alkaline Phosphatase 82 Total Protein 5.8 L Albumin 2.8 L Globulin 3.0 Albumin/Globulin Ratio 0.9 L Arterial Blood Potassium Fingerstick Blood Sugar Results: 165 Critical Care Progress Note - Ventilator Checklist Daily Sedation Vacation: Yes Daily Assessment of Readiness to Wean: Yes Daily Spontaneous Breathing Trial: Yes PUD Prophalyxis: Yes DVT Prophylaxis: Yes Oral Care with Chlorhexidine Gluconate {CHG}: Yes - Nutrition Nutrition: Nutrition Category Date Time Status NPO Diet [DIET] Diets 05/17/17 Breakfast Active Assessment/Plan - Assessment and Plan (Free Text) Plan: -Altered Mental Status: chronic no change, continue AED, swithc from IV to Po keppra, check keppra level -Sepsis: Sputum culture, E. coli, seisitive to aztreonam, d/c vanco, WBC decreasing, Cuff pressure on et tube low, advised to keep cuff pressure keep b.w 20-25 -send sputum for culture -family advised to trach on wednesday, surgery informed. -hemodynamically stable -continue dvt/pud ppx -continue skin care as per protocol -replace potassium -constipaition, despite dulcolax, no BM, will start lactulose d/w nursing cc time 35 minutes - Date & Time Date: 05/15/17 Time: 10:35
--- NOTE | 2017-05-15 12:22 | RAD ---
HISTORY: intubated COMPARISON: No prior. FINDINGS: In situ ETT, tip of which lies approximately 3.05 cm above carlos. Left IJ central venous line with tip in the brachiocephalic vein again noted LUNGS: Pulmonary edema/ CHF with bilateral lower lobe alveolar-type infiltrates and bilateral effusions. PLEURA: No significant pleural effusion identified, no pneumothorax apparent. CARDIOVASCULAR: Normal. OSSEOUS STRUCTURES: No significant abnormalities. VISUALIZED UPPER ABDOMEN: Normal. OTHER FINDINGS: None. IMPRESSION: Support lines and tubes as above. Pulmonary edema/ CHF with bilateral lower lobe alveolar-type infiltrates and bilateral effusions.
--- NOTE | 2017-05-15 13:55 | CP.PCM.PN ---
Subjective - Date & Time of Evaluation Date of Evaluation: 05/15/17 Time of Evaluation: 10:00 - Subjective Subjective: Seen and examined patient is not responding d/w RN,NO BM Objective - Vital Signs/Intake and Output Vital Signs (last 24 hours): Temp Pulse Resp BP Pulse Ox 97.1 F L 82 15 114/67 93 L 05/15/17 12:00 05/15/17 12:08 05/15/17 12:08 05/15/17 12:08 05/15/17 12:08 Intake and Output: 05/15/17 05/15/17 06:59 18:59 Intake Total 980 420 Output Total 120 300 Balance 860 120 - Medications Medications: Current Medications Acetaminophen (Tylenol 650mg/20.3ml Solution Ud) 975 mg PEG Q6 PRN PRN Reason: Rigors Last Admin: 05/08/17 09:50 Dose: 975 mg Albuterol/Ipratropium (Duoneb 3 Mg/0.5 Mg (3 Ml) Ud) 3 ml INH RQ6 [facility] Last Admin: 05/15/17 13:05 Dose: 3 ml Artificial Tears (Lacri-Lube) 0 gm OU Q4 [facility] Last Admin: 05/15/17 12:08 Dose: 3.5 gm Ascorbic Acid (Vitamin C 500 Mg Tab) 500 mg PO DAILY [facility] Aspirin (Aspirin Chewable) 81 mg PEG DAILY [facility] Last Admin: 05/15/17 09:03 Dose: 81 mg Enoxaparin Sodium (Lovenox) 40 mg SC DAILY [facility] Last Admin: 05/15/17 09:03 Dose: 40 mg Aztreonam 1 gm/ Sodium (Chloride) 50 mls @ 100 mls/hr IVPB Q8H [facility] Last Admin: 05/15/17 10:50 Dose: 100 mls/hr Lactulose (Enulose) 20 gm NG HS PRN PRN Reason: Constipation Levetiracetam (Keppra) 750 mg NG BID [facility] Multivitamins/Vitamin C (Multi-Delyn Liquid) 5 ml PO DAILY [facility] Pantoprazole Sodium (Protonix Susp) 40 mg PO 0600 [facility] Last Admin: 05/15/17 06:07 Dose: 40 mg Polyethylene Glycol (Miralax) 17 gm GT DAILY [facility] Zinc Sulfate (Zinc Sulfate 220 Mg Cap) 220 mg PO DAILY [facility] - Labs Labs: 05/15/17 05:59 11/25/17 05:59 PT 15.1 SECONDS (9.7-12.2) H 05/09/17 17:57 INR 1.3 05/09/17 17:57 APTT 35 SECONDS (21-34) H 05/09/17 17:57 - Constitutional Appears: No Acute Distress - Head Exam Head Exam: ATRAUMATIC - Eye Exam Eye Exam: Normal appearance - ENT Exam ENT Exam: Mucous Membranes Moist - Neck Exam Neck Exam: absent: Full ROM (intubated) - Respiratory Exam Respiratory Exam: Clear to Ausculation Bilateral, NORMAL BREATHING PATTERN - Cardiovascular Exam Cardiovascular Exam: REGULAR RHYTHM - GI/Abdominal Exam GI & Abdominal Exam: Normal Bowel Sounds - Extremities Exam Extremities Exam: Pedal Edema. absent: Normal Inspection (edema) - Neurological Exam Neurological Exam: Awake, Oriented x3 - Psychiatric Exam Psychiatric exam: absent: Normal Affect - Skin Skin Exam: Dry Assessment and Plan - Assessment and Plan (Free Text) Assessment: T his is a 57F with PMH early onset dementia, seizures, and questionable asthma who was brought to the ED via EMS from her residential, [facility], where she was witnessed cardiopulmonary arrest. EMS intubated the patient in the field.At ED patient was having myoclonic jerks and code freeze was initiated. Patient remained intubated and patient was admitted to the ICU. As per her daughter and her . Her dementia started 7 years ago.Last two year she was in the NH,nonverbal,some days she is responsive/look at family members Plan: 1) s/p cardiopulmonary arrest Intubated and remain on Vent support,comatose CT head 05/10 - New low attenuation in the right caudate nucleus head indicating possible acute/subacute infarct. Repeat Head Ct 05/12 - No evidence of significant interval change when compared to the previous study dated 05/10/2017. No evidence of acute intracranial bleeding On Asprin s/p code freeze,continue duoneb d/w Daughter yesterday ,full code,trach on Wednesday Wean as per critical care MD 2) Pneumonia WBC is coming down Trach cultures Ecoli sensitive to Aztreo Continue Aztreonam ( day #7) follow repeat trach culture 3) History of early onset dementia starting 5 years ago as per daughter 4) Seizure disorder, unspecified patient was taking Keppra and Lamotrigine switch to oral Keppra 5) History of Asthma 6) DVT and GI prophylasix protonix and lovenox On Tube feedings, Jevity 1.5.
[2017-05-15] MEDS: levETIRAcetam 100 mg/ml (5ml) Oral Syringe NG SCH (17:33)
--- NOTE | 2017-05-15 22:21 | CP.PCM.PN ---
Subjective - Date & Time of Evaluation Date of Evaluation: 05/15/17 Time of Evaluation: 11:00 - Subjective Subjective: Patient seen and evaluated No improvement in clinical condition Unresponsive Physical Examination - Head Exam Head Exam: ATRAUMATIC - Eye Exam Eye Exam: Normal appearance - ENT Exam ENT Exam: Mucous Membranes Moist - Respiratory Exam Respiratory Exam: Clear to Ausculation Bilateral - Cardiovascular Exam Cardiovascular Exam: REGULAR RHYTHM - GI/Abdominal Exam GI & Abdominal Exam: Soft, Normal Bowel Sounds - Exam External exam: NORMAL EXTERNAL EXAM - Back Exam Back Exam: NORMAL INSPECTION - Neurological Exam Neurological Exam: absent: Alert - Psychiatric Exam Psychiatric exam: absent: Normal Mood - Skin Skin Exam: Dry Objective - Vital Signs/Intake and Output Vital Signs (last 24 hours): Temp Pulse Resp BP Pulse Ox 97.1 F L 83 21 111/60 100 05/15/17 20:00 05/15/17 22:00 05/15/17 22:00 05/15/17 21:06 05/15/17 22:00 Intake and Output: 05/15/17 05/16/17 18:59 06:59 Intake Total 760 210 Output Total 400 1 Balance 360 209 - Medications Medications: Current Medications Acetaminophen (Tylenol 650mg/20.3ml Solution Ud) 975 mg PEG Q6 PRN PRN Reason: Rigors Last Admin: 05/08/17 09:50 Dose: 975 mg Albuterol/Ipratropium (Duoneb 3 Mg/0.5 Mg (3 Ml) Ud) 3 ml INH RQ6 [facility] Last Admin: 05/15/17 19:33 Dose: 3 ml Artificial Tears (Lacri-Lube) 0 gm OU Q4 [facility] Last Admin: 05/15/17 19:15 Dose: 3.5 gm Ascorbic Acid (Vitamin C 500 Mg Tab) 500 mg PO DAILY [facility] Aspirin (Aspirin Chewable) 81 mg PEG DAILY [facility] Last Admin: 05/15/17 09:03 Dose: 81 mg Enoxaparin Sodium (Lovenox) 40 mg SC DAILY [facility] Last Admin: 05/15/17 09:03 Dose: 40 mg Aztreonam 1 gm/ Sodium (Chloride) 50 mls @ 100 mls/hr IVPB Q8H [facility] Last Admin: 05/15/17 18:06 Dose: 100 mls/hr Lactulose (Enulose) 20 gm NG HS PRN PRN Reason: Constipation Levetiracetam (Keppra) 750 mg NG BID [facility] Last Admin: 05/15/17 17:33 Dose: 750 mg Multivitamins/Vitamin C (Multi-Delyn Liquid) 5 ml PO DAILY [facility] Pantoprazole Sodium (Protonix Susp) 40 mg PO 0600 [facility] Last Admin: 05/15/17 06:07 Dose: 40 mg Polyethylene Glycol (Miralax) 17 gm GT DAILY [facility] Zinc Sulfate (Zinc Sulfate 220 Mg Cap) 220 mg PO DAILY [facility] - Labs Labs: 05/15/17 05:59 05/15/17 05:59 PT 15.1 SECONDS (9.7-12.2) H 05/09/17 17:57 INR 1.3 05/09/17 17:57 APTT 35 SECONDS (21-34) H 05/09/17 17:57 Assessment and Plan - Assessment and Plan (Free Text) Assessment: This is a 57F with PMH early onset dementia, seizures, and questionable asthma who was brought to the ED via EMS from her halfway, [facility], where she was witnessed cardiopulmonary arrest. EMS intubated the patient in the field.At ED patient was having myoclonic jerks and code freeze was initiated. Patient remained intubated and patient was admitted to the ICU. Her dementia started 7 years ago.Last two year she was in the NH,nonverbal,some days she is responsive/look at family members Plan: 1) s/p cardiopulmonary arrest Intubated and remain on Vent support,comatose Abnormal CT brain .Repeat CT acute/subacute infarct asprin added d/w Dr Hidalgo.Patient has poor prognosis, Brain changes could be due anoxia brain injury s/p code freeze,continue solumedrol and duoneb D/W at bedside.We will talk to her daughter again palliative care consult Continue asprin 2) Pneumonia and elevated wbc follow cultures Continue Aztrenonam and Vancomcyin continue duoneb and steroid 3) History of early onset dementia starting 5 years ago as per daughter 4) Seizure disorder, unspecified patient was taking Keppra and Lamotrigine On Keppra 750mg IVQ12H 5) History of Asthma 6) DVT and GI prophylasix protonix and lovenox
[2017-05-16] MEDS: White Petrolatum/Mineral Oil Ophth Oint(3.5 gm) OU SCH ×6 (00:28→21:00)
[2017-05-16] MEDS: Albuterol-Ipratrop 3 mg / 0.5 (3 ml) UD INH SCH ×4 (01:45→21:09)
[2017-05-16] MEDS: Pantoprazole 40 mg Susp UD PO SCH (06:24)
[2017-05-16 06:37] LABS: ABG MECHANICAL RATE 12; ARTERIAL BLOOD GAS MODE PRVC; ARTERIAL BLOOD HGB O2 SAT 91.3 % (95.0-98.0); ATERIAL BLOOD GAS PEEP 5; CARBOXYHEMOGLOBIN 1.9 % (0.5-1.5); DRAW SITE RB; HHB 5.7 % (0.0-5.0)
[2017-05-16 06:40] LABS: BASO % 0.1 % (0.0-2.0); EOS # 0.2 K/uL (0.0-0.7); EOS % 2.2 % (0.0-4.0); HEMATOCRIT 34.4 % (34.0-47.0); LYMPH # 1.2 K/uL (1.0-4.3); LYMPH % 11.8 % (20.0-40.0); MEAN CORPUSCULAR HEMOGLOBIN 29.2 pg (27.0-31.0); MEAN CORPUSCULAR HGB CONC 33.6 g/dL (33.0-37.0); MEAN PLATELET VOLUME 8.6 fL (7.2-11.7); MONO # 0.4 K/uL (0.0-0.8); MONO % 3.8 % (0.0-10.0); RED CELL DISTRIBUTION WIDTH 14.1 % (11.5-14.5); WHITE BLOOD COUNT 10.3 K/uL (4.8-10.8)
[2017-05-16 06:54] LABS: ALB/GLOB RATIO 0.9 (1.0-2.1); ALKALINE PHOSPHATASE 85 U/L (38-126); ALT/SGPT 141 U/L (9-52); AST/SGOT 61 U/L (14-36); BILIRUBIN,TOTAL 0.3 mg/dL (0.2-1.3); BLOOD UREA NITROGEN 16 mg/dL (7-17); CALCIUM 7.9 mg/dl (8.6-10.4); CARBON DIOXIDE 26 mmol/L (22-30); CHLORIDE 100 mmol/L (98-107); GFR AFRICAN-AMERICAN > 60; GLUCOSE,RANDOM 125 mg/dL (65-105); MAGNESIUM 1.4 mg/dL (1.6-2.3); PHOSPHOROUS 2.5 mg/dL (2.5-4.5); POTASSIUM 3.8 mmol/L (3.6-5.2); SODIUM 134 mmol/L (132-148); TOTAL PROTEIN 5.7 g/dL (6.3-8.3)
[2017-05-16] MEDS ORDERED: Magnesium Sulfate 1 gm in D5W 1 GM/100 ML BAG IVPB ONE (09:00)
[2017-05-16] MEDS: POLYETHYLENE GLYCOL 3350 17 GM/Dose PACKET GT SCH (09:11)
[2017-05-16] MEDS: Enoxaparin 40 mg Syringe SC SCH (09:11)
[2017-05-16] MEDS: levETIRAcetam 100 mg/ml (5ml) Oral Syringe NG SCH ×2 (09:14→18:36)
[2017-05-16] MEDS: Multiple Vitamins Oral Solution PO SCH (09:15)
--- NOTE | 2017-05-16 09:24 | CP.PCM.PN ---
Subjective - Date & Time of Evaluation Date of Evaluation: 05/16/17 Time of Evaluation: 08:15 - Subjective Subjective: Seen and examined He eyes opened , no eye contact. Unable to follow commands and unresponsive on PRVC mode. PEG tube with Jevity 1.5 feeding at bedside.d/w Objective - Vital Signs/Intake and Output Vital Signs (last 24 hours): Temp Pulse Resp BP Pulse Ox 98 F 79 13 134/78 100 05/16/17 04:00 05/16/17 07:00 05/16/17 07:00 05/16/17 06:06 05/16/17 07:00 Intake and Output: 05/16/17 05/16/17 06:59 18:59 Intake Total 580 40 Output Total 701 Balance -121 40 - Medications Medications: Current Medications Acetaminophen (Tylenol 650mg/20.3ml Solution Ud) 975 mg PEG Q6 PRN PRN Reason: Rigors Last Admin: 05/08/17 09:50 Dose: 975 mg Albuterol/Ipratropium (Duoneb 3 Mg/0.5 Mg (3 Ml) Ud) 3 ml INH RQ6 [facility] Last Admin: 05/16/17 07:41 Dose: 3 ml Artificial Tears (Lacri-Lube) 0 gm OU Q4 [facility] Last Admin: 05/16/17 08:04 Dose: 3.5 gm Ascorbic Acid (Vitamin C 500 Mg Tab) 500 mg PO DAILY [facility] Last Admin: 05/16/17 09:13 Dose: 500 mg Aspirin (Aspirin Chewable) 81 mg PEG DAILY [facility] Last Admin: 05/15/17 09:03 Dose: 81 mg Enoxaparin Sodium (Lovenox) 40 mg SC DAILY [facility] Last Admin: 05/16/17 09:11 Dose: 40 mg Aztreonam 1 gm/ Sodium (Chloride) 50 mls @ 100 mls/hr IVPB Q8H [facility] Last Admin: 05/16/17 02:02 Dose: 100 mls/hr Magnesium Sulfate/Dextrose (Magnesium Sulfate 1 Gm/100 Ml D5w) 1 gm in 100 mls @ 100 mls/hr IVPB ONCE ONE Stop: 05/16/17 09:59 Last Admin: 05/16/17 09:09 Dose: 100 mls/hr Lactulose (Enulose) 20 gm NG HS PRN PRN Reason: Constipation Levetiracetam (Keppra) 750 mg NG BID [facility] Last Admin: 05/16/17 09:14 Dose: 750 mg Multivitamins/Vitamin C (Multi-Delyn Liquid) 5 ml PO DAILY [facility] Last Admin: 05/16/17 09:15 Dose: 5 ml Pantoprazole Sodium (Protonix Susp) 40 mg PO 0600 [facility] Last Admin: 05/16/17 06:24 Dose: 40 mg Polyethylene Glycol (Miralax) 17 gm GT DAILY [facility] Last Admin: 05/16/17 09:11 Dose: 17 gm Zinc Sulfate (Zinc Sulfate 220 Mg Cap) 220 mg PO DAILY [facility] Last Admin: 05/16/17 09:12 Dose: 220 mg - Labs Labs: 05/16/17 06:30 05/16/17 06:30 PT 15.1 SECONDS (9.7-12.2) H 05/09/17 17:57 INR 1.3 05/09/17 17:57 APTT 35 SECONDS (21-34) H 05/09/17 17:57 - Constitutional Appears: Chronically Ill - Eye Exam Eye Exam: Normal appearance - ENT Exam ENT Exam: Mucous Membranes Moist - Neck Exam Neck Exam: absent: Full ROM (intubated) - Respiratory Exam Respiratory Exam: Clear to Ausculation Bilateral - GI/Abdominal Exam GI & Abdominal Exam: Soft, Normal Bowel Sounds - Extremities Exam Extremities Exam: absent: Full ROM (unresponsive,edema) - Neurological Exam Neurological Exam: absent: Oriented x3 (unresponsive) - Psychiatric Exam Psychiatric exam: absent: Normal Affect (unresponsive) - Skin Skin Exam: Normal Color Assessment and Plan - Assessment and Plan (Free Text) Assessment: T his is a 57F with PMH early onset dementia, seizures, and questionable asthma who was brought to the ED via EMS from her senior living, [facility], where she was witnessed cardiopulmonary arrest. EMS intubated the patient in the field.At ED patient was having myoclonic jerks and code freeze was initiated. Patient remained intubated and patient was admitted to the ICU. As per her daughter and her her dementia started 7 years ago.Last two year she was in the NH,nonverbal,some days she is responsive/look at family members Plan: 1) s/p cardiopulmonary arrest Intubated and remain on Vent support,comatose.s/p CPAP trial CT head 05/10 - New low attenuation in the right caudate nucleus head indicating possible acute/subacute infarct. Repeat Head Ct 05/12 - No evidence of significant interval change when compared to the previous study dated 05/10/2017. No evidence of acute intracranial bleeding On Asprin s/p code freeze,continue duoneb d/w Daughter yesterday ,full code,trach on Wednesday Wean as per critical care MD 2) Pneumonia WBC is coming down Trach cultures Ecoli sensitive to Aztreo Continue Aztreonam ( day #7) follow repeat trach culture 3) History of early onset dementia starting 5 years ago as per daughter 4) Seizure disorder, unspecified patient was taking Keppra and Lamotrigine switch to oral Keppra 5) History of Asthma 6) DVT and GI prophylasix protonix and lovenox On Tube feedings, Jevity 1.5. 7.Low magnesium-replace
--- NOTE | 2017-05-16 12:14 | CP.PCM.PN ---
Subjective - Date & Time of Evaluation Date of Evaluation: 05/16/17 Time of Evaluation: 06:50 - Subjective Subjective: General Surgery- Dr. Monge Pt S&E at bedside this AM. No acute events overnight. Pt intubated w/ no family members at bedside at this time. unable to obtain ROS. PEEP 5, TV 400, FIO2 35 Objective - Vital Signs/Intake and Output Vital Signs (last 24 hours): Temp Pulse Resp BP Pulse Ox 97.5 F L 74 16 123/75 100 05/16/17 08:00 05/16/17 11:05 05/16/17 11:05 05/16/17 11:05 05/16/17 11:05 Intake and Output: 05/16/17 05/16/17 06:59 18:59 Intake Total 580 400 Output Total 701 250 Balance -121 150 - Medications Medications: Current Medications Acetaminophen (Tylenol 650mg/20.3ml Solution Ud) 975 mg PEG Q6 PRN PRN Reason: Rigors Last Admin: 05/08/17 09:50 Dose: 975 mg Albuterol/Ipratropium (Duoneb 3 Mg/0.5 Mg (3 Ml) Ud) 3 ml INH RQ6 [facility] Last Admin: 05/16/17 07:41 Dose: 3 ml Artificial Tears (Lacri-Lube) 0 gm OU Q4 [facility] Last Admin: 05/16/17 12:00 Dose: 3.5 gm Ascorbic Acid (Vitamin C 500 Mg Tab) 500 mg PO DAILY [facility] Last Admin: 05/16/17 09:13 Dose: 500 mg Aspirin (Aspirin Chewable) 81 mg PEG DAILY [facility] Last Admin: 05/16/17 09:23 Dose: 81 mg Aztreonam 1 gm/ Sodium (Chloride) 50 mls @ 100 mls/hr IVPB Q8H [facility] Last Admin: 05/16/17 10:31 Dose: 100 mls/hr Lactulose (Enulose) 20 gm NG HS PRN PRN Reason: Constipation Levetiracetam (Keppra) 750 mg NG BID [facility] Last Admin: 05/16/17 09:14 Dose: 750 mg Multivitamins/Vitamin C (Multi-Delyn Liquid) 5 ml PO DAILY [facility] Last Admin: 05/16/17 09:15 Dose: 5 ml Pantoprazole Sodium (Protonix Susp) 40 mg PO 0600 [facility] Last Admin: 05/16/17 06:24 Dose: 40 mg Polyethylene Glycol (Miralax) 17 gm GT DAILY [facility] Last Admin: 05/16/17 09:11 Dose: 17 gm Zinc Sulfate (Zinc Sulfate 220 Mg Cap) 220 mg PO DAILY [facility] Last Admin: 05/16/17 09:12 Dose: 220 mg - Labs Labs: 05/16/17 06:30 05/16/17 06:30 PT 15.1 SECONDS (9.7-12.2) H 05/09/17 17:57 INR 1.3 05/09/17 17:57 APTT 35 SECONDS (21-34) H 05/09/17 17:57 - Constitutional Appears: No Acute Distress, Chronically Ill - Head Exam Head Exam: ATRAUMATIC - Eye Exam Eye Exam: absent: Scleral icterus - ENT Exam ENT Exam: Mucous Membranes Moist - Respiratory Exam Respiratory Exam: NORMAL BREATHING PATTERN. absent: Accessory Muscle Use, Respiratory Distress Additional comments: On Vent - Cardiovascular Exam Cardiovascular Exam: +S1, +S2. absent: Bradycardia, Tachycardia - GI/Abdominal Exam GI & Abdominal Exam: Soft. absent: Distended, Firm, Guarding, Rigid, Tenderness - Neurological Exam Additional comments: Intubated, unresponsive to verbal command - Skin Skin Exam: Intact, Warm Assessment and Plan - Assessment and Plan (Free Text) Assessment: 57F respiratory failure on Vent - OR tomorrow for Perc Trach - optimize medically for procedure - medical management per ICU - discussed w/ Dr. Mariposa Avendano PGY1
--- NOTE | 2017-05-16 12:53 | CP.PCM.PN ---
Subjective - Date & Time of Evaluation Date of Evaluation: 05/16/17 Time of Evaluation: 12:46 - Subjective Subjective: No events. Patient unresponsive. Objective - Vital Signs/Intake and Output Vital Signs (last 24 hours): Temp Pulse Resp BP Pulse Ox 97.5 F L 74 16 123/75 100 05/16/17 08:00 05/16/17 11:05 05/16/17 11:05 05/16/17 11:05 05/16/17 11:05 Intake and Output: 05/16/17 05/16/17 06:59 18:59 Intake Total 580 400 Output Total 701 250 Balance -121 150 - Medications Medications: Current Medications Acetaminophen (Tylenol 650mg/20.3ml Solution Ud) 975 mg PEG Q6 PRN PRN Reason: Rigors Last Admin: 05/08/17 09:50 Dose: 975 mg Albuterol/Ipratropium (Duoneb 3 Mg/0.5 Mg (3 Ml) Ud) 3 ml INH RQ6 [facility] Last Admin: 05/16/17 07:41 Dose: 3 ml Artificial Tears (Lacri-Lube) 0 gm OU Q4 [facility] Last Admin: 05/16/17 12:00 Dose: 3.5 gm Ascorbic Acid (Vitamin C 500 Mg Tab) 500 mg PO DAILY [facility] Last Admin: 05/16/17 09:13 Dose: 500 mg Aspirin (Aspirin Chewable) 81 mg PEG DAILY [facility] Last Admin: 05/16/17 09:23 Dose: 81 mg Aztreonam 1 gm/ Sodium (Chloride) 50 mls @ 100 mls/hr IVPB Q8H [facility] Last Admin: 05/16/17 10:31 Dose: 100 mls/hr Lactulose (Enulose) 20 gm NG HS PRN PRN Reason: Constipation Levetiracetam (Keppra) 750 mg NG BID [facility] Last Admin: 05/16/17 09:14 Dose: 750 mg Multivitamins/Vitamin C (Multi-Delyn Liquid) 5 ml PO DAILY [facility] Last Admin: 05/16/17 09:15 Dose: 5 ml Pantoprazole Sodium (Protonix Susp) 40 mg PO 0600 [facility] Last Admin: 05/16/17 06:24 Dose: 40 mg Polyethylene Glycol (Miralax) 17 gm GT DAILY [facility] Last Admin: 05/16/17 09:11 Dose: 17 gm Zinc Sulfate (Zinc Sulfate 220 Mg Cap) 220 mg PO DAILY [facility] Last Admin: 05/16/17 09:12 Dose: 220 mg - Labs Labs: 05/16/17 06:30 05/16/17 06:30 PT 15.1 SECONDS (9.7-12.2) H 05/09/17 17:57 INR 1.3 05/09/17 17:57 APTT 35 SECONDS (21-34) H 05/09/17 17:57 - Additional Findings Additional findings: * HEENT no corneal reflex, involuntary blinking, no pupillary reflex * Neck supple * Chest reduced air entry in basis * CVS regular * PA soft * Ext 1+ edema * Skin edematous * FOOD AND BEVERAGE ASSISTANT unresponsive, no gag above Assessment and Plan - Assessment and Plan (Free Text) Assessment: * Anoxic brain injury s/p hypothermia * Severe early onset dementia, bed bound, noncommunicative prior to event * PNA post event, e coli on Aztreonam * GI/DVT prophylaxis * Vent dependent at this time family planning trache, will discuss with daughter and the understanding and expectation of the patient's condition as patient patient's abilities prior to the event were still very limited due to advance early onset dementia * Low mag replaced.
--- NOTE | 2017-05-16 13:45 | PN ---
DATE: 05/16/2017 NEUROLOGICAL PROBLEM: Anoxic encephalopathy status post myoclonic seizures. PHYSICAL EXAMINATION: VITAL SIGNS: Blood pressure 125/75, mean arterial pressure of 90, respirations 16. The patient is on vent. GENERAL: The patient is examined in the presence of her . The patient is comatose. HEENT: Eyes are partially opened. No corneal reflex. No oculocephalic noted. EXTREMITIES: No spontaneous movement noted in both upper and lower extremities. NEUROLOGIC: Her tone, deep tendon reflexes and plantars are mute. The patient obtained irreversible VENDING ATTENDANT insult. Depending on the family's request further treatment will be followed. No reasonable reversible VENDING ATTENDANT insult from my experience after this anoxic insult. Her seizure is being controlled with the medication. The patient is a good candidate for tracheostomy for long-term management. Kev Hidalgo MD
--- NOTE | 2017-05-16 17:26 | RAD ---
HISTORY: intubated COMPARISON: No prior. FINDINGS: In situ endotracheal tube, tip of which lies approximately 5.34 cm above carlos. Left IJ central venous line with tip in the SVC/brachiocephalic junction oriented at approximately 45 degrees angle to the long axis of the SVC. LUNGS: Persistent mild pulmonary edema/ CHF and bilateral effusions - bibasilar atelectasis right greater than left. PLEURA: No significant pleural effusion identified, no pneumothorax apparent. CARDIOVASCULAR: Normal. OSSEOUS STRUCTURES: No significant abnormalities. VISUALIZED UPPER ABDOMEN: Normal. OTHER FINDINGS: None. IMPRESSION: Support lines and tubes as above. Persistent mild central pulmonary vascular congestion with bilateral effusions - bibasilar atelectasis right greater than left.
--- NOTE | 2017-05-16 19:47 | CP.PCM.PN ---
Subjective - Date & Time of Evaluation Date of Evaluation: 05/16/17 Time of Evaluation: 18:30 - Subjective Subjective: Patient seen and evaluated Unresponsive Daughter at bedside Poor prognosis Physical Examination - Head Exam Head Exam: ATRAUMATIC - Eye Exam Eye Exam: Normal appearance - ENT Exam ENT Exam: Mucous Membranes Moist - Respiratory Exam Respiratory Exam: Clear to Ausculation Bilateral - Cardiovascular Exam Cardiovascular Exam: REGULAR RHYTHM - GI/Abdominal Exam GI & Abdominal Exam: Soft, Normal Bowel Sounds - Exam External exam: NORMAL EXTERNAL EXAM - Back Exam Back Exam: NORMAL INSPECTION - Neurological Exam Neurological Exam: absent: Alert - Psychiatric Exam Psychiatric exam: absent: Normal Mood - Skin Skin Exam: Dry Objective - Vital Signs/Intake and Output Vital Signs (last 24 hours): Temp Pulse Resp BP Pulse Ox 97.4 F L 74 13 127/79 100 05/16/17 12:00 05/16/17 15:05 05/16/17 15:05 05/16/17 15:05 05/16/17 15:05 Intake and Output: 05/16/17 05/17/17 18:59 06:59 Intake Total 560 Output Total 700 Balance -140 - Medications Medications: Current Medications Acetaminophen (Tylenol 650mg/20.3ml Solution Ud) 975 mg PEG Q6 PRN PRN Reason: Rigors Last Admin: 05/08/17 09:50 Dose: 975 mg Albuterol/Ipratropium (Duoneb 3 Mg/0.5 Mg (3 Ml) Ud) 3 ml INH RQ6 [facility] Last Admin: 05/16/17 13:06 Dose: Not Given Artificial Tears (Lacri-Lube) 0 gm OU Q4 [facility] Last Admin: 05/16/17 16:00 Dose: 3.5 gm Ascorbic Acid (Vitamin C 500 Mg Tab) 500 mg PO DAILY [facility] Last Admin: 05/16/17 09:13 Dose: 500 mg Aspirin (Aspirin Chewable) 81 mg PEG DAILY [facility] Last Admin: 05/16/17 09:23 Dose: 81 mg Aztreonam 1 gm/ Sodium (Chloride) 50 mls @ 100 mls/hr IVPB Q8H [facility] Last Admin: 05/16/17 19:43 Dose: 100 mls/hr Lactulose (Enulose) 20 gm NG HS PRN PRN Reason: Constipation Levetiracetam (Keppra) 750 mg NG BID [facility] Last Admin: 05/16/17 18:36 Dose: 750 mg Multivitamins/Vitamin C (Multi-Delyn Liquid) 5 ml PO DAILY [facility] Last Admin: 05/16/17 09:15 Dose: 5 ml Pantoprazole Sodium (Protonix Susp) 40 mg PO 0600 [facility] Last Admin: 05/16/17 06:24 Dose: 40 mg Polyethylene Glycol (Miralax) 17 gm GT DAILY [facility] Last Admin: 05/16/17 09:11 Dose: 17 gm Zinc Sulfate (Zinc Sulfate 220 Mg Cap) 220 mg PO DAILY [facility] Last Admin: 05/16/17 09:12 Dose: 220 mg - Labs Labs: 05/16/17 06:30 05/16/17 06:30 PT 15.1 SECONDS (9.7-12.2) H 05/09/17 17:57 INR 1.3 05/09/17 17:57 APTT 35 SECONDS (21-34) H 05/09/17 17:57 Assessment and Plan - Assessment and Plan (Free Text) Assessment: This is a 57F with PMH early onset dementia, seizures, and questionable asthma who was brought to the ED via EMS from her care home, [facility], where she was witnessed cardiopulmonary arrest. EMS intubated the patient in the field.At ED patient was having myoclonic jerks and code freeze was initiated. Patient remained intubated and patient was admitted to the ICU. Her dementia started 7 years ago.Last two year she was in the NH,nonverbal,some days she is responsive/look at family members Plan: 1) s/p cardiopulmonary arrest Intubated and remain on Vent support,comatose Abnormal CT brain .Repeat CT acute/subacute infarct asprin added d/w Dr Hidalgo.Patient has poor prognosis, Brain changes could be due anoxia brain injury s/p code freeze,continue solumedrol and duoneb D/W at bedside.We will talk to her daughter again palliative care consult Continue asprin 2) Pneumonia and elevated wbc follow cultures Continue Aztrenonam and Vancomcyin continue duoneb and steroid 3) History of early onset dementia starting 5 years ago as per daughter 4) Seizure disorder, unspecified patient was taking Keppra and Lamotrigine On Keppra 750mg IVQ12H 5) History of Asthma 6) DVT and GI prophylasix protonix and lovenox
[2017-05-17] MEDS: White Petrolatum/Mineral Oil Ophth Oint(3.5 gm) OU SCH ×6 (01:00→19:50)
[2017-05-17] MEDS: Albuterol-Ipratrop 3 mg / 0.5 (3 ml) UD INH SCH ×4 (02:47→21:28)
[2017-05-17 05:57] LABS: ABG ALLEN TEST POS; ABG MECHANICAL RATE 12; ARTERIAL BLOOD GAS MODE PRVC; ARTERIAL BLOOD HGB O2 SAT 96.5 % (95.0-98.0); ATERIAL BLOOD GAS PEEP 5; CARBOXYHEMOGLOBIN 1.8 % (0.5-1.5); DRAW SITE RR; HHB 0.5 % (0.0-5.0); METHEMOGLOBIN 1.3 % (0.0-3.0)
[2017-05-17] MEDS: Pantoprazole 40 mg Susp UD PO SCH (06:00)
[2017-05-17 06:42] LABS: BASO % 0.2 % (0.0-2.0); EOS # 0.2 K/uL (0.0-0.7); HEMATOCRIT 34.5 % (34.0-47.0); LYMPH # 1.5 K/uL (1.0-4.3); LYMPH % 12.4 % (20.0-40.0); MEAN CORPUSCULAR HEMOGLOBIN 29.5 pg (27.0-31.0); MEAN CORPUSCULAR HGB CONC 34.2 g/dL (33.0-37.0); MEAN PLATELET VOLUME 8.3 fL (7.2-11.7); MONO # 0.4 K/uL (0.0-0.8); MONO % 3.5 % (0.0-10.0); NRBC % 0.1 % (0.0-2.0); RED CELL DISTRIBUTION WIDTH 13.8 % (11.5-14.5); WHITE BLOOD COUNT 11.9 K/uL (4.8-10.8)
[2017-05-17 07:18] LABS: ALB/GLOB RATIO 1.2 (1.0-2.1); ALKALINE PHOSPHATASE 87 U/L (38-126); ALT/SGPT 107 U/L (9-52); AST/SGOT 51 U/L (14-36); BILIRUBIN,TOTAL 0.7 mg/dL (0.2-1.3); BLOOD UREA NITROGEN 11 mg/dL (7-17); CALCIUM 8.3 mg/dl (8.6-10.4); CARBON DIOXIDE 28 mmol/L (22-30); CHLORIDE 98 mmol/L (98-107); GFR AFRICAN-AMERICAN > 60; GLUCOSE,RANDOM 94 mg/dL (65-105); MAGNESIUM 1.5 mg/dL (1.6-2.3); PHOSPHOROUS 3.1 mg/dL (2.5-4.5); POTASSIUM 3.8 mmol/L (3.6-5.2); SODIUM 132 mmol/L (132-148)
[2017-05-17] MEDS ORDERED: Lactated Ringer's 1,000 ML IV ONE ×2 (08:49)
--- NOTE | 2017-05-17 09:21 | CP.PCM.PN ---
Subjective - Date & Time of Evaluation Date of Evaluation: 05/17/17 Time of Evaluation: 09:10 - Subjective Subjective: Patient was seen and examined. She is currently intubated at this time. Family member Alexis is at bedside and I tried speaking with him From what I understand there are plans for a potential tracheostomy. This is my first time meeting patient, this is a 57 year old female who had a witnessed cardiac arrest while at skilled nursing. Unfortunately it appears she has had severe anoxic brain injury. There is no verbal or physical response to stimuli. She has a medical history of worsening dementia. The past week in the ICU she has remained intubated and being treated for seizures as well. Objective - Vital Signs/Intake and Output Vital Signs (last 24 hours): Temp Pulse Resp BP Pulse Ox 98.1 F 74 12 107/60 98 05/17/17 04:00 05/17/17 07:00 05/17/17 07:00 05/17/17 07:00 05/17/17 07:00 Intake and Output: 05/17/17 05/17/17 06:59 18:59 Intake Total 330 0 Output Total 200 Balance 130 0 - Medications Medications: Current Medications Acetaminophen (Tylenol 650mg/20.3ml Solution Ud) 975 mg PEG Q6 PRN PRN Reason: Rigors Last Admin: 05/08/17 09:50 Dose: 975 mg Albuterol/Ipratropium (Duoneb 3 Mg/0.5 Mg (3 Ml) Ud) 3 ml INH RQ6 [facility] Last Admin: 05/17/17 07:49 Dose: 3 ml Artificial Tears (Lacri-Lube) 0 gm OU Q4 [facility] Last Admin: 05/17/17 05:00 Dose: 3.5 gm Ascorbic Acid (Vitamin C 500 Mg Tab) 500 mg PO DAILY [facility] Last Admin: 05/16/17 09:13 Dose: 500 mg Aspirin (Aspirin Chewable) 81 mg PEG DAILY [facility] Last Admin: 05/16/17 09:23 Dose: 81 mg Aztreonam 1 gm/ Sodium (Chloride) 50 mls @ 100 mls/hr IVPB Q8H [facility] Last Admin: 05/17/17 02:20 Dose: 100 mls/hr Lactulose (Enulose) 20 gm NG HS PRN PRN Reason: Constipation Levetiracetam (Keppra) 750 mg NG BID [facility] Last Admin: 05/16/17 18:36 Dose: 750 mg Multivitamins/Vitamin C (Multi-Delyn Liquid) 5 ml PO DAILY [facility] Last Admin: 05/16/17 09:15 Dose: 5 ml Pantoprazole Sodium (Protonix Susp) 40 mg PO 0600 [facility] Last Admin: 05/17/17 06:00 Dose: Not Given Polyethylene Glycol (Miralax) 17 gm GT DAILY [facility] Last Admin: 05/16/17 09:11 Dose: 17 gm Zinc Sulfate (Zinc Sulfate 220 Mg Cap) 220 mg PO DAILY [facility] Last Admin: 05/16/17 09:12 Dose: 220 mg - Labs Labs: 05/17/17 06:20 05/17/17 06:20 PT 15.1 SECONDS (9.7-12.2) H 05/09/17 17:57 INR 1.3 05/09/17 17:57 APTT 35 SECONDS (21-34) H 05/09/17 17:57 - Constitutional Appears: Chronically Ill - Head Exam Additional comments: intubated, left IJ line - Eye Exam Eye Exam: absent: EOMI, Normal appearance - ENT Exam Additional comments: Intubated - Respiratory Exam Additional comments: Mechanical breath sounds, clear, and - Cardiovascular Exam Cardiovascular Exam: REGULAR RHYTHM - GI/Abdominal Exam GI & Abdominal Exam: Soft. absent: Distended, Firm, Guarding, Rigid, Tenderness Additional comments: PEG - Neurological Exam Neurological Exam: Altered. absent: CN II-XII Intact, Normal Gait, Oriented x3 Neuro motor strength exam: Left Upper Extremity: 0, Right Upper Extremity: 0, Left Lower Extremity: 0, Right Lower Extremity: 0 - Skin Skin Exam: Normal Color, Warm Assessment and Plan - Assessment and Plan (Free Text) Assessment: From the resident HPI: This is a 57F with PMH early onset dementia, seizures, and questionable asthma who was brought to the ED via EMS from her skilled nursing , [facility], where she was witnessed cardiopulmonary arrest. EMS intubated the patient in the field. In the ED patient was having myoclonic jerks and code freeze was initiated. Patient remained intubated and patient was admitted to the ICU. As per her daughter and her her dementia started 7 years ago. Last two year she was in the NH,nonverbal,some days she is responsive/look at family members Plan: 1) Acute Respiratory failure s/p cardiopulmonary arrest 05/17: Unfourtunately it appears patient now has anoxic brain injury and remains intubated and on mechacnile ventilator There are plans for a trachoesotym some time later today. I spoke with family at bedside who is aware of this. CT head 05/10 - New low attenuation in the right caudate nucleus head indicating possible acute/subacute infarct. Repeat Head Ct 05/12 - No evidence of significant interval change when compared to the previous study dated 05/10/2017. No evidence of acute intracranial bleeding On Asprin s/p code freeze,continue duoneb d/w Daughter yesterday ,full code,trach on Wednesday Wean as per critical care MD 2) Pneumonia 05/17: Blood cultures have been negative, there are repeat positives of + E coli from sputum/trach. On IV Aztreonam. WBC stable for now WBC is coming down Trach cultures Ecoli sensitive to Aztreo Continue Aztreonam ( day #7) 3) History of early onset dementia starting 5 years ago as per daughter 4) Seizure disorder, unspecified patient was taking Keppra and Lamotrigine switch to oral Keppra 5) History of Asthma Currently intubated 6) DVT and GI prophylasix protonix and lovenox On Tube feedings, Jevity 1.5.
[2017-05-17] MEDS ORDERED: Bupivacaine-Epi 0.25%-1:200,000 PF Inj ONE (09:29)
[2017-05-17] MEDS ORDERED: Lidocaine 1% Inj (20ml) ONE (09:29)
[2017-05-17] MEDS: Multiple Vitamins Oral Solution PO SCH (10:00)
[2017-05-17] MEDS: POLYETHYLENE GLYCOL 3350 17 GM/Dose PACKET GT SCH (10:00)
[2017-05-17] MEDS: levETIRAcetam 100 mg/ml (5ml) Oral Syringe NG SCH ×2 (10:00→18:10)
--- NOTE | 2017-05-17 11:19 | PCM.SURG1 ---
Surgeon's Initial Post Op Note - Surgeon's Notes Surgeon: Dr. Monge Radio Script Writer: Carole PGY3, Shin PGY1 Type of Anesthesia: IV Sedation Pre-Operative Diagnosis: s/p cardiac arrest, respiratory failure Operative Findings: see operative report Post-Operative Diagnosis: s/p cardiac arrest, respiratory failure Operation Performed: Open tracheostomy Specimen/Specimens Removed: N/A Estimated Blood Loss: EBL {In ML}: 5 Blood Products Given: N/A Drains Used: No Drains Post-Op Condition: Good Date of Surgery/Procedure: 05/17/17 Time of Surgery/Procedure: 10:30
[2017-05-17] MEDS ORDERED: HYDROmorphone 0.5 mg/0.5 ml ISec IVP PRN (11:20)
--- NOTE | 2017-05-17 12:08 | RAD ---
HISTORY: s/p trach COMPARISON: Comparison chest 05/16/2017. FINDINGS: In situ tracheostomy to the position. No change left IJ central venous line with the tip in the distal SVC the vertex bowel obstruction oriented 45 degrees with respect to the long axis of the SVC unchanged. LUNGS: Persistent mild improved improved vascular congestive changes. Large layering right-sided effusion and small left effusion. Suspect mild bibasilar atelectasis and/or some residual alveolar-type infiltrates. PLEURA: No significant pleural effusion identified, no pneumothorax apparent. CARDIOVASCULAR: Normal. OSSEOUS STRUCTURES: No significant abnormalities. VISUALIZED UPPER ABDOMEN: Normal. OTHER FINDINGS: None. IMPRESSION: Support lines and tubes as above. Persistent mild improved improved vascular congestive changes. Large layering right-sided effusion and small left effusion. Suspect mild bibasilar atelectasis and/or some residual alveolar-type infiltrates.
--- NOTE | 2017-05-17 13:04 | VASCLAB ---
PROCEDURE: Upper Extremity Venous Duplex Exam HISTORY: swelling PRIORS: None. TECHNIQUE: Bilateral upper extremity, internal jugular, subclavian, axillary, brachial, ulnar, radial, basilic and upper cephalic veins were evaluated. Flow was assessed with color Doppler, compressibility, assessment of phasic flow and augmentation response. Report prepared by FILEMON Richardson FINDINGS: RIGHT: 1. Internal Jugular: 1.1. Compressibility - Fully compressible: Thrombus - None : Flow - Phasic: Augmentation -Normal: Reflux - None. 2. Subclavian: 2.1. Compressibility - Incompressible: Thrombus - None : Flow - Phasic: Augmentation -Normal: Reflux - None. 3. Axillary: 3.1. Compressibility - Fully compressible: Thrombus - None : Flow - Phasic: Augmentation -Normal: Reflux - None. 4. Brachial: 4.1. Compressibility - Fully compressible: Thrombus - None: Flow - Phasic: Augmentation -Normal: Reflux - None. 5. Ulnar: 5.1. Compressibility - Fully compressible: Thrombus - None: Flow - Phasic: Augmentation -Normal: Reflux - None. 6. Radial: 6.1. Compressibility - Fully compressible: Thrombus - None: Flow - Phasic: Augmentation - Normal: Reflux - None. 7. Cephalic: 7.1. Compressibility - Fully compressible: Thrombus - None: Flow - Phasic: Augmentation -Normal: Reflux - None. 8. Basilic: 8.1. Compressibility - Fully compressible: Thrombus - None: Flow - Phasic: Augmentation -Normal: Reflux - None. LEFT: 1. Internal Jugular: 1.1. Compressibility - : Thrombus - : Flow - : Augmentation -: Reflux - . 2. Subclavian: 2.1. Compressibility - Fully compressible: Thrombus - None : Flow - Phasic: Augmentation -Normal: Reflux - None. 3. Axillary: 3.1. Compressibility - Fully compressible: Thrombus - None : Flow - Phasic: Augmentation -Normal: Reflux - None. 4. Brachial: 4.1. Compressibility - Fully compressible: Thrombus - None: Flow - Phasic: Augmentation -Normal: Reflux - None. 5. Ulnar: 5.1. Compressibility - Fully compressible: Thrombus - None: Flow - Phasic: Augmentation -Normal: Reflux - None. 6. Radial: 6.1. Compressibility - Fully compressible: Thrombus - None: Flow - Phasic: Augmentation - Normal: Reflux - None. 7. Cephalic: 7.1. Compressibility - Fully compressible: Thrombus - None: Flow - Phasic: Augmentation -Normal: Reflux - None. 8. Basilic: 8.1. Compressibility - Fully compressible: Thrombus - None: Flow - Phasic: Augmentation -Normal: Reflux - None. OTHER FINDINGS: Right: The subclavian vein was difficult to compress however the vein was patent with color fill and doppler analysis. Left: The internal jugular vein was not visualized due to line placement. IMPRESSION: Right: No evidence of vein thrombosis of the right upper extremity with excellent venous flow. Normal valve function noted of the right side. Left: No evidence of vein thrombosis of the left upper extremity with excellent venous flow. Normal valve function noted of the left side.
--- NOTE | 2017-05-17 13:06 | VASCLAB ---
PROCEDURE: Lower Extremity Venous Duplex Exam. HISTORY: leg edema PRIORS: None. TECHNIQUE: Bilateral common femoral, femoral, popliteal and posterior tibial, peroneal and great saphenous veins were evaluated. Flow was assessed with color Doppler, compressibility, assessment of phasic flow and augmentation response. Report prepared by VILLA Tyson, RVT FINDINGS: RIGHT: 1. Common Femoral Vein: 1.1. Compressibility - Fully compressible: Thrombus - None : Flow - Phasic: Augmentation -Normal: Reflux - None. 2. Femoral Vein: 2.1. Compressibility - Fully compressible: Thrombus - None : Flow - Phasic: Augmentation -Normal: Reflux - None. 3. Popliteal Vein: 3.1. Compressibility - Fully compressible: Thrombus - None : Flow - Phasic: Augmentation -Normal: Reflux - None. 4. Posterior Tibial Vein: 4.1. Compressibility - Fully compressible: Thrombus - None: Flow - Phasic: Augmentation -Normal: Reflux - None. 5. Peroneal Vein: 5.1. Compressibility - Fully compressible: Thrombus - None: Flow - Phasic: Augmentation -Normal: Reflux - None. 6. Great Saphenous Vein: 6.1. Compressibility - Fully compressible: Thrombus - None: Flow - Phasic: Augmentation - Normal: Reflux - None. LEFT: 1. Common Femoral Vein: 1.1. Compressibility - Fully compressible: Thrombus - None: Flow - Phasic: Augmentation -Normal: Reflux - None. 2. Femoral Vein: 2.1. Compressibility - Fully compressible: Thrombus - None: Flow - Phasic: Augmentation -Normal: Reflux - None. 3. Popliteal Vein: 3.1. Compressibility - Fully compressible: Thrombus - None : Flow - Phasic: Augmentation -Normal: Reflux - None. 4. Posterior Tibial Vein: 4.1. Compressibility - Fully compressible: Thrombus - None: Flow - Phasic: Augmentation -Normal: Reflux - None. 5. Peroneal Vein: 5.1. Compressibility - Fully compressible: Thrombus - None: Flow - Phasic: Augmentation -Normal: Reflux - None. 6. Great Saphenous Vein: 6.1. Compressibility - Fully compressible: Thrombus - None: Flow - Phasic: Augmentation - Normal: Reflux - None. OTHER FINDINGS: Right: None significant. Left: None significant. IMPRESSION: Right: No evidence of deep or superficial vein thrombosis of the right lower extremity. Normal valve function noted of the right side. Left: No evidence of deep or superficial vein thrombosis of the left lower extremity. Normal valve function noted of the left side.
--- NOTE | 2017-05-17 13:47 | OP ---
PROCEDURE DATE: 05/17/2017 PREOPERATIVE DIAGNOSES: 1. Ventilator-dependent respiratory failure. 2. Pneumonia. 3. Unable to wean from the ventilator. POSTOPERATIVE DIAGNOSES: 1. Ventilator-dependent respiratory failure. 2. Pneumonia. 3. Unable to wean from the ventilator. PROCEDURE DONE: 1. Percutaneous tracheostomy. 2. Bronchoscopy. SURGEON: The procedure was done by ma Dr. Monge. PUBLIC INFORMATION OFFICER: Dario Hinojosa and Rj, PGY-1 resident. TYPE OF ANESTHESIA: General endotracheal tube anesthesia. ESTIMATED BLOOD LOSS: Around 10 mL. DRAIN: None. PATHOLOGY: None. COMPLICATIONS: None. INTRAOPERATIVE FINDINGS: The patient had excessive secretion in the upper respiratory trach as well as lower respiratory trach due to the pneumonia and suction irrigation of all the secretions was done and after induction of the anesthesia and prepping and draping of the neck, the incision was made and the tracheal ring was identified under direct bronchoscopy vision. Under direct bronchoscopy vision the needle was placed and air was aspirated, guide wire was placed under vision and with the gradual dilatation technique, the 8-Turkmen tracheostomy tube was placed and tube was connected to the ventilator machine and end tidal CO2 was identified. Through the tracheostomy tube, the bronchoscopy was done and confirmation of proper placement was done and after that tracheostomy tube was secured to the skin and dry sterile dressing was applied. The patient tolerated the procedure well. Count of the instrument and gauze was correct. There was no apparent complication. Андрей Monge MD
--- NOTE | 2017-05-17 15:19 | CP.CCUPN ---
<Du Ledesma - Last Filed: 05/17/17 15:19> CCU Subjective - Physician Review Subjective (Free Text): PGY1 ICU progress note for Dr. Sands Patient seen and examined this morning at bedside. Patient is unresponsive on ventilator support. ROS unattainable. CCU Objective - Vital Signs / Intake & Output Vital Signs (Last 4 hours): Vital Signs Temp Pulse Resp BP Pulse Ox 05/17/17 14:00 69 12 100/64 100 05/17/17 13:45 69 12 95/56 L 99 05/17/17 13:44 69 12 99 05/17/17 13:30 68 12 104/55 L 99 05/17/17 13:15 70 12 92/56 L 99 05/17/17 13:00 69 12 87/58 L 99 05/17/17 12:45 70 12 92/51 L 99 05/17/17 12:30 71 12 94/56 L 99 05/17/17 12:15 73 14 98/47 L 99 05/17/17 12:00 97.8 F 74 12 94/54 L 98 05/17/17 11:46 75 13 104/56 L 97 05/17/17 11:30 78 12 101/56 L 97 Intake and Output (Last 8hrs): Intake & Output 05/17/17 05/17/17 05/17/17 06:59 14:59 22:59 Intake Total 130 160 Output Total 200 100 Balance -70 60 Weight 191 lb 2 oz Intake: Intake, IV Amount 50 100 Left Proximal Port 50 100 Internal Jugular Oral 40 Tube Feeding 40 40 Other 20 Output: Urine 200 100 Urine, Voided 200 100 - Physical Exam Head: Positive for: Atraumatic, Normocephalic Pupils: Positive for: Sluggish, Non-Reactive Conjunctiva: Positive for: Injected Mouth: Positive for: Moist Mucous Membranes Neck: Positive for: Trachea Midline Respiratory/Chest: Positive for: Clear to Auscultation, Good Air Exchange, Decreased Breath Sounds. Negative for: Respiratory Distress, Accessory Muscle Use Cardiovascular: Positive for: Regular Rate and Rhythm, Normal S1, S2, Tachycardic (sinus) Abdomen: Positive for: Distention, Normal Bowel Sounds Upper Extremity: Positive for: Normal Inspection, Edema Lower Extremity: Positive for: Edema Neurological: Positive for: Other (intubated). Negative for: GCS=15, CN II-XII Intact Psychiatric: Positive for: Other (intubated). Negative for: Alert, Oriented x 3 - Medications Active Medications: Active Medications Generic Name Dose Route Start Last Admin Trade Name Freq PRN Reason Stop Dose Admin Acetaminophen 975 mg 05/08/17 09:31 05/08/17 09:50 Tylenol 650mg/20.3ml Solution Ud PEG 975 mg Q6 PRN Administration Rigors Albuterol/Ipratropium 3 ml 05/08/17 20:00 05/17/17 13:48 Duoneb 3 Mg/0.5 Mg (3 Ml) Ud INH 3 ml RQ6 LINNETTE Administration Artificial Tears 0 gm 05/08/17 12:00 05/17/17 12:28 Lacri-Lube OU 3.5 gm Q4 LINNETTE Administration Ascorbic Acid 500 mg 05/16/17 10:00 05/17/17 10:00 Vitamin C 500 Mg Tab PO Not Given DAILY LINNETTE Aspirin 81 mg 05/11/17 10:00 05/17/17 10:00 Aspirin Chewable PEG Not Given DAILY LINNETTE Hydromorphone HCl 0.5 mg 05/17/17 11:20 Dilaudid IVP Q4H PRN Pain, moderate (4-7) Aztreonam 1 gm/ Sodium 50 mls @ 100 mls/hr 05/09/17 11:00 05/17/17 11:30 Chloride IVPB 100 mls/hr Q8H LINNETTE Administration Lactulose 20 gm 05/15/17 22:00 Enulose NG HS PRN Constipation Levetiracetam 750 mg 05/15/17 18:00 05/17/17 10:00 Keppra NG Not Given BID LINNETTE Multivitamins/Vitamin C 5 ml 05/16/17 10:00 05/17/17 10:00 Multi-Delyn Liquid PO Not Given DAILY LINNETTE Pantoprazole Sodium 40 mg 05/09/17 06:00 05/17/17 06:00 Protonix Susp PO Not Given 0600 LINNETTE Polyethylene Glycol 17 gm 05/16/17 10:00 05/17/17 10:00 Miralax GT Not Given DAILY LINNETTE Zinc Sulfate 220 mg 05/16/17 10:00 05/17/17 10:00 Zinc Sulfate 220 Mg Cap PO Not Given DAILY LINNETTE - Patient Studies Lab Studies: Microbiology Studies 05/15/17 10:14 Gram Stain - Final Trachasp Sputum Culture - Final Pseudomonas Aeruginosa Lab Studies 05/17/17 05/17/17 05/17/17 Range/Units 12:16 06:20 06:20 WBC 11.9 H (4.8-10.8) K/uL RBC 4.01 (3.80-5.20) Mil/uL Hgb 11.8 (11.0-16.0) g/dL Hct 34.5 (34.0-47.0) % MCV 86.0 (81.0-99.0) fL MCH 29.5 (27.0-31.0) pg MCHC 34.2 (33.0-37.0) g/dL RDW 13.8 (11.5-14.5) % Plt Count 231 (130-400) K/uL MPV 8.3 (7.2-11.7) fL Neut % (Auto) 81.9 H (50.0-75.0) % Lymph % (Auto) 12.4 L (20.0-40.0) % [place] % (Auto) 3.5 (0.0-10.0) % Eos % (Auto) 2.0 (0.0-4.0) % Baso % (Auto) 0.2 (0.0-2.0) % Neut # 9.7 H (1.8-7.0) K/uL Lymph # 1.5 (1.0-4.3) K/uL [place] # 0.4 (0.0-0.8) K/uL Eos # 0.2 (0.0-0.7) K/uL Baso # 0.0 (0.0-0.2) K/uL Puncture Site pCO2 (35-45) mm/Hg pO2 (80-100) mm/Hg HCO3 (21-28) mmol/L ABG pH (7.35-7.45) ABG Total CO2 (22-28) mmol/L ABG O2 Saturation (95-98) % ABG Base Excess (-2.0-3.0) mmol/L ABG Hemoglobin (11.7-17.4) g/dL ABG Carboxyhemoglobin (0.5-1.5) % POC ABG HHb (Measured) (0.0-5.0) % ABG Methemoglobin (0.0-3.0) % Evans Test A-a O2 Difference mm/Hg Respiratory Index Hgb O2 Saturation (95.0-98.0) % Vent Mode Mechanical Rate FiO2 % Tidal Volume PEEP Sodium 132 (132-148) mmol/L Potassium 3.8 (3.6-5.2) mmol/L Chloride 98 (98-107) mmol/L Carbon Dioxide 28 (22-30) mmol/L Anion Gap 10 (10-20) BUN 11 (7-17) mg/dL Creatinine 0.3 L (0.7-1.2) mg/dL Est GFR ( Amer) > 60 Est GFR (Non-Af Amer) > 60 POC Glucose (mg/dL) 156 H (65-110) mg/dL Random Glucose 94 (65-105) mg/dL Calcium 8.3 L (8.6-10.4) mg/dl Phosphorus 3.1 (2.5-4.5) mg/dL Magnesium 1.5 L (1.6-2.3) mg/dL Total Bilirubin 0.7 (0.2-1.3) mg/dL AST 51 H (14-36) U/L ALT 107 H D (9-52) U/L Alkaline Phosphatase 87 (38-126) U/L Total Protein 5.0 L (6.3-8.3) g/dL Albumin 2.7 L (3.5-5.0) g/dL Globulin 2.3 (2.2-3.9) gm/dL Albumin/Globulin Ratio 1.2 (1.0-2.1) 05/17/17 05/17/17 05/16/17 Range/Units 05:52 05:03 23:31 WBC (4.8-10.8) K/uL RBC (3.80-5.20) Mil/uL Hgb (11.0-16.0) g/dL Hct (34.0-47.0) % MCV (81.0-99.0) fL MCH (27.0-31.0) pg MCHC (33.0-37.0) g/dL RDW (11.5-14.5) % Plt Count (130-400) K/uL MPV (7.2-11.7) fL Neut % (Auto) (50.0-75.0) % Lymph % (Auto) (20.0-40.0) % [place] % (Auto) (0.0-10.0) % Eos % (Auto) (0.0-4.0) % Baso % (Auto) (0.0-2.0) % Neut # (1.8-7.0) K/uL Lymph # (1.0-4.3) K/uL [place] # (0.0-0.8) K/uL Eos # (0.0-0.7) K/uL Baso # (0.0-0.2) K/uL Puncture Site Rr pCO2 34 L (35-45) mm/Hg pO2 143 H (80-100) mm/Hg HCO3 30.0 H (21-28) mmol/L ABG pH 7.54 H (7.35-7.45) ABG Total CO2 30.1 H (22-28) mmol/L ABG O2 Saturation 99.5 H (95-98) % ABG Base Excess 6.5 H (-2.0-3.0) mmol/L ABG Hemoglobin 11.7 (11.7-17.4) g/dL ABG Carboxyhemoglobin 1.8 H (0.5-1.5) % POC ABG HHb (Measured) 0.5 (0.0-5.0) % ABG Methemoglobin 1.3 (0.0-3.0) % Evans Test Pos A-a O2 Difference 64.0 mm/Hg Respiratory Index 0.4 Hgb O2 Saturation 96.5 (95.0-98.0) % Vent Mode Prvc Mechanical Rate 12 FiO2 35.0 % Tidal Volume 400 PEEP 5 Sodium (132-148) mmol/L Potassium (3.6-5.2) mmol/L Chloride (98-107) mmol/L Carbon Dioxide (22-30) mmol/L Anion Gap (10-20) BUN (7-17) mg/dL Creatinine (0.7-1.2) mg/dL Est GFR ( Amer) Est GFR (Non-Af Amer) POC Glucose (mg/dL) 111 H 145 H (65-110) mg/dL Random Glucose (65-105) mg/dL Calcium (8.6-10.4) mg/dl Phosphorus (2.5-4.5) mg/dL Magnesium (1.6-2.3) mg/dL Total Bilirubin (0.2-1.3) mg/dL AST (14-36) U/L ALT (9-52) U/L Alkaline Phosphatase (38-126) U/L Total Protein (6.3-8.3) g/dL Albumin (3.5-5.0) g/dL Globulin (2.2-3.9) gm/dL Albumin/Globulin Ratio (1.0-2.1) 05/16/17 Range/Units 17:38 WBC (4.8-10.8) K/uL RBC (3.80-5.20) Mil/uL Hgb (11.0-16.0) g/dL Hct (34.0-47.0) % MCV (81.0-99.0) fL MCH (27.0-31.0) pg MCHC (33.0-37.0) g/dL RDW (11.5-14.5) % Plt Count (130-400) K/uL MPV (7.2-11.7) fL Neut % (Auto) (50.0-75.0) % Lymph % (Auto) (20.0-40.0) % [place] % (Auto) (0.0-10.0) % Eos % (Auto) (0.0-4.0) % Baso % (Auto) (0.0-2.0) % Neut # (1.8-7.0) K/uL Lymph # (1.0-4.3) K/uL [place] # (0.0-0.8) K/uL Eos # (0.0-0.7) K/uL Baso # (0.0-0.2) K/uL Puncture Site pCO2 (35-45) mm/Hg pO2 (80-100) mm/Hg HCO3 (21-28) mmol/L ABG pH (7.35-7.45) ABG Total CO2 (22-28) mmol/L ABG O2 Saturation (95-98) % ABG Base Excess (-2.0-3.0) mmol/L ABG Hemoglobin (11.7-17.4) g/dL ABG Carboxyhemoglobin (0.5-1.5) % POC ABG HHb (Measured) (0.0-5.0) % ABG Methemoglobin (0.0-3.0) % Evans Test A-a O2 Difference mm/Hg Respiratory Index Hgb O2 Saturation (95.0-98.0) % Vent Mode Mechanical Rate FiO2 % Tidal Volume PEEP Sodium (132-148) mmol/L Potassium (3.6-5.2) mmol/L Chloride (98-107) mmol/L Carbon Dioxide (22-30) mmol/L Anion Gap (10-20) BUN (7-17) mg/dL Creatinine (0.7-1.2) mg/dL Est GFR ( Amer) Est GFR (Non-Af Amer) POC Glucose (mg/dL) 141 H (65-110) mg/dL Random Glucose (65-105) mg/dL Calcium (8.6-10.4) mg/dl Phosphorus (2.5-4.5) mg/dL Magnesium (1.6-2.3) mg/dL Total Bilirubin (0.2-1.3) mg/dL AST (14-36) U/L ALT (9-52) U/L Alkaline Phosphatase (38-126) U/L Total Protein (6.3-8.3) g/dL Albumin (3.5-5.0) g/dL Globulin (2.2-3.9) gm/dL Albumin/Globulin Ratio (1.0-2.1) Laboratory Results - last 24 hr 05/16/17 05/16/17 05/17/17 17:38 23:31 05:03 WBC RBC Hgb Hct MCV MCH MCHC RDW Plt Count MPV Neut % (Auto) Lymph % (Auto) [place] % (Auto) Eos % (Auto) Baso % (Auto) Neut # Lymph # [place] # Eos # Baso # Puncture Site Rr pCO2 34 L pO2 143 H HCO3 30.0 H ABG pH 7.54 H ABG Total CO2 30.1 H ABG O2 Saturation 99.5 H ABG Base Excess 6.5 H ABG Hemoglobin 11.7 ABG Carboxyhemoglobin 1.8 H POC ABG HHb (Measured) 0.5 ABG Methemoglobin 1.3 Evans Test Pos A-a O2 Difference 64.0 Respiratory Index 0.4 Hgb O2 Saturation 96.5 Vent Mode Prvc Mechanical Rate 12 FiO2 35.0 Tidal Volume 400 PEEP 5 Sodium Potassium Chloride Carbon Dioxide Anion Gap BUN Creatinine Est GFR ( Amer) Est GFR (Non-Af Amer) POC Glucose (mg/dL) 141 H 145 H Random Glucose Calcium Phosphorus Magnesium Total Bilirubin AST ALT Alkaline Phosphatase Total Protein Albumin Globulin Albumin/Globulin Ratio 05/17/17 05/17/17 05/17/17 05:52 06:20 06:20 WBC 11.9 H RBC 4.01 Hgb 11.8 Hct 34.5 MCV 86.0 MCH 29.5 MCHC 34.2 RDW 13.8 Plt Count 231 MPV 8.3 Neut % (Auto) 81.9 H Lymph % (Auto) 12.4 L [place] % (Auto) 3.5 Eos % (Auto) 2.0 Baso % (Auto) 0.2 Neut # 9.7 H Lymph # 1.5 [place] # 0.4 Eos # 0.2 Baso # 0.0 Puncture Site pCO2 pO2 HCO3 ABG pH ABG Total CO2 ABG O2 Saturation ABG Base Excess ABG Hemoglobin ABG Carboxyhemoglobin POC ABG HHb (Measured) ABG Methemoglobin Evans Test A-a O2 Difference Respiratory Index Hgb O2 Saturation Vent Mode Mechanical Rate FiO2 Tidal Volume PEEP Sodium 132 Potassium 3.8 Chloride 98 Carbon Dioxide 28 Anion Gap 10 BUN 11 Creatinine 0.3 L Est GFR ( Amer) > 60 Est GFR (Non-Af Amer) > 60 POC Glucose (mg/dL) 111 H Random Glucose 94 Calcium 8.3 L Phosphorus 3.1 Magnesium 1.5 L Total Bilirubin 0.7 AST 51 H ALT 107 H D Alkaline Phosphatase 87 Total Protein 5.0 L Albumin 2.7 L Globulin 2.3 Albumin/Globulin Ratio 1.2 05/17/17 12:16 WBC RBC Hgb Hct MCV MCH MCHC RDW Plt Count MPV Neut % (Auto) Lymph % (Auto) [place] % (Auto) Eos % (Auto) Baso % (Auto) Neut # Lymph # [place] # Eos # Baso # Puncture Site pCO2 pO2 HCO3 ABG pH ABG Total CO2 ABG O2 Saturation ABG Base Excess ABG Hemoglobin ABG Carboxyhemoglobin POC ABG HHb (Measured) ABG Methemoglobin Evans Test A-a O2 Difference Respiratory Index Hgb O2 Saturation Vent Mode Mechanical Rate FiO2 Tidal Volume PEEP Sodium Potassium Chloride Carbon Dioxide Anion Gap BUN Creatinine Est GFR ( Amer) Est GFR (Non-Af Amer) POC Glucose (mg/dL) 156 H Random Glucose Calcium Phosphorus Magnesium Total Bilirubin AST ALT Alkaline Phosphatase Total Protein Albumin Globulin Albumin/Globulin Ratio Fingerstick Blood Sugar Results: 156 Review of Systems - Review of Systems Systems not reviewed;Unavailable: Dementia Assessment/Plan - Assessment and Plan (Free Text) Assessment: Patient is a 57F with PMH early onset dementia, 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 Hidalgo consulted, help appreciated hx of early onset dementia (started 7 years ago) non-verbal at baseline bedbound at baseline propofol drip Keppra [address] 05/10 - New low attenuation in the right caudate nucleus head indicating possible acute/subacute infarct. Recommend evaluation with magnetic resonance imaging. Atrophy greater than expected for patient age with ex vacuo ventricular dilatation. Chronic white matter ischemic change. EEG 05/11 - globally abnormal EEG due to burst suppression with periodic delta waves seen every 10 seconds. Findings of EEG consistent with global cerebral dysfunction. Study does NOT meet criteria for b/l cerebral silence. Repeat Head Ct 05/12 - No evidence of significant interval change when compared to the previous study dated 05/10/2017. No evidence of acute intracranial hemorrhage. Re- demonstration of moderate to severe atrophy. Moderate to severe dilatation the lateral ventricles and 3rd ventricle suggestive of hydrocephalus. Re- demonstration of focal hypodensity at the right caudate nucleus which could represent subacute infarct versus chronic microvascular changes. f/u neuro recs - Goal MAP of 90-100, per Dr. Hidalgo Patient's may be having second thoughts of artificially prolonging life of , per pastoral care. Another discussion about goals of care for patient may be needed. Cardio: Dr. Heck consulted, help appreciated s/p cardiac arrest, suspected 2/2 sepsis - Code Freeze ECHO - moderate diffuse systolic dysfunction, overall EF 35-40%; large apical wall motion abnormality; all valves normal Respiratory: s/p tracheostomy POD #0 General Surgery, Dr. Monge consulted for trach Pneumonia CXR 05/17- improved vascular congestive changes. Large layering right-sided effusion and small left effusion. Suspect mild bibasilar atelectasis and/or some residual alveolar-type infiltrates. WBC - 11.9 Aztrenonam 1gm IVPB q8 Duoneb 3mL INH RQ6 ABG - R radial pCO2 34/ pO2 143/ HCO3 30.0 pH 7.54 - taken while on vent settings TV 400/FiO2 35/RR 12/ PEEP 5 GI: On Tube feedings, Jevity 1.5. Initial rate of 20mL/hr, Goal rate of 40mL/hr Protonix 40mg PO daily Electrolytes: Phosphate 3.1 Mag 1.5 Prophylactic Care: DVT: Lovenox 40mg SC daily GI: Protonix 40mg PO daily Johnson discontinued Case discussed with Dr. Shavon Vargasn PGY1 <Beth Sands - Last Filed: 05/17/17 15:39> CCU Objective - Vital Signs / Intake & Output Vital Signs (Last 4 hours): Vital Signs Temp Pulse Resp BP Pulse Ox 05/17/17 14:00 69 12 100/64 100 05/17/17 13:45 69 12 95/56 L 99 05/17/17 13:44 69 12 99 05/17/17 13:30 68 12 104/55 L 99 05/17/17 13:15 70 12 92/56 L 99 05/17/17 13:00 69 12 87/58 L 99 05/17/17 12:45 70 12 92/51 L 99 05/17/17 12:30 71 12 94/56 L 99 05/17/17 12:15 73 14 98/47 L 99 05/17/17 12:00 97.8 F 74 12 94/54 L 98 05/17/17 11:46 75 13 104/56 L 97 Intake and Output (Last 8hrs): Intake & Output 05/17/17 05/17/17 05/17/17 06:59 14:59 22:59 Intake Total 130 160 Output Total 200 100 Balance -70 60 Weight 191 lb 2 oz Intake: Intake, IV Amount 50 100 Left Proximal Port 50 100 Internal Jugular Oral 40 Tube Feeding 40 40 Other 20 Output: Urine 200 100 Urine, Voided 200 100 - Medications Active Medications: Active Medications Generic Name Dose Route Start Last Admin Trade Name Freq PRN Reason Stop Dose Admin Acetaminophen 975 mg 05/08/17 09:31 05/08/17 09:50 Tylenol 650mg/20.3ml Solution Ud PEG 975 mg Q6 PRN Administration Rigors Albuterol/Ipratropium 3 ml 05/08/17 20:00 05/17/17 13:48 Duoneb 3 Mg/0.5 Mg (3 Ml) Ud INH 3 ml RQ6 LINNETTE Administration Artificial Tears 0 gm 05/08/17 12:00 05/17/17 12:28 Lacri-Lube OU 3.5 gm Q4 LINNETTE Administration Ascorbic Acid 500 mg 05/16/17 10:00 05/17/17 10:00 Vitamin C 500 Mg Tab PO Not Given DAILY LINNETTE Aspirin 81 mg 05/11/17 10:00 05/17/17 10:00 Aspirin Chewable PEG Not Given DAILY LINNETTE Hydromorphone HCl 0.5 mg 05/17/17 11:20 Dilaudid IVP Q4H PRN Pain, moderate (4-7) Aztreonam 1 gm/ Sodium 50 mls @ 100 mls/hr 05/09/17 11:00 05/17/17 11:30 Chloride IVPB 100 mls/hr Q8H LINNETTE Administration Lactulose 20 gm 05/15/17 22:00 Enulose NG HS PRN Constipation Levetiracetam 750 mg 05/15/17 18:00 05/17/17 10:00 Keppra NG Not Given BID LINNETTE Multivitamins/Vitamin C 5 ml 05/16/17 10:00 05/17/17 10:00 Multi-Delyn Liquid PO Not Given DAILY [facility] Pantoprazole Sodium 40 mg 05/09/17 06:00 05/17/17 06:00 Protonix Susp PO Not Given 0600 LINNETTE Polyethylene Glycol 17 gm 05/16/17 10:00 05/17/17 10:00 Miralax GT Not Given DAILY LINNETTE Zinc Sulfate 220 mg 05/16/17 10:00 05/17/17 10:00 Zinc Sulfate 220 Mg Cap PO Not Given DAILY LINNETTE - Patient Studies Lab Studies: Microbiology Studies 05/15/17 10:14 Gram Stain - Final Trachasp Sputum Culture - Final Pseudomonas Aeruginosa Lab Studies 05/17/17 05/17/17 05/17/17 Range/Units 12:16 06:20 06:20 WBC 11.9 H (4.8-10.8) K/uL RBC 4.01 (3.80-5.20) Mil/uL Hgb 11.8 (11.0-16.0) g/dL Hct 34.5 (34.0-47.0) % MCV 86.0 (81.0-99.0) fL MCH 29.5 (27.0-31.0) pg MCHC 34.2 (33.0-37.0) g/dL RDW 13.8 (11.5-14.5) % Plt Count 231 (130-400) K/uL MPV 8.3 (7.2-11.7) fL Neut % (Auto) 81.9 H (50.0-75.0) % Lymph % (Auto) 12.4 L (20.0-40.0) % [place] % (Auto) 3.5 (0.0-10.0) % Eos % (Auto) 2.0 (0.0-4.0) % Baso % (Auto) 0.2 (0.0-2.0) % Neut # 9.7 H (1.8-7.0) K/uL Lymph # 1.5 (1.0-4.3) K/uL [place] # 0.4 (0.0-0.8) K/uL Eos # 0.2 (0.0-0.7) K/uL Baso # 0.0 (0.0-0.2) K/uL Puncture Site pCO2 (35-45) mm/Hg pO2 (80-100) mm/Hg HCO3 (21-28) mmol/L ABG pH (7.35-7.45) ABG Total CO2 (22-28) mmol/L ABG O2 Saturation (95-98) % ABG Base Excess (-2.0-3.0) mmol/L ABG Hemoglobin (11.7-17.4) g/dL ABG Carboxyhemoglobin (0.5-1.5) % POC ABG HHb (Measured) (0.0-5.0) % ABG Methemoglobin (0.0-3.0) % Evans Test A-a O2 Difference mm/Hg Respiratory Index Hgb O2 Saturation (95.0-98.0) % Vent Mode Mechanical Rate FiO2 % Tidal Volume PEEP Sodium 132 (132-148) mmol/L Potassium 3.8 (3.6-5.2) mmol/L Chloride 98 (98-107) mmol/L Carbon Dioxide 28 (22-30) mmol/L Anion Gap 10 (10-20) BUN 11 (7-17) mg/dL Creatinine 0.3 L (0.7-1.2) mg/dL Est GFR ( Amer) > 60 Est GFR (Non-Af Amer) > 60 POC Glucose (mg/dL) 156 H (65-110) mg/dL Random Glucose 94 (65-105) mg/dL Calcium 8.3 L (8.6-10.4) mg/dl Phosphorus 3.1 (2.5-4.5) mg/dL Magnesium 1.5 L (1.6-2.3) mg/dL Total Bilirubin 0.7 (0.2-1.3) mg/dL AST 51 H (14-36) U/L ALT 107 H D (9-52) U/L Alkaline Phosphatase 87 (38-126) U/L Total Protein 5.0 L (6.3-8.3) g/dL Albumin 2.7 L (3.5-5.0) g/dL Globulin 2.3 (2.2-3.9) gm/dL Albumin/Globulin Ratio 1.2 (1.0-2.1) 05/17/17 05/17/17 05/16/17 Range/Units 05:52 05:03 23:31 WBC (4.8-10.8) K/uL RBC (3.80-5.20) Mil/uL Hgb (11.0-16.0) g/dL Hct (34.0-47.0) % MCV (81.0-99.0) fL MCH (27.0-31.0) pg MCHC (33.0-37.0) g/dL RDW (11.5-14.5) % Plt Count (130-400) K/uL MPV (7.2-11.7) fL Neut % (Auto) (50.0-75.0) % Lymph % (Auto) (20.0-40.0) % [place] % (Auto) (0.0-10.0) % Eos % (Auto) (0.0-4.0) % Baso % (Auto) (0.0-2.0) % Neut # (1.8-7.0) K/uL Lymph # (1.0-4.3) K/uL [place] # (0.0-0.8) K/uL Eos # (0.0-0.7) K/uL Baso # (0.0-0.2) K/uL Puncture Site Rr pCO2 34 L (35-45) mm/Hg pO2 143 H (80-100) mm/Hg HCO3 30.0 H (21-28) mmol/L ABG pH 7.54 H (7.35-7.45) ABG Total CO2 30.1 H (22-28) mmol/L ABG O2 Saturation 99.5 H (95-98) % ABG Base Excess 6.5 H (-2.0-3.0) mmol/L ABG Hemoglobin 11.7 (11.7-17.4) g/dL ABG Carboxyhemoglobin 1.8 H (0.5-1.5) % POC ABG HHb (Measured) 0.5 (0.0-5.0) % ABG Methemoglobin 1.3 (0.0-3.0) % Evans Test Pos A-a O2 Difference 64.0 mm/Hg Respiratory Index 0.4 Hgb O2 Saturation 96.5 (95.0-98.0) % Vent Mode Prvc Mechanical Rate 12 FiO2 35.0 % Tidal Volume 400 PEEP 5 Sodium (132-148) mmol/L Potassium (3.6-5.2) mmol/L Chloride (98-107) mmol/L Carbon Dioxide (22-30) mmol/L Anion Gap (10-20) BUN (7-17) mg/dL Creatinine (0.7-1.2) mg/dL Est GFR ( Amer) Est GFR (Non-Af Amer) POC Glucose (mg/dL) 111 H 145 H (65-110) mg/dL Random Glucose (65-105) mg/dL Calcium (8.6-10.4) mg/dl Phosphorus (2.5-4.5) mg/dL Magnesium (1.6-2.3) mg/dL Total Bilirubin (0.2-1.3) mg/dL AST (14-36) U/L ALT (9-52) U/L Alkaline Phosphatase (38-126) U/L Total Protein (6.3-8.3) g/dL Albumin (3.5-5.0) g/dL Globulin (2.2-3.9) gm/dL Albumin/Globulin Ratio (1.0-2.1) 05/16/17 Range/Units 17:38 WBC (4.8-10.8) K/uL RBC (3.80-5.20) Mil/uL Hgb (11.0-16.0) g/dL Hct (34.0-47.0) % MCV (81.0-99.0) fL MCH (27.0-31.0) pg MCHC (33.0-37.0) g/dL RDW (11.5-14.5) % Plt Count (130-400) K/uL MPV (7.2-11.7) fL Neut % (Auto) (50.0-75.0) % Lymph % (Auto) (20.0-40.0) % [place] % (Auto) (0.0-10.0) % Eos % (Auto) (0.0-4.0) % Baso % (Auto) (0.0-2.0) % Neut # (1.8-7.0) K/uL Lymph # (1.0-4.3) K/uL [place] # (0.0-0.8) K/uL Eos # (0.0-0.7) K/uL Baso # (0.0-0.2) K/uL Puncture Site pCO2 (35-45) mm/Hg pO2 (80-100) mm/Hg HCO3 (21-28) mmol/L ABG pH (7.35-7.45) ABG Total CO2 (22-28) mmol/L ABG O2 Saturation (95-98) % ABG Base Excess (-2.0-3.0) mmol/L ABG Hemoglobin (11.7-17.4) g/dL ABG Carboxyhemoglobin (0.5-1.5) % POC ABG HHb (Measured) (0.0-5.0) % ABG Methemoglobin (0.0-3.0) % Evans Test A-a O2 Difference mm/Hg Respiratory Index Hgb O2 Saturation (95.0-98.0) % Vent Mode Mechanical Rate FiO2 % Tidal Volume PEEP Sodium (132-148) mmol/L Potassium (3.6-5.2) mmol/L Chloride (98-107) mmol/L Carbon Dioxide (22-30) mmol/L Anion Gap (10-20) BUN (7-17) mg/dL Creatinine (0.7-1.2) mg/dL Est GFR ( Amer) Est GFR (Non-Af Amer) POC Glucose (mg/dL) 141 H (65-110) mg/dL Random Glucose (65-105) mg/dL Calcium (8.6-10.4) mg/dl Phosphorus (2.5-4.5) mg/dL Magnesium (1.6-2.3) mg/dL Total Bilirubin (0.2-1.3) mg/dL AST (14-36) U/L ALT (9-52) U/L Alkaline Phosphatase (38-126) U/L Total Protein (6.3-8.3) g/dL Albumin (3.5-5.0) g/dL Globulin (2.2-3.9) gm/dL Albumin/Globulin Ratio (1.0-2.1) Laboratory Results - last 24 hr 05/16/17 05/16/17 05/17/17 17:38 23:31 05:03 WBC RBC Hgb Hct MCV MCH MCHC RDW Plt Count MPV Neut % (Auto) Lymph % (Auto) [place] % (Auto) Eos % (Auto) Baso % (Auto) Neut # Lymph # [place] # Eos # Baso # Puncture Site Rr pCO2 34 L pO2 143 H HCO3 30.0 H ABG pH 7.54 H ABG Total CO2 30.1 H ABG O2 Saturation 99.5 H ABG Base Excess 6.5 H ABG Hemoglobin 11.7 ABG Carboxyhemoglobin 1.8 H POC ABG HHb (Measured) 0.5 ABG Methemoglobin 1.3 Evans Test Pos A-a O2 Difference 64.0 Respiratory Index 0.4 Hgb O2 Saturation 96.5 Vent Mode Prvc Mechanical Rate 12 FiO2 35.0 Tidal Volume 400 PEEP 5 Sodium Potassium Chloride Carbon Dioxide Anion Gap BUN Creatinine Est GFR ( Amer) Est GFR (Non-Af Amer) POC Glucose (mg/dL) 141 H 145 H Random Glucose Calcium Phosphorus Magnesium Total Bilirubin AST ALT Alkaline Phosphatase Total Protein Albumin Globulin Albumin/Globulin Ratio 05/17/17 05/17/17 05/17/17 05:52 06:20 06:20 WBC 11.9 H RBC 4.01 Hgb 11.8 Hct 34.5 MCV 86.0 MCH 29.5 MCHC 34.2 RDW 13.8 Plt Count 231 MPV 8.3 Neut % (Auto) 81.9 H Lymph % (Auto) 12.4 L [place] % (Auto) 3.5 Eos % (Auto) 2.0 Baso % (Auto) 0.2 Neut # 9.7 H Lymph # 1.5 [place] # 0.4 Eos # 0.2 Baso # 0.0 Puncture Site pCO2 pO2 HCO3 ABG pH ABG Total CO2 ABG O2 Saturation ABG Base Excess ABG Hemoglobin ABG Carboxyhemoglobin POC ABG HHb (Measured) ABG Methemoglobin Evans Test A-a O2 Difference Respiratory Index Hgb O2 Saturation Vent Mode Mechanical Rate FiO2 Tidal Volume PEEP Sodium 132 Potassium 3.8 Chloride 98 Carbon Dioxide 28 Anion Gap 10 BUN 11 Creatinine 0.3 L Est GFR ( Amer) > 60 Est GFR (Non-Af Amer) > 60 POC Glucose (mg/dL) 111 H Random Glucose 94 Calcium 8.3 L Phosphorus 3.1 Magnesium 1.5 L Total Bilirubin 0.7 AST 51 H ALT 107 H D Alkaline Phosphatase 87 Total Protein 5.0 L Albumin 2.7 L Globulin 2.3 Albumin/Globulin Ratio 1.2 05/17/17 12:16 WBC RBC Hgb Hct MCV MCH MCHC RDW Plt Count MPV Neut % (Auto) Lymph % (Auto) [place] % (Auto) Eos % (Auto) Baso % (Auto) Neut # Lymph # [place] # Eos # Baso # Puncture Site pCO2 pO2 HCO3 ABG pH ABG Total CO2 ABG O2 Saturation ABG Base Excess ABG Hemoglobin ABG Carboxyhemoglobin POC ABG HHb (Measured) ABG Methemoglobin Evans Test A-a O2 Difference Respiratory Index Hgb O2 Saturation Vent Mode Mechanical Rate FiO2 Tidal Volume PEEP Sodium Potassium Chloride Carbon Dioxide Anion Gap BUN Creatinine Est GFR ( Amer) Est GFR (Non-Af Amer) POC Glucose (mg/dL) 156 H Random Glucose Calcium Phosphorus Magnesium Total Bilirubin AST ALT Alkaline Phosphatase Total Protein Albumin Globulin Albumin/Globulin Ratio Attending/Attestation - Attestation I have personally seen and examined this patient.: Yes I have fully participated in the care of the patient.: Yes I have reviewed all pertinent clinical information: Yes Notes (Text): 05/17/17 15:38 pt had trach today continue current treatment pt will need LTAC
--- NOTE | 2017-05-17 16:51 | RAD ---
HISTORY: s/p PICC Insertion COMPARISON: No prior. FINDINGS: In situ tracheostomy tube in good position. No change left subclavian central venous line with tip in the proximal SVC angle 45 degrees with respect to the long axis of the SVC. Interval placement right PICC line with tip in the SVC. LUNGS: Large bilateral effusions and mild bibasilar atelectasis and/or alveolar-type infiltrates. . . Mild central pulmonary vascular congestion again noted. PLEURA: As above. No apparent pneumothorax. CARDIOVASCULAR: Normal. OSSEOUS STRUCTURES: No significant abnormalities. VISUALIZED UPPER ABDOMEN: Normal. OTHER FINDINGS: None. IMPRESSION: Support lines and tubes as above. Large bilateral effusions and mild bibasilar atelectasis and/or alveolar-type infiltrates. . . Mild central pulmonary vascular congestion again noted.
[2017-05-18] MEDS: White Petrolatum/Mineral Oil Ophth Oint(3.5 gm) OU SCH ×6 (00:10→20:03)
[2017-05-18] MEDS: Albuterol-Ipratrop 3 mg / 0.5 (3 ml) UD INH SCH ×4 (02:59→20:17)
[2017-05-18 05:37] LABS: ABG ALLEN TEST POS; ABG MECHANICAL RATE 12; ARTERIAL BLOOD GAS MODE PRVC; ARTERIAL BLOOD HGB O2 SAT 95.7 % (95.0-98.0); ATERIAL BLOOD GAS PEEP 5; DRAW SITE RR; METHEMOGLOBIN 1.3 % (0.0-3.0)
[2017-05-18 06:25] LABS: BASO % 0.1 % (0.0-2.0); EOS # 0.2 K/uL (0.0-0.7); EOS % 1.5 % (0.0-4.0); LYMPH # 1.4 K/uL (1.0-4.3); LYMPH % 8.8 % (20.0-40.0); MEAN CELL VOLUME 86.8 fL (81.0-99.0); MEAN CORPUSCULAR HEMOGLOBIN 28.6 pg (27.0-31.0); MEAN PLATELET VOLUME 8.4 fL (7.2-11.7); MONO # 0.5 K/uL (0.0-0.8); MONO % 3.2 % (0.0-10.0); NRBC % 0.1 % (0.0-2.0); PLATELET COUNT 285 K/uL (130-400); RED CELL DISTRIBUTION WIDTH 14.2 % (11.5-14.5); WHITE BLOOD COUNT 15.6 K/uL (4.8-10.8)
[2017-05-18 06:53] LABS: ALB/GLOB RATIO 0.9 (1.0-2.1); ALKALINE PHOSPHATASE 201 U/L (38-126); ALT/SGPT 236 U/L (9-52); AST/SGOT 151 U/L (14-36); BILIRUBIN,TOTAL 0.4 mg/dL (0.2-1.3); BLOOD UREA NITROGEN 13 mg/dL (7-17); CALCIUM 8.3 mg/dl (8.6-10.4); CARBON DIOXIDE 28 mmol/L (22-30); CHLORIDE 99 mmol/L (98-107); GFR AFRICAN-AMERICAN > 60; GLUCOSE,RANDOM 132 mg/dL (65-105); MAGNESIUM 1.5 mg/dL (1.6-2.3); PHOSPHOROUS 3.8 mg/dL (2.5-4.5); POTASSIUM 3.7 mmol/L (3.6-5.2); SODIUM 135 mmol/L (132-148); TOTAL PROTEIN 6.3 g/dL (6.3-8.3)
[2017-05-18] MEDS: Pantoprazole 40 mg Susp UD PO SCH (07:06)
[2017-05-18 08:15] LABS: EOSINOPHIL 3 % (0-4); NEUTROPHIL 90 % (50-75); TOTAL CELLS COUNTED 100
--- NOTE | 2017-05-18 08:35 | CP.PCM.PN ---
<German Melissa - Last Filed: 05/18/17 16:03> Subjective - Date & Time of Evaluation Date of Evaluation: 05/18/17 Time of Evaluation: 07:20 - Subjective Subjective: General Surgery Note for Dr. Monge Patient seen and examined at bedside. No acute event overnihgt. Patient is s/p open tracheostomy POD#1. Patient does not respond to verbal or tactile stimuli. ROS unobtainable. Objective - Vital Signs/Intake and Output Vital Signs (last 24 hours): Temp Pulse Resp BP Pulse Ox 96.7 F L 75 13 118/69 98 05/18/17 04:00 05/18/17 07:05 05/18/17 07:05 05/18/17 07:05 05/18/17 07:05 Intake and Output: 05/18/17 05/18/17 06:59 18:59 Intake Total 530 40 Output Total 950 Balance -420 40 - Medications Medications: Current Medications Acetaminophen (Tylenol 650mg/20.3ml Solution Ud) 975 mg PEG Q6 PRN PRN Reason: Rigors Last Admin: 05/08/17 09:50 Dose: 975 mg Albuterol/Ipratropium (Duoneb 3 Mg/0.5 Mg (3 Ml) Ud) 3 ml INH RQ6 [facility] Last Admin: 05/18/17 08:20 Dose: 3 ml Artificial Tears (Lacri-Lube) 0 gm OU Q4 [facility] Last Admin: 05/18/17 04:12 Dose: 3.5 gm Ascorbic Acid (Vitamin C 500 Mg Tab) 500 mg PO DAILY [facility] Last Admin: 05/17/17 10:00 Dose: Not Given Aspirin (Aspirin Chewable) 81 mg PEG DAILY [facility] Last Admin: 05/17/17 10:00 Dose: Not Given Hydromorphone HCl (Dilaudid) 0.5 mg IVP Q4H PRN PRN Reason: Pain, moderate (4-7) Aztreonam 1 gm/ Sodium (Chloride) 50 mls @ 100 mls/hr IVPB Q8H [facility] Last Admin: 05/18/17 02:43 Dose: 100 mls/hr Lactulose (Enulose) 20 gm NG HS PRN PRN Reason: Constipation Levetiracetam (Keppra) 750 mg NG BID [facility] Last Admin: 05/17/17 18:10 Dose: 750 mg Multivitamins/Vitamin C (Multi-Delyn Liquid) 5 ml PO DAILY [facility] Last Admin: 05/17/17 10:00 Dose: Not Given Pantoprazole Sodium (Protonix Susp) 40 mg PO 0600 [facility] Last Admin: 05/18/17 07:06 Dose: 40 mg Polyethylene Glycol (Miralax) 17 gm GT DAILY [facility] Last Admin: 05/17/17 10:00 Dose: Not Given Zinc Sulfate (Zinc Sulfate 220 Mg Cap) 220 mg PO DAILY [facility] Last Admin: 05/17/17 10:00 Dose: Not Given - Labs Labs: 05/18/17 06:15 05/18/17 06:15 PT 15.1 SECONDS (9.7-12.2) H 05/09/17 17:57 INR 1.3 05/09/17 17:57 APTT 35 SECONDS (21-34) H 05/09/17 17:57 - Constitutional Appears: No Acute Distress, Chronically Ill - Head Exam Head Exam: ATRAUMATIC, NORMOCEPHALIC - Eye Exam Eye Exam: Normal appearance - Neck Exam Additional comments: s/p tracheostomy - Respiratory Exam Respiratory Exam: NORMAL BREATHING PATTERN - Cardiovascular Exam Cardiovascular Exam: REGULAR RHYTHM - GI/Abdominal Exam GI & Abdominal Exam: Soft. absent: Distended Additional comments: peg tube - Neurological Exam Neurological Exam: Altered - Psychiatric Exam Psychiatric exam: Flat Affect - Skin Skin Exam: Dry, Intact, Normal Color, Warm Assessment and Plan - Assessment and Plan (Free Text) Plan: 57 F s/p cardiac arrest 05/09 with respiratory failure, s/p tracheostomy POD#1 -Will removed sutures in 7-10 days -Management as per ICU -Discussed with Dr. Mariposa Melissa PGY1 <Андрей Monge - Last Filed: 05/21/17 22:43> Objective - Vital Signs/Intake and Output Vital Signs (last 24 hours): Temp Pulse Resp BP Pulse Ox 97.3 F L 67 12 104/64 100 05/21/17 20:00 05/21/17 21:00 05/21/17 21:00 05/21/17 20:05 05/21/17 21:00 Intake and Output: 05/21/17 05/22/17 18:59 06:59 Intake Total 680 Output Total 450 Balance 230 - Medications Medications: Current Medications Acetaminophen (Tylenol 650mg/20.3ml Solution Ud) 975 mg PEG Q6 PRN PRN Reason: Rigors Last Admin: 05/08/17 09:50 Dose: 975 mg Albuterol/Ipratropium (Duoneb 3 Mg/0.5 Mg (3 Ml) Ud) 3 ml INH RQ6 [facility] Last Admin: 05/21/17 19:52 Dose: 3 ml Artificial Tears (Lacri-Lube) 0 gm OU Q4 [facility] Last Admin: 05/21/17 20:00 Dose: 3.5 gm Ascorbic Acid (Vitamin C 500 Mg Tab) 500 mg PO DAILY [facility] Last Admin: 05/21/17 10:24 Dose: 500 mg Aspirin (Aspirin Chewable) 81 mg PEG DAILY [facility] Last Admin: 05/21/17 10:24 Dose: 81 mg Enoxaparin Sodium (Lovenox) 40 mg SC DAILY [facility] Last Admin: 05/21/17 10:23 Dose: 40 mg Ciprofloxacin (Cipro 400mg/200ml Dsw) 400 mg in 200 mls @ 133 mls/hr IVPB Q12H [facility] Last Admin: 05/21/17 15:00 Dose: 133 mls/hr Lactulose (Enulose) 20 gm NG HS PRN PRN Reason: Constipation Last Admin: 05/19/17 01:41 Dose: 20 gm Levetiracetam (Keppra) 750 mg NG BID [facility] Last Admin: 05/21/17 17:37 Dose: 750 mg Multivitamins/Vitamin C (Multi-Delyn Liquid) 5 ml PO DAILY [facility] Last Admin: 05/21/17 10:23 Dose: 5 ml Pantoprazole Sodium (Protonix Susp) 40 mg PO 0600 [facility] Last Admin: 05/21/17 05:46 Dose: 40 mg Polyethylene Glycol (Miralax) 17 gm GT DAILY [facility] Last Admin: 05/21/17 10:24 Dose: 17 gm Zinc Sulfate (Zinc Sulfate 220 Mg Cap) 220 mg PO DAILY [facility] Last Admin: 05/21/17 10:24 Dose: 220 mg - Labs Labs: 05/21/17 06:00 05/21/17 06:00 PT 15.1 SECONDS (9.7-12.2) H 05/09/17 17:57 INR 1.3 05/09/17 17:57 APTT 35 SECONDS (21-34) H 05/09/17 17:57 Attending/Attestation - Attestation I have personally seen and examined this patient.: Yes I have fully participated in the care of the patient.: Yes I have reviewed all pertinent clinical information, including history, physical exam and plan: Yes Notes (Text): Pt was seen and examined at bedside Agree with above note and assessment
[2017-05-18] MEDS: POLYETHYLENE GLYCOL 3350 17 GM/Dose PACKET GT SCH (09:54)
[2017-05-18] MEDS: Multiple Vitamins Oral Solution PO SCH (09:54)
[2017-05-18] MEDS: levETIRAcetam 100 mg/ml (5ml) Oral Syringe NG SCH ×2 (09:54→17:14)
--- NOTE | 2017-05-18 10:56 | RAD ---
HISTORY: trach COMPARISON: Chest radiograph dated 05/17/2017 FINDINGS: LUNGS: Pulmonary vascular congestion, unchanged. PLEURA: Stable small to moderate bilateral pleural effusions. No pneumothorax apparent. CARDIOVASCULAR: Normal. OSSEOUS STRUCTURES: No significant abnormalities. VISUALIZED UPPER ABDOMEN: Normal. OTHER FINDINGS: Removal of left internal jugular access central venous catheter. Tracheostomy, unchanged. Right upper extremity PICC, unchanged. IMPRESSION: Removal of a left internal jugular access central venous catheter. Stable pulmonary vascular congestion and small to moderate bilateral pleural effusions.
--- NOTE | 2017-05-18 12:48 | CP.PCM.PN ---
Subjective - Date & Time of Evaluation Date of Evaluation: 05/18/17 Time of Evaluation: 12:00 - Subjective Subjective: Patient is status post tracheostomy placement. She remains on mechanical ventilation via the trach at this time As documented previously the patient has had severe anoxic brain injury. She is not responsive to commands or stimuli. Her family members at bedside, his status Alexis. He has the patient's I spoke with the patient's daughter over the telephone and gave her an update. We spoke for a very long time Likely the patient will be moved out of the ICU soon to the medical floors Objective - Vital Signs/Intake and Output Vital Signs (last 24 hours): Temp Pulse Resp BP Pulse Ox 97.9 F 76 12 118/51 L 97 05/18/17 12:00 05/18/17 12:06 05/18/17 12:06 05/18/17 12:06 05/18/17 12:06 Intake and Output: 05/18/17 05/18/17 06:59 18:59 Intake Total 530 290 Output Total 950 Balance -420 290 - Medications Medications: Current Medications Acetaminophen (Tylenol 650mg/20.3ml Solution Ud) 975 mg PEG Q6 PRN PRN Reason: Rigors Last Admin: 05/08/17 09:50 Dose: 975 mg Albuterol/Ipratropium (Duoneb 3 Mg/0.5 Mg (3 Ml) Ud) 3 ml INH RQ6 [facility] Last Admin: 05/18/17 08:20 Dose: 3 ml Artificial Tears (Lacri-Lube) 0 gm OU Q4 [facility] Last Admin: 05/18/17 12:10 Dose: 3.5 gm Ascorbic Acid (Vitamin C 500 Mg Tab) 500 mg PO DAILY [facility] Last Admin: 05/18/17 09:54 Dose: 500 mg Aspirin (Aspirin Chewable) 81 mg PEG DAILY [facility] Last Admin: 05/18/17 09:54 Dose: 81 mg Hydromorphone HCl (Dilaudid) 0.5 mg IVP Q4H PRN PRN Reason: Pain, moderate (4-7) Aztreonam 1 gm/ Sodium (Chloride) 50 mls @ 100 mls/hr IVPB Q8H [facility] Last Admin: 05/18/17 11:56 Dose: 100 mls/hr Lactulose (Enulose) 20 gm NG HS PRN PRN Reason: Constipation Levetiracetam (Keppra) 750 mg NG BID [facility] Last Admin: 05/18/17 09:54 Dose: 750 mg Multivitamins/Vitamin C (Multi-Delyn Liquid) 5 ml PO DAILY [facility] Last Admin: 05/18/17 09:54 Dose: 5 ml Pantoprazole Sodium (Protonix Susp) 40 mg PO 0600 [facility] Last Admin: 05/18/17 07:06 Dose: 40 mg Polyethylene Glycol (Miralax) 17 gm GT DAILY [facility] Last Admin: 05/18/17 09:54 Dose: 17 gm Zinc Sulfate (Zinc Sulfate 220 Mg Cap) 220 mg PO DAILY [facility] Last Admin: 05/18/17 09:54 Dose: 220 mg - Labs Labs: 05/18/17 06:15 05/18/17 06:15 PT 15.1 SECONDS (9.7-12.2) H 05/09/17 17:57 INR 1.3 05/09/17 17:57 APTT 35 SECONDS (21-34) H 05/09/17 17:57 - Eye Exam Eye Exam: absent: EOMI, Normal appearance - ENT Exam ENT Exam: Mucous Membranes Moist - GI/Abdominal Exam GI & Abdominal Exam: Soft, Tenderness. absent: Guarding, Rigid - Neurological Exam Neurological Exam: Altered Neuro motor strength exam: Left Upper Extremity: 0, Right Upper Extremity: 0, Left Lower Extremity: 0, Right Lower Extremity: 0 Assessment and Plan - Assessment and Plan (Free Text) Assessment: From the resident HPI: This is a 57F with PMH early onset dementia, seizures, and questionable asthma who was brought to the ED via EMS from her care home , [facility], where she was witnessed cardiopulmonary arrest. EMS intubated the patient in the field. In the ED patient was having myoclonic jerks and code freeze was initiated. Patient remained intubated and patient was admitted to the ICU. As per her daughter and her her dementia started 7 years ago. Last two year she was in the NH,nonverbal,some days she is responsive/look at family members Plan: 1) Acute Respiratory failure s/p cardiopulmonary arrest 05/18: Now has tracheostomy. Remains on mechanical ventilation 05/17: Unfourtunately it appears patient now has anoxic brain injury and remains intubated and on mechacnile ventilator There are plans for a trachoesotym some time later today. I spoke with family at bedside who is aware of this. CT head 05/10 - New low attenuation in the right caudate nucleus head indicating possible acute/subacute infarct. Repeat Head Ct 05/12 - No evidence of significant interval change when compared to the previous study dated 05/10/2017. No evidence of acute intracranial bleeding On Asprin s/p code freeze,continue duoneb d/w Daughter yesterday ,full code,trach on Wednesday Wean as per critical care MD 2) Pneumonia 05/18: Remains on IV abx, recent culture shows pseudomonas 05/17: Blood cultures have been negative, there are repeat positives of + E coli from sputum/trach. On IV Aztreonam. WBC stable for now WBC is coming down Trach cultures Ecoli sensitive to Aztreo Continue Aztreonam ( day #7) 3) History of early onset dementia starting 5 years ago as per daughter 4) Seizure disorder, unspecified patient was taking Keppra and Lamotrigine switch to oral Keppra 5) History of Asthma Currently intubated 6) DVT and GI prophylasix protonix and lovenox On Tube feedings, Jevity 1.5.
--- NOTE | 2017-05-18 13:06 | CP.CCUPN ---
<Du Ledesma - Last Filed: 05/18/17 13:46> CCU Subjective - Physician Review Subjective (Free Text): PGY1 ICU progress note for Dr. Kaur Patient seen and examined this morning at bedside. Patient is unresponsive on ventilator support. ROS unattainable. CCU Objective - Vital Signs / Intake & Output Vital Signs (Last 4 hours): Vital Signs Temp Pulse Resp BP Pulse Ox 05/18/17 12:06 76 12 118/51 L 97 05/18/17 12:00 97.9 F 71 12 98 05/18/17 11:05 77 13 122/70 98 05/18/17 11:00 78 13 98 05/18/17 10:05 77 15 123/72 98 05/18/17 10:00 79 12 98 05/18/17 09:06 76 12 107/61 98 05/18/17 09:00 77 14 98 Intake and Output (Last 8hrs): Intake & Output 05/17/17 05/18/17 05/18/17 22:59 06:59 14:59 Intake Total 350 370 290 Output Total 650 950 Balance -300 -580 290 Weight 189 lb 9.6 oz Intake: Intake, IV Amount 50 50 Left Proximal Port 50 50 Internal Jugular Tube Feeding 320 320 240 Other 30 Output: Urine 650 950 Urine, Voided 650 950 Other: # Bowel Movements 0 0 - Physical Exam Head: Positive for: Atraumatic, Normocephalic Pupils: Positive for: Sluggish, Non-Reactive Conjunctiva: Positive for: Injected Mouth: Positive for: Moist Mucous Membranes Neck: Positive for: Trachea Midline Respiratory/Chest: Positive for: Clear to Auscultation, Good Air Exchange, Decreased Breath Sounds. Negative for: Respiratory Distress, Accessory Muscle Use Cardiovascular: Positive for: Regular Rate and Rhythm, Normal S1, S2, Tachycardic (sinus) Abdomen: Positive for: Distention, Normal Bowel Sounds Upper Extremity: Positive for: Normal Inspection, Edema Lower Extremity: Positive for: Edema Neurological: Positive for: Other (intubated). Negative for: GCS=15, CN II-XII Intact Psychiatric: Positive for: Other (intubated). Negative for: Alert, Oriented x 3 - Medications Active Medications: Active Medications Generic Name Dose Route Start Last Admin Trade Name Freq PRN Reason Stop Dose Admin Acetaminophen 975 mg 05/08/17 09:31 05/08/17 09:50 Tylenol 650mg/20.3ml Solution Ud PEG 975 mg Q6 PRN Administration Rigors Albuterol/Ipratropium 3 ml 05/08/17 20:00 05/18/17 08:20 Duoneb 3 Mg/0.5 Mg (3 Ml) Ud INH 3 ml RQ6 LINNETTE Administration Artificial Tears 0 gm 05/08/17 12:00 05/18/17 12:10 Lacri-Lube OU 3.5 gm Q4 LINNETTE Administration Ascorbic Acid 500 mg 05/16/17 10:00 05/18/17 09:54 Vitamin C 500 Mg Tab PO 500 mg DAILY LINNETTE Administration Aspirin 81 mg 05/11/17 10:00 05/18/17 09:54 Aspirin Chewable PEG 81 mg DAILY LINNETTE Administration Hydromorphone HCl 0.5 mg 05/17/17 11:20 Dilaudid IVP Q4H PRN Pain, moderate (4-7) Aztreonam 1 gm/ Sodium 50 mls @ 100 mls/hr 05/09/17 11:00 05/18/17 11:56 Chloride IVPB 100 mls/hr Q8H LINNETTE Administration Lactulose 20 gm 05/15/17 22:00 Enulose NG HS PRN Constipation Levetiracetam 750 mg 05/15/17 18:00 05/18/17 09:54 Keppra NG 750 mg BID LINNETTE Administration Multivitamins/Vitamin C 5 ml 05/16/17 10:00 05/18/17 09:54 Multi-Delyn Liquid PO 5 ml DAILY LINNETTE Administration Pantoprazole Sodium 40 mg 05/09/17 06:00 05/18/17 07:06 Protonix Susp PO 40 mg 0600 LINNETTE Administration Polyethylene Glycol 17 gm 05/16/17 10:00 05/18/17 09:54 Miralax GT 17 gm DAILY LINNETTE Administration Zinc Sulfate 220 mg 05/16/17 10:00 05/18/17 09:54 Zinc Sulfate 220 Mg Cap PO 220 mg DAILY LINNETTE Administration - Patient Studies Lab Studies: Microbiology Studies 05/15/17 10:14 Gram Stain - Final Trachasp Sputum Culture - Final Pseudomonas Aeruginosa Lab Studies 05/18/17 05/18/17 05/18/17 Range/Units 11: 06:15 06:15 WBC 15.6 H (4.8-10.8) K/uL RBC 4.26 (3.80-5.20) Mil/uL Hgb 12.2 (11.0-16.0) g/dL Hct 37.0 (34.0-47.0) % MCV 86.8 (81.0-99.0) fL MCH 28.6 (27.0-31.0) pg MCHC 33.0 (33.0-37.0) g/dL RDW 14.2 (11.5-14.5) % Plt Count 285 (130-400) K/uL MPV 8.4 (7.2-11.7) fL Neut % (Auto) 86.4 H (50.0-75.0) % Lymph % (Auto) 8.8 L (20.0-40.0) % Pitt % (Auto) 3.2 (0.0-10.0) % Eos % (Auto) 1.5 (0.0-4.0) % Baso % (Auto) 0.1 (0.0-2.0) % Neut # 13.4 H (1.8-7.0) K/uL Lymph # 1.4 (1.0-4.3) K/uL Pitt # 0.5 (0.0-0.8) K/uL Eos # 0.2 (0.0-0.7) K/uL Baso # 0.0 (0.0-0.2) K/uL Neutrophils % (Manual) 90 H (50-75) % Lymphocytes % (Manual) 5 L (20-40) % Monocytes % (Manual) 2 (0-10) % Eosinophils % (Manual) 3 (0-4) % Platelet Estimate Normal (NORMAL) RBC Morphology Normal Puncture Site pCO2 (35-45) mm/Hg pO2 (80-100) mm/Hg HCO3 (21-28) mmol/L ABG pH (7.35-7.45) ABG Total CO2 (22-28) mmol/L ABG O2 Saturation (95-98) % ABG Base Excess (-2.0-3.0) mmol/L ABG Hemoglobin (11.7-17.4) g/dL ABG Carboxyhemoglobin (0.5-1.5) % POC ABG HHb (Measured) (0.0-5.0) % ABG Methemoglobin (0.0-3.0) % Evans Test A-a O2 Difference mm/Hg Respiratory Index Hgb O2 Saturation (95.0-98.0) % Vent Mode Mechanical Rate FiO2 % Tidal Volume PEEP Sodium 135 (132-148) mmol/L Potassium 3.7 (3.6-5.2) mmol/L Chloride 99 (98-107) mmol/L Carbon Dioxide 28 (22-30) mmol/L Anion Gap 12 (10-20) BUN 13 (7-17) mg/dL Creatinine 0.4 L (0.7-1.2) mg/dL Est GFR ( Amer) > 60 Est GFR (Non-Af Amer) > 60 POC Glucose (mg/dL) 186 H (65-110) mg/dL Random Glucose 132 H (65-105) mg/dL Calcium 8.3 L (8.6-10.4) mg/dl Phosphorus 3.8 (2.5-4.5) mg/dL Magnesium 1.5 L (1.6-2.3) mg/dL Total Bilirubin 0.4 (0.2-1.3) mg/dL AST 151 H D (14-36) U/L ALT 236 H D (9-52) U/L Alkaline Phosphatase 201 H D (38-126) U/L Total Protein 6.3 (6.3-8.3) g/dL Albumin 3.0 L (3.5-5.0) g/dL Globulin 3.3 (2.2-3.9) gm/dL Albumin/Globulin Ratio 0.9 L (1.0-2.1) Levetiracetam mcg/mL 05/18/17 05/18/17 05/17/17 Range/Units 05:26 05:22 23:51 WBC (4.8-10.8) K/uL RBC (3.80-5.20) Mil/uL Hgb (11.0-16.0) g/dL Hct (34.0-47.0) % MCV (81.0-99.0) fL MCH (27.0-31.0) pg MCHC (33.0-37.0) g/dL RDW (11.5-14.5) % Plt Count (130-400) K/uL MPV (7.2-11.7) fL Neut % (Auto) (50.0-75.0) % Lymph % (Auto) (20.0-40.0) % Pitt % (Auto) (0.0-10.0) % Eos % (Auto) (0.0-4.0) % Baso % (Auto) (0.0-2.0) % Neut # (1.8-7.0) K/uL Lymph # (1.0-4.3) K/uL Pitt # (0.0-0.8) K/uL Eos # (0.0-0.7) K/uL Baso # (0.0-0.2) K/uL Neutrophils % (Manual) (50-75) % Lymphocytes % (Manual) (20-40) % Monocytes % (Manual) (0-10) % Eosinophils % (Manual) (0-4) % Platelet Estimate (NORMAL) RBC Morphology Puncture Site Rr pCO2 39 (35-45) mm/Hg pO2 102 H (80-100) mm/Hg HCO3 28.3 H (21-28) mmol/L ABG pH 7.47 H (7.35-7.45) ABG Total CO2 29.6 H (22-28) mmol/L ABG O2 Saturation 99.0 H (95-98) % ABG Base Excess 4.4 H (-2.0-3.0) mmol/L ABG Hemoglobin 12.3 (11.7-17.4) g/dL ABG Carboxyhemoglobin 2.0 H (0.5-1.5) % POC ABG HHb (Measured) 1.0 (0.0-5.0) % ABG Methemoglobin 1.3 (0.0-3.0) % Evans Test Pos A-a O2 Difference 99.0 mm/Hg Respiratory Index 1.0 Hgb O2 Saturation 95.7 (95.0-98.0) % Vent Mode Prvc Mechanical Rate 12 FiO2 35.0 % Tidal Volume 400 PEEP 5 Sodium (132-148) mmol/L Potassium (3.6-5.2) mmol/L Chloride (98-107) mmol/L Carbon Dioxide (22-30) mmol/L Anion Gap (10-20) BUN (7-17) mg/dL Creatinine (0.7-1.2) mg/dL Est GFR ( Amer) Est GFR (Non-Af Amer) POC Glucose (mg/dL) 141 H 193 H (65-110) mg/dL Random Glucose (65-105) mg/dL Calcium (8.6-10.4) mg/dl Phosphorus (2.5-4.5) mg/dL Magnesium (1.6-2.3) mg/dL Total Bilirubin (0.2-1.3) mg/dL AST (14-36) U/L ALT (9-52) U/L Alkaline Phosphatase (38-126) U/L Total Protein (6.3-8.3) g/dL Albumin (3.5-5.0) g/dL Globulin (2.2-3.9) gm/dL Albumin/Globulin Ratio (1.0-2.1) Levetiracetam mcg/mL 05/17/17 05/15/17 Range/Units 17:40 11:29 WBC (4.8-10.8) K/uL RBC (3.80-5.20) Mil/uL Hgb (11.0-16.0) g/dL Hct (34.0-47.0) % MCV (81.0-99.0) fL MCH (27.0-31.0) pg MCHC (33.0-37.0) g/dL RDW (11.5-14.5) % Plt Count (130-400) K/uL MPV (7.2-11.7) fL Neut % (Auto) (50.0-75.0) % Lymph % (Auto) (20.0-40.0) % Pitt % (Auto) (0.0-10.0) % Eos % (Auto) (0.0-4.0) % Baso % (Auto) (0.0-2.0) % Neut # (1.8-7.0) K/uL Lymph # (1.0-4.3) K/uL Pitt # (0.0-0.8) K/uL Eos # (0.0-0.7) K/uL Baso # (0.0-0.2) K/uL Neutrophils % (Manual) (50-75) % Lymphocytes % (Manual) (20-40) % Monocytes % (Manual) (0-10) % Eosinophils % (Manual) (0-4) % Platelet Estimate (NORMAL) RBC Morphology Puncture Site pCO2 (35-45) mm/Hg pO2 (80-100) mm/Hg HCO3 (21-28) mmol/L ABG pH (7.35-7.45) ABG Total CO2 (22-28) mmol/L ABG O2 Saturation (95-98) % ABG Base Excess (-2.0-3.0) mmol/L ABG Hemoglobin (11.7-17.4) g/dL ABG Carboxyhemoglobin (0.5-1.5) % POC ABG HHb (Measured) (0.0-5.0) % ABG Methemoglobin (0.0-3.0) % Evans Test A-a O2 Difference mm/Hg Respiratory Index Hgb O2 Saturation (95.0-98.0) % Vent Mode Mechanical Rate FiO2 % Tidal Volume PEEP Sodium (132-148) mmol/L Potassium (3.6-5.2) mmol/L Chloride (98-107) mmol/L Carbon Dioxide (22-30) mmol/L Anion Gap (10-20) BUN (7-17) mg/dL Creatinine (0.7-1.2) mg/dL Est GFR ( Amer) Est GFR (Non-Af Amer) POC Glucose (mg/dL) 124 H (65-110) mg/dL Random Glucose (65-105) mg/dL Calcium (8.6-10.4) mg/dl Phosphorus (2.5-4.5) mg/dL Magnesium (1.6-2.3) mg/dL Total Bilirubin (0.2-1.3) mg/dL AST (14-36) U/L ALT (9-52) U/L Alkaline Phosphatase (38-126) U/L Total Protein (6.3-8.3) g/dL Albumin (3.5-5.0) g/dL Globulin (2.2-3.9) gm/dL Albumin/Globulin Ratio (1.0-2.1) Levetiracetam 9.4 mcg/mL Laboratory Results - last 24 hr 05/15/17 05/17/17 05/17/17 11:29 17:40 23:51 WBC RBC Hgb Hct MCV MCH MCHC RDW Plt Count MPV Neut % (Auto) Lymph % (Auto) Pitt % (Auto) Eos % (Auto) Baso % (Auto) Neut # Lymph # Pitt # Eos # Baso # Neutrophils % (Manual) Lymphocytes % (Manual) Monocytes % (Manual) Eosinophils % (Manual) Platelet Estimate RBC Morphology Puncture Site pCO2 pO2 HCO3 ABG pH ABG Total CO2 ABG O2 Saturation ABG Base Excess ABG Hemoglobin ABG Carboxyhemoglobin POC ABG HHb (Measured) ABG Methemoglobin Evans Test A-a O2 Difference Respiratory Index Hgb O2 Saturation Vent Mode Mechanical Rate FiO2 Tidal Volume PEEP Sodium Potassium Chloride Carbon Dioxide Anion Gap BUN Creatinine Est GFR ( Amer) Est GFR (Non-Af Amer) POC Glucose (mg/dL) 124 H 193 H Random Glucose Calcium Phosphorus Magnesium Total Bilirubin AST ALT Alkaline Phosphatase Total Protein Albumin Globulin Albumin/Globulin Ratio Levetiracetam 9.4 05/18/17 05/18/17 05/18/17 05:22 05:26 06:15 WBC 15.6 H RBC 4.26 Hgb 12.2 Hct 37.0 MCV 86.8 MCH 28.6 MCHC 33.0 RDW 14.2 Plt Count 285 MPV 8.4 Neut % (Auto) 86.4 H Lymph % (Auto) 8.8 L Pitt % (Auto) 3.2 Eos % (Auto) 1.5 Baso % (Auto) 0.1 Neut # 13.4 H Lymph # 1.4 Pitt # 0.5 Eos # 0.2 Baso # 0.0 Neutrophils % (Manual) 90 H Lymphocytes % (Manual) 5 L Monocytes % (Manual) 2 Eosinophils % (Manual) 3 Platelet Estimate Normal RBC Morphology Normal Puncture Site Rr pCO2 39 pO2 102 H HCO3 28.3 H ABG pH 7.47 H ABG Total CO2 29.6 H ABG O2 Saturation 99.0 H ABG Base Excess 4.4 H ABG Hemoglobin 12.3 ABG Carboxyhemoglobin 2.0 H POC ABG HHb (Measured) 1.0 ABG Methemoglobin 1.3 Evans Test Pos A-a O2 Difference 99.0 Respiratory Index 1.0 Hgb O2 Saturation 95.7 Vent Mode Prvc Mechanical Rate 12 FiO2 35.0 Tidal Volume 400 PEEP 5 Sodium Potassium Chloride Carbon Dioxide Anion Gap BUN Creatinine Est GFR ( Amer) Est GFR (Non-Af Amer) POC Glucose (mg/dL) 141 H Random Glucose Calcium Phosphorus Magnesium Total Bilirubin AST ALT Alkaline Phosphatase Total Protein Albumin Globulin Albumin/Globulin Ratio Levetiracetam 05/18/17 05/18/17 06:15 11:26 WBC RBC Hgb Hct MCV MCH MCHC RDW Plt Count MPV Neut % (Auto) Lymph % (Auto) Pitt % (Auto) Eos % (Auto) Baso % (Auto) Neut # Lymph # Pitt # Eos # Baso # Neutrophils % (Manual) Lymphocytes % (Manual) Monocytes % (Manual) Eosinophils % (Manual) Platelet Estimate RBC Morphology Puncture Site pCO2 pO2 HCO3 ABG pH ABG Total CO2 ABG O2 Saturation ABG Base Excess ABG Hemoglobin ABG Carboxyhemoglobin POC ABG HHb (Measured) ABG Methemoglobin Evans Test A-a O2 Difference Respiratory Index Hgb O2 Saturation Vent Mode Mechanical Rate FiO2 Tidal Volume PEEP Sodium 135 Potassium 3.7 Chloride 99 Carbon Dioxide 28 Anion Gap 12 BUN 13 Creatinine 0.4 L Est GFR ( Amer) > 60 Est GFR (Non-Af Amer) > 60 POC Glucose (mg/dL) 186 H Random Glucose 132 H Calcium 8.3 L Phosphorus 3.8 Magnesium 1.5 L Total Bilirubin 0.4 AST 151 H D ALT 236 H D Alkaline Phosphatase 201 H D Total Protein 6.3 Albumin 3.0 L Globulin 3.3 Albumin/Globulin Ratio 0.9 L Levetiracetam Fingerstick Blood Sugar Results: 186 Review of Systems - Review of Systems Systems not reviewed;Unavailable: Intubated Assessment/Plan - Assessment and Plan (Free Text) Assessment: Patient is a 57F with PMH early onset dementia, 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 Hidalgo consulted, help appreciated hx of early onset dementia (started 7 years ago) non-verbal at baseline bedbound at baseline propofol drip Keppra 750 IVPB q12 increasing LFT's awaiting return call from Dr. Hidalgo to adjust Keppra to Depakote Head CT 05/10 - New low attenuation in the right caudate nucleus head indicating possible acute/subacute infarct. Recommend evaluation with magnetic resonance imaging. Atrophy greater than expected for patient age with ex vacuo ventricular dilatation. Chronic white matter ischemic change. EEG 05/11 - globally abnormal EEG due to burst suppression with periodic delta waves seen every 10 seconds. Findings of EEG consistent with global cerebral dysfunction. Study does NOT meet criteria for b/l cerebral silence. Repeat Head Ct 05/12 - No evidence of significant interval change when compared to the previous study dated 05/10/2017. No evidence of acute intracranial hemorrhage. Re- demonstration of moderate to severe atrophy. Moderate to severe dilatation the lateral ventricles and 3rd ventricle suggestive of hydrocephalus. Re- demonstration of focal hypodensity at the right caudate nucleus which could represent subacute infarct versus chronic microvascular changes. f/u neuro recs - Goal MAP of 90-100, per Dr. Hidalgo Patient's may be having second thoughts of artificially prolonging life of , per pastoral care. Another discussion about goals of care for patient may be needed. Cardio: Dr. Heck consulted, help appreciated s/p cardiac arrest, suspected 2/2 sepsis - Code Freeze ECHO - moderate diffuse systolic dysfunction, overall EF 35-40%; large apical wall motion abnormality; all valves normal Respiratory: s/p tracheostomy POD #1 General Surgery, Dr. Monge consulted for trach Pneumonia CXR 05/17- improved vascular congestive changes. Large layering right-sided effusion and small left effusion. Suspect mild bibasilar atelectasis and/or some residual alveolar-type infiltrates. WBC - increasing to 15.6 from 11.9 Trachasp Culture positive for Pseudomonas Aeruginosa Aztrenonam 1gm IVPB q8 - discontinued Started on Cipro 400mg IVPB q12 Duoneb 3mL INH RQ6 ABG - R radial pCO2 39/ pO2 102/ HCO3 28.3/ pH 7.47 - taken while on vent settings TV 400/FiO2 35/RR 12/ PEEP 5 GI: On Tube feedings, Jevity 1.5. Initial rate of 20mL/hr, Goal rate of 40mL/hr Protonix 40mg PO daily Electrolytes: Phosphate 3.8 Mag 1.5 - repleted with 2gm Prophylactic Care: DVT: Lovenox 40mg SC daily GI: Protonix 40mg PO daily Patient for LTAC eval - daughter is upset that family was not aware the patient would not be able to return to her current [facility] after Tracheostomy. Her and her father are currently researching LTAC facilities. Case discussed with Dr. Vincent Sandy Callie PGY1 <Andrew Kaur S - Last Filed: 05/19/17 17:46> CCU Objective - Vital Signs / Intake & Output Vital Signs (Last 4 hours): Vital Signs Temp Pulse Resp BP Pulse Ox 05/19/17 16:05 79 12 113/59 L 97 05/19/17 16:00 97.6 F 79 13 96 05/19/17 15:05 85 13 105/56 L 94 L 05/19/17 15:00 86 15 94 L 05/19/17 14:06 88 12 119/91 H 95 05/19/17 14:00 89 12 92 L Intake and Output (Last 8hrs): Intake & Output 05/19/17 05/19/17 05/19/17 06:59 14:59 22:59 Intake Total 570 240 Output Total 900 Balance -330 240 Weight 190 lb Intake: Intake, IV Amount 200 rt arm brachial PICC 200 Tube Feeding 320 240 Other 50 Output: Urine 900 Urine, Voided 900 Other: # Bowel Movements 0 0 - Medications Active Medications: Active Medications Generic Name Dose Route Start Last Admin Trade Name Freq PRN Reason Stop Dose Admin Acetaminophen 975 mg 05/08/17 09:31 05/08/17 09:50 Tylenol 650mg/20.3ml Solution Ud PEG 975 mg Q6 PRN Administration Rigors Albuterol/Ipratropium 3 ml 05/08/17 20:00 05/19/17 13:32 Duoneb 3 Mg/0.5 Mg (3 Ml) Ud INH 3 ml RQ6 LINNETTE Administration Artificial Tears 0 gm 05/08/17 12:00 05/19/17 16:29 Lacri-Lube OU 3.5 gm Q4 LINNETTE Administration Ascorbic Acid 500 mg 05/16/17 10:00 05/19/17 10:14 Vitamin C 500 Mg Tab PO 500 mg DAILY LINNETTE Administration Aspirin 81 mg 05/11/17 10:00 05/19/17 10:20 Aspirin Chewable PEG 81 mg DAILY LINNETTE Administration Enoxaparin Sodium 40 mg 05/19/17 10:00 05/19/17 10:55 Lovenox SC 40 mg DAILY LINNETTE Administration Hydromorphone HCl 0.5 mg 05/17/17 11:20 Dilaudid IVP Q4H PRN Pain, moderate (4-7) Ciprofloxacin 400 mg in 200 mls @ 133 mls/hr 05/18/17 14:00 05/19/17 13:31 Cipro 400mg/200ml Dsw IVPB 133 mls/hr Q12H LINNETTE Administration Lactulose 20 gm 05/15/17 22:00 05/19/17 01:41 Enulose NG 20 gm HS PRN Administration Constipation Levetiracetam 750 mg 05/15/17 18:00 05/19/17 10:15 Keppra NG 750 mg BID LINNETTE Administration Multivitamins/Vitamin C 5 ml 05/16/17 10:00 05/19/17 10:55 Multi-Delyn Liquid PO 5 ml DAILY LINNETTE Administration Pantoprazole Sodium 40 mg 05/09/17 06:00 05/19/17 05:29 Protonix Susp PO 40 mg 0600 LINNETTE Administration Polyethylene Glycol 17 gm 05/16/17 10:00 05/19/17 10:15 Miralax GT 17 gm DAILY LINNETTE Administration Zinc Sulfate 220 mg 05/16/17 10:00 05/19/17 10:16 Zinc Sulfate 220 Mg Cap PO 220 mg DAILY LINNETTE Administration - Patient Studies Lab Studies: Lab Studies 05/19/17 05/19/17 05/19/17 Range/Units 17:38 11:57 06:29 WBC (4.8-10.8) K/uL RBC (3.80-5.20) Mil/uL Hgb (11.0-16.0) g/dL Hct (34.0-47.0) % MCV (81.0-99.0) fL MCH (27.0-31.0) pg MCHC (33.0-37.0) g/dL RDW (11.5-14.5) % Plt Count (130-400) K/uL MPV (7.2-11.7) fL Neut % (Auto) (50.0-75.0) % Lymph % (Auto) (20.0-40.0) % Pitt % (Auto) (0.0-10.0) % Eos % (Auto) (0.0-4.0) % Baso % (Auto) (0.0-2.0) % Neut # (1.8-7.0) K/uL Lymph # (1.0-4.3) K/uL Pitt # (0.0-0.8) K/uL Eos # (0.0-0.7) K/uL Baso # (0.0-0.2) K/uL Neutrophils % (Manual) (50-75) % Lymphocytes % (Manual) (20-40) % Monocytes % (Manual) (0-10) % Platelet Estimate (NORMAL) RBC Morphology Puncture Site pCO2 (35-45) mm/Hg pO2 (80-100) mm/Hg HCO3 (21-28) mmol/L ABG pH (7.35-7.45) ABG Total CO2 (22-28) mmol/L ABG O2 Saturation (95-98) % ABG Base Excess (-2.0-3.0) mmol/L ABG Hemoglobin (11.7-17.4) g/dL ABG Carboxyhemoglobin (0.5-1.5) % POC ABG HHb (Measured) (0.0-5.0) % ABG Methemoglobin (0.0-3.0) % Evans Test A-a O2 Difference mm/Hg Respiratory Index Hgb O2 Saturation (95.0-98.0) % Vent Mode Mechanical Rate FiO2 % Tidal Volume PEEP Sodium 134 (132-148) mmol/L Potassium 3.7 (3.6-5.2) mmol/L Chloride 97 L (98-107) mmol/L Carbon Dioxide 28 (22-30) mmol/L Anion Gap 13 (10-20) BUN 10 (7-17) mg/dL Creatinine 0.3 L (0.7-1.2) mg/dL Est GFR ( Amer) > 60 Est GFR (Non-Af Amer) > 60 POC Glucose (mg/dL) 102 163 H (65-110) mg/dL Random Glucose 121 H (65-105) mg/dL Calcium 8.2 L (8.6-10.4) mg/dl Phosphorus 3.5 (2.5-4.5) mg/dL Magnesium 1.7 (1.6-2.3) mg/dL Total Bilirubin 0.4 (0.2-1.3) mg/dL AST 67 H D (14-36) U/L ALT 164 H D (9-52) U/L Alkaline Phosphatase 151 H D (38-126) U/L Total Protein 6.8 (6.3-8.3) g/dL Albumin 3.2 L (3.5-5.0) g/dL Globulin 3.6 (2.2-3.9) gm/dL Albumin/Globulin Ratio 0.9 L (1.0-2.1) 05/19/17 05/19/17 05/19/17 Range/Units 06:29 05:35 04:50 WBC 22.7 H (4.8-10.8) K/uL RBC 4.17 (3.80-5.20) Mil/uL Hgb 11.9 (11.0-16.0) g/dL Hct 36.2 (34.0-47.0) % MCV 86.7 (81.0-99.0) fL MCH 28.6 (27.0-31.0) pg MCHC 33.0 (33.0-37.0) g/dL RDW 14.0 (11.5-14.5) % Plt Count 293 (130-400) K/uL MPV 8.2 (7.2-11.7) fL Neut % (Auto) 90.8 H (50.0-75.0) % Lymph % (Auto) 4.7 L (20.0-40.0) % Pitt % (Auto) 3.6 (0.0-10.0) % Eos % (Auto) 0.8 (0.0-4.0) % Baso % (Auto) 0.1 (0.0-2.0) % Neut # 20.6 H (1.8-7.0) K/uL Lymph # 1.1 (1.0-4.3) K/uL Pitt # 0.8 (0.0-0.8) K/uL Eos # 0.2 (0.0-0.7) K/uL Baso # 0.0 (0.0-0.2) K/uL Neutrophils % (Manual) 95 H (50-75) % Lymphocytes % (Manual) 3 L (20-40) % Monocytes % (Manual) 2 (0-10) % Platelet Estimate Normal (NORMAL) RBC Morphology Normal Puncture Site Lr pCO2 31 L (35-45) mm/Hg pO2 98 (80-100) mm/Hg HCO3 21.5 (21-28) mmol/L ABG pH 7.41 (7.35-7.45) ABG Total CO2 20.6 L (22-28) mmol/L ABG O2 Saturation 99.5 H (95-98) % ABG Base Excess -4.4 L (-2.0-3.0) mmol/L ABG Hemoglobin 8.8 L (11.7-17.4) g/dL ABG Carboxyhemoglobin 2.2 H (0.5-1.5) % POC ABG HHb (Measured) 0.5 (0.0-5.0) % ABG Methemoglobin 1.2 (0.0-3.0) % Evans Test Pos A-a O2 Difference 113.0 mm/Hg Respiratory Index 1.2 Hgb O2 Saturation 96.2 (95.0-98.0) % Vent Mode Prvc Mechanical Rate 12 FiO2 35.0 % Tidal Volume 400 PEEP 5 Sodium (132-148) mmol/L Potassium (3.6-5.2) mmol/L Chloride (98-107) mmol/L Carbon Dioxide (22-30) mmol/L Anion Gap (10-20) BUN (7-17) mg/dL Creatinine (0.7-1.2) mg/dL Est GFR ( Amer) Est GFR (Non-Af Amer) POC Glucose (mg/dL) 147 H (65-110) mg/dL Random Glucose (65-105) mg/dL Calcium (8.6-10.4) mg/dl Phosphorus (2.5-4.5) mg/dL Magnesium (1.6-2.3) mg/dL Total Bilirubin (0.2-1.3) mg/dL AST (14-36) U/L ALT (9-52) U/L Alkaline Phosphatase (38-126) U/L Total Protein (6.3-8.3) g/dL Albumin (3.5-5.0) g/dL Globulin (2.2-3.9) gm/dL Albumin/Globulin Ratio (1.0-2.1) 05/18/17 05/18/17 Range/Units 23:44 18:43 WBC (4.8-10.8) K/uL RBC (3.80-5.20) Mil/uL Hgb (11.0-16.0) g/dL Hct (34.0-47.0) % MCV (81.0-99.0) fL MCH (27.0-31.0) pg MCHC (33.0-37.0) g/dL RDW (11.5-14.5) % Plt Count (130-400) K/uL MPV (7.2-11.7) fL Neut % (Auto) (50.0-75.0) % Lymph % (Auto) (20.0-40.0) % Pitt % (Auto) (0.0-10.0) % Eos % (Auto) (0.0-4.0) % Baso % (Auto) (0.0-2.0) % Neut # (1.8-7.0) K/uL Lymph # (1.0-4.3) K/uL Pitt # (0.0-0.8) K/uL Eos # (0.0-0.7) K/uL Baso # (0.0-0.2) K/uL Neutrophils % (Manual) (50-75) % Lymphocytes % (Manual) (20-40) % Monocytes % (Manual) (0-10) % Platelet Estimate (NORMAL) RBC Morphology Puncture Site pCO2 (35-45) mm/Hg pO2 (80-100) mm/Hg HCO3 (21-28) mmol/L ABG pH (7.35-7.45) ABG Total CO2 (22-28) mmol/L ABG O2 Saturation (95-98) % ABG Base Excess (-2.0-3.0) mmol/L ABG Hemoglobin (11.7-17.4) g/dL ABG Carboxyhemoglobin (0.5-1.5) % POC ABG HHb (Measured) (0.0-5.0) % ABG Methemoglobin (0.0-3.0) % Evans Test A-a O2 Difference mm/Hg Respiratory Index Hgb O2 Saturation (95.0-98.0) % Vent Mode Mechanical Rate FiO2 % Tidal Volume PEEP Sodium (132-148) mmol/L Potassium (3.6-5.2) mmol/L Chloride (98-107) mmol/L Carbon Dioxide (22-30) mmol/L Anion Gap (10-20) BUN (7-17) mg/dL Creatinine (0.7-1.2) mg/dL Est GFR ( Amer) Est GFR (Non-Af Amer) POC Glucose (mg/dL) 150 H 180 H (65-110) mg/dL Random Glucose (65-105) mg/dL Calcium (8.6-10.4) mg/dl Phosphorus (2.5-4.5) mg/dL Magnesium (1.6-2.3) mg/dL Total Bilirubin (0.2-1.3) mg/dL AST (14-36) U/L ALT (9-52) U/L Alkaline Phosphatase (38-126) U/L Total Protein (6.3-8.3) g/dL Albumin (3.5-5.0) g/dL Globulin (2.2-3.9) gm/dL Albumin/Globulin Ratio (1.0-2.1) Laboratory Results - last 24 hr 05/18/17 05/18/17 05/19/17 18:43 23:44 04:50 WBC RBC Hgb Hct MCV MCH MCHC RDW Plt Count MPV Neut % (Auto) Lymph % (Auto) Pitt % (Auto) Eos % (Auto) Baso % (Auto) Neut # Lymph # Pitt # Eos # Baso # Neutrophils % (Manual) Lymphocytes % (Manual) Monocytes % (Manual) Platelet Estimate RBC Morphology Puncture Site Lr pCO2 31 L pO2 98 HCO3 21.5 ABG pH 7.41 ABG Total CO2 20.6 L ABG O2 Saturation 99.5 H ABG Base Excess -4.4 L ABG Hemoglobin 8.8 L ABG Carboxyhemoglobin 2.2 H POC ABG HHb (Measured) 0.5 ABG Methemoglobin 1.2 Evans Test Pos A-a O2 Difference 113.0 Respiratory Index 1.2 Hgb O2 Saturation 96.2 Vent Mode Prvc Mechanical Rate 12 FiO2 35.0 Tidal Volume 400 PEEP 5 Sodium Potassium Chloride Carbon Dioxide Anion Gap BUN Creatinine Est GFR ( Amer) Est GFR (Non-Af Amer) POC Glucose (mg/dL) 180 H 150 H Random Glucose Calcium Phosphorus Magnesium Total Bilirubin AST ALT Alkaline Phosphatase Total Protein Albumin Globulin Albumin/Globulin Ratio 05/19/17 05/19/17 05/19/17 05:35 06:29 06:29 WBC 22.7 H RBC 4.17 Hgb 11.9 Hct 36.2 MCV 86.7 MCH 28.6 MCHC 33.0 RDW 14.0 Plt Count 293 MPV 8.2 Neut % (Auto) 90.8 H Lymph % (Auto) 4.7 L Pitt % (Auto) 3.6 Eos % (Auto) 0.8 Baso % (Auto) 0.1 Neut # 20.6 H Lymph # 1.1 Pitt # 0.8 Eos # 0.2 Baso # 0.0 Neutrophils % (Manual) 95 H Lymphocytes % (Manual) 3 L Monocytes % (Manual) 2 Platelet Estimate Normal RBC Morphology Normal Puncture Site pCO2 pO2 HCO3 ABG pH ABG Total CO2 ABG O2 Saturation ABG Base Excess ABG Hemoglobin ABG Carboxyhemoglobin POC ABG HHb (Measured) ABG Methemoglobin Evans Test A-a O2 Difference Respiratory Index Hgb O2 Saturation Vent Mode Mechanical Rate FiO2 Tidal Volume PEEP Sodium 134 Potassium 3.7 Chloride 97 L Carbon Dioxide 28 Anion Gap 13 BUN 10 Creatinine 0.3 L Est GFR ( Amer) > 60 Est GFR (Non-Af Amer) > 60 POC Glucose (mg/dL) 147 H Random Glucose 121 H Calcium 8.2 L Phosphorus 3.5 Magnesium 1.7 Total Bilirubin 0.4 AST 67 H D ALT 164 H D Alkaline Phosphatase 151 H D Total Protein 6.8 Albumin 3.2 L Globulin 3.6 Albumin/Globulin Ratio 0.9 L 05/19/17 05/19/17 11:57 17:38 WBC RBC Hgb Hct MCV MCH MCHC RDW Plt Count MPV Neut % (Auto) Lymph % (Auto) [place] % (Auto) Eos % (Auto) Baso % (Auto) Neut # Lymph # [place] # Eos # Baso # Neutrophils % (Manual) Lymphocytes % (Manual) Monocytes % (Manual) Platelet Estimate RBC Morphology Puncture Site pCO2 pO2 HCO3 ABG pH ABG Total CO2 ABG O2 Saturation ABG Base Excess ABG Hemoglobin ABG Carboxyhemoglobin POC ABG HHb (Measured) ABG Methemoglobin Evans Test A-a O2 Difference Respiratory Index Hgb O2 Saturation Vent Mode Mechanical Rate FiO2 Tidal Volume PEEP Sodium Potassium Chloride Carbon Dioxide Anion Gap BUN Creatinine Est GFR ( Amer) Est GFR (Non-Af Amer) POC Glucose (mg/dL) 163 H 102 Random Glucose Calcium Phosphorus Magnesium Total Bilirubin AST ALT Alkaline Phosphatase Total Protein Albumin Globulin Albumin/Globulin Ratio Attending/Attestation - Attestation I have personally seen and examined this patient.: Yes I have fully participated in the care of the patient.: Yes I have reviewed all pertinent clinical information: Yes Notes (Text): Patient seen and examined in the intensive care unit. Case discussed with STAFF in the morning. Status post tracheostomy on ventilator support No change in mental status Continue present treatment Prognosis poor
[2017-05-18] MEDS: Magnesium Sulfate 1 gm in D5W 1 GM/100 ML BAG IVPB SCH ×2 (14:00→14:35)
[2017-05-18] MEDS: Ciprofloxacin 400mg/200ml D5W 400 MG/200 ML BAG IVPB SCH (15:00)
--- NOTE | 2017-05-18 22:20 | CP.PCM.PN ---
Subjective - Date & Time of Evaluation Date of Evaluation: 05/18/17 Time of Evaluation: 09:45 - Subjective Subjective: Patient seen and evaluated Unresponsive Patient full code Physical Examination - Head Exam Head Exam: ATRAUMATIC - Eye Exam Eye Exam: Normal appearance - ENT Exam ENT Exam: Mucous Membranes Moist - Respiratory Exam Respiratory Exam: Clear to Ausculation Bilateral - Cardiovascular Exam Cardiovascular Exam: REGULAR RHYTHM - GI/Abdominal Exam GI & Abdominal Exam: Soft, Normal Bowel Sounds - Exam External exam: NORMAL EXTERNAL EXAM - Back Exam Back Exam: NORMAL INSPECTION - Neurological Exam Neurological Exam: absent: Alert - Psychiatric Exam Psychiatric exam: absent: Normal Mood - Skin Skin Exam: Dry Objective - Vital Signs/Intake and Output Vital Signs (last 24 hours): Temp Pulse Resp BP Pulse Ox 97.7 F 86 17 128/59 L 98 05/18/17 20:00 05/18/17 22:06 05/18/17 22:06 05/18/17 22:06 05/18/17 22:06 Intake and Output: 05/18/17 05/19/17 18:59 06:59 Intake Total 730 160 Output Total 800 0 Balance -70 160 - Medications Medications: Current Medications Acetaminophen (Tylenol 650mg/20.3ml Solution Ud) 975 mg PEG Q6 PRN PRN Reason: Rigors Last Admin: 05/08/17 09:50 Dose: 975 mg Albuterol/Ipratropium (Duoneb 3 Mg/0.5 Mg (3 Ml) Ud) 3 ml INH RQ6 [facility] Last Admin: 05/18/17 20:17 Dose: 3 ml Artificial Tears (Lacri-Lube) 0 gm OU Q4 [facility] Last Admin: 05/18/17 20:03 Dose: 3.5 gm Ascorbic Acid (Vitamin C 500 Mg Tab) 500 mg PO DAILY [facility] Last Admin: 05/18/17 09:54 Dose: 500 mg Aspirin (Aspirin Chewable) 81 mg PEG DAILY [facility] Last Admin: 05/18/17 09:54 Dose: 81 mg Hydromorphone HCl (Dilaudid) 0.5 mg IVP Q4H PRN PRN Reason: Pain, moderate (4-7) Ciprofloxacin (Cipro 400mg/200ml Dsw) 400 mg in 200 mls @ 133 mls/hr IVPB Q12H [facility] Last Admin: 05/18/17 15:00 Dose: 133 mls/hr Lactulose (Enulose) 20 gm NG HS PRN PRN Reason: Constipation Levetiracetam (Keppra) 750 mg NG BID [facility] Last Admin: 05/18/17 17:14 Dose: 750 mg Multivitamins/Vitamin C (Multi-Delyn Liquid) 5 ml PO DAILY [facility] Last Admin: 05/18/17 09:54 Dose: 5 ml Pantoprazole Sodium (Protonix Susp) 40 mg PO 0600 [facility] Last Admin: 05/18/17 07:06 Dose: 40 mg Polyethylene Glycol (Miralax) 17 gm GT DAILY [facility] Last Admin: 05/18/17 09:54 Dose: 17 gm Zinc Sulfate (Zinc Sulfate 220 Mg Cap) 220 mg PO DAILY [facility] Last Admin: 05/18/17 09:54 Dose: 220 mg - Labs Labs: 05/18/17 06:15 05/18/17 06:15 PT 15.1 SECONDS (9.7-12.2) H 05/09/17 17:57 INR 1.3 05/09/17 17:57 APTT 35 SECONDS (21-34) H 05/09/17 17:57 Assessment and Plan - Assessment and Plan (Free Text) Assessment: This is a 57F with PMH early onset dementia, seizures, and questionable asthma who was brought to the ED via EMS from her fci, [facility], where she was witnessed cardiopulmonary arrest. EMS intubated the patient in the field.At ED patient was having myoclonic jerks and code freeze was initiated. Patient remained intubated and patient was admitted to the ICU. Her dementia started 7 years ago.Last two year she was in the NH,nonverbal,some days she is responsive/look at family members Plan: 1) s/p cardiopulmonary arrest Intubated and remain on Vent support,comatose Abnormal CT brain .Repeat CT acute/subacute infarct asprin added d/w Dr Hidalgo.Patient has poor prognosis, Brain changes could be due anoxia brain injury s/p code freeze,continue solumedrol and duoneb D/W at bedside.We will talk to her daughter again palliative care consult Continue asprin 2) Pneumonia and elevated wbc follow cultures Continue Aztrenonam and Vancomcyin continue duoneb and steroid 3) History of early onset dementia starting 5 years ago as per daughter 4) Seizure disorder, unspecified patient was taking Keppra and Lamotrigine On Keppra 750mg IVQ12H 5) History of Asthma 6) DVT and GI prophylasix protonix and lovenox
[2017-05-19] MEDS: White Petrolatum/Mineral Oil Ophth Oint(3.5 gm) OU SCH ×6 (00:25→19:26)
[2017-05-19] MEDS: Albuterol-Ipratrop 3 mg / 0.5 (3 ml) UD INH SCH ×4 (01:08→20:31)
[2017-05-19] MEDS: Ciprofloxacin 400mg/200ml D5W 400 MG/200 ML BAG IVPB SCH ×2 (02:25→13:31)
[2017-05-19 04:53] LABS: ABG ALLEN TEST POS; ABG MECHANICAL RATE 12; ARTERIAL BLOOD GAS MODE PRVC; ARTERIAL BLOOD HGB O2 SAT 96.2 % (95.0-98.0); ATERIAL BLOOD GAS PEEP 5; CARBOXYHEMOGLOBIN 2.2 % (0.5-1.5); DRAW SITE LR; HHB 0.5 % (0.0-5.0); METHEMOGLOBIN 1.2 % (0.0-3.0)
[2017-05-19] MEDS: Pantoprazole 40 mg Susp UD PO SCH (05:29)
[2017-05-19 06:40] LABS: BASO % 0.1 % (0.0-2.0); EOS # 0.2 K/uL (0.0-0.7); EOS % 0.8 % (0.0-4.0); HEMATOCRIT 36.2 % (34.0-47.0); LYMPH # 1.1 K/uL (1.0-4.3); LYMPH % 4.7 % (20.0-40.0); MEAN CELL VOLUME 86.7 fL (81.0-99.0); MEAN CORPUSCULAR HEMOGLOBIN 28.6 pg (27.0-31.0); MEAN PLATELET VOLUME 8.2 fL (7.2-11.7); MONO # 0.8 K/uL (0.0-0.8); MONO % 3.6 % (0.0-10.0); PLATELET COUNT 293 K/uL (130-400); WHITE BLOOD COUNT 22.7 K/uL (4.8-10.8)
[2017-05-19 07:06] LABS: ALB/GLOB RATIO 0.9 (1.0-2.1); ALKALINE PHOSPHATASE 151 U/L (38-126); ALT/SGPT 164 U/L (9-52); AST/SGOT 67 U/L (14-36); BILIRUBIN,TOTAL 0.4 mg/dL (0.2-1.3); BLOOD UREA NITROGEN 10 mg/dL (7-17); CALCIUM 8.2 mg/dl (8.6-10.4); CARBON DIOXIDE 28 mmol/L (22-30); CHLORIDE 97 mmol/L (98-107); GFR AFRICAN-AMERICAN > 60; GLUCOSE,RANDOM 121 mg/dL (65-105); MAGNESIUM 1.7 mg/dL (1.6-2.3); PHOSPHOROUS 3.5 mg/dL (2.5-4.5); POTASSIUM 3.7 mmol/L (3.6-5.2); SODIUM 134 mmol/L (132-148); TOTAL PROTEIN 6.8 g/dL (6.3-8.3)
--- NOTE | 2017-05-19 08:19 | RAD ---
HISTORY: trach on vent COMPARISON: Portable chest 05/10/2017. FINDINGS: Tracheostomy tube and right PICC are unchanged in position. LUNGS: Trace atelectasis or infiltrate is difficult to exclude underlying small right pleural effusion. None is seen the left. PLEURA: No significant pleural effusion identified, no pneumothorax apparent. CARDIOVASCULAR: Cardiac silhouette appears stable. No pulmonary vascular derangement. OSSEOUS STRUCTURES: No significant abnormalities. VISUALIZED UPPER ABDOMEN: Normal. OTHER FINDINGS: None. IMPRESSION: Improved aeration of both lung bases with prominent pleural effusion now not identified. Minimal right pleural effusion remains. No prominent infiltrate bilaterally.
[2017-05-19 08:45] LABS: NEUTROPHIL 95 % (50-75); TOTAL CELLS COUNTED 100
[2017-05-19] MEDS: POLYETHYLENE GLYCOL 3350 17 GM/Dose PACKET GT SCH (10:15)
[2017-05-19] MEDS: levETIRAcetam 100 mg/ml (5ml) Oral Syringe NG SCH ×2 (10:15→18:40)
[2017-05-19] MEDS: Multiple Vitamins Oral Solution PO SCH (10:55)
[2017-05-19] MEDS: Enoxaparin 40 mg Syringe SC SCH (10:55)
--- NOTE | 2017-05-19 12:33 | CP.CCUPN ---
<Du Ledesma - Last Filed: 05/19/17 12:27> CCU Subjective - Physician Review Subjective (Free Text): PGY1 ICU progress note for Dr. Kaur Patient seen and examined this morning at bedside. Patient is unresponsive on ventilator support. ROS unattainable. CCU Objective - Vital Signs / Intake & Output Vital Signs (Last 4 hours): Vital Signs Pulse Resp BP Pulse Ox 05/19/17 12:06 88 13 124/58 L 100 05/19/17 12:00 93 H 29 H 100 05/19/17 11:05 90 28 H 98/58 L 100 05/19/17 11:00 90 20 100 05/19/17 10:05 89 17 109/54 L 98 05/19/17 10:00 88 16 97 05/19/17 09:05 85 15 116/58 L 97 05/19/17 09:00 84 13 98 Intake and Output (Last 8hrs): Intake & Output 05/18/17 05/19/17 05/19/17 22:59 06:59 14:59 Intake Total 520 570 240 Output Total 800 900 Balance -280 -330 240 Weight 190 lb Intake: Intake, IV Amount 200 200 Left Proximal Port 200 Internal Jugular rt arm brachial PICC 200 Tube Feeding 320 320 240 Other 50 Output: Urine 800 900 Urine, Voided 800 900 Stool 0 Other: # Bowel Movements 0 0 - Physical Exam Head: Positive for: Atraumatic, Normocephalic Pupils: Positive for: Sluggish, Non-Reactive Conjunctiva: Positive for: Injected Mouth: Positive for: Moist Mucous Membranes Neck: Positive for: Trachea Midline Respiratory/Chest: Positive for: Clear to Auscultation, Good Air Exchange, Decreased Breath Sounds. Negative for: Respiratory Distress, Accessory Muscle Use Cardiovascular: Positive for: Regular Rate and Rhythm, Normal S1, S2, Tachycardic (sinus) Abdomen: Positive for: Distention, Normal Bowel Sounds Upper Extremity: Positive for: Normal Inspection, Edema Lower Extremity: Positive for: Edema Neurological: Positive for: Other (intubated). Negative for: GCS=15, CN II-XII Intact Psychiatric: Positive for: Other (intubated). Negative for: Alert, Oriented x 3 - Medications Active Medications: Active Medications Generic Name Dose Route Start Last Admin Trade Name Freq PRN Reason Stop Dose Admin Acetaminophen 975 mg 05/08/17 09:31 05/08/17 09:50 Tylenol 650mg/20.3ml Solution Ud PEG 975 mg Q6 PRN Administration Rigors Albuterol/Ipratropium 3 ml 05/08/17 20:00 05/19/17 07:54 Duoneb 3 Mg/0.5 Mg (3 Ml) Ud INH 3 ml RQ6 LINNETTE Administration Artificial Tears 0 gm 05/08/17 12:00 05/19/17 12:20 Lacri-Lube OU 3.5 gm Q4 LINNETTE Administration Ascorbic Acid 500 mg 05/16/17 10:00 05/19/17 10:14 Vitamin C 500 Mg Tab PO 500 mg DAILY LINNETTE Administration Aspirin 81 mg 05/11/17 10:00 05/19/17 10:20 Aspirin Chewable PEG 81 mg DAILY LINNETTE Administration Enoxaparin Sodium 40 mg 05/19/17 10:00 05/19/17 10:55 Lovenox SC 40 mg DAILY LINNETTE Administration Hydromorphone HCl 0.5 mg 05/17/17 11:20 Dilaudid IVP Q4H PRN Pain, moderate (4-7) Ciprofloxacin 400 mg in 200 mls @ 133 mls/hr 05/18/17 14:00 05/19/17 02:25 Cipro 400mg/200ml Dsw IVPB 133 mls/hr Q12H LINNETTE Administration Lactulose 20 gm 05/15/17 22:00 05/19/17 01:41 Enulose NG 20 gm HS PRN Administration Constipation Levetiracetam 750 mg 05/15/17 18:00 05/19/17 10:15 Keppra NG 750 mg BID LINNETTE Administration Multivitamins/Vitamin C 5 ml 05/16/17 10:00 05/19/17 10:55 Multi-Delyn Liquid PO 5 ml DAILY LINNETTE Administration Pantoprazole Sodium 40 mg 05/09/17 06:00 05/19/17 05:29 Protonix Susp PO 40 mg 0600 LINNETTE Administration Polyethylene Glycol 17 gm 05/16/17 10:00 05/19/17 10:15 Miralax GT 17 gm DAILY LINNETTE Administration Zinc Sulfate 220 mg 05/16/17 10:00 05/19/17 10:16 Zinc Sulfate 220 Mg Cap PO 220 mg DAILY LINNETTE Administration - Patient Studies Lab Studies: Lab Studies 11/05/19/17 05/19/17 Range/Units 06:29 06:29 05:35 WBC 22.7 H (4.8-10.8) K/uL RBC 4.17 (3.80-5.20) Mil/uL Hgb 11.9 (11.0-16.0) g/dL Hct 36.2 (34.0-47.0) % MCV 86.7 (81.0-99.0) fL MCH 28.6 (27.0-31.0) pg MCHC 33.0 (33.0-37.0) g/dL RDW 14.0 (11.5-14.5) % Plt Count 293 (130-400) K/uL MPV 8.2 (7.2-11.7) fL Neut % (Auto) 90.8 H (50.0-75.0) % Lymph % (Auto) 4.7 L (20.0-40.0) % [place] % (Auto) 3.6 (0.0-10.0) % Eos % (Auto) 0.8 (0.0-4.0) % Baso % (Auto) 0.1 (0.0-2.0) % Neut # 20.6 H (1.8-7.0) K/uL Lymph # 1.1 (1.0-4.3) K/uL [place] # 0.8 (0.0-0.8) K/uL Eos # 0.2 (0.0-0.7) K/uL Baso # 0.0 (0.0-0.2) K/uL Neutrophils % (Manual) 95 H (50-75) % Lymphocytes % (Manual) 3 L (20-40) % Monocytes % (Manual) 2 (0-10) % Platelet Estimate Normal (NORMAL) RBC Morphology Normal Puncture Site pCO2 (35-45) mm/Hg pO2 (80-100) mm/Hg HCO3 (21-28) mmol/L ABG pH (7.35-7.45) ABG Total CO2 (22-28) mmol/L ABG O2 Saturation (95-98) % ABG Base Excess (-2.0-3.0) mmol/L ABG Hemoglobin (11.7-17.4) g/dL ABG Carboxyhemoglobin (0.5-1.5) % POC ABG HHb (Measured) (0.0-5.0) % ABG Methemoglobin (0.0-3.0) % Evans Test A-a O2 Difference mm/Hg Respiratory Index Hgb O2 Saturation (95.0-98.0) % Vent Mode Mechanical Rate FiO2 % Tidal Volume PEEP Sodium 134 (132-148) mmol/L Potassium 3.7 (3.6-5.2) mmol/L Chloride 97 L (98-107) mmol/L Carbon Dioxide 28 (22-30) mmol/L Anion Gap 13 (10-20) BUN 10 (7-17) mg/dL Creatinine 0.3 L (0.7-1.2) mg/dL Est GFR ( Amer) > 60 Est GFR (Non-Af Amer) > 60 POC Glucose (mg/dL) 147 H (65-110) mg/dL Random Glucose 121 H (65-105) mg/dL Calcium 8.2 L (8.6-10.4) mg/dl Phosphorus 3.5 (2.5-4.5) mg/dL Magnesium 1.7 (1.6-2.3) mg/dL Total Bilirubin 0.4 (0.2-1.3) mg/dL AST 67 H D (14-36) U/L ALT 164 H D (9-52) U/L Alkaline Phosphatase 151 H D (38-126) U/L Total Protein 6.8 (6.3-8.3) g/dL Albumin 3.2 L (3.5-5.0) g/dL Globulin 3.6 (2.2-3.9) gm/dL Albumin/Globulin Ratio 0.9 L (1.0-2.1) 05/19/17 05/18/17 05/18/17 Range/Units 04:50 23:44 18:43 WBC (4.8-10.8) K/uL RBC (3.80-5.20) Mil/uL Hgb (11.0-16.0) g/dL Hct (34.0-47.0) % MCV (81.0-99.0) fL MCH (27.0-31.0) pg MCHC (33.0-37.0) g/dL RDW (11.5-14.5) % Plt Count (130-400) K/uL MPV (7.2-11.7) fL Neut % (Auto) (50.0-75.0) % Lymph % (Auto) (20.0-40.0) % [place] % (Auto) (0.0-10.0) % Eos % (Auto) (0.0-4.0) % Baso % (Auto) (0.0-2.0) % Neut # (1.8-7.0) K/uL Lymph # (1.0-4.3) K/uL [place] # (0.0-0.8) K/uL Eos # (0.0-0.7) K/uL Baso # (0.0-0.2) K/uL Neutrophils % (Manual) (50-75) % Lymphocytes % (Manual) (20-40) % Monocytes % (Manual) (0-10) % Platelet Estimate (NORMAL) RBC Morphology Puncture Site Lr pCO2 31 L (35-45) mm/Hg pO2 98 (80-100) mm/Hg HCO3 21.5 (21-28) mmol/L ABG pH 7.41 (7.35-7.45) ABG Total CO2 20.6 L (22-28) mmol/L ABG O2 Saturation 99.5 H (95-98) % ABG Base Excess -4.4 L (-2.0-3.0) mmol/L ABG Hemoglobin 8.8 L (11.7-17.4) g/dL ABG Carboxyhemoglobin 2.2 H (0.5-1.5) % POC ABG HHb (Measured) 0.5 (0.0-5.0) % ABG Methemoglobin 1.2 (0.0-3.0) % Evans Test Pos A-a O2 Difference 113.0 mm/Hg Respiratory Index 1.2 Hgb O2 Saturation 96.2 (95.0-98.0) % Vent Mode Prvc Mechanical Rate 12 FiO2 35.0 % Tidal Volume 400 PEEP 5 Sodium (132-148) mmol/L Potassium (3.6-5.2) mmol/L Chloride (98-107) mmol/L Carbon Dioxide (22-30) mmol/L Anion Gap (10-20) BUN (7-17) mg/dL Creatinine (0.7-1.2) mg/dL Est GFR ( Amer) Est GFR (Non-Af Amer) POC Glucose (mg/dL) 150 H 180 H (65-110) mg/dL Random Glucose (65-105) mg/dL Calcium (8.6-10.4) mg/dl Phosphorus (2.5-4.5) mg/dL Magnesium (1.6-2.3) mg/dL Total Bilirubin (0.2-1.3) mg/dL AST (14-36) U/L ALT (9-52) U/L Alkaline Phosphatase (38-126) U/L Total Protein (6.3-8.3) g/dL Albumin (3.5-5.0) g/dL Globulin (2.2-3.9) gm/dL Albumin/Globulin Ratio (1.0-2.1) 05/18/17 Range/Units 17:37 WBC (4.8-10.8) K/uL RBC (3.80-5.20) Mil/uL Hgb (11.0-16.0) g/dL Hct (34.0-47.0) % MCV (81.0-99.0) fL MCH (27.0-31.0) pg MCHC (33.0-37.0) g/dL RDW (11.5-14.5) % Plt Count (130-400) K/uL MPV (7.2-11.7) fL Neut % (Auto) (50.0-75.0) % Lymph % (Auto) (20.0-40.0) % [place] % (Auto) (0.0-10.0) % Eos % (Auto) (0.0-4.0) % Baso % (Auto) (0.0-2.0) % Neut # (1.8-7.0) K/uL Lymph # (1.0-4.3) K/uL [place] # (0.0-0.8) K/uL Eos # (0.0-0.7) K/uL Baso # (0.0-0.2) K/uL Neutrophils % (Manual) (50-75) % Lymphocytes % (Manual) (20-40) % Monocytes % (Manual) (0-10) % Platelet Estimate (NORMAL) RBC Morphology Puncture Site pCO2 (35-45) mm/Hg pO2 (80-100) mm/Hg HCO3 (21-28) mmol/L ABG pH (7.35-7.45) ABG Total CO2 (22-28) mmol/L ABG O2 Saturation (95-98) % ABG Base Excess (-2.0-3.0) mmol/L ABG Hemoglobin (11.7-17.4) g/dL ABG Carboxyhemoglobin (0.5-1.5) % POC ABG HHb (Measured) (0.0-5.0) % ABG Methemoglobin (0.0-3.0) % Evans Test A-a O2 Difference mm/Hg Respiratory Index Hgb O2 Saturation (95.0-98.0) % Vent Mode Mechanical Rate FiO2 % Tidal Volume PEEP Sodium (132-148) mmol/L Potassium (3.6-5.2) mmol/L Chloride (98-107) mmol/L Carbon Dioxide (22-30) mmol/L Anion Gap (10-20) BUN (7-17) mg/dL Creatinine (0.7-1.2) mg/dL Est GFR ( Amer) Est GFR (Non-Af Amer) POC Glucose (mg/dL) 171 H (65-110) mg/dL Random Glucose (65-105) mg/dL Calcium (8.6-10.4) mg/dl Phosphorus (2.5-4.5) mg/dL Magnesium (1.6-2.3) mg/dL Total Bilirubin (0.2-1.3) mg/dL AST (14-36) U/L ALT (9-52) U/L Alkaline Phosphatase (38-126) U/L Total Protein (6.3-8.3) g/dL Albumin (3.5-5.0) g/dL Globulin (2.2-3.9) gm/dL Albumin/Globulin Ratio (1.0-2.1) Laboratory Results - last 24 hr 05/18/17 05/18/17 05/18/17 17:37 18:43 23:44 WBC RBC Hgb Hct MCV MCH MCHC RDW Plt Count MPV Neut % (Auto) Lymph % (Auto) [place] % (Auto) Eos % (Auto) Baso % (Auto) Neut # Lymph # [place] # Eos # Baso # Neutrophils % (Manual) Lymphocytes % (Manual) Monocytes % (Manual) Platelet Estimate RBC Morphology Puncture Site pCO2 pO2 HCO3 ABG pH ABG Total CO2 ABG O2 Saturation ABG Base Excess ABG Hemoglobin ABG Carboxyhemoglobin POC ABG HHb (Measured) ABG Methemoglobin Evans Test A-a O2 Difference Respiratory Index Hgb O2 Saturation Vent Mode Mechanical Rate FiO2 Tidal Volume PEEP Sodium Potassium Chloride Carbon Dioxide Anion Gap BUN Creatinine Est GFR ( Amer) Est GFR (Non-Af Amer) POC Glucose (mg/dL) 171 H 180 H 150 H Random Glucose Calcium Phosphorus Magnesium Total Bilirubin AST ALT Alkaline Phosphatase Total Protein Albumin Globulin Albumin/Globulin Ratio 05/19/17 05/19/17 05/19/17 04:50 05:35 06:29 WBC 22.7 H RBC 4.17 Hgb 11.9 Hct 36.2 MCV 86.7 MCH 28.6 MCHC 33.0 RDW 14.0 Plt Count 293 MPV 8.2 Neut % (Auto) 90.8 H Lymph % (Auto) 4.7 L [place] % (Auto) 3.6 Eos % (Auto) 0.8 Baso % (Auto) 0.1 Neut # 20.6 H Lymph # 1.1 [place] # 0.8 Eos # 0.2 Baso # 0.0 Neutrophils % (Manual) 95 H Lymphocytes % (Manual) 3 L Monocytes % (Manual) 2 Platelet Estimate Normal RBC Morphology Normal Puncture Site Lr pCO2 31 L pO2 98 HCO3 21.5 ABG pH 7.41 ABG Total CO2 20.6 L ABG O2 Saturation 99.5 H ABG Base Excess -4.4 L ABG Hemoglobin 8.8 L ABG Carboxyhemoglobin 2.2 H POC ABG HHb (Measured) 0.5 ABG Methemoglobin 1.2 Evans Test Pos A-a O2 Difference 113.0 Respiratory Index 1.2 Hgb O2 Saturation 96.2 Vent Mode Prvc Mechanical Rate 12 FiO2 35.0 Tidal Volume 400 PEEP 5 Sodium Potassium Chloride Carbon Dioxide Anion Gap BUN Creatinine Est GFR ( Amer) Est GFR (Non-Af Amer) POC Glucose (mg/dL) 147 H Random Glucose Calcium Phosphorus Magnesium Total Bilirubin AST ALT Alkaline Phosphatase Total Protein Albumin Globulin Albumin/Globulin Ratio 05/19/17 06:29 WBC RBC Hgb Hct MCV MCH MCHC RDW Plt Count MPV Neut % (Auto) Lymph % (Auto) [place] % (Auto) Eos % (Auto) Baso % (Auto) Neut # Lymph # [place] # Eos # Baso # Neutrophils % (Manual) Lymphocytes % (Manual) Monocytes % (Manual) Platelet Estimate RBC Morphology Puncture Site pCO2 pO2 HCO3 ABG pH ABG Total CO2 ABG O2 Saturation ABG Base Excess ABG Hemoglobin ABG Carboxyhemoglobin POC ABG HHb (Measured) ABG Methemoglobin Evans Test A-a O2 Difference Respiratory Index Hgb O2 Saturation Vent Mode Mechanical Rate FiO2 Tidal Volume PEEP Sodium 134 Potassium 3.7 Chloride 97 L Carbon Dioxide 28 Anion Gap 13 BUN 10 Creatinine 0.3 L Est GFR ( Amer) > 60 Est GFR (Non-Af Amer) > 60 POC Glucose (mg/dL) Random Glucose 121 H Calcium 8.2 L Phosphorus 3.5 Magnesium 1.7 Total Bilirubin 0.4 AST 67 H D ALT 164 H D Alkaline Phosphatase 151 H D Total Protein 6.8 Albumin 3.2 L Globulin 3.6 Albumin/Globulin Ratio 0.9 L Fingerstick Blood Sugar Results: 163 Review of Systems - Review of Systems Systems not reviewed;Unavailable: Intubated Assessment/Plan - Assessment and Plan (Free Text) Assessment: Patient is a 57F with PMH early onset dementia, 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 Hidalgo consulted, help appreciated hx of early onset dementia (started 7 years ago) non-verbal at baseline bedbound at baseline Keppra 750 IVPB q12h - LFTs improving - continue to monitor Head CT 05/10 - New low attenuation in the right caudate nucleus head indicating possible acute/subacute infarct. Recommend evaluation with magnetic resonance imaging. Atrophy greater than expected for patient age with ex vacuo ventricular dilatation. Chronic white matter ischemic change. EEG 05/11 - globally abnormal EEG due to burst suppression with periodic delta waves seen every 10 seconds. Findings of EEG consistent with global cerebral dysfunction. Study does NOT meet criteria for b/l cerebral silence. Repeat Head Ct 05/12 - No evidence of significant interval change when compared to the previous study dated 05/10/2017. No evidence of acute intracranial hemorrhage. Re- demonstration of moderate to severe atrophy. Moderate to severe dilatation the lateral ventricles and 3rd ventricle suggestive of hydrocephalus. Re- demonstration of focal hypodensity at the right caudate nucleus which could represent subacute infarct versus chronic microvascular changes. f/u neuro recs - Goal MAP of 90-100, per Dr. Hidalgo Patient's may be having second thoughts of artificially prolonging life of , per pastoral care. Another discussion about goals of care for patient may be needed. Cardio: Dr. Heck consulted, help appreciated s/p cardiac arrest, suspected 2/2 sepsis - Code Freeze ECHO - moderate diffuse systolic dysfunction, overall EF 35-40%; large apical wall motion abnormality; all valves normal Respiratory: s/p tracheostomy POD #1 General Surgery, Dr. Monge consulted for trach Pneumonia CXR 05/17- Improved aeration of both lung bases with prominent pleural effusion now not identified. Minimal right pleural effusion remains. No prominent infiltrate bilaterally. WBC - increasing to 22.7 from 15.6 Trachasp Culture positive for Pseudomonas Aeruginosa Cipro 400mg IVPB q12 (started on 05/18) Duoneb 3mL INH RQ6 ABG - R radial pCO2 31/pO2 98/HCO3 21.5/ pH 7.41 - taken while on vent settings TV 400/FiO2 35/RR 12/ PEEP 5 GI: On Tube feedings, Jevity 1.5. Initial rate of 20mL/hr, Goal rate of 40mL/hr Protonix 40mg PO daily Electrolytes: Phosphate 3.5 Mag 1.7 Prophylactic Care: DVT: Lovenox 40mg SC daily GI: Protonix 40mg PO daily Patient for LTAC eval - Daughter and patient's are currently researching LTAC facilities. Case discussed with Dr. Vincent Vargasn PGY1 <Andrew Kaur - Last Filed: 05/19/17 17:45> CCU Objective - Vital Signs / Intake & Output Vital Signs (Last 4 hours): Vital Signs Temp Pulse Resp BP Pulse Ox 05/19/17 16:05 79 12 113/59 L 97 05/19/17 16:00 97.6 F 79 13 96 05/19/17 15:05 85 13 105/56 L 94 L 05/19/17 15:00 86 15 94 L 05/19/17 14:06 88 12 119/91 H 95 05/19/17 14:00 89 12 92 L Intake and Output (Last 8hrs): Intake & Output 05/19/17 05/19/17 05/19/17 06:59 14:59 22:59 Intake Total 570 240 Output Total 900 Balance -330 240 Weight 190 lb Intake: Intake, IV Amount 200 rt arm brachial PICC 200 Tube Feeding 320 240 Other 50 Output: Urine 900 Urine, Voided 900 Other: # Bowel Movements 0 0 - Medications Active Medications: Active Medications Generic Name Dose Route Start Last Admin Trade Name Freq PRN Reason Stop Dose Admin Acetaminophen 975 mg 05/08/17 09:31 05/08/17 09:50 Tylenol 650mg/20.3ml Solution Ud PEG 975 mg Q6 PRN Administration Rigors Albuterol/Ipratropium 3 ml 05/08/17 20:00 05/19/17 13:32 Duoneb 3 Mg/0.5 Mg (3 Ml) Ud INH 3 ml RQ6 LINNETTE Administration Artificial Tears 0 gm 05/08/17 12:00 05/19/17 16:29 Lacri-Lube OU 3.5 gm Q4 LINNETTE Administration Ascorbic Acid 500 mg 05/16/17 10:00 05/19/17 10:14 Vitamin C 500 Mg Tab PO 500 mg DAILY LINNETTE Administration Aspirin 81 mg 05/11/17 10:00 05/19/17 10:20 Aspirin Chewable PEG 81 mg DAILY LINNETTE Administration Enoxaparin Sodium 40 mg 05/19/17 10:00 05/19/17 10:55 Lovenox SC 40 mg DAILY LINNETTE Administration Hydromorphone HCl 0.5 mg 05/17/17 11:20 Dilaudid IVP Q4H PRN Pain, moderate (4-7) Ciprofloxacin 400 mg in 200 mls @ 133 mls/hr 05/18/17 14:00 05/19/17 13:31 Cipro 400mg/200ml Dsw IVPB 133 mls/hr Q12H LINNETTE Administration Lactulose 20 gm 05/15/17 22:00 05/19/17 01:41 Enulose NG 20 gm HS PRN Administration Constipation Levetiracetam 750 mg 05/15/17 18:00 05/19/17 10:15 Keppra NG 750 mg BID LINNETTE Administration Multivitamins/Vitamin C 5 ml 05/16/17 10:00 05/19/17 10:55 Multi-Delyn Liquid PO 5 ml DAILY LINNETTE Administration Pantoprazole Sodium 40 mg 05/09/17 06:00 05/19/17 05:29 Protonix Susp PO 40 mg 0600 LINNETTE Administration Polyethylene Glycol 17 gm 05/16/17 10:00 05/19/17 10:15 Miralax GT 17 gm DAILY LINNETTE Administration Zinc Sulfate 220 mg 05/16/17 10:00 05/19/17 10:16 Zinc Sulfate 220 Mg Cap PO 220 mg DAILY LINNETTE Administration - Patient Studies Lab Studies: Lab Studies 05/19/17 05/19/17 05/19/17 Range/Units 17:38 11:57 06:29 WBC (4.8-10.8) K/uL RBC (3.80-5.20) Mil/uL Hgb (11.0-16.0) g/dL Hct (34.0-47.0) % MCV (81.0-99.0) fL MCH (27.0-31.0) pg MCHC (33.0-37.0) g/dL RDW (11.5-14.5) % Plt Count (130-400) K/uL MPV (7.2-11.7) fL Neut % (Auto) (50.0-75.0) % Lymph % (Auto) (20.0-40.0) % [place] % (Auto) (0.0-10.0) % Eos % (Auto) (0.0-4.0) % Baso % (Auto) (0.0-2.0) % Neut # (1.8-7.0) K/uL Lymph # (1.0-4.3) K/uL [place] # (0.0-0.8) K/uL Eos # (0.0-0.7) K/uL Baso # (0.0-0.2) K/uL Neutrophils % (Manual) (50-75) % Lymphocytes % (Manual) (20-40) % Monocytes % (Manual) (0-10) % Platelet Estimate (NORMAL) RBC Morphology Puncture Site pCO2 (35-45) mm/Hg pO2 (80-100) mm/Hg HCO3 (21-28) mmol/L ABG pH (7.35-7.45) ABG Total CO2 (22-28) mmol/L ABG O2 Saturation (95-98) % ABG Base Excess (-2.0-3.0) mmol/L ABG Hemoglobin (11.7-17.4) g/dL ABG Carboxyhemoglobin (0.5-1.5) % POC ABG HHb (Measured) (0.0-5.0) % ABG Methemoglobin (0.0-3.0) % Evans Test A-a O2 Difference mm/Hg Respiratory Index Hgb O2 Saturation (95.0-98.0) % Vent Mode Mechanical Rate FiO2 % Tidal Volume PEEP Sodium 134 (132-148) mmol/L Potassium 3.7 (3.6-5.2) mmol/L Chloride 97 L (98-107) mmol/L Carbon Dioxide 28 (22-30) mmol/L Anion Gap 13 (10-20) BUN 10 (7-17) mg/dL Creatinine 0.3 L (0.7-1.2) mg/dL Est GFR ( Amer) > 60 Est GFR (Non-Af Amer) > 60 POC Glucose (mg/dL) 102 163 H (65-110) mg/dL Random Glucose 121 H (65-105) mg/dL Calcium 8.2 L (8.6-10.4) mg/dl Phosphorus 3.5 (2.5-4.5) mg/dL Magnesium 1.7 (1.6-2.3) mg/dL Total Bilirubin 0.4 (0.2-1.3) mg/dL AST 67 H D (14-36) U/L ALT 164 H D (9-52) U/L Alkaline Phosphatase 151 H D (38-126) U/L Total Protein 6.8 (6.3-8.3) g/dL Albumin 3.2 L (3.5-5.0) g/dL Globulin 3.6 (2.2-3.9) gm/dL Albumin/Globulin Ratio 0.9 L (1.0-2.1) 05/19/17 05/19/17 05/19/17 Range/Units 06:29 05:35 04:50 WBC 22.7 H (4.8-10.8) K/uL RBC 4.17 (3.80-5.20) Mil/uL Hgb 11.9 (11.0-16.0) g/dL Hct 36.2 (34.0-47.0) % MCV 86.7 (81.0-99.0) fL MCH 28.6 (27.0-31.0) pg MCHC 33.0 (33.0-37.0) g/dL RDW 14.0 (11.5-14.5) % Plt Count 293 (130-400) K/uL MPV 8.2 (7.2-11.7) fL Neut % (Auto) 90.8 H (50.0-75.0) % Lymph % (Auto) 4.7 L (20.0-40.0) % [place] % (Auto) 3.6 (0.0-10.0) % Eos % (Auto) 0.8 (0.0-4.0) % Baso % (Auto) 0.1 (0.0-2.0) % Neut # 20.6 H (1.8-7.0) K/uL Lymph # 1.1 (1.0-4.3) K/uL [place] # 0.8 (0.0-0.8) K/uL Eos # 0.2 (0.0-0.7) K/uL Baso # 0.0 (0.0-0.2) K/uL Neutrophils % (Manual) 95 H (50-75) % Lymphocytes % (Manual) 3 L (20-40) % Monocytes % (Manual) 2 (0-10) % Platelet Estimate Normal (NORMAL) RBC Morphology Normal Puncture Site Lr pCO2 31 L (35-45) mm/Hg pO2 98 (80-100) mm/Hg HCO3 21.5 (21-28) mmol/L ABG pH 7.41 (7.35-7.45) ABG Total CO2 20.6 L (22-28) mmol/L ABG O2 Saturation 99.5 H (95-98) % ABG Base Excess -4.4 L (-2.0-3.0) mmol/L ABG Hemoglobin 8.8 L (11.7-17.4) g/dL ABG Carboxyhemoglobin 2.2 H (0.5-1.5) % POC ABG HHb (Measured) 0.5 (0.0-5.0) % ABG Methemoglobin 1.2 (0.0-3.0) % Evans Test Pos A-a O2 Difference 113.0 mm/Hg Respiratory Index 1.2 Hgb O2 Saturation 96.2 (95.0-98.0) % Vent Mode Prvc Mechanical Rate 12 FiO2 35.0 % Tidal Volume 400 PEEP 5 Sodium (132-148) mmol/L Potassium (3.6-5.2) mmol/L Chloride (98-107) mmol/L Carbon Dioxide (22-30) mmol/L Anion Gap (10-20) BUN (7-17) mg/dL Creatinine (0.7-1.2) mg/dL Est GFR ( Amer) Est GFR (Non-Af Amer) POC Glucose (mg/dL) 147 H (65-110) mg/dL Random Glucose (65-105) mg/dL Calcium (8.6-10.4) mg/dl Phosphorus (2.5-4.5) mg/dL Magnesium (1.6-2.3) mg/dL Total Bilirubin (0.2-1.3) mg/dL AST (14-36) U/L ALT (9-52) U/L Alkaline Phosphatase (38-126) U/L Total Protein (6.3-8.3) g/dL Albumin (3.5-5.0) g/dL Globulin (2.2-3.9) gm/dL Albumin/Globulin Ratio (1.0-2.1) 05/18/17 05/18/17 Range/Units 23:44 18:43 WBC (4.8-10.8) K/uL RBC (3.80-5.20) Mil/uL Hgb (11.0-16.0) g/dL Hct (34.0-47.0) % MCV (81.0-99.0) fL MCH (27.0-31.0) pg MCHC (33.0-37.0) g/dL RDW (11.5-14.5) % Plt Count (130-400) K/uL MPV (7.2-11.7) fL Neut % (Auto) (50.0-75.0) % Lymph % (Auto) (20.0-40.0) % [place] % (Auto) (0.0-10.0) % Eos % (Auto) (0.0-4.0) % Baso % (Auto) (0.0-2.0) % Neut # (1.8-7.0) K/uL Lymph # (1.0-4.3) K/uL [place] # (0.0-0.8) K/uL Eos # (0.0-0.7) K/uL Baso # (0.0-0.2) K/uL Neutrophils % (Manual) (50-75) % Lymphocytes % (Manual) (20-40) % Monocytes % (Manual) (0-10) % Platelet Estimate (NORMAL) RBC Morphology Puncture Site pCO2 (35-45) mm/Hg pO2 (80-100) mm/Hg HCO3 (21-28) mmol/L ABG pH (7.35-7.45) ABG Total CO2 (22-28) mmol/L ABG O2 Saturation (95-98) % ABG Base Excess (-2.0-3.0) mmol/L ABG Hemoglobin (11.7-17.4) g/dL ABG Carboxyhemoglobin (0.5-1.5) % POC ABG HHb (Measured) (0.0-5.0) % ABG Methemoglobin (0.0-3.0) % Evans Test A-a O2 Difference mm/Hg Respiratory Index Hgb O2 Saturation (95.0-98.0) % Vent Mode Mechanical Rate FiO2 % Tidal Volume PEEP Sodium (132-148) mmol/L Potassium (3.6-5.2) mmol/L Chloride (98-107) mmol/L Carbon Dioxide (22-30) mmol/L Anion Gap (10-20) BUN (7-17) mg/dL Creatinine (0.7-1.2) mg/dL Est GFR ( Amer) Est GFR (Non-Af Amer) POC Glucose (mg/dL) 150 H 180 H (65-110) mg/dL Random Glucose (65-105) mg/dL Calcium (8.6-10.4) mg/dl Phosphorus (2.5-4.5) mg/dL Magnesium (1.6-2.3) mg/dL Total Bilirubin (0.2-1.3) mg/dL AST (14-36) U/L ALT (9-52) U/L Alkaline Phosphatase (38-126) U/L Total Protein (6.3-8.3) g/dL Albumin (3.5-5.0) g/dL Globulin (2.2-3.9) gm/dL Albumin/Globulin Ratio (1.0-2.1) Laboratory Results - last 24 hr 05/18/17 05/18/17 05/19/17 18:43 23:44 04:50 WBC RBC Hgb Hct MCV MCH MCHC RDW Plt Count MPV Neut % (Auto) Lymph % (Auto) [place] % (Auto) Eos % (Auto) Baso % (Auto) Neut # Lymph # [place] # Eos # Baso # Neutrophils % (Manual) Lymphocytes % (Manual) Monocytes % (Manual) Platelet Estimate RBC Morphology Puncture Site Lr pCO2 31 L pO2 98 HCO3 21.5 ABG pH 7.41 ABG Total CO2 20.6 L ABG O2 Saturation 99.5 H ABG Base Excess -4.4 L ABG Hemoglobin 8.8 L ABG Carboxyhemoglobin 2.2 H POC ABG HHb (Measured) 0.5 ABG Methemoglobin 1.2 Evans Test Pos A-a O2 Difference 113.0 Respiratory Index 1.2 Hgb O2 Saturation 96.2 Vent Mode Prvc Mechanical Rate 12 FiO2 35.0 Tidal Volume 400 PEEP 5 Sodium Potassium Chloride Carbon Dioxide Anion Gap BUN Creatinine Est GFR ( Amer) Est GFR (Non-Af Amer) POC Glucose (mg/dL) 180 H 150 H Random Glucose Calcium Phosphorus Magnesium Total Bilirubin AST ALT Alkaline Phosphatase Total Protein Albumin Globulin Albumin/Globulin Ratio 05/19/17 05/19/17 05/19/17 05:35 06:29 06:29 WBC 22.7 H RBC 4.17 Hgb 11.9 Hct 36.2 MCV 86.7 MCH 28.6 MCHC 33.0 RDW 14.0 Plt Count 293 MPV 8.2 Neut % (Auto) 90.8 H Lymph % (Auto) 4.7 L [place] % (Auto) 3.6 Eos % (Auto) 0.8 Baso % (Auto) 0.1 Neut # 20.6 H Lymph # 1.1 [place] # 0.8 Eos # 0.2 Baso # 0.0 Neutrophils % (Manual) 95 H Lymphocytes % (Manual) 3 L Monocytes % (Manual) 2 Platelet Estimate Normal RBC Morphology Normal Puncture Site pCO2 pO2 HCO3 ABG pH ABG Total CO2 ABG O2 Saturation ABG Base Excess ABG Hemoglobin ABG Carboxyhemoglobin POC ABG HHb (Measured) ABG Methemoglobin Evans Test A-a O2 Difference Respiratory Index Hgb O2 Saturation Vent Mode Mechanical Rate FiO2 Tidal Volume PEEP Sodium 134 Potassium 3.7 Chloride 97 L Carbon Dioxide 28 Anion Gap 13 BUN 10 Creatinine 0.3 L Est GFR ( Amer) > 60 Est GFR (Non-Af Amer) > 60 POC Glucose (mg/dL) 147 H Random Glucose 121 H Calcium 8.2 L Phosphorus 3.5 Magnesium 1.7 Total Bilirubin 0.4 AST 67 H D ALT 164 H D Alkaline Phosphatase 151 H D Total Protein 6.8 Albumin 3.2 L Globulin 3.6 Albumin/Globulin Ratio 0.9 L 05/19/17 05/19/17 11:57 17:38 WBC RBC Hgb Hct MCV MCH MCHC RDW Plt Count MPV Neut % (Auto) Lymph % (Auto) [place] % (Auto) Eos % (Auto) Baso % (Auto) Neut # Lymph # [place] # Eos # Baso # Neutrophils % (Manual) Lymphocytes % (Manual) Monocytes % (Manual) Platelet Estimate RBC Morphology Puncture Site pCO2 pO2 HCO3 ABG pH ABG Total CO2 ABG O2 Saturation ABG Base Excess ABG Hemoglobin ABG Carboxyhemoglobin POC ABG HHb (Measured) ABG Methemoglobin Evans Test A-a O2 Difference Respiratory Index Hgb O2 Saturation Vent Mode Mechanical Rate FiO2 Tidal Volume PEEP Sodium Potassium Chloride Carbon Dioxide Anion Gap BUN Creatinine Est GFR ( Amer) Est GFR (Non-Af Amer) POC Glucose (mg/dL) 163 H 102 Random Glucose Calcium Phosphorus Magnesium Total Bilirubin AST ALT Alkaline Phosphatase Total Protein Albumin Globulin Albumin/Globulin Ratio Attending/Attestation - Attestation I have personally seen and examined this patient.: Yes I have fully participated in the care of the patient.: Yes I have reviewed all pertinent clinical information: Yes Notes (Text): Patient seen and examined in the intensive care unit. Patient is a 57F with PMH early onset dementia, seizures w/ acute infarct of basal ganglia; s/p tracheostomy Consider transferring to LTAC Continue antibiotics and present care Prognosis poor
--- NOTE | 2017-05-19 14:29 | CP.PCM.PN ---
Subjective - Date & Time of Evaluation Date of Evaluation: 05/19/17 Time of Evaluation: 12:00 - Subjective Subjective: The patient was seen and examined. She is currently status post op day #2 tracheostomy. She remains on mechanical ventilation at this time. As mentioned previously she remains nonverbal, as well as nonresponsive to stimuli. The patient's family member, Alexis who is her was at bedside he's a very pleasant and kind man. I also spoke with the patient's daughter as well her name is Elisabeth I gave them an update. Her antibiotics were changed after it was noted that she grew out Pseudomonas from the trach/sputum culture. Her white blood cell count was more elevated today, it was 22 LFT down trending Objective - Vital Signs/Intake and Output Vital Signs (last 24 hours): Temp Pulse Resp BP Pulse Ox 98.1 F 88 13 124/58 L 100 05/19/17 08:00 05/19/17 12:06 05/19/17 12:06 05/19/17 12:06 05/19/17 12:06 Intake and Output: 05/19/17 05/19/17 06:59 18:59 Intake Total 730 240 Output Total 900 Balance -170 240 - Medications Medications: Current Medications Acetaminophen (Tylenol 650mg/20.3ml Solution Ud) 975 mg PEG Q6 PRN PRN Reason: Rigors Last Admin: 05/08/17 09:50 Dose: 975 mg Albuterol/Ipratropium (Duoneb 3 Mg/0.5 Mg (3 Ml) Ud) 3 ml INH RQ6 LINNETTE Last Admin: 05/19/17 13:32 Dose: 3 ml Artificial Tears (Lacri-Lube) 0 gm OU Q4 [facility]NETTE Last Admin: 05/19/17 12:20 Dose: 3.5 gm Ascorbic Acid (Vitamin C 500 Mg Tab) 500 mg PO DAILY [facility] Last Admin: 05/19/17 10:14 Dose: 500 mg Aspirin (Aspirin Chewable) 81 mg PEG DAILY [facility] Last Admin: 05/19/17 10:20 Dose: 81 mg Enoxaparin Sodium (Lovenox) 40 mg SC DAILY [facility] Last Admin: 05/19/17 10:55 Dose: 40 mg Hydromorphone HCl (Dilaudid) 0.5 mg IVP Q4H PRN PRN Reason: Pain, moderate (4-7) Ciprofloxacin (Cipro 400mg/200ml Dsw) 400 mg in 200 mls @ 133 mls/hr IVPB Q12H [facility] Last Admin: 05/19/17 13:31 Dose: 133 mls/hr Lactulose (Enulose) 20 gm NG HS PRN PRN Reason: Constipation Last Admin: 05/19/17 01:41 Dose: 20 gm Levetiracetam (Keppra) 750 mg NG BID [facility] Last Admin: 05/19/17 10:15 Dose: 750 mg Multivitamins/Vitamin C (Multi-Delyn Liquid) 5 ml PO DAILY [facility] Last Admin: 05/19/17 10:55 Dose: 5 ml Pantoprazole Sodium (Protonix Susp) 40 mg PO 0600 [facility] Last Admin: 05/19/17 05:29 Dose: 40 mg Polyethylene Glycol (Miralax) 17 gm GT DAILY [facility] Last Admin: 05/19/17 10:15 Dose: 17 gm Zinc Sulfate (Zinc Sulfate 220 Mg Cap) 220 mg PO DAILY [facility] Last Admin: 05/19/17 10:16 Dose: 220 mg - Labs Labs: 05/19/17 06:29 05/19/17 06:29 PT 15.1 SECONDS (9.7-12.2) H 05/09/17 17:57 INR 1.3 05/09/17 17:57 APTT 35 SECONDS (21-34) H 05/09/17 17:57 - Constitutional Appears: Chronically Ill - Eye Exam Eye Exam: absent: EOMI, Normal appearance Pupil Exam: absent: NORMAL ACCOMODATION - ENT Exam ENT Exam: absent: Mucous Membranes Moist, Normal Exam - Neck Exam Additional comments: Now has trach, and on mechanical ventilation - GI/Abdominal Exam GI & Abdominal Exam: absent: Soft, Tenderness Additional comments: PEG tube present - Neurological Exam Neurological Exam: absent: Alert, Awake, CN II-XII Intact, Normal Gait, Oriented x3 Neuro motor strength exam: Left Upper Extremity: 0, Right Upper Extremity: 0, Left Lower Extremity: 0, Right Lower Extremity: 0 Assessment and Plan - Assessment and Plan (Free Text) Assessment: From the resident HPI: This is a 57F with PMH early onset dementia, seizures, and questionable asthma who was brought to the ED via EMS from her longterm , [facility], where she was witnessed cardiopulmonary arrest. EMS intubated the patient in the field. In the ED patient was having myoclonic jerks and code freeze was initiated. Patient remained intubated and patient was admitted to the ICU. As per her daughter and her her dementia started 7 years ago. Last two year she was in the NH,nonverbal,some days she is responsive/look at family members Plan: 1) Acute Respiratory failure s/p cardiopulmonary arrest 05/19: Now POD 2, abx were changed since there were positive + psedomonas growth in the culture 05/18: Now has tracheostomy. Remains on mechanical ventilation 05/17: Unfourtunately it appears patient now has anoxic brain injury and remains intubated and on mechacnile ventilator There are plans for a trachoesotym some time later today. I spoke with family at bedside who is aware of this. CT head 05/10 - New low attenuation in the right caudate nucleus head indicating possible acute/subacute infarct. Repeat Head Ct 05/12 - No evidence of significant interval change when compared to the previous study dated 05/10/2017. No evidence of acute intracranial bleeding On Asprin s/p code freeze,continue duoneb d/w Daughter yesterday ,full code,trach on Wednesday Wean as per critical care MD 2) Pneumonia 05/19: + growth of pseudomonas growth. 05/18: Remains on IV abx, recent culture shows pseudomonas 05/17: Blood cultures have been negative, there are repeat positives of + E coli from sputum/trach. On IV Aztreonam. WBC stable for now WBC is coming down Trach cultures Ecoli sensitive to Aztreo 3) Anoxic brain injury and basal ganglia infarction Siezures now under control on medications. Now has trachoestomy and remain intubated oh mechanical ventilationBlood pressure has been stable with systolic BPs in the 110s range. ASA 4) Seizure disorder, unspecified patient was taking Keppra and Lamotrigine switch to oral Keppra 5) History of Asthma Currently intubated 6) DVT and GI prophylasix protonix and lovenox On Tube feedings, Jevity 1.5.
--- NOTE | 2017-05-19 16:21 | CP.PCM.PCO ---
Physician Communication Note - Physician Communication Note Physician Communication Note: Trach packing removed. Can remove stitches on POD# 10.
[2017-05-20] MEDS: White Petrolatum/Mineral Oil Ophth Oint(3.5 gm) OU SCH ×6 (00:20→20:06)
[2017-05-20] MEDS: Albuterol-Ipratrop 3 mg / 0.5 (3 ml) UD INH SCH ×4 (01:42→20:04)
[2017-05-20] MEDS: Ciprofloxacin 400mg/200ml D5W 400 MG/200 ML BAG IVPB SCH ×2 (02:17→13:15)
[2017-05-20] MEDS: Pantoprazole 40 mg Susp UD PO SCH (05:19)
--- NOTE | 2017-05-20 09:11 | CP.PCM.PN ---
Subjective - Date & Time of Evaluation Date of Evaluation: 05/20/17 Time of Evaluation: 09:00 - Subjective Subjective: Pending blood work this AM, yesterday had a high WBC and remains on IV abx. As mentioned previously the patient is now POD #3 of trachesotmy and requires mechanical ventilation. She is non verbal and non responsive Her Alexis is faithfully at bedside. From what I understand the patient cannot return to her previous facility and we are pending a new facility that she maybe able to go to. Objective - Vital Signs/Intake and Output Vital Signs (last 24 hours): Temp Pulse Resp BP Pulse Ox 97.6 F 79 12 111/66 99 05/20/17 08:00 05/20/17 08:05 05/20/17 08:05 05/20/17 08:05 05/20/17 08:05 Intake and Output: 05/20/17 05/20/17 06:59 18:59 Intake Total 40 Balance 40 - Medications Medications: Current Medications Acetaminophen (Tylenol 650mg/20.3ml Solution Ud) 975 mg PEG Q6 PRN PRN Reason: Rigors Last Admin: 05/08/17 09:50 Dose: 975 mg Albuterol/Ipratropium (Duoneb 3 Mg/0.5 Mg (3 Ml) Ud) 3 ml INH RQ6 LINNETTE Last Admin: 05/20/17 08:05 Dose: 3 ml Artificial Tears (Lacri-Lube) 0 gm OU Q4 [facility] Last Admin: 05/20/17 08:10 Dose: 3.5 gm Ascorbic Acid (Vitamin C 500 Mg Tab) 500 mg PO DAILY [facility] Last Admin: 05/19/17 10:14 Dose: 500 mg Aspirin (Aspirin Chewable) 81 mg PEG DAILY [facility] Last Admin: 05/19/17 10:20 Dose: 81 mg Enoxaparin Sodium (Lovenox) 40 mg SC DAILY [facility] Last Admin: 05/19/17 10:55 Dose: 40 mg Hydromorphone HCl (Dilaudid) 0.5 mg IVP Q4H PRN PRN Reason: Pain, moderate (4-7) Ciprofloxacin (Cipro 400mg/200ml Dsw) 400 mg in 200 mls @ 133 mls/hr IVPB Q12H [facility] Last Admin: 05/20/17 02:17 Dose: 133 mls/hr Lactulose (Enulose) 20 gm NG HS PRN PRN Reason: Constipation Last Admin: 05/19/17 01:41 Dose: 20 gm Levetiracetam (Keppra) 750 mg NG BID [facility] Last Admin: 05/19/17 18:40 Dose: 750 mg Multivitamins/Vitamin C (Multi-Delyn Liquid) 5 ml PO DAILY [facility] Last Admin: 05/19/17 10:55 Dose: 5 ml Pantoprazole Sodium (Protonix Susp) 40 mg PO 0600 [facility] Last Admin: 05/20/17 05:19 Dose: 40 mg Polyethylene Glycol (Miralax) 17 gm GT DAILY [facility] Last Admin: 05/19/17 10:15 Dose: 17 gm Zinc Sulfate (Zinc Sulfate 220 Mg Cap) 220 mg PO DAILY [facility] Last Admin: 05/19/17 10:16 Dose: 220 mg - Labs Labs: 05/19/17 06:29 05/19/17 06:29 PT 15.1 SECONDS (9.7-12.2) H 05/09/17 17:57 INR 1.3 05/09/17 17:57 APTT 35 SECONDS (21-34) H 05/09/17 17:57 - Constitutional Appears: Toxic, Unkempt, Chronically Ill - Head Exam Head Exam: absent: NORMAL INSPECTION, NORMOCEPHALIC - Eye Exam Eye Exam: absent: EOMI, Normal appearance Additional comments: Dry eyes, sunken appearance. No EOMI - ENT Exam ENT Exam: absent: Mucous Membranes Moist, Normal Exam Additional comments: Dry appearance - Neck Exam Additional comments: Tracheostomy - Respiratory Exam Respiratory Exam: Decreased Breath Sounds Additional comments: Mechanical ventilation - Cardiovascular Exam Cardiovascular Exam: REGULAR RHYTHM - GI/Abdominal Exam GI & Abdominal Exam: Soft. absent: Tenderness Additional comments: PEG - Neurological Exam Neurological Exam: Altered. absent: Alert, Awake, CN II-XII Intact, Normal Gait , Oriented x3 Neuro motor strength exam: Left Upper Extremity: 0, Right Upper Extremity: 0, Left Lower Extremity: 0, Right Lower Extremity: 0 - Skin Skin Exam: Warm Assessment and Plan - Assessment and Plan (Free Text) Assessment: From the resident HPI: This is a 57F with PMH early onset dementia, seizures, and questionable asthma who was brought to the ED via EMS from her halfway , [facility], where she was witnessed cardiopulmonary arrest. EMS intubated the patient in the field. In the ED patient was having myoclonic jerks and code freeze was initiated. Patient remained intubated and patient was admitted to the ICU. As per her daughter and her her dementia started 7 years ago. Last two year she was in the NH, nonverbal,some days she is responsive/look at family members. As of 05/20/2017 she now has a trachesotmy and remains on mechanical ventilation Assesment and Plan: 1) Acute Respiratory failure s/p cardiopulmonary arrest 05/20: Pending a acceptance to a facility that will be able to care for patient 05/19: Now POD 2, abx were changed since there were positive + psedomonas growth in the culture 05/18: Now has tracheostomy. Remains on mechanical ventilation 05/17: Unfourtunately it appears patient now has anoxic brain injury and remains intubated and on mechacnile ventilator There are plans for a trachoesotym some time later today. I spoke with family at bedside who is aware of this. CT head 05/10 - New low attenuation in the right caudate nucleus head indicating possible acute/subacute infarct. Repeat Head Ct 05/12 - No evidence of significant interval change when compared to the previous study dated 05/10/2017. No evidence of acute intracranial bleeding On Asprin s/p code freeze,continue duoneb d/w Daughter yesterday ,full code,trach on Wednesday Wean as per critical care MD 2) Pneumonia 05/20: WBC still elevated, recheck blood and cultures 05/19: + growth of pseudomonas growth. 05/18: Remains on IV abx, recent culture shows pseudomonas 05/17: Blood cultures have been negative, there are repeat positives of + E coli from sputum/trach. On IV Aztreonam. 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 Now has trachoestomy and remain intubated oh mechanical ventilationBlood pressure has been stable with systolic BPs in the 110s range. ASA 4) Seizure disorder, unspecified patient was taking Keppra and Lamotrigine switch to oral Keppra 5) History of Asthma Currently intubated 6) DVT and GI prophylasix protonix and lovenox On Tube feedings, Jevity 1.5.
[2017-05-20 09:40] LABS: BASO # 0.1 K/uL (0.0-0.2); BASO % 0.5 % (0.0-2.0); EOS # 0.2 K/uL (0.0-0.7); EOS % 1.2 % (0.0-4.0); HEMATOCRIT 32.6 % (34.0-47.0); LYMPH # 1.6 K/uL (1.0-4.3); LYMPH % 11.2 % (20.0-40.0); MEAN CELL VOLUME 86.9 fL (81.0-99.0); MEAN CORPUSCULAR HEMOGLOBIN 28.9 pg (27.0-31.0); MEAN CORPUSCULAR HGB CONC 33.2 g/dL (33.0-37.0); MONO # 0.7 K/uL (0.0-0.8); MONO % 4.8 % (0.0-10.0); RED CELL DISTRIBUTION WIDTH 14.2 % (11.5-14.5); WHITE BLOOD COUNT 14.1 K/uL (4.8-10.8)
[2017-05-20] MEDS: POLYETHYLENE GLYCOL 3350 17 GM/Dose PACKET GT SCH (09:44)
[2017-05-20] MEDS: Enoxaparin 40 mg Syringe SC SCH (09:44)
[2017-05-20] MEDS: Multiple Vitamins Oral Solution PO SCH (09:46)
[2017-05-20] MEDS: levETIRAcetam 100 mg/ml (5ml) Oral Syringe NG SCH ×2 (09:46→17:31)
[2017-05-20 10:04] LABS: ALB/GLOB RATIO 0.9 (1.0-2.1); ALKALINE PHOSPHATASE 125 U/L (38-126); ALT/SGPT 126 U/L (9-52); AST/SGOT 55 U/L (14-36); BILIRUBIN,TOTAL 0.5 mg/dL (0.2-1.3); BLOOD UREA NITROGEN 10 mg/dL (7-17); CALCIUM 8.8 mg/dl (8.6-10.4); CARBON DIOXIDE 29 mmol/L (22-30); CHLORIDE 100 mmol/L (98-107); GFR AFRICAN-AMERICAN > 60; GLUCOSE,RANDOM 124 mg/dL (65-105); POTASSIUM 3.4 mmol/L (3.6-5.2); SODIUM 132 mmol/L (132-148); TOTAL PROTEIN 6.8 g/dL (6.3-8.3)
[2017-05-20] MEDS ORDERED: Potassium Chloride 20 mEq/15 ml LIQ UD PO ONE (10:30)
--- NOTE | 2017-05-20 13:05 | CP.CCUPN ---
<Du Ledesma - Last Filed: 05/20/17 12:55> CCU Subjective - Physician Review Subjective (Free Text): PGY1 ICU progress note for Dr. Roach Patient seen and examined this morning at bedside. Patient is unresponsive on ventilator support. ROS unattainable. CCU Objective - Vital Signs / Intake & Output Vital Signs (Last 4 hours): Vital Signs Temp Pulse Resp BP Pulse Ox 05/20/17 12:06 80 12 128/71 99 05/20/17 12:00 98.3 F 79 18 150/82 99 05/20/17 11:05 79 12 106/61 99 05/20/17 11:00 79 12 100 05/20/17 10:05 77 12 110/72 100 05/20/17 10:00 78 12 100 05/20/17 09:06 80 12 105/69 100 05/20/17 09:00 79 12 100 Intake and Output (Last 8hrs): Intake & Output 05/19/17 05/20/17 05/20/17 22:59 06:59 14:59 Intake Total 0 40 Output Total 700 Balance -700 40 Weight 173 lb Intake: Tube Feeding 0 40 Output: Urine 700 Urine, Voided 700 - Physical Exam Head: Positive for: Atraumatic, Normocephalic Pupils: Positive for: Sluggish, Non-Reactive Conjunctiva: Positive for: Injected Mouth: Positive for: Moist Mucous Membranes Neck: Positive for: Trachea Midline Respiratory/Chest: Positive for: Clear to Auscultation, Good Air Exchange, Decreased Breath Sounds. Negative for: Respiratory Distress, Accessory Muscle Use Cardiovascular: Positive for: Regular Rate and Rhythm, Normal S1, S2, Tachycardic (sinus) Abdomen: Positive for: Distention, Normal Bowel Sounds Upper Extremity: Positive for: Normal Inspection, Edema Lower Extremity: Positive for: Edema Neurological: Positive for: Other (intubated). Negative for: GCS=15, CN II-XII Intact Psychiatric: Positive for: Other (intubated). Negative for: Alert, Oriented x 3 - Medications Active Medications: Active Medications Generic Name Dose Route Start Last Admin Trade Name Freq PRN Reason Stop Dose Admin Acetaminophen 975 mg 05/08/17 09:31 05/08/17 09:50 Tylenol 650mg/20.3ml Solution Ud PEG 975 mg Q6 PRN Administration Rigors Albuterol/Ipratropium 3 ml 05/08/17 20:00 05/20/17 08:05 Duoneb 3 Mg/0.5 Mg (3 Ml) Ud INH 3 ml RQ6 LINNETTE Administration Artificial Tears 0 gm 05/08/17 12:00 05/20/17 11:23 Lacri-Lube OU 3.5 gm Q4 LINNETTE Administration Ascorbic Acid 500 mg 05/16/17 10:00 05/20/17 09:44 Vitamin C 500 Mg Tab PO 500 mg DAILY LINNETTE Administration Aspirin 81 mg 05/11/17 10:00 05/20/17 09:44 Aspirin Chewable PEG 81 mg DAILY LINNETTE Administration Enoxaparin Sodium 40 mg 05/19/17 10:00 05/20/17 09:44 Lovenox SC 40 mg DAILY LINNETTE Administration Hydromorphone HCl 0.5 mg 05/17/17 11:20 Dilaudid IVP Q4H PRN Pain, moderate (4-7) Ciprofloxacin 400 mg in 200 mls @ 133 mls/hr 05/18/17 14:00 05/20/17 02:17 Cipro 400mg/200ml Dsw IVPB 133 mls/hr Q12H LINNETTE Administration Lactulose 20 gm 05/15/17 22:00 05/19/17 01:41 Enulose NG 20 gm HS PRN Administration Constipation Levetiracetam 750 mg 05/15/17 18:00 05/20/17 09:46 Keppra NG 750 mg BID LINNETTE Administration Multivitamins/Vitamin C 5 ml 05/16/17 10:00 05/20/17 09:46 Multi-Delyn Liquid PO 5 ml DAILY LINNETTE Administration Pantoprazole Sodium 40 mg 05/09/17 06:00 05/20/17 05:19 Protonix Susp PO 40 mg 0600 LINNETTE Administration Polyethylene Glycol 17 gm 05/16/17 10:00 05/20/17 09:44 Miralax GT 17 gm DAILY LINNETTE Administration Zinc Sulfate 220 mg 05/16/17 10:00 05/20/17 09:45 Zinc Sulfate 220 Mg Cap PO 220 mg DAILY LINNETTE Administration - Patient Studies Lab Studies: Lab Studies 05/20/17 05/20/17 05/20/17 Range/Units 11:36 09:34 09:34 WBC 14.1 H (4.8-10.8) K/uL RBC 3.75 L (3.80-5.20) Mil/uL Hgb 10.8 L (11.0-16.0) g/dL Hct 32.6 L (34.0-47.0) % MCV 86.9 (81.0-99.0) fL MCH 28.9 (27.0-31.0) pg MCHC 33.2 (33.0-37.0) g/dL RDW 14.2 (11.5-14.5) % Plt Count 250 (130-400) K/uL MPV 8.0 (7.2-11.7) fL Neut % (Auto) 82.3 H (50.0-75.0) % Lymph % (Auto) 11.2 L (20.0-40.0) % Twiggs % (Auto) 4.8 (0.0-10.0) % Eos % (Auto) 1.2 (0.0-4.0) % Baso % (Auto) 0.5 (0.0-2.0) % Neut # 11.6 H (1.8-7.0) K/uL Lymph # 1.6 (1.0-4.3) K/uL Twiggs # 0.7 (0.0-0.8) K/uL Eos # 0.2 (0.0-0.7) K/uL Baso # 0.1 (0.0-0.2) K/uL Sodium 132 (132-148) mmol/L Potassium 3.4 L (3.6-5.2) mmol/L Chloride 100 (98-107) mmol/L Carbon Dioxide 29 (22-30) mmol/L Anion Gap 6 L (10-20) BUN 10 (7-17) mg/dL Creatinine 0.3 L (0.7-1.2) mg/dL Est GFR ( Amer) > 60 Est GFR (Non-Af Amer) > 60 POC Glucose (mg/dL) 148 H (65-110) mg/dL Random Glucose 124 H (65-105) mg/dL Calcium 8.8 (8.6-10.4) mg/dl Total Bilirubin 0.5 (0.2-1.3) mg/dL AST 55 H (14-36) U/L ALT 126 H D (9-52) U/L Alkaline Phosphatase 125 (38-126) U/L Total Protein 6.8 (6.3-8.3) g/dL Albumin 3.2 L (3.5-5.0) g/dL Globulin 3.6 (2.2-3.9) gm/dL Albumin/Globulin Ratio 0.9 L (1.0-2.1) 05/20/17 05/19/17 05/19/17 Range/Units 06:30 23:29 17:38 WBC (4.8-10.8) K/uL RBC (3.80-5.20) Mil/uL Hgb (11.0-16.0) g/dL Hct (34.0-47.0) % MCV (81.0-99.0) fL MCH (27.0-31.0) pg MCHC (33.0-37.0) g/dL RDW (11.5-14.5) % Plt Count (130-400) K/uL MPV (7.2-11.7) fL Neut % (Auto) (50.0-75.0) % Lymph % (Auto) (20.0-40.0) % Twiggs % (Auto) (0.0-10.0) % Eos % (Auto) (0.0-4.0) % Baso % (Auto) (0.0-2.0) % Neut # (1.8-7.0) K/uL Lymph # (1.0-4.3) K/uL Twiggs # (0.0-0.8) K/uL Eos # (0.0-0.7) K/uL Baso # (0.0-0.2) K/uL Sodium (132-148) mmol/L Potassium (3.6-5.2) mmol/L Chloride (98-107) mmol/L Carbon Dioxide (22-30) mmol/L Anion Gap (10-20) BUN (7-17) mg/dL Creatinine (0.7-1.2) mg/dL Est GFR ( Amer) Est GFR (Non-Af Amer) POC Glucose (mg/dL) 135 H 156 H 102 (65-110) mg/dL Random Glucose (65-105) mg/dL Calcium (8.6-10.4) mg/dl Total Bilirubin (0.2-1.3) mg/dL AST (14-36) U/L ALT (9-52) U/L Alkaline Phosphatase (38-126) U/L Total Protein (6.3-8.3) g/dL Albumin (3.5-5.0) g/dL Globulin (2.2-3.9) gm/dL Albumin/Globulin Ratio (1.0-2.1) 05/19/17 Range/Units 11:57 WBC (4.8-10.8) K/uL RBC (3.80-5.20) Mil/uL Hgb (11.0-16.0) g/dL Hct (34.0-47.0) % MCV (81.0-99.0) fL MCH (27.0-31.0) pg MCHC (33.0-37.0) g/dL RDW (11.5-14.5) % Plt Count (130-400) K/uL MPV (7.2-11.7) fL Neut % (Auto) (50.0-75.0) % Lymph % (Auto) (20.0-40.0) % Twiggs % (Auto) (0.0-10.0) % Eos % (Auto) (0.0-4.0) % Baso % (Auto) (0.0-2.0) % Neut # (1.8-7.0) K/uL Lymph # (1.0-4.3) K/uL Twiggs # (0.0-0.8) K/uL Eos # (0.0-0.7) K/uL Baso # (0.0-0.2) K/uL Sodium (132-148) mmol/L Potassium (3.6-5.2) mmol/L Chloride (98-107) mmol/L Carbon Dioxide (22-30) mmol/L Anion Gap (10-20) BUN (7-17) mg/dL Creatinine (0.7-1.2) mg/dL Est GFR ( Amer) Est GFR (Non-Af Amer) POC Glucose (mg/dL) 163 H (65-110) mg/dL Random Glucose (65-105) mg/dL Calcium (8.6-10.4) mg/dl Total Bilirubin (0.2-1.3) mg/dL AST (14-36) U/L ALT (9-52) U/L Alkaline Phosphatase (38-126) U/L Total Protein (6.3-8.3) g/dL Albumin (3.5-5.0) g/dL Globulin (2.2-3.9) gm/dL Albumin/Globulin Ratio (1.0-2.1) Laboratory Results - last 24 hr 05/19/17 05/19/17 05/19/17 11:57 17:38 23:29 WBC RBC Hgb Hct MCV MCH MCHC RDW Plt Count MPV Neut % (Auto) Lymph % (Auto) Twiggs % (Auto) Eos % (Auto) Baso % (Auto) Neut # Lymph # Twiggs # Eos # Baso # Sodium Potassium Chloride Carbon Dioxide Anion Gap BUN Creatinine Est GFR ( Amer) Est GFR (Non-Af Amer) POC Glucose (mg/dL) 163 H 102 156 H Random Glucose Calcium Total Bilirubin AST ALT Alkaline Phosphatase Total Protein Albumin Globulin Albumin/Globulin Ratio 05/20/17 05/20/17 05/20/17 06:30 09:34 09:34 WBC 14.1 H RBC 3.75 L Hgb 10.8 L Hct 32.6 L MCV 86.9 MCH 28.9 MCHC 33.2 RDW 14.2 Plt Count 250 MPV 8.0 Neut % (Auto) 82.3 H Lymph % (Auto) 11.2 L Twiggs % (Auto) 4.8 Eos % (Auto) 1.2 Baso % (Auto) 0.5 Neut # 11.6 H Lymph # 1.6 Twiggs # 0.7 Eos # 0.2 Baso # 0.1 Sodium 132 Potassium 3.4 L Chloride 100 Carbon Dioxide 29 Anion Gap 6 L BUN 10 Creatinine 0.3 L Est GFR ( Amer) > 60 Est GFR (Non-Af Amer) > 60 POC Glucose (mg/dL) 135 H Random Glucose 124 H Calcium 8.8 Total Bilirubin 0.5 AST 55 H ALT 126 H D Alkaline Phosphatase 125 Total Protein 6.8 Albumin 3.2 L Globulin 3.6 Albumin/Globulin Ratio 0.9 L 05/20/17 11:36 WBC RBC Hgb Hct MCV MCH MCHC RDW Plt Count MPV Neut % (Auto) Lymph % (Auto) Twiggs % (Auto) Eos % (Auto) Baso % (Auto) Neut # Lymph # Twiggs # Eos # Baso # Sodium Potassium Chloride Carbon Dioxide Anion Gap BUN Creatinine Est GFR ( Amer) Est GFR (Non-Af Amer) POC Glucose (mg/dL) 148 H Random Glucose Calcium Total Bilirubin AST ALT Alkaline Phosphatase Total Protein Albumin Globulin Albumin/Globulin Ratio Fingerstick Blood Sugar Results: 148 Review of Systems - Review of Systems Systems not reviewed;Unavailable: Intubated Assessment/Plan - Assessment and Plan (Free Text) Assessment: Patient is a 57F with PMH early onset dementia, 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 Hidalgo consulted, help appreciated hx of early onset dementia (started 7 years ago) non-verbal at baseline bedbound at baseline Keppra 750 IVPB q12h - LFTs improving - continue to monitor Head CT 05/10 - New low attenuation in the right caudate nucleus head indicating possible acute/subacute infarct. Recommend evaluation with magnetic resonance imaging. Atrophy greater than expected for patient age with ex vacuo ventricular dilatation. Chronic white matter ischemic change. EEG 05/11 - globally abnormal EEG due to burst suppression with periodic delta waves seen every 10 seconds. Findings of EEG consistent with global cerebral dysfunction. Study does NOT meet criteria for b/l cerebral silence. Repeat Head Ct 05/12 - No evidence of significant interval change when compared to the previous study dated 05/10/2017. No evidence of acute intracranial hemorrhage. Re- demonstration of moderate to severe atrophy. Moderate to severe dilatation the lateral ventricles and 3rd ventricle suggestive of hydrocephalus. Re- demonstration of focal hypodensity at the right caudate nucleus which could represent subacute infarct versus chronic microvascular changes. f/u neuro recs - Goal MAP of 90-100, per Dr. Hidalgo Patient's may be having second thoughts of artificially prolonging life of , per pastoral care. Another discussion about goals of care for patient may be needed. Cardio: Dr. Heck consulted, help appreciated s/p cardiac arrest, suspected 2/2 sepsis - Code Freeze ECHO - moderate diffuse systolic dysfunction, overall EF 35-40%; large apical wall motion abnormality; all valves normal Respiratory: s/p tracheostomy POD General Surgery, Dr. Monge consulted for trach Pneumonia CXR 05/19- Improved aeration of both lung bases with prominent pleural effusion now not identified. Minimal right pleural effusion remains. No prominent infiltrate bilaterally. WBC - decreasing to 14.1 from 22.7 Trachasp Culture positive for Pseudomonas Aeruginosa Cipro 400mg IVPB q12 (started on 05/18) Duoneb 3mL INH RQ6 ABG 05/19/17 - R radial pCO2 31/pO2 98/HCO3 21.5/ pH 7.41 - taken while on vent settings TV 400/FiO2 35/RR 12/ PEEP 5 Will be drawing labs and getting cxr once weekly from now on. GI: On Tube feedings, Jevity 1.5. Initial rate of 20mL/hr, Goal rate of 40mL/hr Protonix 40mg PO daily Electrolytes: K+ 3.4 - repleted with 40 mEq oral Prophylactic Care: DVT: Lovenox 40mg SC daily GI: Protonix 40mg PO daily DISPO: Patient does not meet LTAC criteria - currently wo Case discussed with Dr. Doc Vargasn PGY1 <Dick Roach - Last Filed: 05/20/17 18:55> CCU Objective - Vital Signs / Intake & Output Vital Signs (Last 4 hours): Vital Signs Pulse Resp BP Pulse Ox 05/20/17 15:05 79 12 118/52 L 98 05/20/17 15:00 79 12 98 Intake and Output (Last 8hrs): Intake & Output 05/20/17 05/20/17 05/20/17 06:59 14:59 22:59 Intake Total 105 Balance 105 Weight 173 lb Intake: Tube Feeding 105 - Medications Active Medications: Active Medications Generic Name Dose Route Start Last Admin Trade Name Freq PRN Reason Stop Dose Admin Acetaminophen 975 mg 05/08/17 09:31 05/08/17 09:50 Tylenol 650mg/20.3ml Solution Ud PEG 975 mg Q6 PRN Administration Rigors Albuterol/Ipratropium 3 ml 05/08/17 20:00 05/20/17 14:05 Duoneb 3 Mg/0.5 Mg (3 Ml) Ud INH 3 ml RQ6 LINNETTE Administration Artificial Tears 0 gm 05/08/17 12:00 05/20/17 16:00 Lacri-Lube OU 3.5 gm Q4 LINNETTE Administration Ascorbic Acid 500 mg 05/16/17 10:00 05/20/17 09:44 Vitamin C 500 Mg Tab PO 500 mg DAILY LINNETTE Administration Aspirin 81 mg 05/11/17 10:00 05/20/17 09:44 Aspirin Chewable PEG 81 mg DAILY LINNETTE Administration Enoxaparin Sodium 40 mg 05/19/17 10:00 05/20/17 09:44 Lovenox SC 40 mg DAILY LINNETTE Administration Hydromorphone HCl 0.5 mg 05/17/17 11:20 Dilaudid IVP Q4H PRN Pain, moderate (4-7) Ciprofloxacin 400 mg in 200 mls @ 133 mls/hr 05/18/17 14:00 05/20/17 13:15 Cipro 400mg/200ml Dsw IVPB 133 mls/hr Q12H LINNETTE Administration Lactulose 20 gm 05/15/17 22:00 05/19/17 01:41 Enulose NG 20 gm HS PRN Administration Constipation Levetiracetam 750 mg 05/15/17 18:00 05/20/17 17:31 Keppra NG 750 mg BID LINNETTE Administration Multivitamins/Vitamin C 5 ml 05/16/17 10:00 05/20/17 09:46 Multi-Delyn Liquid PO 5 ml DAILY LINNETTE Administration Pantoprazole Sodium 40 mg 05/09/17 06:00 05/20/17 05:19 Protonix Susp PO 40 mg 0600 LINNETTE Administration Polyethylene Glycol 17 gm 05/16/17 10:00 05/20/17 09:44 Miralax GT 17 gm DAILY LINNETTE Administration Zinc Sulfate 220 mg 05/16/17 10:00 05/20/17 09:45 Zinc Sulfate 220 Mg Cap PO 220 mg DAILY LINNETTE Administration - Patient Studies Lab Studies: Lab Studies 05/20/17 05/20/17 05/20/17 Range/Units 17:59 11:36 09:34 WBC (4.8-10.8) K/uL RBC (3.80-5.20) Mil/uL Hgb (11.0-16.0) g/dL Hct (34.0-47.0) % MCV (81.0-99.0) fL MCH (27.0-31.0) pg MCHC (33.0-37.0) g/dL RDW (11.5-14.5) % Plt Count (130-400) K/uL MPV (7.2-11.7) fL Neut % (Auto) (50.0-75.0) % Lymph % (Auto) (20.0-40.0) % Twiggs % (Auto) (0.0-10.0) % Eos % (Auto) (0.0-4.0) % Baso % (Auto) (0.0-2.0) % Neut # (1.8-7.0) K/uL Lymph # (1.0-4.3) K/uL Twiggs # (0.0-0.8) K/uL Eos # (0.0-0.7) K/uL Baso # (0.0-0.2) K/uL Sodium 132 (132-148) mmol/L Potassium 3.4 L (3.6-5.2) mmol/L Chloride 100 (98-107) mmol/L Carbon Dioxide 29 (22-30) mmol/L Anion Gap 6 L (10-20) BUN 10 (7-17) mg/dL Creatinine 0.3 L (0.7-1.2) mg/dL Est GFR ( Amer) > 60 Est GFR (Non-Af Amer) > 60 POC Glucose (mg/dL) 164 H 148 H (65-110) mg/dL Random Glucose 124 H (65-105) mg/dL Calcium 8.8 (8.6-10.4) mg/dl Total Bilirubin 0.5 (0.2-1.3) mg/dL AST 55 H (14-36) U/L ALT 126 H D (9-52) U/L Alkaline Phosphatase 125 (38-126) U/L Total Protein 6.8 (6.3-8.3) g/dL Albumin 3.2 L (3.5-5.0) g/dL Globulin 3.6 (2.2-3.9) gm/dL Albumin/Globulin Ratio 0.9 L (1.0-2.1) 05/20/17 05/20/17 05/19/17 Range/Units 09:34 06:30 23:29 WBC 14.1 H (4.8-10.8) K/uL RBC 3.75 L (3.80-5.20) Mil/uL Hgb 10.8 L (11.0-16.0) g/dL Hct 32.6 L (34.0-47.0) % MCV 86.9 (81.0-99.0) fL MCH 28.9 (27.0-31.0) pg MCHC 33.2 (33.0-37.0) g/dL RDW 14.2 (11.5-14.5) % Plt Count 250 (130-400) K/uL MPV 8.0 (7.2-11.7) fL Neut % (Auto) 82.3 H (50.0-75.0) % Lymph % (Auto) 11.2 L (20.0-40.0) % Twiggs % (Auto) 4.8 (0.0-10.0) % Eos % (Auto) 1.2 (0.0-4.0) % Baso % (Auto) 0.5 (0.0-2.0) % Neut # 11.6 H (1.8-7.0) K/uL Lymph # 1.6 (1.0-4.3) K/uL Twiggs # 0.7 (0.0-0.8) K/uL Eos # 0.2 (0.0-0.7) K/uL Baso # 0.1 (0.0-0.2) K/uL Sodium (132-148) mmol/L Potassium (3.6-5.2) mmol/L Chloride (98-107) mmol/L Carbon Dioxide (22-30) mmol/L Anion Gap (10-20) BUN (7-17) mg/dL Creatinine (0.7-1.2) mg/dL Est GFR ( Amer) Est GFR (Non-Af Amer) POC Glucose (mg/dL) 135 H 156 H (65-110) mg/dL Random Glucose (65-105) mg/dL Calcium (8.6-10.4) mg/dl Total Bilirubin (0.2-1.3) mg/dL AST (14-36) U/L ALT (9-52) U/L Alkaline Phosphatase (38-126) U/L Total Protein (6.3-8.3) g/dL Albumin (3.5-5.0) g/dL Globulin (2.2-3.9) gm/dL Albumin/Globulin Ratio (1.0-2.1) Laboratory Results - last 24 hr 05/19/17 05/20/17 05/20/17 23:29 06:30 09:34 WBC 14.1 H RBC 3.75 L Hgb 10.8 L Hct 32.6 L MCV 86.9 MCH 28.9 MCHC 33.2 RDW 14.2 Plt Count 250 MPV 8.0 Neut % (Auto) 82.3 H Lymph % (Auto) 11.2 L Twiggs % (Auto) 4.8 Eos % (Auto) 1.2 Baso % (Auto) 0.5 Neut # 11.6 H Lymph # 1.6 Twiggs # 0.7 Eos # 0.2 Baso # 0.1 Sodium Potassium Chloride Carbon Dioxide Anion Gap BUN Creatinine Est GFR ( Amer) Est GFR (Non-Af Amer) POC Glucose (mg/dL) 156 H 135 H Random Glucose Calcium Total Bilirubin AST ALT Alkaline Phosphatase Total Protein Albumin Globulin Albumin/Globulin Ratio 05/20/17 05/20/17 05/20/17 09:34 11:36 17:59 WBC RBC Hgb Hct MCV MCH MCHC RDW Plt Count MPV Neut % (Auto) Lymph % (Auto) Twiggs % (Auto) Eos % (Auto) Baso % (Auto) Neut # Lymph # Twiggs # Eos # Baso # Sodium 132 Potassium 3.4 L Chloride 100 Carbon Dioxide 29 Anion Gap 6 L BUN 10 Creatinine 0.3 L Est GFR ( Amer) > 60 Est GFR (Non-Af Amer) > 60 POC Glucose (mg/dL) 148 H 164 H Random Glucose 124 H Calcium 8.8 Total Bilirubin 0.5 AST 55 H ALT 126 H D Alkaline Phosphatase 125 Total Protein 6.8 Albumin 3.2 L Globulin 3.6 Albumin/Globulin Ratio 0.9 L Attending/Attestation - Attestation I have personally seen and examined this patient.: Yes I have fully participated in the care of the patient.: Yes I have reviewed all pertinent clinical information: Yes Notes (Text): 05/20/17 18:54 Today: April The Patient was seen and examined at the bedside, Medical records reviewed, and management issues were discussed and formulated with the house staff. I have reviewed all the relevant clinical, laboratory, hemodynamic, radiographic data and medications Events reviewed Pain issues, skin care, head of the bed elevation, glycemic control were addressed. Agree with above resident's assessment and treatment plans of care as transcribed in Dr. Ledesma note.
[2017-05-21] MEDS: White Petrolatum/Mineral Oil Ophth Oint(3.5 gm) OU SCH ×6 (00:11→20:00)
[2017-05-21] MEDS: Albuterol-Ipratrop 3 mg / 0.5 (3 ml) UD INH SCH ×4 (01:38→19:52)
[2017-05-21] MEDS: Ciprofloxacin 400mg/200ml D5W 400 MG/200 ML BAG IVPB SCH ×2 (02:32→15:00)
[2017-05-21] MEDS: Pantoprazole 40 mg Susp UD PO SCH (05:46)
[2017-05-21 06:36] LABS: BASO % 0.3 % (0.0-2.0); EOS # 0.3 K/uL (0.0-0.7); EOS % 2.6 % (0.0-4.0); HEMATOCRIT 33.2 % (34.0-47.0); LYMPH # 1.7 K/uL (1.0-4.3); LYMPH % 14.9 % (20.0-40.0); MEAN CELL VOLUME 87.2 fL (81.0-99.0); MEAN CORPUSCULAR HEMOGLOBIN 28.5 pg (27.0-31.0); MEAN CORPUSCULAR HGB CONC 32.7 g/dL (33.0-37.0); MONO # 0.6 K/uL (0.0-0.8); MONO % 5.6 % (0.0-10.0); RED CELL DISTRIBUTION WIDTH 14.2 % (11.5-14.5); WHITE BLOOD COUNT 11.3 K/uL (4.8-10.8)
[2017-05-21 06:55] LABS: ALB/GLOB RATIO 0.9 (1.0-2.1); ALKALINE PHOSPHATASE 120 U/L (38-126); ALT/SGPT 121 U/L (9-52); AST/SGOT 57 U/L (14-36); BILIRUBIN,TOTAL 0.4 mg/dL (0.2-1.3); BLOOD UREA NITROGEN 13 mg/dL (7-17); CALCIUM 8.9 mg/dl (8.6-10.4); CARBON DIOXIDE 32 mmol/L (22-30); CHLORIDE 102 mmol/L (98-107); GFR AFRICAN-AMERICAN > 60; GLUCOSE,RANDOM 146 mg/dL (65-105); MAGNESIUM 1.6 mg/dL (1.6-2.3); PHOSPHOROUS 3.7 mg/dL (2.5-4.5); POTASSIUM 3.8 mmol/L (3.6-5.2); SODIUM 141 mmol/L (132-148); TOTAL PROTEIN 6.9 g/dL (6.3-8.3)
--- NOTE | 2017-05-21 09:14 | CP.CCUPN ---
CCU Subjective - Physician Review Subjective (Free Text): PGY1 ICU progress note for Dr. Pizarro Patient seen and examined this morning at bedside. Patient is unresponsive on ventilator support. ROS unattainable. CCU Objective - Vital Signs / Intake & Output Vital Signs (Last 4 hours): Vital Signs Temp Pulse Resp BP Pulse Ox 05/21/17 08:06 76 12 103/62 100 05/21/17 08:00 97.8 F 05/21/17 07:06 73 12 108/57 L 98 05/21/17 07:00 72 12 118/66 97 05/21/17 06:05 76 12 118/66 97 05/21/17 06:00 76 12 97 Intake and Output (Last 8hrs): Intake & Output 05/20/17 05/21/17 05/21/17 22:59 06:59 14:59 Intake Total 160 Output Total 500 Balance -340 Weight 182 lb Intake: Tube Feeding 160 Output: Urine 500 Urine, Voided 500 - Physical Exam Head: Positive for: Atraumatic, Normocephalic Pupils: Positive for: Sluggish, Non-Reactive Conjunctiva: Positive for: Injected Mouth: Positive for: Moist Mucous Membranes Neck: Positive for: Trachea Midline Respiratory/Chest: Positive for: Clear to Auscultation, Good Air Exchange, Decreased Breath Sounds. Negative for: Respiratory Distress, Accessory Muscle Use Cardiovascular: Positive for: Regular Rate and Rhythm, Normal S1, S2, Tachycardic (sinus) Abdomen: Positive for: Distention, Normal Bowel Sounds Upper Extremity: Positive for: Normal Inspection, Edema Lower Extremity: Positive for: Edema Neurological: Positive for: Other (intubated). Negative for: GCS=15, CN II-XII Intact Psychiatric: Positive for: Other (intubated). Negative for: Alert, Oriented x 3 - Medications Active Medications: Active Medications Generic Name Dose Route Start Last Admin Trade Name Freq PRN Reason Stop Dose Admin Acetaminophen 975 mg 05/08/17 09:31 05/08/17 09:50 Tylenol 650mg/20.3ml Solution Ud PEG 975 mg Q6 PRN Administration Rigors Albuterol/Ipratropium 3 ml 05/08/17 20:00 05/21/17 07:30 Duoneb 3 Mg/0.5 Mg (3 Ml) Ud INH 3 ml RQ6 [facility] Administration Artificial Tears 0 gm 05/08/17 12:00 05/21/17 04:39 Lacri-Lube OU 3.5 gm Q4 [facility] Administration Ascorbic Acid 500 mg 05/16/17 10:00 05/20/17 09:44 Vitamin C 500 Mg Tab PO 500 mg DAILY [facility] Administration Aspirin 81 mg 05/11/17 10:00 05/20/17 09:44 Aspirin Chewable PEG 81 mg DAILY [facility] Administration Enoxaparin Sodium 40 mg 05/19/17 10:00 05/20/17 09:44 Lovenox SC 40 mg DAILY [facility] Administration Hydromorphone HCl 0.5 mg 05/17/17 11:20 Dilaudid IVP Q4H PRN Pain, moderate (4-7) Ciprofloxacin 400 mg in 200 mls @ 133 mls/hr 05/18/17 14:00 05/21/17 02:32 Cipro 400mg/200ml Dsw IVPB 133 mls/hr Q12H [facility] Administration Lactulose 20 gm 05/15/17 22:00 05/19/17 01:41 Enulose NG 20 gm HS PRN Administration Constipation Levetiracetam 750 mg 05/15/17 18:00 05/20/17 17:31 Keppra NG 750 mg BID [facility] Administration Multivitamins/Vitamin C 5 ml 05/16/17 10:00 05/20/17 09:46 Multi-Delyn Liquid PO 5 ml DAILY [facility] Administration Pantoprazole Sodium 40 mg 05/09/17 06:00 05/21/17 05:46 Protonix Susp PO 40 mg 0600 [facility] Administration Polyethylene Glycol 17 gm 05/16/17 10:00 05/20/17 09:44 Miralax GT 17 gm DAILY [facility] Administration Zinc Sulfate 220 mg 05/16/17 10:00 05/20/17 09:45 Zinc Sulfate 220 Mg Cap PO 220 mg DAILY [facility] Administration - Patient Studies Lab Studies: Lab Studies 05/21/17 05/21/17 05/21/17 Range/Units 06:08 06:00 06:00 WBC 11.3 H (4.8-10.8) K/uL RBC 3.81 (3.80-5.20) Mil/uL Hgb 10.9 L (11.0-16.0) g/dL Hct 33.2 L (34.0-47.0) % MCV 87.2 (81.0-99.0) fL MCH 28.5 (27.0-31.0) pg MCHC 32.7 L (33.0-37.0) g/dL RDW 14.2 (11.5-14.5) % Plt Count 282 (130-400) K/uL MPV 8.0 (7.2-11.7) fL Neut % (Auto) 76.6 H (50.0-75.0) % Lymph % (Auto) 14.9 L (20.0-40.0) % Hardee % (Auto) 5.6 (0.0-10.0) % Eos % (Auto) 2.6 (0.0-4.0) % Baso % (Auto) 0.3 (0.0-2.0) % Neut # 8.6 H (1.8-7.0) K/uL Lymph # 1.7 (1.0-4.3) K/uL Hardee # 0.6 (0.0-0.8) K/uL Eos # 0.3 (0.0-0.7) K/uL Baso # 0.0 (0.0-0.2) K/uL Sodium 141 (132-148) mmol/L Potassium 3.8 (3.6-5.2) mmol/L Chloride 102 (98-107) mmol/L Carbon Dioxide 32 H (22-30) mmol/L Anion Gap 11 (10-20) BUN 13 (7-17) mg/dL Creatinine 0.4 L (0.7-1.2) mg/dL Est GFR ( Amer) > 60 Est GFR (Non-Af Amer) > 60 POC Glucose (mg/dL) 122 H (65-110) mg/dL Random Glucose 146 H (65-105) mg/dL Calcium 8.9 (8.6-10.4) mg/dl Phosphorus 3.7 (2.5-4.5) mg/dL Magnesium 1.6 (1.6-2.3) mg/dL Total Bilirubin 0.4 (0.2-1.3) mg/dL AST 57 H (14-36) U/L ALT 121 H (9-52) U/L Alkaline Phosphatase 120 (38-126) U/L Total Protein 6.9 (6.3-8.3) g/dL Albumin 3.2 L (3.5-5.0) g/dL Globulin 3.6 (2.2-3.9) gm/dL Albumin/Globulin Ratio 0.9 L (1.0-2.1) 05/20/17 05/20/17 05/20/17 Range/Units 23:37 17:59 11:36 WBC (4.8-10.8) K/uL RBC (3.80-5.20) Mil/uL Hgb (11.0-16.0) g/dL Hct (34.0-47.0) % MCV (81.0-99.0) fL MCH (27.0-31.0) pg MCHC (33.0-37.0) g/dL RDW (11.5-14.5) % Plt Count (130-400) K/uL MPV (7.2-11.7) fL Neut % (Auto) (50.0-75.0) % Lymph % (Auto) (20.0-40.0) % Hardee % (Auto) (0.0-10.0) % Eos % (Auto) (0.0-4.0) % Baso % (Auto) (0.0-2.0) % Neut # (1.8-7.0) K/uL Lymph # (1.0-4.3) K/uL Hardee # (0.0-0.8) K/uL Eos # (0.0-0.7) K/uL Baso # (0.0-0.2) K/uL Sodium (132-148) mmol/L Potassium (3.6-5.2) mmol/L Chloride (98-107) mmol/L Carbon Dioxide (22-30) mmol/L Anion Gap (10-20) BUN (7-17) mg/dL Creatinine (0.7-1.2) mg/dL Est GFR ( Amer) Est GFR (Non-Af Amer) POC Glucose (mg/dL) 128 H 164 H 148 H (65-110) mg/dL Random Glucose (65-105) mg/dL Calcium (8.6-10.4) mg/dl Phosphorus (2.5-4.5) mg/dL Magnesium (1.6-2.3) mg/dL Total Bilirubin (0.2-1.3) mg/dL AST (14-36) U/L ALT (9-52) U/L Alkaline Phosphatase (38-126) U/L Total Protein (6.3-8.3) g/dL Albumin (3.5-5.0) g/dL Globulin (2.2-3.9) gm/dL Albumin/Globulin Ratio (1.0-2.1) 05/20/17 05/20/17 Range/Units 09:34 09:34 WBC 14.1 H (4.8-10.8) K/uL RBC 3.75 L (3.80-5.20) Mil/uL Hgb 10.8 L (11.0-16.0) g/dL Hct 32.6 L (34.0-47.0) % MCV 86.9 (81.0-99.0) fL MCH 28.9 (27.0-31.0) pg MCHC 33.2 (33.0-37.0) g/dL RDW 14.2 (11.5-14.5) % Plt Count 250 (130-400) K/uL MPV 8.0 (7.2-11.7) fL Neut % (Auto) 82.3 H (50.0-75.0) % Lymph % (Auto) 11.2 L (20.0-40.0) % Hardee % (Auto) 4.8 (0.0-10.0) % Eos % (Auto) 1.2 (0.0-4.0) % Baso % (Auto) 0.5 (0.0-2.0) % Neut # 11.6 H (1.8-7.0) K/uL Lymph # 1.6 (1.0-4.3) K/uL Hardee # 0.7 (0.0-0.8) K/uL Eos # 0.2 (0.0-0.7) K/uL Baso # 0.1 (0.0-0.2) K/uL Sodium 132 (132-148) mmol/L Potassium 3.4 L (3.6-5.2) mmol/L Chloride 100 (98-107) mmol/L Carbon Dioxide 29 (22-30) mmol/L Anion Gap 6 L (10-20) BUN 10 (7-17) mg/dL Creatinine 0.3 L (0.7-1.2) mg/dL Est GFR ( Amer) > 60 Est GFR (Non-Af Amer) > 60 POC Glucose (mg/dL) (65-110) mg/dL Random Glucose 124 H (65-105) mg/dL Calcium 8.8 (8.6-10.4) mg/dl Phosphorus (2.5-4.5) mg/dL Magnesium (1.6-2.3) mg/dL Total Bilirubin 0.5 (0.2-1.3) mg/dL AST 55 H (14-36) U/L ALT 126 H D (9-52) U/L Alkaline Phosphatase 125 (38-126) U/L Total Protein 6.8 (6.3-8.3) g/dL Albumin 3.2 L (3.5-5.0) g/dL Globulin 3.6 (2.2-3.9) gm/dL Albumin/Globulin Ratio 0.9 L (1.0-2.1) Laboratory Results - last 24 hr 05/20/17 05/20/17 05/20/17 09:34 09:34 11:36 WBC 14.1 H RBC 3.75 L Hgb 10.8 L Hct 32.6 L MCV 86.9 MCH 28.9 MCHC 33.2 RDW 14.2 Plt Count 250 MPV 8.0 Neut % (Auto) 82.3 H Lymph % (Auto) 11.2 L Hardee % (Auto) 4.8 Eos % (Auto) 1.2 Baso % (Auto) 0.5 Neut # 11.6 H Lymph # 1.6 Hardee # 0.7 Eos # 0.2 Baso # 0.1 Sodium 132 Potassium 3.4 L Chloride 100 Carbon Dioxide 29 Anion Gap 6 L BUN 10 Creatinine 0.3 L Est GFR ( Amer) > 60 Est GFR (Non-Af Amer) > 60 POC Glucose (mg/dL) 148 H Random Glucose 124 H Calcium 8.8 Phosphorus Magnesium Total Bilirubin 0.5 AST 55 H ALT 126 H D Alkaline Phosphatase 125 Total Protein 6.8 Albumin 3.2 L Globulin 3.6 Albumin/Globulin Ratio 0.9 L 05/20/17 05/20/17 05/21/17 17:59 23:37 06:00 WBC 11.3 H RBC 3.81 Hgb 10.9 L Hct 33.2 L MCV 87.2 MCH 28.5 MCHC 32.7 L RDW 14.2 Plt Count 282 MPV 8.0 Neut % (Auto) 76.6 H Lymph % (Auto) 14.9 L Hardee % (Auto) 5.6 Eos % (Auto) 2.6 Baso % (Auto) 0.3 Neut # 8.6 H Lymph # 1.7 Hardee # 0.6 Eos # 0.3 Baso # 0.0 Sodium Potassium Chloride Carbon Dioxide Anion Gap BUN Creatinine Est GFR ( Amer) Est GFR (Non-Af Amer) POC Glucose (mg/dL) 164 H 128 H Random Glucose Calcium Phosphorus Magnesium Total Bilirubin AST ALT Alkaline Phosphatase Total Protein Albumin Globulin Albumin/Globulin Ratio 05/21/17 05/21/17 06:00 06:08 WBC RBC Hgb Hct MCV MCH MCHC RDW Plt Count MPV Neut % (Auto) Lymph % (Auto) Hardee % (Auto) Eos % (Auto) Baso % (Auto) Neut # Lymph # Hardee # Eos # Baso # Sodium 141 Potassium 3.8 Chloride 102 Carbon Dioxide 32 H Anion Gap 11 BUN 13 Creatinine 0.4 L Est GFR ( Amer) > 60 Est GFR (Non-Af Amer) > 60 POC Glucose (mg/dL) 122 H Random Glucose 146 H Calcium 8.9 Phosphorus 3.7 Magnesium 1.6 Total Bilirubin 0.4 AST 57 H ALT 121 H Alkaline Phosphatase 120 Total Protein 6.9 Albumin 3.2 L Globulin 3.6 Albumin/Globulin Ratio 0.9 L Fingerstick Blood Sugar Results: 122 Review of Systems - Review of Systems Systems not reviewed;Unavailable: Intubated Assessment/Plan - Assessment and Plan (Free Text) Assessment: Patient is a 57F with PMH early onset dementia, 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 Hidalgo consulted, help appreciated hx of early onset dementia (started 7 years ago) non-verbal at baseline bedbound at baseline Keppra 750 IVPB q12h - LFTs improving - continue to monitor Head CT 05/10 - New low attenuation in the right caudate nucleus head indicating possible acute/subacute infarct. Recommend evaluation with magnetic resonance imaging. Atrophy greater than expected for patient age with ex vacuo ventricular dilatation. Chronic white matter ischemic change. EEG 05/11 - globally abnormal EEG due to burst suppression with periodic delta waves seen every 10 seconds. Findings of EEG consistent with global cerebral dysfunction. Study does NOT meet criteria for b/l cerebral silence. Repeat Head Ct 05/12 - No evidence of significant interval change when compared to the previous study dated 05/10/2017. No evidence of acute intracranial hemorrhage. Re- demonstration of moderate to severe atrophy. Moderate to severe dilatation the lateral ventricles and 3rd ventricle suggestive of hydrocephalus. Re- demonstration of focal hypodensity at the right caudate nucleus which could represent subacute infarct versus chronic microvascular changes. f/u neuro recs - Goal MAP of 90-100, per Dr. Hidalgo Patient's may be having second thoughts of artificially prolonging life of , per pastoral care. Another discussion about goals of care for patient may be needed. Cardio: Dr. Heck consulted, help appreciated s/p cardiac arrest, suspected 2/2 sepsis - Code Freeze ECHO - moderate diffuse systolic dysfunction, overall EF 35-40%; large apical wall motion abnormality; all valves normal Respiratory: s/p tracheostomy POD General Surgery, Dr. Monge consulted for trach Pneumonia CXR 05/19- Improved aeration of both lung bases with prominent pleural effusion now not identified. Minimal right pleural effusion remains. No prominent infiltrate bilaterally. Trachasp Culture positive for Pseudomonas Aeruginosa Cipro 400mg IVPB q12 (started on 05/18) Duoneb 3mL INH RQ6 Will be drawing labs and getting cxr once weekly from now on. GI: On Tube feedings, Jevity 1.5. Initial rate of 20mL/hr, Goal rate of 40mL/hr Protonix 40mg PO daily Prophylactic Care: DVT: Lovenox 40mg SC daily GI: Protonix 40mg PO daily DISPO: Patient does not meet LTAC criteria - currently looking for placement to subacute - will f/u with social media developer Case discussed with Dr. Moira Sandy Callie PGY1
[2017-05-21] MEDS: Enoxaparin 40 mg Syringe SC SCH (10:23)
[2017-05-21] MEDS: Multiple Vitamins Oral Solution PO SCH (10:23)
[2017-05-21] MEDS: levETIRAcetam 100 mg/ml (5ml) Oral Syringe NG SCH ×2 (10:23→17:37)
[2017-05-21] MEDS: POLYETHYLENE GLYCOL 3350 17 GM/Dose PACKET GT SCH (10:24)
--- NOTE | 2017-05-21 13:42 | CP.PCM.PN ---
Subjective - Date & Time of Evaluation Date of Evaluation: 05/21/17 Time of Evaluation: 13:30 - Subjective Subjective: Patient was seen and examined. Situation is not changed from before. Patient is non verbal, not following commands POD 4 of trach and on mechanical ventilation. Patient is pending transfer out of ICU to floors We are waiting on a place for her to go to from here. Objective - Vital Signs/Intake and Output Vital Signs (last 24 hours): Temp Pulse Resp BP Pulse Ox 97.3 F L 71 12 122/72 100 05/21/17 12:00 05/21/17 13:05 05/21/17 13:05 05/21/17 13:05 05/21/17 13:05 Intake and Output: 05/21/17 05/21/17 06:59 18:59 Intake Total 160 Output Total 500 Balance -340 - Medications Medications: Current Medications Acetaminophen (Tylenol 650mg/20.3ml Solution Ud) 975 mg PEG Q6 PRN PRN Reason: Rigors Last Admin: 05/08/17 09:50 Dose: 975 mg Albuterol/Ipratropium (Duoneb 3 Mg/0.5 Mg (3 Ml) Ud) 3 ml INH RQ6 [facility] Last Admin: 05/21/17 13:36 Dose: 3 ml Artificial Tears (Lacri-Lube) 0 gm OU Q4 [facility] Last Admin: 05/21/17 11:39 Dose: 3.5 gm Ascorbic Acid (Vitamin C 500 Mg Tab) 500 mg PO DAILY [facility] Last Admin: 05/21/17 10:24 Dose: 500 mg Aspirin (Aspirin Chewable) 81 mg PEG DAILY [facility] Last Admin: 05/21/17 10:24 Dose: 81 mg Enoxaparin Sodium (Lovenox) 40 mg SC DAILY [facility] Last Admin: 05/21/17 10:23 Dose: 40 mg Ciprofloxacin (Cipro 400mg/200ml Dsw) 400 mg in 200 mls @ 133 mls/hr IVPB Q12H [facility] Last Admin: 05/21/17 02:32 Dose: 133 mls/hr Lactulose (Enulose) 20 gm NG HS PRN PRN Reason: Constipation Last Admin: 05/19/17 01:41 Dose: 20 gm Levetiracetam (Keppra) 750 mg NG BID [facility] Last Admin: 05/21/17 10:23 Dose: 750 mg Multivitamins/Vitamin C (Multi-Delyn Liquid) 5 ml PO DAILY [facility] Last Admin: 05/21/17 10:23 Dose: 5 ml Pantoprazole Sodium (Protonix Susp) 40 mg PO 0600 [facility] Last Admin: 05/21/17 05:46 Dose: 40 mg Polyethylene Glycol (Miralax) 17 gm GT DAILY [facility] Last Admin: 05/21/17 10:24 Dose: 17 gm Zinc Sulfate (Zinc Sulfate 220 Mg Cap) 220 mg PO DAILY [facility] Last Admin: 05/21/17 10:24 Dose: 220 mg - Labs Labs: 05/21/17 06:00 05/21/17 06:00 PT 15.1 SECONDS (9.7-12.2) H 05/09/17 17:57 INR 1.3 05/09/17 17:57 APTT 35 SECONDS (21-34) H 05/09/17 17:57 - Constitutional Appears: Chronically Ill - Head Exam Head Exam: absent: NORMAL INSPECTION, NORMOCEPHALIC - Eye Exam Eye Exam: absent: EOMI, Normal appearance, PERRL - ENT Exam ENT Exam: absent: Mucous Membranes Moist - Respiratory Exam Respiratory Exam: Decreased Breath Sounds Additional comments: Mechanical breath sounds - GI/Abdominal Exam GI & Abdominal Exam: Soft. absent: Distended, Firm, Guarding, Rigid, Tenderness - Neurological Exam Neurological Exam: absent: Alert, Awake, CN II-XII Intact, Normal Gait, Oriented x3 Neuro motor strength exam: Left Upper Extremity: 0, Right Upper Extremity: 0, Left Lower Extremity: 0, Right Lower Extremity: 0 - Skin Skin Exam: Warm Assessment and Plan - Assessment and Plan (Free Text) Assessment: From the resident HPI: This is a 57F with PMH early onset dementia, seizures, and questionable asthma who was brought to the ED via EMS from her residential , [facility], where she was witnessed cardiopulmonary arrest. EMS intubated the patient in the field. In the ED patient was having myoclonic jerks and code freeze was initiated. Patient remained intubated and patient was admitted to the ICU. As per her daughter and her her dementia started 7 years ago. Last two year she was in the NH, nonverbal,some days she is responsive/look at family members. As of 05/20/2017 she now has a trachesotmy and remains on mechanical ventilation Assesment and Plan: 1) Acute Respiratory failure s/p cardiopulmonary arrest 05/21: We are still pending at this time a facility for patient to go 05/20: Pending a acceptance to a facility that will be able to care for patient 05/19: Now POD 2, abx were changed since there were positive + psedomonas growth in the culture 05/18: Now has tracheostomy. Remains on mechanical ventilation 05/17: Unfourtunately it appears patient now has anoxic brain injury and remains intubated and on mechacnile ventilator There are plans for a trachoesotym some time later today. I spoke with family at bedside who is aware of this. CT head 05/10 - New low attenuation in the right caudate nucleus head indicating possible acute/subacute infarct. Repeat Head Ct 05/12 - No evidence of significant interval change when compared to the previous study dated 05/10/2017. No evidence of acute intracranial bleeding On Asprin s/p code freeze,continue duoneb d/w Daughter yesterday ,full code,trach on Wednesday Wean as per critical care MD 2) Pneumonia 05/21: The WBC has decreased to 11 05/20: WBC still elevated, recheck blood and cultures 05/19: + growth of pseudomonas growth. 05/18: Remains on IV abx, recent culture shows pseudomonas 05/17: Blood cultures have been negative, there are repeat positives of + E coli from sputum/trach. On IV Aztreonam. 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 Now has trachoestomy and remain intubated oh mechanical ventilationBlood pressure has been stable with systolic BPs in the 110s range. ASA 4) Seizure disorder, unspecified 05/21: Controlled at this time patient was taking Keppra and Lamotrigine switch to oral Keppra 5) History of Asthma Currently intubated 6) DVT and GI prophylasix protonix and lovenox On Tube feedings, Jevity 1.5.
[2017-05-22] MEDS: Albuterol-Ipratrop 3 mg / 0.5 (3 ml) UD INH SCH ×4 (01:52→19:41)
[2017-05-22] MEDS: Ciprofloxacin 400mg/200ml D5W 400 MG/200 ML BAG IVPB SCH ×2 (02:00→14:39)
[2017-05-22] MEDS: White Petrolatum/Mineral Oil Ophth Oint(3.5 gm) OU SCH ×7 (04:00→23:03)
[2017-05-22] MEDS: Pantoprazole 40 mg Susp UD PO SCH (07:16)
[2017-05-22] MEDS: Multiple Vitamins Oral Solution PO SCH (10:06)
[2017-05-22] MEDS: levETIRAcetam 100 mg/ml (5ml) Oral Syringe NG SCH ×2 (10:06→17:14)
[2017-05-22] MEDS: POLYETHYLENE GLYCOL 3350 17 GM/Dose PACKET GT SCH (10:06)
[2017-05-22] MEDS: Enoxaparin 40 mg Syringe SC SCH (10:07)
--- NOTE | 2017-05-22 16:12 | CP.PCM.PN ---
Subjective - Date & Time of Evaluation Date of Evaluation: 05/22/17 Time of Evaluation: 15:00 - Subjective Subjective: Situation is not changed from before WBC decreased. Repeating the UA and UC + S. And also another blood culture. Patient remains on mechanical ventilation Still pending placement at this time. Objective - Vital Signs/Intake and Output Vital Signs (last 24 hours): Temp Pulse Resp BP Pulse Ox 97.8 F 81 12 124/67 100 05/22/17 12:00 05/22/17 15:05 05/22/17 15:05 05/22/17 15:05 05/22/17 15:05 Intake and Output: 05/22/17 05/22/17 06:59 18:59 Intake Total 680 350 Output Total 450 500 Balance 230 -150 - Medications Medications: Current Medications Acetaminophen (Tylenol 650mg/20.3ml Solution Ud) 975 mg PEG Q6 PRN PRN Reason: Rigors Last Admin: 05/08/17 09:50 Dose: 975 mg Albuterol/Ipratropium (Duoneb 3 Mg/0.5 Mg (3 Ml) Ud) 3 ml INH RQ6 [facility] Last Admin: 05/22/17 13:29 Dose: 3 ml Artificial Tears (Lacri-Lube) 0 gm OU Q4 [facility] Last Admin: 05/22/17 11:46 Dose: 3.5 gm Ascorbic Acid (Vitamin C 500 Mg Tab) 500 mg PO DAILY [facility] Last Admin: 05/22/17 10:06 Dose: 500 mg Aspirin (Aspirin Chewable) 81 mg PEG DAILY [facility] Last Admin: 05/22/17 10:07 Dose: Not Given Enoxaparin Sodium (Lovenox) 40 mg SC DAILY [facility] Last Admin: 05/22/17 10:07 Dose: Not Given Ciprofloxacin (Cipro 400mg/200ml Dsw) 400 mg in 200 mls @ 133 mls/hr IVPB Q12H [facility] Last Admin: 05/22/17 14:39 Dose: 133 mls/hr Lactulose (Enulose) 20 gm NG HS PRN PRN Reason: Constipation Last Admin: 05/22/17 02:13 Dose: 20 gm Levetiracetam (Keppra) 750 mg NG BID [facility] Last Admin: 05/22/17 10:06 Dose: 750 mg Multivitamins/Vitamin C (Multi-Delyn Liquid) 5 ml PO DAILY [facility] Last Admin: 05/22/17 10:06 Dose: 5 ml Pantoprazole Sodium (Protonix Susp) 40 mg PO 0600 [facility] Last Admin: 05/22/17 07:16 Dose: 40 mg Polyethylene Glycol (Miralax) 17 gm GT DAILY [facility] Last Admin: 05/22/17 10:06 Dose: 17 gm Zinc Sulfate (Zinc Sulfate 220 Mg Cap) 220 mg PO DAILY [facility] Last Admin: 05/22/17 10:06 Dose: 220 mg - Labs Labs: 05/21/17 06:00 05/21/17 06:00 PT 15.1 SECONDS (9.7-12.2) H 05/09/17 17:57 INR 1.3 05/09/17 17:57 APTT 35 SECONDS (21-34) H 05/09/17 17:57 - Constitutional Appears: Chronically Ill - Eye Exam Eye Exam: absent: EOMI, Normal appearance Pupil Exam: absent: NORMAL ACCOMODATION, PERRL - ENT Exam ENT Exam: absent: Normal Exam - Cardiovascular Exam Cardiovascular Exam: REGULAR RHYTHM - GI/Abdominal Exam GI & Abdominal Exam: Soft. absent: Guarding, Rigid, Tenderness, Diminished Bowel Sounds, Normal Bowel Sounds - Neurological Exam Neurological Exam: absent: Alert, Awake, CN II-XII Intact Neuro motor strength exam: Left Upper Extremity: 0, Right Upper Extremity: 0, Left Lower Extremity: 0, Right Lower Extremity: 0 - Skin Skin Exam: Dry, Warm Assessment and Plan - Assessment and Plan (Free Text) Assessment: From the resident HPI: This is a 57F with PMH early onset dementia, seizures, and questionable asthma who was brought to the ED via EMS from her senior care , [facility], where she was witnessed cardiopulmonary arrest. EMS intubated the patient in the field. In the ED patient was having myoclonic jerks and code freeze was initiated. Patient remained intubated and patient was admitted to the ICU. As per her daughter and her her dementia started 7 years ago. Last two year she was in the NH, nonverbal,some days she is responsive/look at family members. As of 05/20/2017 she now has a trachesotmy and remains on mechanical ventilation Assesment and Plan: 1) Acute Respiratory failure s/p cardiopulmonary arrest 05/22: situation is unchanged from before. 05/21: We are still pending at this time a facility for patient to go 05/20: Pending a acceptance to a facility that will be able to care for patient 05/19: Now POD 2, abx were changed since there were positive + psedomonas growth in the culture 05/18: Now has tracheostomy. Remains on mechanical ventilation 05/17: Unfourtunately it appears patient now has anoxic brain injury and remains intubated and on mechacnile ventilator There are plans for a trachoesotym some time later today. I spoke with family at bedside who is aware of this. CT head 05/10 - New low attenuation in the right caudate nucleus head indicating possible acute/subacute infarct. Repeat Head Ct 05/12 - No evidence of significant interval change when compared to the previous study dated 05/10/2017. No evidence of acute intracranial bleeding On Asprin s/p code freeze,continue duoneb d/w Daughter yesterday ,full code,trach on Wednesday Wean as per critical care MD 2) Pneumonia 05/22 repeating blood cultures, 05/21: The WBC has decreased to 11 05/20: WBC still elevated, recheck blood and cultures 05/19: + growth of pseudomonas growth. 05/18: Remains on IV abx, recent culture shows pseudomonas 05/17: Blood cultures have been negative, there are repeat positives of + E coli from sputum/trach. On IV Aztreonam. 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 Now has trachoestomy and remain intubated oh mechanical ventilationBlood pressure has been stable with systolic BPs in the 110s range. ASA 4) Seizure disorder, unspecified 05/21: Controlled at this time patient was taking Keppra and Lamotrigine switch to oral Keppra 5) History of Asthma Currently intubated 6) DVT and GI prophylasix protonix and lovenox On Tube feedings, Jevity 1.5.
[2017-05-22 18:27] LABS: RBC URINE 91 /hpf (0-3); URINE BACTERIA MANY (<OCC); URINE BILIRUBIN NEGATIVE (NEGATIVE); URINE BLOOD NEGATIVE (NEGATIVE); URINE COLOR Yellow (YELLOW); URINE GLUCOSE (UA) NORMAL (Normal); URINE KETONE NEGATIVE (NEGATIVE); URINE LEUKOCYTE ESTERASE 1+ Leu/uL (Negative); URINE PROTEIN NEGATIVE (NEGATIVE); URINE UROBILINOGEN NORMAL mg/dL (0.2-1.0); WBC URINE 90 /hpf (0-5)
[2017-05-23] MEDS: Albuterol-Ipratrop 3 mg / 0.5 (3 ml) UD INH SCH ×4 (01:09→20:08)
[2017-05-23] MEDS: Ciprofloxacin 400mg/200ml D5W 400 MG/200 ML BAG IVPB SCH ×2 (01:58→14:50)
[2017-05-23] MEDS: White Petrolatum/Mineral Oil Ophth Oint(3.5 gm) OU SCH ×5 (04:00→20:00)
[2017-05-23] MEDS: Pantoprazole 40 mg Susp UD PO SCH (06:25)
[2017-05-23 06:54] LABS: BASO % 0.5 % (0.0-2.0); EOS # 0.4 K/uL (0.0-0.7); EOS % 3.9 % (0.0-4.0); HEMATOCRIT 33.4 % (34.0-47.0); LYMPH # 1.5 K/uL (1.0-4.3); LYMPH % 15.3 % (20.0-40.0); MEAN CELL VOLUME 86.9 fL (81.0-99.0); MEAN CORPUSCULAR HGB CONC 33.3 g/dL (33.0-37.0); MEAN PLATELET VOLUME 7.8 fL (7.2-11.7); MONO # 0.4 K/uL (0.0-0.8); MONO % 4.6 % (0.0-10.0); NRBC % 0.1 % (0.0-2.0); RED CELL DISTRIBUTION WIDTH 14.2 % (11.5-14.5); WHITE BLOOD COUNT 9.6 K/uL (4.8-10.8)
[2017-05-23 08:07] LABS: ALB/GLOB RATIO 0.9 (1.0-2.1); ALKALINE PHOSPHATASE 144 U/L (38-126); ALT/SGPT 106 U/L (9-52); AST/SGOT 74 U/L (14-36); BILIRUBIN,TOTAL 0.5 mg/dL (0.2-1.3); BLOOD UREA NITROGEN 13 mg/dL (7-17); CARBON DIOXIDE 31 mmol/L (22-30); CHLORIDE 99 mmol/L (98-107); GFR AFRICAN-AMERICAN > 60; GLUCOSE,RANDOM 112 mg/dL (65-105); POTASSIUM 3.9 mmol/L (3.6-5.2); SODIUM 137 mmol/L (132-148); TOTAL PROTEIN 7.3 g/dL (6.3-8.3)
[2017-05-23] MEDS: levETIRAcetam 100 mg/ml (5ml) Oral Syringe NG SCH ×2 (09:24→17:45)
[2017-05-23] MEDS: Multiple Vitamins Oral Solution PO SCH (09:24)
[2017-05-23] MEDS: POLYETHYLENE GLYCOL 3350 17 GM/Dose PACKET GT SCH (09:24)
[2017-05-23] MEDS: Enoxaparin 40 mg Syringe SC SCH (09:24)
--- NOTE | 2017-05-23 12:27 | CP.PCM.PN ---
Subjective - Date & Time of Evaluation Date of Evaluation: 05/23/17 Time of Evaluation: 12:00 - Subjective Subjective: At this time I do not have much new news to report Her is faithfully at bedside and we again talked. Please note that he is almost completely blind and cannot see. She remains non verbal and non responsive. On mechanical ventilation with trach We are pending place for her to go. Objective - Vital Signs/Intake and Output Vital Signs (last 24 hours): Temp Pulse Resp BP Pulse Ox 97.8 F 76 12 137/77 99 05/23/17 08:00 05/23/17 11:00 05/23/17 11:00 05/23/17 10:06 05/23/17 11:00 Intake and Output: 05/23/17 05/23/17 06:59 18:59 Intake Total 640 120 Output Total 650 Balance -10 120 - Medications Medications: Current Medications Acetaminophen (Tylenol 650mg/20.3ml Solution Ud) 975 mg PEG Q6 PRN PRN Reason: Rigors Last Admin: 05/08/17 09:50 Dose: 975 mg Albuterol/Ipratropium (Duoneb 3 Mg/0.5 Mg (3 Ml) Ud) 3 ml INH RQ6 [facility] Last Admin: 05/23/17 07:38 Dose: 3 ml Artificial Tears (Lacri-Lube) 0 gm OU Q4 [facility] Last Admin: 05/23/17 07:20 Dose: 3.5 gm Ascorbic Acid (Vitamin C 500 Mg Tab) 500 mg PO DAILY [facility] Last Admin: 05/23/17 09:24 Dose: 500 mg Aspirin (Aspirin Chewable) 81 mg PEG DAILY [facility] Last Admin: 05/23/17 09:24 Dose: 81 mg Enoxaparin Sodium (Lovenox) 40 mg SC DAILY [facility] Last Admin: 05/23/17 09:24 Dose: 40 mg Ciprofloxacin (Cipro 400mg/200ml Dsw) 400 mg in 200 mls @ 133 mls/hr IVPB Q12H [facility] Last Admin: 05/23/17 01:58 Dose: 133 mls/hr Lactulose (Enulose) 20 gm NG HS PRN PRN Reason: Constipation Last Admin: 05/22/17 23:05 Dose: 20 gm Levetiracetam (Keppra) 750 mg NG BID [facility] Last Admin: 05/23/17 09:24 Dose: 750 mg Multivitamins/Vitamin C (Multi-Delyn Liquid) 5 ml PO DAILY [facility] Last Admin: 05/23/17 09:24 Dose: 5 ml Pantoprazole Sodium (Protonix Susp) 40 mg PO 0600 [facility] Last Admin: 05/23/17 06:25 Dose: 40 mg Polyethylene Glycol (Miralax) 17 gm GT DAILY [facility] Last Admin: 05/23/17 09:24 Dose: 17 gm Zinc Sulfate (Zinc Sulfate 220 Mg Cap) 220 mg PO DAILY [facility] Last Admin: 05/23/17 09:24 Dose: 220 mg - Labs Labs: 05/23/17 06:50 05/23/17 06:50 PT 15.1 SECONDS (9.7-12.2) H 05/09/17 17:57 INR 1.3 05/09/17 17:57 APTT 35 SECONDS (21-34) H 05/09/17 17:57 - Constitutional Appears: Chronically Ill - Head Exam Head Exam: absent: NORMAL INSPECTION, NORMOCEPHALIC - Eye Exam Eye Exam: absent: EOMI, Normal appearance, PERRL Pupil Exam: absent: NORMAL ACCOMODATION - ENT Exam ENT Exam: absent: Mucous Membranes Moist - Respiratory Exam Respiratory Exam: Clear to Ausculation Bilateral, NORMAL BREATHING PATTERN - Cardiovascular Exam Cardiovascular Exam: REGULAR RHYTHM - GI/Abdominal Exam GI & Abdominal Exam: absent: Guarding, Rigid, Soft, Tenderness - Neurological Exam Neurological Exam: absent: Awake, Normal Gait, Oriented x3 Neuro motor strength exam: Left Upper Extremity: 0, Right Upper Extremity: 0, Left Lower Extremity: 0, Right Lower Extremity: 0 - Psychiatric Exam Psychiatric exam: Depressed, Flat Affect - Skin Skin Exam: Normal Color, Warm Assessment and Plan - Assessment and Plan (Free Text) Assessment: From the resident HPI: This is a 57F with PMH early onset dementia, seizures, and questionable asthma who was brought to the ED via EMS from her correction , [facility], where she was witnessed cardiopulmonary arrest. EMS intubated the patient in the field. In the ED patient was having myoclonic jerks and code freeze was initiated. Patient remained intubated and patient was admitted to the ICU. As per her daughter and her her dementia started 7 years ago. Last two year she was in the NH, nonverbal,some days she is responsive/look at family members. As of 05/20/2017 she now has a trachesotmy and remains on mechanical ventilation Assesment and Plan: 1) Acute Respiratory failure s/p cardiopulmonary arrest 05/22: situation is unchanged from before. 05/21: We are still pending at this time a facility for patient to go 05/20: Pending a acceptance to a facility that will be able to care for patient 05/19: Now POD 2, abx were changed since there were positive + psedomonas growth in the culture 05/18: Now has tracheostomy. Remains on mechanical ventilation 05/17: Unfourtunately it appears patient now has anoxic brain injury and remains intubated and on mechacnile ventilator There are plans for a trachoesotym some time later today. I spoke with family at bedside who is aware of this. CT head 05/10 - New low attenuation in the right caudate nucleus head indicating possible acute/subacute infarct. Repeat Head Ct 05/12 - No evidence of significant interval change when compared to the previous study dated 05/10/2017. No evidence of acute intracranial bleeding On Asprin s/p code freeze,continue duoneb d/w Daughter yesterday ,full code,trach on Wednesday Wean as per critical care MD 2) Pneumonia 05/22 repeating blood cultures, 05/21: The WBC has decreased to 11 05/20: WBC still elevated, recheck blood and cultures 05/19: + growth of pseudomonas growth. 05/18: Remains on IV abx, recent culture shows pseudomonas 05/17: Blood cultures have been negative, there are repeat positives of + E coli from sputum/trach. On IV Aztreonam. 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 Now has trachoestomy and remain intubated oh mechanical ventilationBlood pressure has been stable with systolic BPs in the 110s range. ASA 4) Seizure disorder, unspecified 05/21: Controlled at this time patient was taking Keppra and Lamotrigine switch to oral Keppra 5) History of Asthma Currently intubated 6) DVT and GI prophylasix protonix and lovenox On Tube feedings, Jevity 1.5.
--- NOTE | 2017-05-23 21:01 | CP.PCM.PN ---
Subjective - Date & Time of Evaluation Date of Evaluation: 05/23/17 Time of Evaluation: 09:15 - Subjective Subjective: Patient seen and evaluated Unresponsive Poor prognosis Physical Examination - Head Exam Head Exam: ATRAUMATIC - Eye Exam Eye Exam: Normal appearance - ENT Exam ENT Exam: Mucous Membranes Moist - Respiratory Exam Respiratory Exam: Clear to Ausculation Bilateral - Cardiovascular Exam Cardiovascular Exam: REGULAR RHYTHM - GI/Abdominal Exam GI & Abdominal Exam: Soft, Normal Bowel Sounds - Exam External exam: NORMAL EXTERNAL EXAM - Back Exam Back Exam: NORMAL INSPECTION - Neurological Exam Neurological Exam: absent: Alert - Psychiatric Exam Psychiatric exam: absent: Normal Mood - Skin Skin Exam: Dry Objective - Vital Signs/Intake and Output Vital Signs (last 24 hours): Temp Pulse Resp BP Pulse Ox 98.2 F 79 12 125/77 100 05/23/17 20:00 05/23/17 20:05 05/23/17 20:05 05/23/17 20:05 05/23/17 20:05 Intake and Output: 05/23/17 05/24/17 18:59 06:59 Intake Total 1060 Output Total 450 Balance 610 - Medications Medications: Current Medications Acetaminophen (Tylenol 650mg/20.3ml Solution Ud) 975 mg PEG Q6 PRN PRN Reason: Rigors Last Admin: 05/08/17 09:50 Dose: 975 mg Albuterol/Ipratropium (Duoneb 3 Mg/0.5 Mg (3 Ml) Ud) 3 ml INH RQ6 [facility] Last Admin: 05/23/17 20:08 Dose: 3 ml Artificial Tears (Lacri-Lube) 0 gm OU Q4 [facility] Last Admin: 05/23/17 16:35 Dose: 3.5 gm Ascorbic Acid (Vitamin C 500 Mg Tab) 500 mg PO DAILY [facility] Last Admin: 05/23/17 09:24 Dose: 500 mg Aspirin (Aspirin Chewable) 81 mg PEG DAILY [facility] Last Admin: 05/23/17 09:24 Dose: 81 mg Enoxaparin Sodium (Lovenox) 40 mg SC DAILY [facility] Last Admin: 05/23/17 09:24 Dose: 40 mg Ciprofloxacin (Cipro 400mg/200ml Dsw) 400 mg in 200 mls @ 133 mls/hr IVPB Q12H [facility] Last Admin: 05/23/17 14:50 Dose: 133 mls/hr Lactulose (Enulose) 20 gm NG HS PRN PRN Reason: Constipation Last Admin: 05/22/17 23:05 Dose: 20 gm Levetiracetam (Keppra) 750 mg NG BID [facility] Last Admin: 05/23/17 17:45 Dose: 750 mg Multivitamins/Vitamin C (Multi-Delyn Liquid) 5 ml PO DAILY [facility] Last Admin: 05/23/17 09:24 Dose: 5 ml Pantoprazole Sodium (Protonix Susp) 40 mg PO 0600 [facility] Last Admin: 05/23/17 06:25 Dose: 40 mg Polyethylene Glycol (Miralax) 17 gm GT DAILY [facility] Last Admin: 05/23/17 09:24 Dose: 17 gm Zinc Sulfate (Zinc Sulfate 220 Mg Cap) 220 mg PO DAILY [facility] Last Admin: 05/23/17 09:24 Dose: 220 mg - Labs Labs: 05/23/17 06:50 05/23/17 06:50 PT 15.1 SECONDS (9.7-12.2) H 05/09/17 17:57 INR 1.3 05/09/17 17:57 APTT 35 SECONDS (21-34) H 05/09/17 17:57 Assessment and Plan - Assessment and Plan (Free Text) Assessment: This is a 57F with PMH early onset dementia, seizures, and questionable asthma who was brought to the ED via EMS from her longterm, [facility], where she was witnessed cardiopulmonary arrest. EMS intubated the patient in the field.At ED patient was having myoclonic jerks and code freeze was initiated. Patient remained intubated and patient was admitted to the ICU. Her dementia started 7 years ago.Last two year she was in the NH,nonverbal,some days she is responsive/look at family members Plan: 1) s/p cardiopulmonary arrest Intubated and remain on Vent support,comatose Abnormal CT brain .Repeat CT acute/subacute infarct asprin added d/w Dr Hidalgo.Patient has poor prognosis, Brain changes could be due anoxia brain injury s/p code freeze,continue solumedrol and duoneb D/W at bedside.We will talk to her daughter again palliative care consult Continue asprin 2) Pneumonia and elevated wbc follow cultures Continue Aztrenonam and Vancomcyin continue duoneb and steroid 3) History of early onset dementia starting 5 years ago as per daughter 4) Seizure disorder, unspecified patient was taking Keppra and Lamotrigine On Keppra 750mg IVQ12H 5) History of Asthma 6) DVT and GI prophylasix protonix and lovenox
[2017-05-24] MEDS: Albuterol-Ipratrop 3 mg / 0.5 (3 ml) UD INH SCH ×4 (01:07→19:23)
[2017-05-24] MEDS: Ciprofloxacin 400mg/200ml D5W 400 MG/200 ML BAG IVPB SCH (02:00)
[2017-05-24] MEDS: White Petrolatum/Mineral Oil Ophth Oint(3.5 gm) OU SCH ×6 (04:00→20:30)
[2017-05-24] MEDS: Pantoprazole 40 mg Susp UD PO SCH (06:49)
[2017-05-24 07:35] LABS: BASO # 0.1 K/uL (0.0-0.2); BASO % 0.6 % (0.0-2.0); EOS # 0.3 K/uL (0.0-0.7); EOS % 2.3 % (0.0-4.0); HEMATOCRIT 34.4 % (34.0-47.0); LYMPH # 1.3 K/uL (1.0-4.3); LYMPH % 10.9 % (20.0-40.0); MEAN CELL VOLUME 86.5 fL (81.0-99.0); MEAN CORPUSCULAR HEMOGLOBIN 29.1 pg (27.0-31.0); MEAN CORPUSCULAR HGB CONC 33.7 g/dL (33.0-37.0); MEAN PLATELET VOLUME 7.8 fL (7.2-11.7); MONO # 0.5 K/uL (0.0-0.8); MONO % 3.9 % (0.0-10.0); RED CELL DISTRIBUTION WIDTH 14.4 % (11.5-14.5); WHITE BLOOD COUNT 12.2 K/uL (4.8-10.8)
[2017-05-24 08:18] LABS: ALB/GLOB RATIO 1.2 (1.0-2.1); ALKALINE PHOSPHATASE 162 U/L (38-126); ALT/SGPT 91 U/L (9-52); AST/SGOT 69 U/L (14-36); BILIRUBIN,TOTAL 0.7 mg/dL (0.2-1.3); BLOOD UREA NITROGEN 13 mg/dL (7-17); CARBON DIOXIDE 32 mmol/L (22-30); CHLORIDE 97 mmol/L (98-107); GFR AFRICAN-AMERICAN > 60; GLUCOSE,RANDOM 120 mg/dL (65-105); MAGNESIUM 1.6 mg/dL (1.6-2.3); PHOSPHOROUS 3.8 mg/dL (2.5-4.5); POTASSIUM 3.9 mmol/L (3.6-5.2); SODIUM 136 mmol/L (132-148); TOTAL PROTEIN 6.6 g/dL (6.3-8.3)
[2017-05-24] MEDS: Acetaminophen 650mg/20.3ml solution UD PEG PRN (10:41)
[2017-05-24] MEDS: levETIRAcetam 100 mg/ml (5ml) Oral Syringe NG SCH ×2 (13:11→19:45)
[2017-05-24] MEDS: POLYETHYLENE GLYCOL 3350 17 GM/Dose PACKET GT SCH (13:26)
[2017-05-24] MEDS: Enoxaparin 40 mg Syringe SC SCH (13:27)
--- NOTE | 2017-05-24 13:56 | CP.PCM.DIS ---
<Haven Mcfarlane - Last Filed: 05/24/17 16:49> Provider - Provider Date of Admission: 05/08/17 08:14 Attending physician: Jillian Quiles MD Consults: Dr. Heck, Dr. Hidalgo, Dr. Monge Time Spent in preparation of Discharge (in minutes): 55 Hospital Course - Lab Results Lab Results: Micro Results 05/22/17 17:14 Urine Urine Culture - Final No Growth (<1,000 CFU/ML) 05/15/17 10:14 Trachasp Gram Stain - Final 05/15/17 10:14 Trachasp Sputum Culture - Final Pseudomonas Aeruginosa 05/08/17 15:30 Blood Blood Culture - Final NO GROWTH AFTER 5 DAYS 05/08/17 15:30 Blood Gram Stain - Final TEST NOT PERFORMED 05/08/17 16:00 Blood Blood Culture - Final NO GROWTH AFTER 5 DAYS 05/08/17 16:00 Blood Gram Stain - Final TEST NOT PERFORMED 05/09/17 14:47 Trachasp Gram Stain - Final 05/09/17 14:47 Trachasp Sputum Culture - Final Escherichia Coli 05/09/17 14:47 Urine,Johnson Urine Culture - Final No Growth (<1,000 CFU/ML) 05/08/17 14:37 Naris MRSA Culture (Admit) - Final MRSA NOT DETECTED Most Recent Lab Values WBC 12.2 K/uL (4.8-10.8) H 05/24/17 07:19 RBC 3.97 Mil/uL (3.80-5.20) 05/24/17 07:19 Hgb 11.6 g/dL (11.0-16.0) 05/24/17 07:19 Hct 34.4 % (34.0-47.0) 05/24/17 07:19 MCV 86.5 fL (81.0-99.0) 05/24/17 07:19 MCH 29.1 pg (27.0-31.0) 05/24/17 07:19 MCHC 33.7 g/dL (33.0-37.0) 05/24/17 07:19 RDW 14.4 % (11.5-14.5) 05/24/17 07:19 Plt Count 310 K/uL (130-400) 05/24/17 07:19 MPV 7.8 fL (7.2-11.7) 05/24/17 07:19 Neut % (Auto) 82.3 % (50.0-75.0) H 05/24/17 07:19 Lymph % (Auto) 10.9 % (20.0-40.0) L 05/24/17 07:19 Nance % (Auto) 3.9 % (0.0-10.0) 05/24/17 07:19 Eos % (Auto) 2.3 % (0.0-4.0) 05/24/17 07:19 Baso % (Auto) 0.6 % (0.0-2.0) 05/24/17 07:19 Neut # 10.1 K/uL (1.8-7.0) H 05/24/17 07:19 Lymph # 1.3 K/uL (1.0-4.3) 05/24/17 07:19 Nance # 0.5 K/uL (0.0-0.8) 05/24/17 07:19 Eos # 0.3 K/uL (0.0-0.7) 05/24/17 07:19 Baso # 0.1 K/uL (0.0-0.2) 05/24/17 07:19 Neutrophils % (Manual) 95 % (50-75) H 05/19/17 06:29 Band Neutrophils % 3 % (0-2) H 05/14/17 06:36 Lymphocytes % (Manual) 3 % (20-40) L 05/19/17 06:29 Reactive Lymphs % 1 % (0-0) H 05/13/17 06:16 Monocytes % (Manual) 2 % (0-10) 05/19/17 06:29 Eosinophils % (Manual) 3 % (0-4) 05/18/17 06:15 Myelocytes % 1 % (0-0) H 05/12/17 06:25 Toxic Granulation Present 05/13/17 06:16 Platelet Estimate Normal (NORMAL) 05/19/17 06:29 Large Platelets Present 05/13/17 06:16 Giant Platelets Present 05/13/17 06:16 RBC Morphology Normal 05/19/17 06:29 Polychromasia Slight 05/13/17 06:16 Hypochromasia (manual) Slight 05/13/17 06:16 Poikilocytosis (manual Slight 05/13/17 06:16 Anisocytosis (manual) Slight 05/13/17 06:16 Ovalocytes Slight 05/13/17 06:16 PT 15.1 SECONDS (9.7-12.2) H 05/09/17 17:57 INR 1.3 05/09/17 17:57 APTT 35 SECONDS (21-34) H 05/09/17 17:57 Puncture Site Lr 05/19/17 04:50 pCO2 31 mm/Hg (35-45) L 05/19/17 04:50 pO2 98 mm/Hg (80-100) 05/19/17 04:50 HCO3 21.5 mmol/L (21-28) 05/19/17 04:50 ABG pH 7.41 (7.35-7.45) 05/19/17 04:50 ABG Total CO2 20.6 mmol/L (22-28) L 05/19/17 04:50 ABG O2 Saturation 99.5 % (95-98) H 05/19/17 04:50 ABG Base Excess -4.4 mmol/L (-2.0-3.0) L 05/19/17 04:50 ABG Hemoglobin 8.8 g/dL (11.7-17.4) L 05/19/17 04:50 ABG Carboxyhemoglobin 2.2 % (0.5-1.5) H 05/19/17 04:50 POC ABG HHb (Measured) 0.5 % (0.0-5.0) 05/19/17 04:50 ABG Methemoglobin 1.2 % (0.0-3.0) 05/19/17 04:50 Evans Test Pos 05/19/17 04:50 ABG Potassium 3.6 mmol/L (3.6-5.2) 05/14/17 15:45 VBG pH 7.11 (7.32-7.43) L* 05/08/17 13:21 VBG pCO2 73 mmHg (40-60) H* 05/08/17 13:21 VBG HCO3 17.4 mmol/L 05/08/17 13:21 VBG Total CO2 25.4 mmol/L (22-28) 05/08/17 13:21 VBG O2 Sat (Calc) 60.6 % (40-65) 05/08/17 13:21 VBG Base Excess -7.7 mmol/L (0.0-2.0) L 05/08/17 13:21 VBG Potassium 4.4 mmol/L (3.6-5.2) 05/08/17 13:21 A-a O2 Difference 113.0 mm/Hg 05/19/17 04:50 Respiratory Index 1.2 05/19/17 04:50 Hgb O2 Saturation 96.2 % (95.0-98.0) 05/19/17 04:50 Sodium 141.0 mmol/l (132-148) 05/14/17 15:45 Chloride 111.0 mmol/L (98-107) H 05/14/17 15:45 Glucose 134 mg/dl (65-105) H 05/14/17 15:45 Lactate 1.2 mmol/L (0.7-2.1) 05/14/17 15:45 Vent Mode Prvc 05/19/17 04:50 Mechanical Rate 12 05/19/17 04:50 FiO2 35.0 % 05/19/17 04:50 Tidal Volume 400 05/19/17 04:50 PEEP 5 05/19/17 04:50 Crit Value Called To Edward medrano rn 05/14/17 05:22 Crit Value Called By Phu metal crafts teacher 05/14/17 05:22 Crit Value Read Back Y 05/14/17 05:22 Blood Gas Notified Time 538 05/14/17 05:22 Sodium 136 mmol/L (132-148) 05/24/17 07:19 Potassium 3.9 mmol/L (3.6-5.2) 05/24/17 07:19 Chloride 97 mmol/L (98-107) L 05/24/17 07:19 Carbon Dioxide 32 mmol/L (22-30) H 05/24/17 07:19 Anion Gap 11 (10-20) 05/24/17 07:19 BUN 13 mg/dL (7-17) 05/24/17 07:19 Creatinine 0.4 mg/dL (0.7-1.2) L 05/24/17 07:19 Est GFR ( Amer) > 60 05/24/17 07:19 Est GFR (Non-Af Amer) > 60 05/24/17 07:19 POC Glucose (mg/dL) 98 mg/dL (65-110) 05/24/17 11:46 Random Glucose 120 mg/dL (65-105) H 05/24/17 07:19 Calcium 9.0 mg/dl (8.6-10.4) 05/24/17 07:19 Phosphorus 3.8 mg/dL (2.5-4.5) 05/24/17 07:19 Magnesium 1.6 mg/dL (1.6-2.3) 05/24/17 07:19 Total Bilirubin 0.7 mg/dL (0.2-1.3) 05/24/17 07:19 AST 69 U/L (14-36) H 05/24/17 07:19 ALT 91 U/L (9-52) H 05/24/17 07:19 Alkaline Phosphatase 162 U/L (38-126) H 05/24/17 07:19 Total Creatine Kinase 783 U/L (30-135) H 05/09/17 17:57 CK-MB (Mass) 24.7 ng/mL (0.0-3.38) H 05/09/17 17:57 Troponin I 0.3270 ng/mL (0.00-0.120) H* 05/09/17 17:57 NT-Pro-B Natriuret Pep 298 pg/mL (0-900) 05/08/17 07:07 Total Protein 6.6 g/dL (6.3-8.3) 05/24/17 07:19 Albumin 3.6 g/dL (3.5-5.0) 05/24/17 07:19 Globulin 3.0 gm/dL (2.2-3.9) 05/24/17 07:19 Albumin/Globulin Ratio 1.2 (1.0-2.1) 05/24/17 07:19 Arterial Blood Potassium 3.6 mmol/L (3.6-5.2) 05/14/17 15:45 Venous Blood Potassium 4.4 mmol/L (3.6-5.2) 05/08/17 13:21 Urine Color Yellow (YELLOW) 05/22/17 18:10 Urine Clarity Hazy (Clear) 05/22/17 18:10 Urine pH 7.0 (5.0-8.0) 05/22/17 18:10 Ur Specific [place] 1.009 (1.003-1.030) 05/22/17 18:10 Urine Protein Negative mg/dL (NEGATIVE) 05/22/17 18:10 Urine Glucose (UA) Normal mg/dL (Normal) 05/22/17 18:10 Urine Ketones Negative mg/dL (NEGATIVE) 05/22/17 18:10 Urine Blood Negative (NEGATIVE) 05/22/17 18:10 Urine Nitrate Negative (NEGATIVE) 05/22/17 18:10 Urine Bilirubin Negative (NEGATIVE) 05/22/17 18:10 Urine Urobilinogen Normal mg/dL (0.2-1.0) 05/22/17 18:10 Ur Leukocyte Esterase 1+ Chi/uL (Negative) H 05/22/17 18:10 Urine WBC (Auto) 90 /hpf (0-5) H 05/22/17 18:10 Urine RBC (Auto) 91 /hpf (0-3) H 05/22/17 18:10 Ur Squamous Epith Cells < 1 /hpf (0-5) 05/22/17 18:10 Urine Bacteria Many (<OCC) H 05/22/17 18:10 Vancomycin Peak 20.9 ug/mL (30.0-40.0) L 05/10/17 14:56 Vancomycin Trough 9.1 ug/mL (5.0-10.0) 05/10/17 11:10 Levetiracetam 9.4 mcg/mL 05/15/17 11:29 Influenza Typ A,B (EIA) Negative for flu a/b (NEGATIVE) 05/08/17 08:47 - Hospital Course Hospital Course: Upon admission: cc: cardiopulmonary arrest HPI: Patient is a 57F with PMH early onset dementia, seizures, and questionable asthma who was brought to the ED via EMS from her long term, [facility], where she was witnessed cardiopulmonary arrest. EMS intubated the patient in the field and ROSC was achieved. Upon arrival to the ED patient was having myoclonic jerks and code freeze was initiated. Patient remained intubated and patient was admitted to the ICU. Daughter was present today at bedside who informed us the patient has seen multiple neurologists who cannot figure out the reason for her neurological symptoms. She says the patient began declining 5 years ago and two years ago she had to be taken to a long term. Patient had to have a PEG tube inserted at this time. She has been on Jevity feeds 1.5 @45 cc/h. Patient is nonverbal at baseline however she would occasionally look at you when being spoken to. PCP: Dr. Alonso PMH: early onset dementia, seizures, questionable asthma, dysphagia, anxiety, and UTI (07/06) PSH: unknown Meds: ASA, duonebs with mucomistSelwyn, Allergies: JONES Mark (): [phone] Throughout Hospital Course: This is a 57F with PMH early onset dementia, seizures, and questionable asthma who was brought to the ED via EMS from her long term, [facility], where she was witnessed cardiopulmonary arrest. EMS intubated the patient in the field. In the ED patient was having myoclonic jerks and code freeze was initiated. Patient remained intubated and patient was admitted to the ICU. As per her daughter and her her dementia started 7 years ago. Last two year she was in the NH, nonverbal,some days she is responsive/look at family members. As of 05/20/2017 she now has a trachesotmy and remains on mechanical ventilation 1) Acute Respiratory failure s/p cardiopulmonary arrest Approved for [facility] 05/20: Pending a acceptance to a facility that will be able to care for patient 05/19: Now POD 2, abx were changed since there were positive + psedomonas growth in the culture - will be on cipro for total 7 day course 05/18: Now has tracheostomy. Remains on mechanical ventilation 05/17: Unfourtunately it appears patient now has anoxic brain injury and remains intubated and on mechanical ventilator There are plans for a trachostomy some time later today. I spoke with family at bedside who is aware of this. CT head 05/10 - New low attenuation in the right caudate nucleus head indicating possible acute/subacute infarct. Repeat Head Ct 05/12 - No evidence of significant interval change when compared to the previous study dated 05/10/2017. No evidence of acute intracranial bleeding On Aspirin s/p code freeze,continue duoneb d/w Daughter yesterday, full code, trach on Wednesday Wean as per critical care MD 2) Pneumonia 05/21: The WBC has decreased to 11 05/20: WBC still elevated, recheck blood and cultures 05/19: + growth of pseudomonas growth. 05/18: Remains on IV abx, recent culture shows pseudomonas 05/17: Blood cultures have been negative, there are repeat positives of + E coli from sputum/trach. On IV Aztreonam. 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 Now has trachoestomy and remain intubated oh mechanical ventilation. Blood pressure has been stable with systolic BPs in the 110s range. ASA 4) Seizure disorder, unspecified 05/21: Controlled at this time patient was taking Keppra and Lamotrigine switched to oral Keppra 5) History of Asthma This is a brief summary of the patient's hospital course. Please review EMR for full record. Discharge Exam - Head Exam Head Exam: absent: NORMAL INSPECTION, NORMOCEPHALIC - Additional Findings Additional findings: - Constitutional Appears: Chronically Ill - Head Exam Head Exam: absent: NORMAL INSPECTION, NORMOCEPHALIC - Eye Exam Eye Exam: absent: EOMI, Normal appearance, PERRL Pupil Exam: absent: NORMAL ACCOMODATION - ENT Exam ENT Exam: absent: Mucous Membranes Moist - Respiratory Exam Respiratory Exam: Clear to Ausculation Bilateral, NORMAL BREATHING PATTERN - Cardiovascular Exam Cardiovascular Exam: REGULAR RHYTHM - GI/Abdominal Exam GI & Abdominal Exam: absent: Guarding, Rigid, Soft, Tenderness - Neurological Exam Neurological Exam: absent: Awake, Normal Gait, Oriented x3 Neuro motor strength exam: Left Upper Extremity: 0, Right Upper Extremity: 0, Left Lower Extremity: 0, Right Lower Extremity: 0 - Psychiatric Exam Psychiatric exam: Depressed, Flat Affect - Skin Skin Exam: Normal Color, Warm Discharge Plan - Follow Up Plan Condition: CRITICAL Disposition: REHAB FACILITY/REHAB UNIT Additional Instructions: Patient is to continue medications as indicated in the med recc. Routine tracheostomy care, positional turning Q2H with pressure support to bony prominent areas. <Jillian Quiles - Last Filed: 05/24/17 17:57> Provider - Provider Date of Admission: 05/08/17 08:14 Attending physician: Jillian Quiles MD Hospital Course - Lab Results Lab Results: Micro Results 05/22/17 17:14 Urine Urine Culture - Final No Growth (<1,000 CFU/ML) 05/15/17 10:14 Trachasp Gram Stain - Final 05/15/17 10:14 Trachasp Sputum Culture - Final Pseudomonas Aeruginosa 05/08/17 15:30 Blood Blood Culture - Final NO GROWTH AFTER 5 DAYS 05/08/17 15:30 Blood Gram Stain - Final TEST NOT PERFORMED 05/08/17 16:00 Blood Blood Culture - Final NO GROWTH AFTER 5 DAYS 05/08/17 16:00 Blood Gram Stain - Final TEST NOT PERFORMED 05/09/17 14:47 Trachasp Gram Stain - Final 05/09/17 14:47 Trachasp Sputum Culture - Final Escherichia Coli 05/09/17 14:47 Urine,Johnson Urine Culture - Final No Growth (<1,000 CFU/ML) 05/08/17 14:37 Naris MRSA Culture (Admit) - Final MRSA NOT DETECTED Most Recent Lab Values WBC 12.2 K/uL (4.8-10.8) H 05/24/17 07:19 RBC 3.97 Mil/uL (3.80-5.20) 05/24/17 07:19 Hgb 11.6 g/dL (11.0-16.0) 05/24/17 07:19 Hct 34.4 % (34.0-47.0) 05/24/17 07:19 MCV 86.5 fL (81.0-99.0) 05/24/17 07:19 MCH 29.1 pg (27.0-31.0) 05/24/17 07:19 MCHC 33.7 g/dL (33.0-37.0) 05/24/17 07:19 RDW 14.4 % (11.5-14.5) 05/24/17 07:19 Plt Count 310 K/uL (130-400) 05/24/17 07:19 MPV 7.8 fL (7.2-11.7) 05/24/17 07:19 Neut % (Auto) 82.3 % (50.0-75.0) H 05/24/17 07:19 Lymph % (Auto) 10.9 % (20.0-40.0) L 05/24/17 07:19 Nance % (Auto) 3.9 % (0.0-10.0) 05/24/17 07:19 Eos % (Auto) 2.3 % (0.0-4.0) 05/24/17 07:19 Baso % (Auto) 0.6 % (0.0-2.0) 05/24/17 07:19 Neut # 10.1 K/uL (1.8-7.0) H 05/24/17 07:19 Lymph # 1.3 K/uL (1.0-4.3) 05/24/17 07:19 Nance # 0.5 K/uL (0.0-0.8) 05/24/17 07:19 Eos # 0.3 K/uL (0.0-0.7) 05/24/17 07:19 Baso # 0.1 K/uL (0.0-0.2) 05/24/17 07:19 Neutrophils % (Manual) 95 % (50-75) H 05/19/17 06:29 Band Neutrophils % 3 % (0-2) H 05/14/17 06:36 Lymphocytes % (Manual) 3 % (20-40) L 05/19/17 06:29 Reactive Lymphs % 1 % (0-0) H 05/13/17 06:16 Monocytes % (Manual) 2 % (0-10) 05/19/17 06:29 Eosinophils % (Manual) 3 % (0-4) 05/18/17 06:15 Myelocytes % 1 % (0-0) H 05/12/17 06:25 Toxic Granulation Present 05/13/17 06:16 Platelet Estimate Normal (NORMAL) 05/19/17 06:29 Large Platelets Present 05/13/17 06:16 Giant Platelets Present 05/13/17 06:16 RBC Morphology Normal 05/19/17 06:29 Polychromasia Slight 05/13/17 06:16 Hypochromasia (manual) Slight 05/13/17 06:16 Poikilocytosis (manual Slight 05/13/17 06:16 Anisocytosis (manual) Slight 05/13/17 06:16 Ovalocytes Slight 05/13/17 06:16 PT 15.1 SECONDS (9.7-12.2) H 05/09/17 17:57 INR 1.3 05/09/17 17:57 APTT 35 SECONDS (21-34) H 05/09/17 17:57 Puncture Site Lr 05/19/17 04:50 pCO2 31 mm/Hg (35-45) L 05/19/17 04:50 pO2 98 mm/Hg (80-100) 05/19/17 04:50 HCO3 21.5 mmol/L (21-28) 05/19/17 04:50 ABG pH 7.41 (7.35-7.45) 05/19/17 04:50 ABG Total CO2 20.6 mmol/L (22-28) L 05/19/17 04:50 ABG O2 Saturation 99.5 % (95-98) H 05/19/17 04:50 ABG Base Excess -4.4 mmol/L (-2.0-3.0) L 05/19/17 04:50 ABG Hemoglobin 8.8 g/dL (11.7-17.4) L 05/19/17 04:50 ABG Carboxyhemoglobin 2.2 % (0.5-1.5) H 05/19/17 04:50 POC ABG HHb (Measured) 0.5 % (0.0-5.0) 05/19/17 04:50 ABG Methemoglobin 1.2 % (0.0-3.0) 05/19/17 04:50 Evans Test Pos 05/19/17 04:50 ABG Potassium 3.6 mmol/L (3.6-5.2) 05/14/17 15:45 VBG pH 7.11 (7.32-7.43) L* 05/08/17 13:21 VBG pCO2 73 mmHg (40-60) H* 05/08/17 13:21 VBG HCO3 17.4 mmol/L 05/08/17 13:21 VBG Total CO2 25.4 mmol/L (22-28) 05/08/17 13:21 VBG O2 Sat (Calc) 60.6 % (40-65) 05/08/17 13:21 VBG Base Excess -7.7 mmol/L (0.0-2.0) L 05/08/17 13:21 VBG Potassium 4.4 mmol/L (3.6-5.2) 05/08/17 13:21 A-a O2 Difference 113.0 mm/Hg 05/19/17 04:50 Respiratory Index 1.2 05/19/17 04:50 Hgb O2 Saturation 96.2 % (95.0-98.0) 05/19/17 04:50 Sodium 141.0 mmol/l (132-148) 05/14/17 15:45 Chloride 111.0 mmol/L (98-107) H 05/14/17 15:45 Glucose 134 mg/dl (65-105) H 05/14/17 15:45 Lactate 1.2 mmol/L (0.7-2.1) 05/14/17 15:45 Vent Mode Prvc 05/19/17 04:50 Mechanical Rate 12 05/19/17 04:50 FiO2 35.0 % 05/19/17 04:50 Tidal Volume 400 05/19/17 04:50 PEEP 5 05/19/17 04:50 Crit Value Called To Edward medrano rn 05/14/17 05:22 Crit Value Called By Phu metal crafts teacher 05/14/17 05:22 Crit Value Read Back Y 05/14/17 05:22 Blood Gas Notified Time 538 05/14/17 05:22 Sodium 136 mmol/L (132-148) 05/24/17 07:19 Potassium 3.9 mmol/L (3.6-5.2) 05/24/17 07:19 Chloride 97 mmol/L (98-107) L 05/24/17 07:19 Carbon Dioxide 32 mmol/L (22-30) H 05/24/17 07:19 Anion Gap 11 (10-20) 05/24/17 07:19 BUN 13 mg/dL (7-17) 05/24/17 07:19 Creatinine 0.4 mg/dL (0.7-1.2) L 05/24/17 07:19 Est GFR ( Amer) > 60 05/24/17 07:19 Est GFR (Non-Af Amer) > 60 05/24/17 07:19 POC Glucose (mg/dL) 98 mg/dL (65-110) 05/24/17 11:46 Random Glucose 120 mg/dL (65-105) H 05/24/17 07:19 Calcium 9.0 mg/dl (8.6-10.4) 05/24/17 07:19 Phosphorus 3.8 mg/dL (2.5-4.5) 05/24/17 07:19 Magnesium 1.6 mg/dL (1.6-2.3) 05/24/17 07:19 Total Bilirubin 0.7 mg/dL (0.2-1.3) 05/24/17 07:19 AST 69 U/L (14-36) H 05/24/17 07:19 ALT 91 U/L (9-52) H 05/24/17 07:19 Alkaline Phosphatase 162 U/L (38-126) H 05/24/17 07:19 Total Creatine Kinase 783 U/L (30-135) H 05/09/17 17:57 CK-MB (Mass) 24.7 ng/mL (0.0-3.38) H 05/09/17 17:57 Troponin I 0.3270 ng/mL (0.00-0.120) H* 05/09/17 17:57 NT-Pro-B Natriuret Pep 298 pg/mL (0-900) 05/08/17 07:07 Total Protein 6.6 g/dL (6.3-8.3) 05/24/17 07:19 Albumin 3.6 g/dL (3.5-5.0) 05/24/17 07:19 Globulin 3.0 gm/dL (2.2-3.9) 05/24/17 07:19 Albumin/Globulin Ratio 1.2 (1.0-2.1) 05/24/17 07:19 Arterial Blood Potassium 3.6 mmol/L (3.6-5.2) 05/14/17 15:45 Venous Blood Potassium 4.4 mmol/L (3.6-5.2) 05/08/17 13:21 Urine Color Yellow (YELLOW) 05/22/17 18:10 Urine Clarity Hazy (Clear) 05/22/17 18:10 Urine pH 7.0 (5.0-8.0) 05/22/17 18:10 Ur Specific [place] 1.009 (1.003-1.030) 05/22/17 18:10 Urine Protein Negative mg/dL (NEGATIVE) 05/22/17 18:10 Urine Glucose (UA) Normal mg/dL (Normal) 05/22/17 18:10 Urine Ketones Negative mg/dL (NEGATIVE) 05/22/17 18:10 Urine Blood Negative (NEGATIVE) 05/22/17 18:10 Urine Nitrate Negative (NEGATIVE) 05/22/17 18:10 Urine Bilirubin Negative (NEGATIVE) 05/22/17 18:10 Urine Urobilinogen Normal mg/dL (0.2-1.0) 05/22/17 18:10 Ur Leukocyte Esterase 1+ Chi/uL (Negative) H 05/22/17 18:10 Urine WBC (Auto) 90 /hpf (0-5) H 05/22/17 18:10 Urine RBC (Auto) 91 /hpf (0-3) H 05/22/17 18:10 Ur Squamous Epith Cells < 1 /hpf (0-5) 05/22/17 18:10 Urine Bacteria Many (<OCC) H 05/22/17 18:10 Vancomycin Peak 20.9 ug/mL (30.0-40.0) L 05/10/17 14:56 Vancomycin Trough 9.1 ug/mL (5.0-10.0) 05/10/17 11:10 Levetiracetam 9.4 mcg/mL 05/15/17 11:29 Influenza Typ A,B (EIA) Negative for flu a/b (NEGATIVE) 05/08/17 08:47 Attending/Attestation - Attestation I have personally seen and examined this patient.: Yes I have fully participated in the care of the patient.: Yes I have reviewed all pertinent clinical information, including history, physical exam and plan: Yes Notes (Text): I agree with the resident's documentation D/W daughter at bedside this morning 05/24/17 17:57
[2017-05-24] MEDS: Multiple Vitamins Oral Solution PO SCH ×2 (17:37→17:46)
[2017-05-25] MEDS: White Petrolatum/Mineral Oil Ophth Oint(3.5 gm) OU SCH ×7 (01:00→23:54)
[2017-05-25] MEDS: Albuterol-Ipratrop 3 mg / 0.5 (3 ml) UD INH SCH ×4 (01:08→19:26)
[2017-05-25] MEDS: Pantoprazole 40 mg Susp UD PO SCH (05:34)
[2017-05-25 06:47] LABS: BASO # 0.1 K/uL (0.0-0.2); BASO % 0.6 % (0.0-2.0); EOS # 0.5 K/uL (0.0-0.7); EOS % 5.6 % (0.0-4.0); HEMATOCRIT 33.7 % (34.0-47.0); LYMPH # 1.4 K/uL (1.0-4.3); LYMPH % 14.4 % (20.0-40.0); MEAN CELL VOLUME 86.6 fL (81.0-99.0); MEAN CORPUSCULAR HGB CONC 33.5 g/dL (33.0-37.0); MEAN PLATELET VOLUME 7.8 fL (7.2-11.7); MONO # 0.4 K/uL (0.0-0.8); MONO % 4.2 % (0.0-10.0); RED CELL DISTRIBUTION WIDTH 14.4 % (11.5-14.5); WHITE BLOOD COUNT 9.5 K/uL (4.8-10.8)
[2017-05-25 07:09] LABS: ALB/GLOB RATIO 0.9 (1.0-2.1); ALKALINE PHOSPHATASE 161 U/L (38-126); ALT/SGPT 95 U/L (9-52); AST/SGOT 73 U/L (14-36); BILIRUBIN,TOTAL 0.5 mg/dL (0.2-1.3); BLOOD UREA NITROGEN 12 mg/dL (7-17); CALCIUM 8.9 mg/dl (8.6-10.4); CARBON DIOXIDE 32 mmol/L (22-30); CHLORIDE 101 mmol/L (98-107); GFR AFRICAN-AMERICAN > 60; GLUCOSE,RANDOM 130 mg/dL (65-105); MAGNESIUM 1.7 mg/dL (1.6-2.3); PHOSPHOROUS 3.4 mg/dL (2.5-4.5); POTASSIUM 3.2 mmol/L (3.6-5.2); SODIUM 138 mmol/L (132-148); TOTAL PROTEIN 7.6 g/dL (6.3-8.3)
[2017-05-25] MEDS: levETIRAcetam 100 mg/ml (5ml) Oral Syringe NG SCH ×4 (08:57→19:15)
[2017-05-25] MEDS: POLYETHYLENE GLYCOL 3350 17 GM/Dose PACKET GT SCH (08:59)
[2017-05-25] MEDS: Multiple Vitamins Oral Solution PO SCH (08:59)
[2017-05-25] MEDS ORDERED: Potassium Chloride 20 mEq/15 ml LIQ UD PO ONE (12:30)
[2017-05-25] MEDS: Enoxaparin 40 mg Syringe SC SCH (13:19)
--- NOTE | 2017-05-25 18:38 | CP.PCM.PN ---
Subjective - Date & Time of Evaluation Date of Evaluation: 05/25/17 Time of Evaluation: 09:30 - Subjective Subjective: Seen and examined unresponsive on MV support s/p Trach,has peg full code at bedside Objective - Vital Signs/Intake and Output Vital Signs (last 24 hours): Temp Pulse Resp BP Pulse Ox 98 F 72 12 104/59 L 100 05/25/17 15:26 05/25/17 17:05 05/25/17 17:05 05/25/17 17:05 05/25/17 17:05 Intake and Output: 05/25/17 05/25/17 06:59 18:59 Intake Total 180 180 Output Total 280 230 Balance -100 -50 - Medications Medications: Current Medications Acetaminophen (Tylenol 650mg/20.3ml Solution Ud) 975 mg PEG Q6 PRN PRN Reason: Rigors Last Admin: 05/24/17 10:41 Dose: 650 mg Albuterol/Ipratropium (Duoneb 3 Mg/0.5 Mg (3 Ml) Ud) 3 ml INH RQ6 [facility] Last Admin: 05/25/17 14:03 Dose: 3 ml Artificial Tears (Lacri-Lube) 0 gm OU Q4 [facility] Last Admin: 05/25/17 16:02 Dose: 3.5 gm Ascorbic Acid (Vitamin C 500 Mg Tab) 500 mg PO DAILY [facility] Last Admin: 05/25/17 09:00 Dose: 500 mg Aspirin (Aspirin Chewable) 81 mg PEG DAILY [facility] Last Admin: 05/25/17 09:07 Dose: 81 mg Ciprofloxacin (Cipro) 500 mg GT 0800,2000 [facility] Stop: 05/26/17 20:01 Enoxaparin Sodium (Lovenox) 40 mg SC DAILY [facility] Last Admin: 05/25/17 13:19 Dose: Not Given Lactulose (Enulose) 20 gm NG HS PRN PRN Reason: Constipation Last Admin: 05/22/17 23:05 Dose: 20 gm Levetiracetam (Keppra) 750 mg NG BID [facility] Last Admin: 05/25/17 16:04 Dose: 750 mg Multivitamins (Hexavitamin) 1 tab PO Q24H [facility] Pantoprazole Sodium (Protonix Susp) 40 mg PO 0600 [facility] Last Admin: 05/25/17 05:34 Dose: 40 mg Polyethylene Glycol (Miralax) 17 gm GT DAILY [facility] Last Admin: 05/25/17 08:59 Dose: Not Given Zinc Sulfate (Zinc Sulfate 220 Mg Cap) 220 mg PO DAILY@1300 [facility] - Labs Labs: 05/25/17 06:37 05/25/17 06:37 PT 15.1 SECONDS (9.7-12.2) H 05/09/17 17:57 INR 1.3 05/09/17 17:57 APTT 35 SECONDS (21-34) H 05/09/17 17:57 - Constitutional Appears: Chronically Ill - Eye Exam Eye Exam: absent: Normal appearance (eye opended) - Neck Exam Neck Exam: absent: Full ROM (trach) - Respiratory Exam Respiratory Exam: Clear to Ausculation Bilateral - Cardiovascular Exam Cardiovascular Exam: REGULAR RHYTHM - GI/Abdominal Exam GI & Abdominal Exam: Soft - Extremities Exam Extremities Exam: absent: Full ROM (unresponsive) - Neurological Exam Neurological Exam: absent: Awake (unresponsive) - Psychiatric Exam Psychiatric exam: Normal Mood - Skin Skin Exam: Dry Assessment and Plan - Assessment and Plan (Free Text) Plan: 1) Acute Respiratory failure s/p cardiopulmonary arrest Unresponsive,s/p trach, Awaiting for placement full code,s/p multiple discussion with her daughter about her prognosis 2) Pneumonia Now on cipro 3) 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 Now has trachoestomy and remain intubated oh mechanical ventilation 4) Seizure disorder, unspecified keppra 5) History of Asthma Currently intubated 6) DVT and GI prophylasix
[2017-05-26] MEDS: Albuterol-Ipratrop 3 mg / 0.5 (3 ml) UD INH SCH ×4 (01:34→19:45)
[2017-05-26] MEDS: White Petrolatum/Mineral Oil Ophth Oint(3.5 gm) OU SCH ×5 (04:30→20:00)
[2017-05-26] MEDS: Pantoprazole 40 mg Susp UD PO SCH (05:22)
[2017-05-26 06:29] LABS: BASO % 0.6 % (0.0-2.0); EOS # 0.4 K/uL (0.0-0.7); EOS % 4.9 % (0.0-4.0); HEMATOCRIT 32.7 % (34.0-47.0); LYMPH # 1.5 K/uL (1.0-4.3); LYMPH % 17.8 % (20.0-40.0); MEAN CELL VOLUME 86.8 fL (81.0-99.0); MEAN CORPUSCULAR HEMOGLOBIN 29.2 pg (27.0-31.0); MEAN CORPUSCULAR HGB CONC 33.6 g/dL (33.0-37.0); MEAN PLATELET VOLUME 7.7 fL (7.2-11.7); MONO # 0.4 K/uL (0.0-0.8); MONO % 4.9 % (0.0-10.0); RED CELL DISTRIBUTION WIDTH 14.5 % (11.5-14.5); WHITE BLOOD COUNT 8.3 K/uL (4.8-10.8)
[2017-05-26 06:31] LABS: ALB/GLOB RATIO 1.3 (1.0-2.1); ALKALINE PHOSPHATASE 158 U/L (38-126); ALT/SGPT 81 U/L (9-52); AST/SGOT 61 U/L (14-36); BILIRUBIN,TOTAL 0.5 mg/dL (0.2-1.3); BLOOD UREA NITROGEN 13 mg/dL (7-17); CARBON DIOXIDE 31 mmol/L (22-30); CHLORIDE 101 mmol/L (98-107); GFR AFRICAN-AMERICAN > 60; GLUCOSE,RANDOM 110 mg/dL (65-105); MAGNESIUM 1.8 mg/dL (1.6-2.3); PHOSPHOROUS 4.1 mg/dL (2.5-4.5); POTASSIUM 3.7 mmol/L (3.6-5.2); SODIUM 139 mmol/L (132-148); TOTAL PROTEIN 6.3 g/dL (6.3-8.3)
--- NOTE | 2017-05-26 06:49 | CP.PCM.PN ---
<Haven Mcfarlane - Last Filed: 05/26/17 06:44> Subjective - Date & Time of Evaluation Date of Evaluation: 05/26/17 Time of Evaluation: 10:00 - Subjective Subjective: Medicine Note for Hospitalist Service - Dr. Finley Patient was seen and examined at bedside. Patient is unresponsive on MV support. Discharge delayed due to [facility] placement and approval. Will speak to case management. Objective - Vital Signs/Intake and Output Vital Signs (last 24 hours): Temp Pulse Resp BP Pulse Ox 97.9 F 72 12 108/63 100 05/26/17 00:00 05/26/17 04:00 05/26/17 04:00 05/26/17 00:02 05/26/17 04:00 Intake and Output: 05/25/17 05/26/17 18:59 06:59 Intake Total 180 380 Output Total 230 300 Balance -50 80 - Medications Medications: Current Medications Acetaminophen (Tylenol 650mg/20.3ml Solution Ud) 975 mg PEG Q6 PRN PRN Reason: Rigors Last Admin: 05/24/17 10:41 Dose: 650 mg Albuterol/Ipratropium (Duoneb 3 Mg/0.5 Mg (3 Ml) Ud) 3 ml INH RQ6 [facility] Last Admin: 05/26/17 01:34 Dose: 3 ml Artificial Tears (Lacri-Lube) 0 gm OU Q4 [facility] Last Admin: 05/26/17 04:30 Dose: 3.5 gm Ascorbic Acid (Vitamin C 500 Mg Tab) 500 mg PO DAILY [facility] Last Admin: 05/25/17 09:00 Dose: 500 mg Aspirin (Aspirin Chewable) 81 mg PEG DAILY [facility] Last Admin: 05/25/17 09:07 Dose: 81 mg Ciprofloxacin (Cipro) 500 mg GT 08,1999 [facility] Stop: 05/26/17 20:01 Last Admin: 05/25/17 20:03 Dose: 500 mg Enoxaparin Sodium (Lovenox) 40 mg SC DAILY [facility] Last Admin: 05/25/17 13:19 Dose: Not Given Lactulose (Enulose) 20 gm NG HS PRN PRN Reason: Constipation Last Admin: 05/22/17 23:05 Dose: 20 gm Levetiracetam (Keppra) 750 mg NG BID [facility] Last Admin: 05/25/17 19:15 Dose: Not Given Multivitamins (Hexavitamin) 1 tab PO Q24H [facility] Pantoprazole Sodium (Protonix Susp) 40 mg PO 0600 [facility] Last Admin: 05/26/17 05:22 Dose: 40 mg Polyethylene Glycol (Miralax) 17 gm GT DAILY [facility] Last Admin: 05/25/17 08:59 Dose: Not Given Zinc Sulfate (Zinc Sulfate 220 Mg Cap) 220 mg PO DAILY@1300 [facility] - Labs Labs: 05/26/17 06:07 05/26/17 06:07 PT 15.1 SECONDS (9.7-12.2) H 05/09/17 17:57 INR 1.3 05/09/17 17:57 APTT 35 SECONDS (21-34) H 05/09/17 17:57 - Additional Findings Additional findings: - Constitutional Appears: Chronically Ill - Eye Exam Eye Exam: absent: Normal appearance (eye opended) - Neck Exam Neck Exam: absent: Full ROM (trach) - Respiratory Exam Respiratory Exam: Clear to Ausculation Bilateral - Cardiovascular Exam Cardiovascular Exam: REGULAR RHYTHM - GI/Abdominal Exam GI & Abdominal Exam: Soft - Extremities Exam Extremities Exam: absent: Full ROM (unresponsive) - Neurological Exam Neurological Exam: absent: Awake (unresponsive) - Psychiatric Exam Psychiatric exam: Normal Mood - Skin Skin Exam: Dry Assessment and Plan - Assessment and Plan (Free Text) Plan: This is a 57F with PMH early onset dementia, seizures, and questionable asthma who was brought to the ED via EMS from [place], [facility], where she was witnessed cardiopulmonary arrest. EMS intubated the patient in the field. In the ED patient was having myoclonic jerks and code freeze was initiated. Patient remained intubated and patient was admitted to the ICU. As per her daughter and her her dementia started 7 years ago. Last two year she was in the NH, nonverbal,some days she is responsive/look at family members. As of 05/20/2017 she now has a trachesotmy and remains on mechanical ventilation. 1) Acute Respiratory failure s/p cardiopulmonary arrest 05/20: Pending a acceptance to a facility that will be able to care for patient 05/19: Now POD 2, abx were changed since there were positive + psedomonas growth in the culture - will be on cipro for total 7 day course 05/18: Now has tracheostomy. Remains on mechanical ventilation 05/17: Unfourtunately it appears patient now has anoxic brain injury and remains intubated and on mechanical ventilator There are plans for a trachostomy some time later today. I spoke with family at bedside who is aware of this. CT head 05/10 - New low attenuation in the right caudate nucleus head indicating possible acute/subacute infarct. Repeat Head Ct 05/12 - No evidence of significant interval change when compared to the previous study dated 05/10/2017. No evidence of acute intracranial bleeding On Aspirin s/p code freeze,continue duoneb d/w Daughter yesterday, full code, trach on Wednesday Wean as per critical care MD 2) Pneumonia 05/21: The WBC has decreased to 05/20: WBC still elevated, recheck blood and cultures 05/19: + growth of pseudomonas growth. 05/18: Remains on IV abx, recent culture shows pseudomonas 05/17: Blood cultures have been negative, there are repeat positives of + E coli from sputum/trach. On IV Aztreonam. 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 Now has trachoestomy and remain intubated oh mechanical ventilation. Blood pressure has been stable with systolic BPs in the 110s range. ASA 4) Seizure disorder, unspecified 05/21: Controlled at this time patient was taking Keppra and Lamotrigine switched to oral Keppra 5) History of Asthma Disposition: PENDING [facility] APPROVAL DW Maeve Noriega DO, PGY-1 <Jillian Quiles - Last Filed: 05/26/17 13:10> Objective - Vital Signs/Intake and Output Vital Signs (last 24 hours): Temp Pulse Resp BP Pulse Ox 97.6 F 76 12 109/74 99 05/26/17 12:00 05/26/17 08:00 05/26/17 12:00 05/26/17 12:00 05/26/17 12:00 Intake and Output: 05/26/17 05/26/17 06:59 18:59 Intake Total 380 Output Total 300 Balance 80 - Medications Medications: Current Medications Acetaminophen (Tylenol 650mg/20.3ml Solution Ud) 975 mg PEG Q6 PRN PRN Reason: Rigors Last Admin: 05/24/17 10:41 Dose: 650 mg Albuterol/Ipratropium (Duoneb 3 Mg/0.5 Mg (3 Ml) Ud) 3 ml INH RQ6 [facility] Last Admin: 05/26/17 07:48 Dose: 3 ml Artificial Tears (Lacri-Lube) 0 gm OU Q4 [facility] Last Admin: 05/26/17 08:00 Dose: 3.5 gm Ascorbic Acid (Vitamin C 500 Mg Tab) 500 mg PO DAILY [facility] Last Admin: 05/26/17 09:48 Dose: 500 mg Aspirin (Aspirin Chewable) 81 mg PEG DAILY [facility] Last Admin: 05/26/17 10:08 Dose: 81 mg Ciprofloxacin (Cipro) 500 mg GT 0800,1999 [facility] Stop: 05/26/17 20:01 Last Admin: 05/26/17 09:00 Dose: 500 mg Enoxaparin Sodium (Lovenox) 40 mg SC DAILY [facility] Last Admin: 05/26/17 09:48 Dose: 40 mg Lactulose (Enulose) 20 gm NG HS PRN PRN Reason: Constipation Last Admin: 05/22/17 23:05 Dose: 20 gm Levetiracetam (Keppra) 750 mg NG BID [facility] Last Admin: 05/26/17 09:49 Dose: 750 mg Multivitamins (Hexavitamin) 1 tab PO Q24H [facility] Pantoprazole Sodium (Protonix Susp) 40 mg PO 0600 [facility] Last Admin: 05/26/17 05:22 Dose: 40 mg Polyethylene Glycol (Miralax) 17 gm GT DAILY [facility] Last Admin: 05/26/17 10:10 Dose: Not Given Zinc Sulfate (Zinc Sulfate 220 Mg Cap) 220 mg PO DAILY@1300 [facility] - Labs Labs: 05/26/17 06:07 05/26/17 06:07 PT 15.1 SECONDS (9.7-12.2) H 05/09/17 17:57 INR 1.3 05/09/17 17:57 APTT 35 SECONDS (21-34) H 05/09/17 17:57 Attending/Attestation - Attestation I have personally seen and examined this patient.: Yes I have fully participated in the care of the patient.: Yes I have reviewed all pertinent clinical information, including history, physical exam and plan: Yes Notes (Text): Seen and examined,no changes noted.d/w at bedside plan d/w to [place]/[facility] facility I agree with the resident's documentation 05/26/17 13:08
[2017-05-26] MEDS ORDERED: Propofol 10 mg/ml Inj (20 ML) ONE (09:12)
[2017-05-26] MEDS ORDERED: Midazolam 2 MG/2 ML VIAL ONE ×2 (09:12→09:35)
[2017-05-26] MEDS ORDERED: ePHEDrine 50 mg/ml Inj ONE (09:39)
[2017-05-26] MEDS: Enoxaparin 40 mg Syringe SC SCH (09:48)
[2017-05-26] MEDS: levETIRAcetam 100 mg/ml (5ml) Oral Syringe NG SCH ×2 (09:49→17:13)
[2017-05-26] MEDS: POLYETHYLENE GLYCOL 3350 17 GM/Dose PACKET GT SCH (10:10)
[2017-05-26] MEDS: Multiple Vitamins Tab PO SCH (13:43)
[2017-05-26 16:12] VITALS: O2SAT 100
--- NOTE | 2017-05-26 21:09 | CP.PCM.PN ---
Subjective - Date & Time of Evaluation Date of Evaluation: 05/26/17 Time of Evaluation: 13:05 - Subjective Subjective: Patient was seen and examined at bedside. Unresponsive awaiting [facility] placement Physical Examination - Additional Findings Additional findings: - Constitutional Appears: Chronically Ill - Eye Exam Eye Exam: absent: Normal appearance (eye opended) - Neck Exam Neck Exam: absent: Full ROM (trach) - Respiratory Exam Respiratory Exam: Clear to Ausculation Bilateral - Cardiovascular Exam Cardiovascular Exam: REGULAR RHYTHM - GI/Abdominal Exam GI & Abdominal Exam: Soft - Extremities Exam Extremities Exam: absent: Full ROM (unresponsive) - Neurological Exam Neurological Exam: absent: Awake (unresponsive) - Psychiatric Exam Psychiatric exam: Normal Mood - Skin Skin Exam: Dry Objective - Vital Signs/Intake and Output Vital Signs (last 24 hours): Temp Pulse Resp BP Pulse Ox 98.0 F 74 12 96/59 L 100 05/26/17 20:00 05/26/17 20:00 05/26/17 20:00 05/26/17 20:00 05/26/17 20:00 - Medications Medications: Current Medications Acetaminophen (Tylenol 650mg/20.3ml Solution Ud) 975 mg PEG Q6 PRN PRN Reason: Rigors Last Admin: 05/24/17 10:41 Dose: 650 mg Albuterol/Ipratropium (Duoneb 3 Mg/0.5 Mg (3 Ml) Ud) 3 ml INH RQ6 [facility] Last Admin: 05/26/17 19:45 Dose: 3 ml Artificial Tears (Lacri-Lube) 0 gm OU Q4 [facility] Last Admin: 05/26/17 17:00 Dose: 3.5 gm Ascorbic Acid (Vitamin C 500 Mg Tab) 500 mg PO DAILY [facility] Last Admin: 05/26/17 09:48 Dose: 500 mg Aspirin (Aspirin Chewable) 81 mg PEG DAILY [facility] Last Admin: 05/26/17 10:08 Dose: 81 mg Enoxaparin Sodium (Lovenox) 40 mg SC DAILY [facility] Last Admin: 05/26/17 09:48 Dose: 40 mg Lactulose (Enulose) 20 gm NG HS PRN PRN Reason: Constipation Last Admin: 05/22/17 23:05 Dose: 20 gm Levetiracetam (Keppra) 750 mg NG BID [facility] Last Admin: 05/26/17 17:13 Dose: 750 mg Multivitamins (Hexavitamin) 1 tab PO Q24H [facility] Last Admin: 05/26/17 13:43 Dose: 1 tab Pantoprazole Sodium (Protonix Susp) 40 mg PO 0600 [facility] Last Admin: 05/26/17 05:22 Dose: 40 mg Polyethylene Glycol (Miralax) 17 gm GT DAILY [facility] Last Admin: 05/26/17 10:10 Dose: Not Given Zinc Sulfate (Zinc Sulfate 220 Mg Cap) 220 mg PO DAILY@1300 [facility] Last Admin: 05/26/17 13:45 Dose: 220 mg - Labs Labs: 05/26/17 06:07 05/26/17 06:07 PT 15.1 SECONDS (9.7-12.2) H 05/09/17 17:57 INR 1.3 05/09/17 17:57 APTT 35 SECONDS (21-34) H 05/09/17 17:57 Assessment and Plan - Assessment and Plan (Free Text) Assessment: This is a 57F with PMH early onset dementia, seizures, and questionable asthma who was brought to the ED via EMS from her retirement, [facility], where she was witnessed cardiopulmonary arrest. EMS intubated the patient in the field. In the ED patient was having myoclonic jerks and code freeze was initiated. Patient remained intubated and patient was admitted to the ICU. As per her daughter and her her dementia started 7 years ago. Last two year she was in the NH, nonverbal,some days she is responsive/look at family members. As of 05/20/2017 she now has a trachesotmy and remains on mechanical ventilation. 1) Acute Respiratory failure s/p cardiopulmonary arrest 05/20: Pending a acceptance to a facility that will be able to care for patient 05/19: Now POD 2, abx were changed since there were positive + psedomonas growth in the culture - will be on cipro for total 7 day course 05/18: Now has tracheostomy. Remains on mechanical ventilation 05/17: Unfourtunately it appears patient now has anoxic brain injury and remains intubated and on mechanical ventilator There are plans for a trachostomy some time later today. I spoke with family at bedside who is aware of this. CT head 05/10 - New low attenuation in the right caudate nucleus head indicating possible acute/subacute infarct. Repeat Head Ct 05/12 - No evidence of significant interval change when compared to the previous study dated 05/10/2017. No evidence of acute intracranial bleeding On Aspirin s/p code freeze,continue duoneb d/w Daughter yesterday, full code, trach on Wednesday Wean as per critical care MD 2) Pneumonia 05/21: The WBC has decreased to 11 05/20: WBC still elevated, recheck blood and cultures 05/19: + growth of pseudomonas growth. 05/18: Remains on IV abx, recent culture shows pseudomonas 05/17: Blood cultures have been negative, there are repeat positives of + E coli from sputum/trach. On IV Aztreonam. 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 Now has trachoestomy and remain intubated oh mechanical ventilation. Blood pressure has been stable with systolic BPs in the 110s range. ASA 4) Seizure disorder, unspecified 05/21: Controlled at this time patient was taking Keppra and Lamotrigine switched to oral Keppra 5) History of Asthma Disposition: PENDING [facility] APPROVAL I will sign off. No cardiac recommendations at this time Thank you
[2017-05-27] MEDS: Albuterol-Ipratrop 3 mg / 0.5 (3 ml) UD INH SCH ×3 (01:29→14:33)
[2017-05-27] MEDS: White Petrolatum/Mineral Oil Ophth Oint(3.5 gm) OU SCH ×5 (04:00→18:01)
[2017-05-27 05:43] VITALS: BP 113/62; PULSE 82; RESP 15
--- NOTE | 2017-05-27 05:56 | CP.PCM.PN ---
<Haven Mcfarlane - Last Filed: 05/27/17 05:52> Subjective - Date & Time of Evaluation Date of Evaluation: 05/27/17 Time of Evaluation: 05:45 - Subjective Subjective: Medicine Note for Hospitalist Service - Dr. Finley Patient was seen and examined at bedside. Patient is unresponsive on MV support. Discharge delayed due to [facility] placement and approval. Will speak to case management. Objective - Vital Signs/Intake and Output Vital Signs (last 24 hours): Temp Pulse Resp BP Pulse Ox 98.0 F 82 15 113/62 100 05/27/17 04:00 05/27/17 04:02 05/27/17 04:02 05/27/17 04:02 05/27/17 04:02 - Medications Medications: Current Medications Acetaminophen (Tylenol 650mg/20.3ml Solution Ud) 975 mg PEG Q6 PRN PRN Reason: Rigors Last Admin: 05/24/17 10:41 Dose: 650 mg Albuterol/Ipratropium (Duoneb 3 Mg/0.5 Mg (3 Ml) Ud) 3 ml INH RQ6 [facility] Last Admin: 05/27/17 01:29 Dose: 3 ml Artificial Tears (Lacri-Lube) 0 gm OU Q4 [facility] Last Admin: 05/26/17 20:00 Dose: 3.5 gm Ascorbic Acid (Vitamin C 500 Mg Tab) 500 mg PO DAILY [facility] Last Admin: 05/26/17 09:48 Dose: 500 mg Aspirin (Aspirin Chewable) 81 mg PEG DAILY [facility] Last Admin: 05/26/17 10:08 Dose: 81 mg Enoxaparin Sodium (Lovenox) 40 mg SC DAILY [facility] Last Admin: 05/26/17 09:48 Dose: 40 mg Lactulose (Enulose) 20 gm NG HS PRN PRN Reason: Constipation Last Admin: 05/22/17 23:05 Dose: 20 gm Levetiracetam (Keppra) 750 mg NG BID [facility] Last Admin: 05/26/17 17:13 Dose: 750 mg Multivitamins (Hexavitamin) 1 tab PO Q24H [facility] Last Admin: 05/26/17 13:43 Dose: 1 tab Pantoprazole Sodium (Protonix Susp) 40 mg PO 0600 [facility] Last Admin: 05/26/17 05:22 Dose: 40 mg Polyethylene Glycol (Miralax) 17 gm GT DAILY [facility] Last Admin: 05/26/17 10:10 Dose: Not Given Zinc Sulfate (Zinc Sulfate 220 Mg Cap) 220 mg PO DAILY@1300 [facility] Last Admin: 05/26/17 13:45 Dose: 220 mg - Labs Labs: 05/26/17 06:07 05/26/17 06:07 PT 15.1 SECONDS (9.7-12.2) H 05/09/17 17:57 INR 1.3 05/09/17 17:57 APTT 35 SECONDS (21-34) H 05/09/17 17:57 - Additional Findings Additional findings: - Constitutional Appears: Chronically Ill - Eye Exam Eye Exam: absent: Normal appearance (eye opended) - Neck Exam Neck Exam: absent: Full ROM (trach) - Respiratory Exam Respiratory Exam: Clear to Ausculation Bilateral - Cardiovascular Exam Cardiovascular Exam: REGULAR RHYTHM - GI/Abdominal Exam GI & Abdominal Exam: Soft - Extremities Exam Extremities Exam: absent: Full ROM (unresponsive) - Neurological Exam Neurological Exam: absent: Awake (unresponsive) - Psychiatric Exam Psychiatric exam: Normal Mood - Skin Skin Exam: Dry Assessment and Plan - Assessment and Plan (Free Text) Plan: This is a 57F with PMH early onset dementia, seizures, and questionable asthma who was brought to the ED via EMS from [facility] where she was witnessed cardiopulmonary arrest. EMS intubated the patient in the field. In the ED patient was having myoclonic jerks and code freeze was initiated. Patient remained intubated and patient was admitted to the ICU. As per her daughter and her her dementia started 7 years ago. Last two year she was in the NH, nonverbal,some days she is responsive/look at family members. As of 05/20/2017 she now has a trachesotmy and remains on mechanical ventilation. 1) Acute Respiratory failure s/p cardiopulmonary arrest 05/20: Pending a acceptance to a facility that will be able to care for patient 05/19: Now POD 2, abx were changed since there were positive + psedomonas growth in the culture - will be on cipro for total 7 day course 05/18: Now has tracheostomy. Remains on mechanical ventilation 05/17: Unfourtunately it appears patient now has anoxic brain injury and remains intubated and on mechanical ventilator There are plans for a trachostomy some time later today. I spoke with family at bedside who is aware of this. CT head 05/10 - New low attenuation in the right caudate nucleus head indicating possible acute/subacute infarct. Repeat Head Ct 05/12 - No evidence of significant interval change when compared to the previous study dated 05/10/2017. No evidence of acute intracranial bleeding On Aspirin s/p code freeze,continue duoneb d/w Daughter yesterday, full code, trach on Wednesday Wean as per critical care MD 2) Pneumonia 05/21: The WBC has decreased to 11 05/20: WBC still elevated, recheck blood and cultures 05/19: + growth of pseudomonas growth. 05/18: Remains on IV abx, recent culture shows pseudomonas 05/17: Blood cultures have been negative, there are repeat positives of + E coli from sputum/trach. On IV Aztreonam. 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 Now has trachoestomy and remain intubated oh mechanical ventilation. Blood pressure has been stable with systolic BPs in the 110s range. ASA 4) Seizure disorder, unspecified 05/21: Controlled at this time patient was taking Keppra and Lamotrigine switched to oral Keppra 5) History of Asthma Disposition: PENDING [place] APPROVAL <Jillian Quiles - Last Filed: 05/28/17 10:07> Objective - Vital Signs/Intake and Output Vital Signs (last 24 hours): Temp Pulse Resp BP Pulse Ox 97.4 F L 82 15 113/62 100 05/27/17 12:00 05/27/17 04:02 05/27/17 04:02 05/27/17 04:02 05/27/17 04:02 - Labs Labs: 05/27/17 06:20 05/27/17 06:20 PT 15.1 SECONDS (9.7-12.2) H 05/09/17 17:57 INR 1.3 05/09/17 17:57 APTT 35 SECONDS (21-34) H 05/09/17 17:57 Attending/Attestation - Attestation I have personally seen and examined this patient.: Yes I have fully participated in the care of the patient.: Yes I have reviewed all pertinent clinical information, including history, physical exam and plan: Yes Notes (Text): Donn was seen and examined, I agree with the documentation of the assessment and the plan 05/28/17 10:06
[2017-05-27 06:30] LABS: BASO # 0.1 K/uL (0.0-0.2); BASO % 0.7 % (0.0-2.0); EOS # 0.3 K/uL (0.0-0.7); EOS % 4.4 % (0.0-4.0); LYMPH # 1.6 K/uL (1.0-4.3); LYMPH % 21.8 % (20.0-40.0); MEAN CELL VOLUME 86.1 fL (81.0-99.0); MEAN CORPUSCULAR HEMOGLOBIN 29.1 pg (27.0-31.0); MEAN CORPUSCULAR HGB CONC 33.9 g/dL (33.0-37.0); MEAN PLATELET VOLUME 7.6 fL (7.2-11.7); MONO # 0.4 K/uL (0.0-0.8); MONO % 5.7 % (0.0-10.0); NRBC % 0.1 % (0.0-2.0); RED CELL DISTRIBUTION WIDTH 14.5 % (11.5-14.5); WHITE BLOOD COUNT 7.4 K/uL (4.8-10.8)
[2017-05-27] MEDS: Pantoprazole 40 mg Susp UD PO SCH (06:31)
[2017-05-27 06:45] LABS: ALB/GLOB RATIO 1.2 (1.0-2.1); ALKALINE PHOSPHATASE 153 U/L (38-126); ALT/SGPT 72 U/L (9-52); AST/SGOT 71 U/L (14-36); BILIRUBIN,TOTAL 0.5 mg/dL (0.2-1.3); BLOOD UREA NITROGEN 15 mg/dL (7-17); CARBON DIOXIDE 31 mmol/L (22-30); CHLORIDE 101 mmol/L (98-107); GFR AFRICAN-AMERICAN > 60; GLUCOSE,RANDOM 93 mg/dL (65-105); MAGNESIUM 1.8 mg/dL (1.6-2.3); PHOSPHOROUS 4.1 mg/dL (2.5-4.5); POTASSIUM 3.8 mmol/L (3.6-5.2); SODIUM 139 mmol/L (132-148); TOTAL PROTEIN 6.5 g/dL (6.3-8.3)
[2017-05-27] MEDS: levETIRAcetam 100 mg/ml (5ml) Oral Syringe NG SCH ×2 (10:09→18:00)
[2017-05-27] MEDS: POLYETHYLENE GLYCOL 3350 17 GM/Dose PACKET GT SCH (10:10)
[2017-05-27] MEDS: Enoxaparin 40 mg Syringe SC SCH (10:11)
[2017-05-27] MEDS: Multiple Vitamins Tab PO SCH (13:34)
[2017-05-27 15:22] VITALS: TEMP 97.4
--- NOTE | 2017-05-29 16:59 | CP.PCM.PN ---
Subjective - Date & Time of Evaluation Date of Evaluation: 05/17/17 Time of Evaluation: 08:00 - Subjective Subjective: Patient seen and evaluated No improvement in clinical status Physical Examination - Head Exam Head Exam: ATRAUMATIC - Eye Exam Eye Exam: Normal appearance - ENT Exam ENT Exam: Mucous Membranes Moist - Respiratory Exam Respiratory Exam: Clear to Ausculation Bilateral - Cardiovascular Exam Cardiovascular Exam: REGULAR RHYTHM - GI/Abdominal Exam GI & Abdominal Exam: Soft, Normal Bowel Sounds - Exam External exam: NORMAL EXTERNAL EXAM - Back Exam Back Exam: NORMAL INSPECTION - Neurological Exam Neurological Exam: absent: Alert - Psychiatric Exam Psychiatric exam: absent: Normal Mood - Skin Skin Exam: Dry Objective - Vital Signs/Intake and Output Vital Signs (last 24 hours): Temp Pulse Resp BP Pulse Ox 97.4 F L 82 15 113/62 100 05/27/17 12:00 05/27/17 04:02 05/27/17 04:02 05/27/17 04:02 05/27/17 04:02 - Labs Labs: 05/27/17 06:20 05/27/17 06:20 PT 15.1 SECONDS (9.7-12.2) H 05/09/17 17:57 INR 1.3 05/09/17 17:57 APTT 35 SECONDS (21-34) H 05/09/17 17:57 Assessment and Plan - Assessment and Plan (Free Text) Assessment: This is a 57F with PMH early onset dementia, seizures, and questionable asthma who was brought to the ED via EMS from her [facility], [facility], where she was witnessed cardiopulmonary arrest. EMS intubated the patient in the field.At ED patient was having myoclonic jerks and code freeze was initiated. Patient remained intubated and patient was admitted to the ICU. Her dementia started 7 years ago.Last two year she was in the NH,nonverbal,some days she is responsive/look at family members Plan: 1) s/p cardiopulmonary arrest Intubated and remain on Vent support,comatose Abnormal CT brain .Repeat CT acute/subacute infarct asprin added d/w Dr Hidalgo.Patient has poor prognosis, Brain changes could be due anoxia brain injury s/p code freeze,continue solumedrol and duoneb D/W at bedside.We will talk to her daughter again palliative care consult Continue asprin 2) Pneumonia and elevated wbc follow cultures Continue Aztrenonam and Vancomcyin continue duoneb and steroid 3) History of early onset dementia starting 5 years ago as per daughter 4) Seizure disorder, unspecified patient was taking Keppra and Lamotrigine On Keppra 750mg IVQ12H 5) History of Asthma 6) DVT and GI prophylasix protonix and lovenox
--- NOTE | 2017-05-29 17:00 | CP.PCM.PN ---
Subjective - Date & Time of Evaluation Date of Evaluation: 05/19/17 Time of Evaluation: 07:05 - Subjective Subjective: Patient seen and evaluated No new events noted Physical Examination - Head Exam Head Exam: ATRAUMATIC - Eye Exam Eye Exam: Normal appearance - ENT Exam ENT Exam: Mucous Membranes Moist - Respiratory Exam Respiratory Exam: Clear to Ausculation Bilateral - Cardiovascular Exam Cardiovascular Exam: REGULAR RHYTHM - GI/Abdominal Exam GI & Abdominal Exam: Soft, Normal Bowel Sounds - Exam External exam: NORMAL EXTERNAL EXAM - Back Exam Back Exam: NORMAL INSPECTION - Neurological Exam Neurological Exam: absent: Alert - Psychiatric Exam Psychiatric exam: absent: Normal Mood - Skin Skin Exam: Dry Objective - Vital Signs/Intake and Output Vital Signs (last 24 hours): Temp Pulse Resp BP Pulse Ox 97.4 F L 82 15 113/62 100 05/27/17 12:00 05/27/17 04:02 05/27/17 04:02 05/27/17 04:02 05/27/17 04:02 - Labs Labs: 05/27/17 06:20 05/27/17 06:20 PT 15.1 SECONDS (9.7-12.2) H 05/09/17 17:57 INR 1.3 05/09/17 17:57 APTT 35 SECONDS (21-34) H 05/09/17 17:57 Assessment and Plan - Assessment and Plan (Free Text) Assessment: This is a 57F with PMH early onset dementia, seizures, and questionable asthma who was brought to the ED via EMS from her fpc, [facility], where she was witnessed cardiopulmonary arrest. EMS intubated the patient in the field.At ED patient was having myoclonic jerks and code freeze was initiated. Patient remained intubated and patient was admitted to the ICU. Her dementia started 7 years ago.Last two year she was in the NH,nonverbal,some days she is responsive/look at family members Plan: 1) s/p cardiopulmonary arrest Intubated and remain on Vent support,comatose Abnormal CT brain .Repeat CT acute/subacute infarct asprin added d/w Dr Hidalgo.Patient has poor prognosis, Brain changes could be due anoxia brain injury s/p code freeze,continue solumedrol and duoneb D/W at bedside.We will talk to her daughter again palliative care consult Continue asprin 2) Pneumonia and elevated wbc follow cultures Continue Aztrenonam and Vancomcyin continue duoneb and steroid 3) History of early onset dementia starting 5 years ago as per daughter 4) Seizure disorder, unspecified patient was taking Keppra and Lamotrigine On Keppra 750mg IVQ12H 5) History of Asthma 6) DVT and GI prophylasix protonix and lovenox
--- NOTE | 2017-05-29 17:01 | CP.PCM.PN ---
Subjective - Date & Time of Evaluation Date of Evaluation: 05/20/17 Time of Evaluation: 13:05 - Subjective Subjective: Patient seen and evaluated Not in distress Physical Examination - Head Exam Head Exam: ATRAUMATIC - Eye Exam Eye Exam: Normal appearance - ENT Exam ENT Exam: Mucous Membranes Moist - Respiratory Exam Respiratory Exam: Clear to Ausculation Bilateral - Cardiovascular Exam Cardiovascular Exam: REGULAR RHYTHM - GI/Abdominal Exam GI & Abdominal Exam: Soft, Normal Bowel Sounds - Exam External exam: NORMAL EXTERNAL EXAM - Back Exam Back Exam: NORMAL INSPECTION - Neurological Exam Neurological Exam: absent: Alert - Psychiatric Exam Psychiatric exam: absent: Normal Mood - Skin Skin Exam: Dry Objective - Vital Signs/Intake and Output Vital Signs (last 24 hours): Temp Pulse Resp BP Pulse Ox 97.4 F L 82 15 113/62 100 05/27/17 12:00 05/27/17 04:02 05/27/17 04:02 05/27/17 04:02 05/27/17 04:02 - Labs Labs: 05/27/17 06:20 05/27/17 06:20 PT 15.1 SECONDS (9.7-12.2) H 05/09/17 17:57 INR 1.3 05/09/17 17:57 APTT 35 SECONDS (21-34) H 05/09/17 17:57 Assessment and Plan - Assessment and Plan (Free Text) Assessment: This is a 57F with PMH early onset dementia, seizures, and questionable asthma who was brought to the ED via EMS from her long term, [facility], where she was witnessed cardiopulmonary arrest. EMS intubated the patient in the field.At ED patient was having myoclonic jerks and code freeze was initiated. Patient remained intubated and patient was admitted to the ICU. Her dementia started 7 years ago.Last two year she was in the NH,nonverbal,some days she is responsive/look at family members Plan: 1) s/p cardiopulmonary arrest Intubated and remain on Vent support,comatose Abnormal CT brain .Repeat CT acute/subacute infarct asprin added d/w Dr Hidalgo.Patient has poor prognosis, Brain changes could be due anoxia brain injury s/p code freeze,continue solumedrol and duoneb D/W at bedside.We will talk to her daughter again palliative care consult Continue asprin 2) Pneumonia and elevated wbc follow cultures Continue Aztrenonam and Vancomcyin continue duoneb and steroid 3) History of early onset dementia starting 5 years ago as per daughter 4) Seizure disorder, unspecified patient was taking Keppra and Lamotrigine On Keppra 750mg IVQ12H 5) History of Asthma 6) DVT and GI prophylasix protonix and lovenox
--- NOTE | 2017-05-29 17:02 | CP.PCM.PN ---
Subjective - Date & Time of Evaluation Date of Evaluation: 05/21/17 Time of Evaluation: 07:30 - Subjective Subjective: Patient seen and evaluated On Mechanical ventilation No new cardiac events noted Physical Examination - Head Exam Head Exam: ATRAUMATIC - Eye Exam Eye Exam: Normal appearance - ENT Exam ENT Exam: Mucous Membranes Moist - Respiratory Exam Respiratory Exam: Clear to Ausculation Bilateral - Cardiovascular Exam Cardiovascular Exam: REGULAR RHYTHM - GI/Abdominal Exam GI & Abdominal Exam: Soft, Normal Bowel Sounds - Exam External exam: NORMAL EXTERNAL EXAM - Back Exam Back Exam: NORMAL INSPECTION - Neurological Exam Neurological Exam: absent: Alert - Psychiatric Exam Psychiatric exam: absent: Normal Mood - Skin Skin Exam: Dry Objective - Vital Signs/Intake and Output Vital Signs (last 24 hours): Temp Pulse Resp BP Pulse Ox 97.4 F L 82 15 113/62 100 05/27/17 12:00 05/27/17 04:02 05/27/17 04:02 05/27/17 04:02 05/27/17 04:02 - Labs Labs: 05/27/17 06:20 05/27/17 06:20 PT 15.1 SECONDS (9.7-12.2) H 05/09/17 17:57 INR 1.3 05/09/17 17:57 APTT 35 SECONDS (21-34) H 05/09/17 17:57 Assessment and Plan - Assessment and Plan (Free Text) Assessment: This is a 57F with PMH early onset dementia, seizures, and questionable asthma who was brought to the ED via EMS from her usp, [facility], where she was witnessed cardiopulmonary arrest. EMS intubated the patient in the field.At ED patient was having myoclonic jerks and code freeze was initiated. Patient remained intubated and patient was admitted to the ICU. Her dementia started 7 years ago.Last two year she was in the NH,nonverbal,some days she is responsive/look at family members Plan: 1) s/p cardiopulmonary arrest Intubated and remain on Vent support,comatose Abnormal CT brain .Repeat CT acute/subacute infarct asprin added d/w Dr Hidalgo.Patient has poor prognosis, Brain changes could be due anoxia brain injury s/p code freeze,continue solumedrol and duoneb D/W at bedside.We will talk to her daughter again palliative care consult Continue asprin 2) Pneumonia and elevated wbc follow cultures Continue Aztrenonam and Vancomcyin continue duoneb and steroid 3) History of early onset dementia starting 5 years ago as per daughter 4) Seizure disorder, unspecified patient was taking Keppra and Lamotrigine On Keppra 750mg IVQ12H 5) History of Asthma 6) DVT and GI prophylasix protonix and lovenox
--- NOTE | 2017-05-29 17:03 | CP.PCM.PN ---
Subjective - Date & Time of Evaluation Date of Evaluation: 05/22/17 Time of Evaluation: 17:00 - Subjective Subjective: Patient seen and evaluated Not in distress Physical Examination - Head Exam Head Exam: ATRAUMATIC - Eye Exam Eye Exam: Normal appearance - ENT Exam ENT Exam: Mucous Membranes Moist - Respiratory Exam Respiratory Exam: Clear to Ausculation Bilateral - Cardiovascular Exam Cardiovascular Exam: REGULAR RHYTHM - GI/Abdominal Exam GI & Abdominal Exam: Soft, Normal Bowel Sounds - Exam External exam: NORMAL EXTERNAL EXAM - Back Exam Back Exam: NORMAL INSPECTION - Neurological Exam Neurological Exam: absent: Alert - Psychiatric Exam Psychiatric exam: absent: Normal Mood - Skin Skin Exam: Dry Objective - Vital Signs/Intake and Output Vital Signs (last 24 hours): Temp Pulse Resp BP Pulse Ox 97.4 F L 82 15 113/62 100 05/27/17 12:00 05/27/17 04:02 05/27/17 04:02 05/27/17 04:02 05/27/17 04:02 - Labs Labs: 05/27/17 06:20 05/27/17 06:20 PT 15.1 SECONDS (9.7-12.2) H 05/09/17 17:57 INR 1.3 05/09/17 17:57 APTT 35 SECONDS (21-34) H 05/09/17 17:57 Assessment and Plan - Assessment and Plan (Free Text) Assessment: This is a 57F with PMH early onset dementia, seizures, and questionable asthma who was brought to the ED via EMS from her [facility], [facility], where she was witnessed cardiopulmonary arrest. EMS intubated the patient in the field.At ED patient was having myoclonic jerks and code freeze was initiated. Patient remained intubated and patient was admitted to the ICU. Her dementia started 7 years ago.Last two year she was in the NH,nonverbal,some days she is responsive/look at family members Plan: 1) s/p cardiopulmonary arrest Intubated and remain on Vent support,comatose Abnormal CT brain .Repeat CT acute/subacute infarct asprin added d/w Dr Hidalgo.Patient has poor prognosis, Brain changes could be due anoxia brain injury s/p code freeze,continue solumedrol and duoneb D/W at bedside.We will talk to her daughter again palliative care consult Continue asprin 2) Pneumonia and elevated wbc follow cultures Continue Aztrenonam and Vancomcyin continue duoneb and steroid 3) History of early onset dementia starting 5 years ago as per daughter 4) Seizure disorder, unspecified patient was taking Keppra and Lamotrigine On Keppra 750mg IVQ12H 5) History of Asthma 6) DVT and GI prophylasix protonix and lovenox
--- NOTE | 2017-05-29 17:04 | CP.PCM.PN ---
Subjective - Date & Time of Evaluation Date of Evaluation: 05/24/17 Time of Evaluation: 17:03 - Subjective Subjective: Patient seen and evaluated On Mechanical ventilation Physical Examination - Head Exam Head Exam: ATRAUMATIC - Eye Exam Eye Exam: Normal appearance - ENT Exam ENT Exam: Mucous Membranes Moist - Respiratory Exam Respiratory Exam: Clear to Ausculation Bilateral - Cardiovascular Exam Cardiovascular Exam: REGULAR RHYTHM - GI/Abdominal Exam GI & Abdominal Exam: Soft, Normal Bowel Sounds - Exam External exam: NORMAL EXTERNAL EXAM - Back Exam Back Exam: NORMAL INSPECTION - Neurological Exam Neurological Exam: absent: Alert - Psychiatric Exam Psychiatric exam: absent: Normal Mood - Skin Skin Exam: Dry Objective - Vital Signs/Intake and Output Vital Signs (last 24 hours): Temp Pulse Resp BP Pulse Ox 97.4 F L 82 15 113/62 100 05/27/17 12:00 05/27/17 04:02 05/27/17 04:02 05/27/17 04:02 05/27/17 04:02 - Labs Labs: 05/27/17 06:20 05/27/17 06:20 PT 15.1 SECONDS (9.7-12.2) H 05/09/17 17:57 INR 1.3 05/09/17 17:57 APTT 35 SECONDS (21-34) H 05/09/17 17:57 Assessment and Plan - Assessment and Plan (Free Text) Assessment: This is a 57F with PMH early onset dementia, seizures, and questionable asthma who was brought to the ED via EMS from her prison, [facility], where she was witnessed cardiopulmonary arrest. EMS intubated the patient in the field.At ED patient was having myoclonic jerks and code freeze was initiated. Patient remained intubated and patient was admitted to the ICU. Her dementia started 7 years ago.Last two year she was in the NH,nonverbal,some days she is responsive/look at family members Plan: 1) s/p cardiopulmonary arrest Intubated and remain on Vent support,comatose Abnormal CT brain .Repeat CT acute/subacute infarct asprin added d/w Dr Hidalgo.Patient has poor prognosis, Brain changes could be due anoxia brain injury s/p code freeze,continue solumedrol and duoneb D/W at bedside.We will talk to her daughter again palliative care consult Continue asprin 2) Pneumonia and elevated wbc follow cultures Continue Aztrenonam and Vancomcyin continue duoneb and steroid 3) History of early onset dementia starting 5 years ago as per daughter 4) Seizure disorder, unspecified patient was taking Keppra and Lamotrigine On Keppra 750mg IVQ12H 5) History of Asthma 6) DVT and GI prophylasix protonix and lovenox
--- NOTE | 2017-05-29 17:05 | CP.PCM.PN ---
Subjective - Date & Time of Evaluation Date of Evaluation: 05/25/17 Time of Evaluation: 17:04 - Subjective Subjective: Patient seen and evaluated Not in distress No improvement in clinical condition Physical Examination - Head Exam Head Exam: ATRAUMATIC - Eye Exam Eye Exam: Normal appearance - ENT Exam ENT Exam: Mucous Membranes Moist - Respiratory Exam Respiratory Exam: Clear to Ausculation Bilateral - Cardiovascular Exam Cardiovascular Exam: REGULAR RHYTHM - GI/Abdominal Exam GI & Abdominal Exam: Soft, Normal Bowel Sounds - Exam External exam: NORMAL EXTERNAL EXAM - Back Exam Back Exam: NORMAL INSPECTION - Neurological Exam Neurological Exam: absent: Alert - Psychiatric Exam Psychiatric exam: absent: Normal Mood - Skin Skin Exam: Dry Objective - Vital Signs/Intake and Output Vital Signs (last 24 hours): Temp Pulse Resp BP Pulse Ox 97.4 F L 82 15 113/62 100 05/27/17 12:00 05/27/17 04:02 05/27/17 04:02 05/27/17 04:02 05/27/17 04:02 - Labs Labs: 05/27/17 06:20 05/27/17 06:20 PT 15.1 SECONDS (9.7-12.2) H 05/09/17 17:57 INR 1.3 05/09/17 17:57 APTT 35 SECONDS (21-34) H 05/09/17 17:57 Assessment and Plan - Assessment and Plan (Free Text) Assessment: This is a 57F with PMH early onset dementia, seizures, and questionable asthma who was brought to the ED via EMS from her [facility], [facility], where she was witnessed cardiopulmonary arrest. EMS intubated the patient in the field.At ED patient was having myoclonic jerks and code freeze was initiated. Patient remained intubated and patient was admitted to the ICU. Her dementia started 7 years ago.Last two year she was in the NH,nonverbal,some days she is responsive/look at family members Plan: 1) s/p cardiopulmonary arrest Intubated and remain on Vent support,comatose Abnormal CT brain .Repeat CT acute/subacute infarct asprin added d/w Dr Hidalgo.Patient has poor prognosis, Brain changes could be due anoxia brain injury s/p code freeze,continue solumedrol and duoneb D/W at bedside.We will talk to her daughter again palliative care consult Continue asprin 2) Pneumonia and elevated wbc follow cultures Continue Aztrenonam and Vancomcyin continue duoneb and steroid 3) History of early onset dementia starting 5 years ago as per daughter 4) Seizure disorder, unspecified patient was taking Keppra and Lamotrigine On Keppra 750mg IVQ12H 5) History of Asthma 6) DVT and GI prophylasix protonix and lovenox
== END 2017-05-27 18:46 | DRG 878 ==
LOC: C.ER 06:55 → C.9E 08:14 → C.9I 14:13
PROVIDERS: ADMIT Internal Medicine; ATTEND Internal Medicine
PROC: 5A1955Z Respiratory Ventilation, Greater than 96 Consecutive Hours (ICD-10-PCS; 2017-05-08)
PROC: 6A4Z1ZZ Hypothermia, Multiple (ICD-10-PCS; 2017-05-08)
PROC: 02HV33Z Insertion of Infusion Device into Superior Vena Cava, Percutaneous Approach (ICD-10-PCS; 2017-05-09)
PROC: 0B113F4 Bypass Trachea to Cutaneous with Tracheostomy Device, Percutaneous Approach (ICD-10-PCS; principal; 2017-05-17 09:00)
DX: I63.8 Other cerebral infarction (principal); I46.9 Cardiac arrest, cause unspecified; R40.20 Unspecified coma; R65.20 Severe sepsis without septic shock; A41.9 Sepsis, unspecified organism; G93.1 Anoxic brain damage, not elsewhere classified; G82.50 Quadriplegia, unspecified; J18.9 Pneumonia, unspecified organism; J96.01 Acute respiratory failure with hypoxia; Z99.11 Dependence on respirator [ventilator] status; J45.902 Unspecified asthma with status asthmaticus; J44.9 Chronic obstructive pulmonary disease, unspecified; G40.409 Other generalized epilepsy and epileptic syndromes, not intractable, without status epilepticus; G30.9 Alzheimer's disease, unspecified; F02.80 Dementia in other diseases classified elsewhere, unspecified severity, without behavioral disturbance, psychotic disturbance, mood disturbance, and anxiety; Z93.1 Gastrostomy status; Z74.01 Bed confinement status; Z88.0 Allergy status to penicillin; Z66 Do not resuscitate; Z51.5 Encounter for palliative care